=== PATIENT | female | born 1950 | race Caucasian/White ===

== ENCOUNTER → 2016-07-30 | Outpatient (CLI) | payer OTHER ==
--- NOTE | 2016-07-30 17:29 | REPMRS ---
Patient History The patient states she has not had a clinical breast exam in over a year. Patient is postmenopausal. No known family history of cancer. Digital Woman Screen Mammo: July 30, 2016 - Exam #: [id number] Bilateral CC and MLO view(s) were taken. Technologist: Dee Dee Tao, Technologist No prior studies available for comparison. FINDINGS: There are scattered fibroglandular densities. There is no evidence of dominant mass, architectural distortion, or clustered microcalcification typical of malignancy. ASSESSMENT: BI-RADS/ACR category 1 mammogram. Negative. Recommendation Routine screening mammogram of both breasts in 1 year (for women over age 40). This mammogram was interpreted with the aid of an FDA-approved computer-aided dectection system. Electronically Signed By: Arsh Murphy MD 07/30/16 [id number]
== END ==
LOC: M WHC 11:23
PROVIDERS: ATTEND Physician Assistant
DX: Z12.31 Encounter for screening mammogram for malignant neoplasm of breast (principal)

== ENCOUNTER → 2016-08-27 | Outpatient (CLI) | payer OTHER ==
[~2016-08-27] VITALS: Ht 167.6 cm; Wt 68.0 kg
[~2016-08-27] MED LIST: LIDOCAINE 2% INJ 100 MG/5 ML SDV (FOR ANES.) As Ordered ONE; NS 1,000 ML IV SCH; OCUVTAB4 PO; PROPOFOL 200 MG/20 ML VIAL As Ordered ONE; SYST1SOL OU; XANA2TAB2 PO
--- NOTE | 2016-08-27 11:24 | ROOR ---
Patient Name: Torri Awan Procedure Date: 08/27/2016 11:02 AM Date of : 1950 Age: 65 Room: [facility] Gender: Female Note Status: Finalized Procedure: Upper GI endoscopy Indications: Heartburn Providers: Kunal DOUGLASS MD Referring MD: ZAY Marc Requesting Provider: Medicines: Monitored Anesthesia Care Complications: No immediate complications. Procedure: Pre-Anesthesia Assessment: - The heart rate, respiratory rate, oxygen saturations, blood pressure, adequacy of pulmonary ventilation, and response to care were monitored throughout the procedure. The Endoscope was introduced through the mouth, and advanced to the second part of duodenum. The upper GI endoscopy was accomplished without difficulty. The patient tolerated the procedure well. Findings: There were esophageal mucosal changes consistent with short-segment Lees's esophagus present in the lower third of the esophagus. The maximum longitudinal extent of these mucosal changes was 2 cm in length. Mucosa was biopsied with a cold forceps for histology randomly from 34 to 36 cm from the incisors. A total of 2 specimen bottles were sent to pathology. Small Hiatal Hernia. The exam was otherwise without abnormality. Impression: - Esophageal mucosal changes consistent with short-segment Lees's esophagus. Biopsied. - Small Hiatal Hernia. - The examination was otherwise normal. Recommendation: - Use Prilosec (omeprazole) 40 mg PO BID indefinitely. (for Barretts esophagus) - Script was sent to your pharmacy - Telephone endoscopist for pathology results in 2 weeks. - Repeat upper endoscopy in 3 years for surveillance. Kunal Douglass MD Kunal DOUGLASS MD 08/27/2016 11:23:39 AM This report has been signed electronically. Number of Addenda: 0 Note Initiated On: 08/27/2016 11:02 AM Estimated Blood Loss: Estimated blood loss: none.
--- NOTE | 2016-08-27 11:49 | ROOR ---
Patient Name: Torri Awan Procedure Date: 08/27/2016 11:03 AM Date of : 1950 Age: 65 Room: [facility] Gender: Female Note Status: Finalized Procedure: Colonoscopy Indications: Screening for colorectal malignant neoplasm Providers: Kunal DOUGLASS MD Referring MD: ZAY Marc Requesting Provider: Medicines: Monitored Anesthesia Care Complications: No immediate complications. Procedure: Pre-Anesthesia Assessment: - The heart rate, respiratory rate, oxygen saturations, blood pressure, adequacy of pulmonary ventilation, and response to care were monitored throughout the procedure. The Colonoscope was introduced through the anus and advanced to the cecum, identified by appendiceal orifice and ileocecal valve. The colonoscopy was performed without difficulty. The patient tolerated the procedure well. The quality of the bowel preparation was good. Findings: The perianal and digital rectal examinations were normal. (Exam: Complete, Prep: Good or Excellent.) Five sessile polyps were found in the sigmoid colon, splenic flexure and ascending colon. The polyps were diminutive in size. These polyps were removed with a cold snare. Resection and retrieval were complete. Multiple small-mouthed diverticula were found in the sigmoid colon and descending colon. There was evidence of diverticular spasm. Small Internal Hemorrhoids. The exam was otherwise without abnormality. Impression: - Five diminutive polyps in the sigmoid, at the splenic flexure and ascending colon, removed with a cold snare. Resected and retrieved. - Moderate diverticulosis in the sigmoid colon and in the descending colon. There was evidence of diverticular spasm. - Small Internal Hemorrhoids. - The examination was otherwise normal. Recommendation: - Telephone endoscopist for pathology results in 2 weeks. - If the pathology report reveals adenomatous tissue, then repeat the colonoscopy for surveillance in 3 years. - If the pathology report indicates hyperplastic polyp, then repeat colonoscopy for screening purposes in 10 years. Kunal Douglass MD Kunal DOUGLASS MD 08/27/2016 11:49:04 AM This report has been signed electronically. Number of Addenda: 0 Note Initiated On: 08/27/2016 11:03 AM Estimated Blood Loss: Estimated blood loss: none.
[2016-08-27 12:15] VITALS: BP 141/65
== END | disposition home or self-care (01) ==
LOC: M OPP 09:14
PROVIDERS: ATTEND Internal Medicine Gastroenterology
DX: Z12.11 Encounter for screening for malignant neoplasm of colon (principal); D12.5 Benign neoplasm of sigmoid colon; D12.3 Benign neoplasm of transverse colon; D12.2 Benign neoplasm of ascending colon; K57.30 Diverticulosis of large intestine without perforation or abscess without bleeding; K64.8 Other hemorrhoids; R13.10 Dysphagia, unspecified; R12 Heartburn; K44.9 Diaphragmatic hernia without obstruction or gangrene; K31.89 Other diseases of stomach and duodenum; M54.9 Dorsalgia, unspecified; F41.9 Anxiety disorder, unspecified; J44.9 Chronic obstructive pulmonary disease, unspecified; R06.02 Shortness of breath; H35.30 Unspecified macular degeneration; Z87.891 Personal history of nicotine dependence; Z88.5 Allergy status to narcotic agent; Z88.8 Allergy status to other drugs, medicaments and biological substances; Z88.1 Allergy status to other antibiotic agents; Z79.899 Other long term (current) drug therapy; Z80.7 Family history of other malignant neoplasms of lymphoid, hematopoietic and related tissues; Z80.1 Family history of malignant neoplasm of trachea, bronchus and lung; Z80.8 Family history of malignant neoplasm of other organs or systems

== ENCOUNTER → 2016-10-07 | Outpatient (REF) | payer OTHER ==
[~2016-10-07] MED LIST changes: -LIDOCAINE 2% INJ 100 MG/5 ML SDV (FOR ANES.) As Ordered ONE; -NS 1,000 ML IV SCH; -PROPOFOL 200 MG/20 ML VIAL As Ordered ONE
[2016-10-07 13:41] LABS: ALBUMIN 3.8 GM/DL (3.2-5.2); ALBUMIN/GLOBULIN RATIO 1.27 (1.00-1.93); ALKALINE PHOSPHATASE 87 U/L (45-117); ALT/SGPT 23 U/L (12-78); ANION GAP 5 MEQ/L (8-16); AST/SGOT 16 U/L (15-37); BILIRUBIN,TOTAL 0.6 MG/DL (0.2-1.0); BLOOD UREA NITROGEN 9 MG/DL (7-18); CALCIUM LEVEL 8.4 MG/DL (8.8-10.2); CARBON DIOXIDE LEVEL 29 MEQ/L (21-32); CHLORIDE LEVEL 99 MEQ/L (98-107); CHOLESTEROL LEVEL 195 MG/DL (<200); CREATININE FOR GFR 0.63 MG/DL (0.55-1.02); GLOMERULAR FILTRATION RATE > 60.0 (>45); GLUCOSE, FASTING 87 MG/DL (80-110); POTASSIUM SERUM 4.8 MEQ/L (3.5-5.1); SODIUM LEVEL 133 MEQ/L (136-145); TOTAL PROTEIN 6.8 GM/DL (6.4-8.2); TRIGLYCERIDES LEVEL 58 MG/DL (<150)
== END ==
LOC: M SFHCPLAZ 09:00
PROVIDERS: ATTEND Physician Assistant
DX: I10 Essential (primary) hypertension (principal); E78.4 Other hyperlipidemia; R53.83 Other fatigue; E55.9 Vitamin D deficiency, unspecified

== ENCOUNTER → 2016-10-11 | Outpatient (CLI) | payer OTHER ==
--- NOTE | 2016-10-12 04:56 | REP ---
Clinical: Lung screening. Follow-up. Comparison: 10/13/2015, 09/13/2014 Technique: Axial low-dose noncontrast images from the thoracic inlet to the upper abdomen using lung screening technique. Findings: The lung reyes are well-aerated. Subtle diffuse chronic interstitial changes and suspected mild early subpleural fibrosis remain relatively stable 07/12/2014. No pulmonary nodule or mass lesion is appreciated. No pleural effusion/reaction or pneumothorax. Tracheobronchial tree is patent. Impression: Lung-RADS category II-S. Chronic interstitial changes and suspected minimal early subpleural fibrosis with very subtle nodularity essentially unchanged from prior examination. Signed by Leif Garrido MD 10/12/2016 04:48 A
== END ==
LOC: M RAD 15:13
PROVIDERS: ATTEND Internal Medicine Pulmonary Disease
DX: R91.8 Other nonspecific abnormal finding of lung field (principal); J84.10 Pulmonary fibrosis, unspecified

== ENCOUNTER → 2017-01-12 | Outpatient (REF) | payer OTHER ==
[2017-01-12 18:20] LABS: ALBUMIN 3.7 GM/DL (3.2-5.2); ALBUMIN/GLOBULIN RATIO 1.09 (1.00-1.93); ALKALINE PHOSPHATASE 83 U/L (45-117); ALT/SGPT 29 U/L (12-78); ANION GAP 8 MEQ/L (8-16); AST/SGOT 14 U/L (15-37); BILIRUBIN,TOTAL 0.5 MG/DL (0.2-1.0); BLOOD UREA NITROGEN 14 MG/DL (7-18); CARBON DIOXIDE LEVEL 28 MEQ/L (21-32); CHLORIDE LEVEL 102 MEQ/L (98-107); CREATININE FOR GFR 0.74 MG/DL (0.55-1.02); GLOMERULAR FILTRATION RATE > 60.0 (>45); GLUCOSE, FASTING 113 MG/DL (80-110); SODIUM LEVEL 138 MEQ/L (136-145); TOTAL PROTEIN 7.1 GM/DL (6.4-8.2)
== END ==
LOC: M LABNEURO 15:22
PROVIDERS: ATTEND Physician Assistant
DX: E55.9 Vitamin D deficiency, unspecified (principal)

== ENCOUNTER → 2017-05-17 | Outpatient (REF) | payer OTHER ==
[2017-05-17 13:51] LABS: ALBUMIN/GLOBULIN RATIO 1.18 (1.00-1.93); ALKALINE PHOSPHATASE 71 U/L (45-117); ALT/SGPT 26 U/L (12-78); ANION GAP 6 MEQ/L (8-16); AST/SGOT 17 U/L (7-37); BILIRUBIN,TOTAL 0.7 MG/DL (0.2-1.0); BLOOD UREA NITROGEN 13 MG/DL (7-18); CALCIUM LEVEL 8.7 MG/DL (8.8-10.2); CARBON DIOXIDE LEVEL 29 MEQ/L (21-32); CHLORIDE LEVEL 100 MEQ/L (98-107); CHOLESTEROL LEVEL 225 MG/DL (<200); CHOLESTEROL RISK RATIO 2.227 (<5); CREATININE FOR GFR 0.72 MG/DL (0.55-1.02); GLOMERULAR FILTRATION RATE > 60.0 (>45); GLUCOSE, FASTING 108 MG/DL (70-100); HDL CHOLESTEROL 101 MG/DL (>40); LDL CHOLESTEROL 112.8 MG/DL (<100); NON-HDL-C 124 MG/DL; POTASSIUM SERUM 4.4 MEQ/L (3.5-5.1); SODIUM LEVEL 135 MEQ/L (136-145); TOTAL PROTEIN 7.4 GM/DL (6.4-8.2); TRIGLYCERIDES LEVEL 56 MG/DL (<150)
[2017-05-17 13:54] LABS: TOTAL 25(OH) VITAMIN D 76.4 NG/ML (30.0-100.0)
== END ==
LOC: M LABNEURO 08:32
DX: I10 Essential (primary) hypertension (principal); E78.4 Other hyperlipidemia; E55.9 Vitamin D deficiency, unspecified
CPT/HCPCS: 84443

== ENCOUNTER → 2017-08-05 | Outpatient (CLI) | payer OTHER | LOC: M WHC 14:33 | DX: Z12.31 Encounter for screening mammogram for malignant neoplasm of breast (principal); Z78.0 Asymptomatic menopausal state | CPT/HCPCS: 77067 ==

== ENCOUNTER → 2017-08-09 | Outpatient (REF) | payer OTHER ==
[2017-08-09 19:07] LABS: ANION GAP 7 MEQ/L (8-16); BLOOD UREA NITROGEN 10 MG/DL (7-18); CARBON DIOXIDE LEVEL 27 MEQ/L (21-32); CHLORIDE LEVEL 94 MEQ/L (98-107); CREATININE FOR GFR 0.72 MG/DL (0.55-1.30); GLOMERULAR FILTRATION RATE > 60.0 (>45); GLUCOSE, FASTING 88 MG/DL (70-100); POTASSIUM SERUM 4.5 MEQ/L (3.5-5.1); SODIUM LEVEL 128 MEQ/L (136-145)
== END ==
LOC: M LABNEURO 13:14
DX: I10 Essential (primary) hypertension (principal)
CPT/HCPCS: 80048

== ENCOUNTER → 2017-08-10 | Outpatient (REF) | payer OTHER ==
[2017-08-10 13:51] LABS: ANION GAP 6 MEQ/L (8-16); BLOOD UREA NITROGEN 12 MG/DL (7-18); CALCIUM LEVEL 9.1 MG/DL (8.8-10.2); CARBON DIOXIDE LEVEL 28 MEQ/L (21-32); CHLORIDE LEVEL 95 MEQ/L (98-107); CREATININE FOR GFR 0.68 MG/DL (0.55-1.30); GLOMERULAR FILTRATION RATE > 60.0 (>45); GLUCOSE, FASTING 91 MG/DL (70-100); SODIUM LEVEL 129 MEQ/L (136-145)
[2017-08-10 13:52] LABS: POTASSIUM SERUM 5.2 MEQ/L (3.5-5.1)
== END ==
LOC: M LABNEURO 10:29
DX: I10 Essential (primary) hypertension (principal)
CPT/HCPCS: 80048

== ENCOUNTER → 2017-08-17 | Outpatient (REF) | payer OTHER ==
[2017-08-17 17:12] LABS: OSMOLALITY URINE 379 MOSM/KG (500-800)
[2017-08-17 17:37] LABS: SODIUM,RANDOM URINE < 10 MEQ/L
[2017-08-17 18:42] LABS: ANION GAP 5 MEQ/L (8-16); BLOOD UREA NITROGEN 10 MG/DL (7-18); CALCIUM LEVEL 8.6 MG/DL (8.8-10.2); CARBON DIOXIDE LEVEL 29 MEQ/L (21-32); CHLORIDE LEVEL 95 MEQ/L (98-107); CREATININE FOR GFR 0.76 MG/DL (0.55-1.30); GLOMERULAR FILTRATION RATE > 60.0 (>45); GLUCOSE, FASTING 89 MG/DL (70-100); POTASSIUM SERUM 4.4 MEQ/L (3.5-5.1); SODIUM LEVEL 129 MEQ/L (136-145)
== END ==
LOC: M LABNEURO 15:11
DX: E87.1 Hypo-osmolality and hyponatremia (principal)
CPT/HCPCS: 83935

== ENCOUNTER → 2017-09-08 | Outpatient (REF) | payer OTHER ==
[2017-09-08 18:21] LABS: ANION GAP 6 MEQ/L (8-16); BLOOD UREA NITROGEN 13 MG/DL (7-18); CARBON DIOXIDE LEVEL 27 MEQ/L (21-32); CHLORIDE LEVEL 99 MEQ/L (98-107); CREATININE FOR GFR 0.81 MG/DL (0.55-1.30); GLOMERULAR FILTRATION RATE > 60.0 (>45); GLUCOSE, FASTING 100 MG/DL (70-100); SODIUM LEVEL 132 MEQ/L (136-145)
== END ==
LOC: M LABNEURO 14:13
DX: E87.1 Hypo-osmolality and hyponatremia (principal)
CPT/HCPCS: 80048

== ENCOUNTER → 2017-09-23 | Outpatient (CLI) | payer OTHER ==
[2017-09-23 17:56] LABS: ALBUMIN 3.8 GM/DL (3.2-5.2); ALBUMIN/GLOBULIN RATIO 1.23 (1.00-1.93); ALKALINE PHOSPHATASE 83 U/L (45-117); ALT/SGPT 22 U/L (12-78); ANION GAP 8 MEQ/L (8-16); AST/SGOT 12 U/L (7-37); BILIRUBIN,TOTAL 0.9 MG/DL (0.2-1.0); BLOOD UREA NITROGEN 11 MG/DL (7-18); CALCIUM LEVEL 8.8 MG/DL (8.8-10.2); CARBON DIOXIDE LEVEL 26 MEQ/L (21-32); CHLORIDE LEVEL 99 MEQ/L (98-107); CREATININE FOR GFR 0.81 MG/DL (0.55-1.30); GLOMERULAR FILTRATION RATE > 60.0 (>45); GLUCOSE, FASTING 102 MG/DL (70-100); POTASSIUM SERUM 4.8 MEQ/L (3.5-5.1); SODIUM LEVEL 133 MEQ/L (136-145); TOTAL PROTEIN 6.9 GM/DL (6.4-8.2)
[2017-09-23 18:22] LABS: APPEARANCE, URINE CLEAR (CLEAR); BACTERIA, URINE AUTO NEGATIVE (NEGATIVE); BILIRUBIN, URINE AUTO NEGATIVE (NEGATIVE); BLOOD, URINE BLOOD 1+ (NEGATIVE); COLOR, URINE YELLOW (YELLOW); GLUCOSE, URINE (UA) AUTO NEGATIVE (NEGATIVE); KETONE, URINE AUTO NEGATIVE (NEGATIVE); LEUKOCYTE ESTERASE, URINE AUTO NEGATIVE (NEGATIVE); MUCUS, URINE SMALL (NEGATIVE); NITRITE, URINE AUTO NEGATIVE (NEGATIVE); PROTEIN, URINE AUTO NEGATIVE (NEGATIVE); RBC, URINE AUTO 1 /HPF (0-3); SQUAMOUS EPITHELIAL CELL UR AU 1 /HPF (0-6); UROBILINOGEN, URINE AUTO 0.2 mg/dL (0.0-2.0); WBC, URINE AUTO 1 /HPF (0-3)
[2017-09-23 18:24] LABS: BASO % 0.3 % (0.0-1.0); EOS # 0.2 10^3/uL (0.0-0.50); EOS % 2.7 % (0.0-3.0); HEMATOCRIT 36.6 % (36.0-47.0); HEMOGLOBIN 12.6 g/dl (12.0-15.5); IMMATURE GRANULOCYTE % 0.5 % (0-3.0); LYMPH % 15.4 % (24.0-44.0); MEAN CORPUSCULAR HEMOGLOBIN 32.3 pg (27.0-33.0); MEAN CORPUSCULAR HGB CONC 34.4 g/dl (32.0-36.5); MEAN CORPUSCULAR VOLUME 93.8 fl (80.0-96.0); MONO # 0.8 10^3/uL (0.0-0.8); MONO % 11.9 % (0.0-5.0); NEUTROPHILS # 4.4 10^3/uL (1.8-7.7); NEUTROPHILS % 69.2 % (36.0-66.0); PLATELET COUNT, AUTOMATED 268 10^3/uL (150-450); RED CELL DISTRIBUTION WIDTH 12.6 % (11.5-14.5); WHITE BLOOD COUNT 6.4 10^3/uL (4.0-10.0)
[2017-09-23 20:07] LABS: ERYTHROCYTE SEDIMENTATION RATE 28 mm/hr (0-30)
== END ==
LOC: M WUC 10:43
DX: K21.9 Gastro-esophageal reflux disease without esophagitis (principal); Z13.220 Encounter for screening for lipoid disorders; I10 Essential (primary) hypertension
CPT/HCPCS: 80053

== ENCOUNTER → 2017-09-29 | Outpatient (REF) | payer OTHER | LOC: M SFHCLERA 11:32 | DX: D23.39 Other benign neoplasm of skin of other parts of face (principal); D22.5 Melanocytic nevi of trunk | CPT/HCPCS: 88305 ==

== ENCOUNTER → 2017-11-14 | Outpatient (CLI) | payer OTHER | LOC: M RAD 15:52 | DX: R91.8 Other nonspecific abnormal finding of lung field (principal); Z87.891 Personal history of nicotine dependence; Z12.2 Encounter for screening for malignant neoplasm of respiratory organs | CPT/HCPCS: G0297 ==

== ENCOUNTER → 2018-01-17 | Outpatient (CLI) | payer OTHER ==
[2018-01-17 09:21] LABS: ANION GAP 7 MEQ/L (8-16); BLOOD UREA NITROGEN 12 MG/DL (7-18); CARBON DIOXIDE LEVEL 27 MEQ/L (21-32); CHLORIDE LEVEL 96 MEQ/L (98-107); CHOLESTEROL LEVEL 225 MG/DL (<200); CHOLESTEROL RISK RATIO 2.647 (<5); CREATININE FOR GFR 0.79 MG/DL (0.55-1.30); GLOMERULAR FILTRATION RATE > 60.0 (>45); GLUCOSE, FASTING 98 MG/DL (70-100); HDL CHOLESTEROL 85 MG/DL (>40); LDL CHOLESTEROL 126 MG/DL (<100); NON-HDL-C 140 MG/DL; POTASSIUM SERUM 5.3 MEQ/L (3.5-5.1); SODIUM LEVEL 130 MEQ/L (136-145); TRIGLYCERIDES LEVEL 68 MG/DL (<150)
== END ==
LOC: M WUC 08:11
DX: Z01.812 Encounter for preprocedural laboratory examination (principal); R91.8 Other nonspecific abnormal finding of lung field; E78.2 Mixed hyperlipidemia; E87.1 Hypo-osmolality and hyponatremia; E55.9 Vitamin D deficiency, unspecified
CPT/HCPCS: 82306; 82565

== ENCOUNTER → 2018-01-17 | Outpatient (CLI) | payer OTHER ==
[2018-01-17 09:18] LABS: CREATININE FOR GFR 0.77 MG/DL (0.55-1.30); GLOMERULAR FILTRATION RATE > 60.0 (>45)
[2018-01-17 09:18] LABS: BLOOD UREA NITROGEN 12 MG/DL (7-18)
== END ==
LOC: M WUC 08:09
DX: Z01.812 Encounter for preprocedural laboratory examination (principal); R91.8 Other nonspecific abnormal finding of lung field

== ENCOUNTER → 2018-01-20 | Outpatient (CLI) | payer OTHER ==
[~2018-01-20] MED LIST changes: +ISOVUE-370 76% 100ML VIAL (Q9967) As Ordered; -OCUVTAB4 PO; -SYST1SOL OU; -XANA2TAB2 PO
== END ==
LOC: M RAD 11:03
DX: R91.8 Other nonspecific abnormal finding of lung field (principal)
CPT/HCPCS: Q9967

== ENCOUNTER → 2018-01-27 | Outpatient (CLI) | payer OTHER ==
[2018-01-27 09:40] LABS: ANION GAP 7 MEQ/L (8-16); BLOOD UREA NITROGEN 13 MG/DL (7-18); CALCIUM LEVEL 8.7 MG/DL (8.8-10.2); CARBON DIOXIDE LEVEL 28 MEQ/L (21-32); CHLORIDE LEVEL 98 MEQ/L (98-107); CREATININE FOR GFR 0.88 MG/DL (0.55-1.30); GLOMERULAR FILTRATION RATE > 60.0 (>45); GLUCOSE, FASTING 104 MG/DL (70-100); POTASSIUM SERUM 5.2 MEQ/L (3.5-5.1); SODIUM LEVEL 133 MEQ/L (136-145)
== END ==
LOC: M WUC 08:04
DX: E87.5 Hyperkalemia (principal)
CPT/HCPCS: 80048

== ENCOUNTER → 2018-01-31 | Outpatient (CLI) | payer OTHER | LOC: M PLARAD 07:38 | DX: R91.8 Other nonspecific abnormal finding of lung field (principal) | CPT/HCPCS: 78815 ==

== ENCOUNTER → 2018-02-07 | Outpatient (REF) | payer OTHER ==
[2018-02-07 17:11] LABS: PLATELET COUNT, AUTOMATED 306 10^3/uL (150-450)
[2018-02-07 17:22] LABS: INR 1.05; PARTIAL THROMBOPLASTIN TIME 31.2 SECONDS (25.4-37.6); PROTHROMBIN TIME 13.8 SECONDS (12.1-14.4)
== END ==
LOC: M LAB REF 16:52
DX: R91.8 Other nonspecific abnormal finding of lung field (principal)
CPT/HCPCS: 85049

== ENCOUNTER → 2018-02-20 | Outpatient (CLI) | payer OTHER ==
[~2018-02-20] MED LIST changes: +ACETAMINOPHEN 325 MG TAB As Ordered; -ISOVUE-370 76% 100ML VIAL (Q9967) As Ordered; +LIDOCAINE 1% MDV 20ML VIAL As Ordered; +LIDOCAINE 2% MDV 20 ML VIAL As Ordered; +MIDAZOLAM INJ 2 MG/2 ML VIAL (J2250) As Ordered; +fentaNYL 100 MCG/2 ML INJECTION (J3010) As Ordered
== END ==
LOC: M RADPRO 08:00
DX: C34.12 Malignant neoplasm of upper lobe, left bronchus or lung (principal); J95.811 Postprocedural pneumothorax
CPT/HCPCS: 32405

== ENCOUNTER → 2018-02-21 | Outpatient (CLI) | payer OTHER | LOC: M RAD 08:30 | DX: J93.83 Other pneumothorax (principal); Z98.890 Other specified postprocedural states | CPT/HCPCS: 71045 ==

== ENCOUNTER → 2018-03-02 | Outpatient (CLI) | payer OTHER | LOC: M SMT 11:11 | DX: C34.12 Malignant neoplasm of upper lobe, left bronchus or lung (principal) | CPT/HCPCS: 71046 ==

== ENCOUNTER → 2018-03-27 | Outpatient (CLI) | payer OTHER ==
[2018-03-27 10:46] LABS: ABG BASE EXCESS 0.6 (-2.0-2.0); ABG DEVICE ROOM AIR; ABG HCO3 23.9 MEQ/L (22.0-26.0); ABG O2 SATURATION 97.4 % (95.0-99.0); ABG PARTIAL PRESSURE CO2 34.1 mmHg (35.0-45.0); ABG PARTIAL PRESSURE O2 95.9 mmHg (75.0-100.0); ABG pH (ARTERIAL) 7.464 UNITS (7.350-7.450)
[2018-03-27 11:00] LABS: HEMATOCRIT 34.9 % (36.0-47.0); HEMOGLOBIN 12.1 g/dl (12.0-15.5); MEAN CORPUSCULAR HEMOGLOBIN 31.7 pg (27.0-33.0); MEAN CORPUSCULAR HGB CONC 34.7 g/dl (32.0-36.5); MEAN CORPUSCULAR VOLUME 91.4 fl (80.0-96.0); PLATELET COUNT, AUTOMATED 275 10^3/uL (150-450); RED BLOOD COUNT 3.82 10^6/uL (4.00-5.40); RED CELL DISTRIBUTION WIDTH 11.7 % (11.5-14.5); WHITE BLOOD COUNT 10.6 10^3/uL (4.0-10.0)
[2018-03-27 11:03] LABS: APPEARANCE, URINE CLEAR (CLEAR); BACTERIA, URINE AUTO NEGATIVE (NEGATIVE); BILIRUBIN, URINE AUTO NEGATIVE (NEGATIVE); BLOOD, URINE BLOOD 1+ (NEGATIVE); COLOR, URINE STRAW (YELLOW); GLUCOSE, URINE (UA) AUTO NEGATIVE (NEGATIVE); KETONE, URINE AUTO NEGATIVE (NEGATIVE); LEUKOCYTE ESTERASE, URINE AUTO NEGATIVE (NEGATIVE); NITRITE, URINE AUTO NEGATIVE (NEGATIVE); PROTEIN, URINE AUTO NEGATIVE (NEGATIVE); RBC, URINE AUTO 2 /HPF (0-3); SPECIFIC GRAVITY URINE AUTO 1.005 (1.002-1.035); SQUAMOUS EPITHELIAL CELL UR AU 0 /HPF (0-6); UROBILINOGEN, URINE AUTO 0.2 mg/dL (0.0-2.0); WBC, URINE AUTO 0 /HPF (0-3)
[2018-03-27 11:31] LABS: ANION GAP 6 MEQ/L (8-16); BLOOD UREA NITROGEN 15 MG/DL (7-18); CALCIUM LEVEL 8.6 MG/DL (8.8-10.2); CARBON DIOXIDE LEVEL 29 MEQ/L (21-32); CHLORIDE LEVEL 97 MEQ/L (98-107); CREATININE FOR GFR 0.75 MG/DL (0.55-1.30); GLOMERULAR FILTRATION RATE > 60.0 (>45); GLUCOSE, FASTING 94 MG/DL (70-100); POTASSIUM SERUM 4.9 MEQ/L (3.5-5.1); SODIUM LEVEL 132 MEQ/L (136-145)
[2018-03-27 11:39] LABS: INR 0.91; PROTHROMBIN TIME 12.3 SECONDS (12.1-14.4)
[2018-03-27 11:40] LABS: PARTIAL THROMBOPLASTIN TIME 28.5 SECONDS (25.4-37.6)
== END ==
LOC: M ADMPAT 09:37
DX: Z01.818 Encounter for other preprocedural examination (principal); C34.90 Malignant neoplasm of unspecified part of unspecified bronchus or lung

== ENCOUNTER 2018-03-29 05:46 | Inpatient (IN) | payer OTHER ==
[2018-03-29] MEDS: LR 1,000 ML IV ×3 (06:30→12:00)
[2018-03-29] MEDS: VANCOMYCIN HCL 1,000 MG, VIAL MATE ADAPTER 1 EACH in D5W 250 ML IV ×2 (06:45→18:00)
[2018-03-29] MEDS ORDERED: fentaNYL 100 MCG/2 ML INJECTION (J3010) As Ordered (06:53)
[2018-03-29] MEDS ORDERED: MIDAZOLAM INJ 2 MG/2 ML VIAL (J2250) As Ordered ×2 (06:53→08:17)
[2018-03-29] MEDS: fentaNYL 100 MCG/2 ML INJECTION (J3010) IV ×6 (07:10→12:54)
[2018-03-29] MEDS: MIDAZOLAM INJ 2 MG/2 ML VIAL (J2250) IV ×2 (07:10→07:12)
[2018-03-29] MEDS ORDERED: BUPIVACAINE HCL 0.25% 30 ML VIAL As Ordered (07:17)
[2018-03-29] MEDS ORDERED: LIDOCAINE 5% OINT 30 GM As Ordered (07:22)
[2018-03-29 07:40] LABS: IMMEDIATE SPIN CROSSMATCH 1 2
[2018-03-29] MEDS ORDERED: NALOXONE INJ 0.4 MG/1 ML VIAL (J2310) IV (07:45)
[2018-03-29] MEDS ORDERED: ONDANSETRON 4MG/2ML VIAL (J2405) IV ×2 (07:45→12:00)
[2018-03-29] MEDS ORDERED: WALLBOXKEY XX (07:45)
[2018-03-29] MEDS ORDERED: EPIDURAL/PCA KEYS XX (07:45)
[2018-03-29] MEDS ORDERED: METOCLOPRAMIDE INJ 10MG/2ML VIAL (J2765) IV ×2 (07:45→12:00)
[2018-03-29] MEDS ORDERED: diphenhydrAMINE INJ 50MG/ML VIAL (J1200) IV (07:45)
[2018-03-29] MEDS ORDERED: CETACAINE SPRAY 5GM As Ordered (07:48)
[2018-03-29] MEDS: CETACAINE SPRAY 5GM As Ordered (07:49)
[2018-03-29] MEDS: MUPIROCIN 2% OINT 22 GM TUBE TOP (07:55)
[2018-03-29] MEDS ORDERED: dexameTHASONE 4 MG/ML 1ML VIAL (J1100) As Ordered (08:17)
[2018-03-29] MEDS ORDERED: METOCLOPRAMIDE INJ 10MG/2ML VIAL (J2765) As Ordered (08:17)
[2018-03-29] MEDS ORDERED: fentaNYL 250 MCG/5 ML INJECTION (J3010) As Ordered (08:17)
[2018-03-29] MEDS ORDERED: VASOPRESSIN INJ 20 UNITS/ML VIAL As Ordered (08:17)
[2018-03-29] MEDS ORDERED: LIDOCAINE 2% JELLY 30 ML As Ordered (08:17)
[2018-03-29] MEDS ORDERED: ROCURONIUM BROMIDE 50 MG/5 ML VIAL As Ordered ×2 (08:17→08:44)
[2018-03-29] MEDS ORDERED: LIDOCAINE 2% INJ 100 MG/5 ML SDV (FOR ANES.) As Ordered (08:17)
[2018-03-29] MEDS ORDERED: PROPOFOL 200 MG/20 ML VIAL As Ordered (08:17)
[2018-03-29] MEDS ORDERED: SEVOFLURANE INHAL SOLN 250 ML BTL As Ordered (08:38)
[2018-03-29] MEDS ORDERED: SUGAMMADEX SODIUM 500 MG/5 ML VIAL (BRIDION) As Ordered (08:40)
[2018-03-29] MEDS ORDERED: ONDANSETRON 4MG/2ML VIAL (J2405) As Ordered (08:40)
[2018-03-29] MEDS: ATORVASTATIN 20 MG TAB PO (09:00)
[2018-03-29] MEDS: BUPIVACAINE LIPOSOME/PF 1.3% 20ML VIAL (13.3MG/ML)(EXPAREL)(C9290 PER1MG) As Ordered (11:06)
[2018-03-29] MEDS: BUPIVACAINE HCL 0.5% 10 ML VIAL As Ordered (11:06)
[2018-03-29] MEDS ORDERED: POLYVINYL ALCOHOL OPHTH SOLN 15 ML(LIQUITEARS) OU (11:45)
[2018-03-29] MEDS ORDERED: BISACODYL 10 MG SUPP PR (11:45)
[2018-03-29] MEDS ORDERED: PERCOCET 5MG/325MG TAB PO ×2 (11:45→12:00)
[2018-03-29] MEDS: FENTANYL/BUPIVACAINE/NACL BAG 250 ML EPIDURAL (11:48)
[2018-03-29 11:57] LABS: ABG BASE EXCESS -2.7 (-2.0-2.0); ABG HCO3 22.9 MEQ/L (22.0-26.0); ABG O2 SATURATION 99.2 % (95.0-99.0); ABG PARTIAL PRESSURE CO2 42.8 mmHg (35.0-45.0); ABG PARTIAL PRESSURE O2 150.8 mmHg (75.0-100.0); ABG STANDARD HCO3 22.2 MEQ/L (22.0-26.0); ABG TOTAL CO2 24.2 MEQ/L (23.0-31.0); ABG pH (ARTERIAL) 7.346 UNITS (7.350-7.450)
[2018-03-29] MEDS ORDERED: KETOROLAC 30 MG/ML VIAL (J1885) IV (12:00)
[2018-03-29] MEDS ORDERED: MEPERIDINE INJ 25 MG/ML VIAL (J2175) IV (12:00)
[2018-03-29] MEDS: KETOROLAC 30 MG/ML VIAL (J1885) IV ×2 (12:04→18:00)
[2018-03-29 12:13] LABS: BASO % 0.2 % (0.0-1.0); EOS % 0.1 % (0.0-3.0); HEMOGLOBIN 11.6 g/dl (12.0-15.5); IMMATURE GRANULOCYTE % 0.7 % (0-3.0); LYMPH # 0.4 10^3/uL (1.5-4.5); LYMPH % 2.3 % (24.0-44.0); MEAN CORPUSCULAR HEMOGLOBIN 31.1 pg (27.0-33.0); MEAN CORPUSCULAR HGB CONC 34.1 g/dl (32.0-36.5); MEAN CORPUSCULAR VOLUME 91.2 fl (80.0-96.0); MONO # 0.4 10^3/uL (0.0-0.8); NEUTROPHILS # 17.8 10^3/uL (1.8-7.7); NEUTROPHILS % 94.7 % (36.0-66.0); PLATELET COUNT, AUTOMATED 218 10^3/uL (150-450); RED BLOOD COUNT 3.73 10^6/uL (4.00-5.40); WHITE BLOOD COUNT 18.8 10^3/uL (4.0-10.0)
[2018-03-29 12:30] LABS: ANION GAP 10 MEQ/L (8-16); BLOOD UREA NITROGEN 17 MG/DL (7-18); CALCIUM LEVEL 7.6 MG/DL (8.8-10.2); CARBON DIOXIDE LEVEL 22 MEQ/L (21-32); CHLORIDE LEVEL 103 MEQ/L (98-107); CREATININE FOR GFR 0.83 MG/DL (0.55-1.30); GLOMERULAR FILTRATION RATE > 60.0 (>45); GLUCOSE, FASTING 196 MG/DL (70-100); POTASSIUM SERUM 4.3 MEQ/L (3.5-5.1); SODIUM LEVEL 135 MEQ/L (136-145)
[2018-03-29] MEDS: KCL 20MEQ IN D5/NS 1000ML 1,000 ML IV (12:45)
[2018-03-29] MEDS: LEVALBUTEROL 1.25 MG/0.5 ML CONCENTRATE NEB NEB ×2 (15:12→19:57)
[2018-03-29] MEDS: HEPARIN SOD (PORCINE) 5000 UNITS/ML VIAL SC (20:37)
[2018-03-29] MEDS: DOCUSATE SODIUM 100 MG CAP PO (20:37)
[2018-03-29] MEDS: guaiFENesin ER 600 MG TAB PO (21:52)
[2018-03-30] MEDS: KETOROLAC 30 MG/ML VIAL (J1885) IV ×5 (00:12→23:40)
[2018-03-30] MEDS: LEVALBUTEROL 1.25 MG/0.5 ML CONCENTRATE NEB NEB ×4 (01:06→19:48)
[2018-03-30] MEDS: KCL 20MEQ IN D5/NS 1000ML 1,000 ML IV (03:16)
[2018-03-30 05:06] LABS: BASO % 0.1 % (0.0-1.0); HEMATOCRIT 29.1 % (36.0-47.0); HEMOGLOBIN 9.8 g/dl (12.0-15.5); IMMATURE GRANULOCYTE % 0.4 % (0-3.0); LYMPH # 1.2 10^3/uL (1.5-4.5); MEAN CORPUSCULAR HEMOGLOBIN 30.6 pg (27.0-33.0); MEAN CORPUSCULAR HGB CONC 33.7 g/dl (32.0-36.5); MEAN CORPUSCULAR VOLUME 90.9 fl (80.0-96.0); MONO # 1.2 10^3/uL (0.0-0.8); MONO % 8.9 % (0.0-5.0); NEUTROPHILS # 10.9 10^3/uL (1.8-7.7); NEUTROPHILS % 81.6 % (36.0-66.0); PLATELET COUNT, AUTOMATED 188 10^3/uL (150-450); RED CELL DISTRIBUTION WIDTH 13.3 % (11.5-14.5); WHITE BLOOD COUNT 13.4 10^3/uL (4.0-10.0)
[2018-03-30 05:27] LABS: ANION GAP 7 MEQ/L (8-16); BLOOD UREA NITROGEN 16 MG/DL (7-18); CALCIUM LEVEL 7.5 MG/DL (8.8-10.2); CARBON DIOXIDE LEVEL 23 MEQ/L (21-32); CHLORIDE LEVEL 100 MEQ/L (98-107); CREATININE FOR GFR 0.73 MG/DL (0.55-1.30); GLOMERULAR FILTRATION RATE > 60.0 (>45); GLUCOSE, FASTING 121 MG/DL (70-100); POTASSIUM SERUM 4.3 MEQ/L (3.5-5.1); SODIUM LEVEL 130 MEQ/L (136-145)
[2018-03-30 06:06] LABS: ABG BASE EXCESS -2.3 (-2.0-2.0); ABG HCO3 19.9 MEQ/L (22.0-26.0); ABG O2 SATURATION 97.9 % (95.0-99.0); ABG PARTIAL PRESSURE CO2 26.5 mmHg (35.0-45.0); ABG PARTIAL PRESSURE O2 105.5 mmHg (75.0-100.0); ABG STANDARD HCO3 22.6 MEQ/L (22.0-26.0); ABG TOTAL CO2 20.7 MEQ/L (23.0-31.0); ABG pH (ARTERIAL) 7.494 UNITS (7.350-7.450)
[2018-03-30] MEDS: VANCOMYCIN HCL 1,000 MG, VIAL MATE ADAPTER 1 EACH in D5W 250 ML IV ×2 (06:31→20:03)
[2018-03-30] MEDS: ATORVASTATIN 20 MG TAB PO (08:46)
[2018-03-30] MEDS: MOM 30ML SUSPENSION UDC PO (08:46)
[2018-03-30] MEDS: DOCUSATE SODIUM 100 MG CAP PO ×2 (08:46→20:04)
[2018-03-30] MEDS: HEPARIN SOD (PORCINE) 5000 UNITS/ML VIAL SC ×2 (08:47→20:04)
[2018-03-30] MEDS: PANTOPRAZOLE 40MG TAB (PROTONIX) PO (08:47)
[2018-03-30] MEDS: LOSARTAN 50 MG TAB PO (08:47)
[2018-03-30] MEDS: guaiFENesin ER 600 MG TAB PO ×2 (08:47→20:04)
[2018-03-30] MEDS: FENTANYL/BUPIVACAINE/NACL BAG 250 ML EPIDURAL (12:52)
[2018-03-30] MEDS: SODIUM CHLORIDE HYPERTONIC 3% 15ML NEB SOL INH ×2 (15:54→19:48)
[2018-03-30 18:28] LABS: VANCOMYCIN LEVEL TROUGH 11.2 UG/ML (10.0-20.0)
[2018-03-31] MEDS: LEVALBUTEROL 1.25 MG/0.5 ML CONCENTRATE NEB NEB ×7 (00:05→23:58)
[2018-03-31 05:12] LABS: BASO % 0.2 % (0.0-1.0); EOS # 0.1 10^3/uL (0.0-0.50); EOS % 0.6 % (0.0-3.0); HEMATOCRIT 29.8 % (36.0-47.0); IMMATURE GRANULOCYTE % 0.5 % (0-3.0); LYMPH # 1.2 10^3/uL (1.5-4.5); LYMPH % 11.5 % (24.0-44.0); MEAN CORPUSCULAR HEMOGLOBIN 30.6 pg (27.0-33.0); MEAN CORPUSCULAR HGB CONC 33.6 g/dl (32.0-36.5); MEAN CORPUSCULAR VOLUME 91.1 fl (80.0-96.0); MONO # 1.1 10^3/uL (0.0-0.8); MONO % 10.2 % (0.0-5.0); NEUTROPHILS # 8.3 10^3/uL (1.8-7.7); PLATELET COUNT, AUTOMATED 191 10^3/uL (150-450); RED BLOOD COUNT 3.27 10^6/uL (4.00-5.40); RED CELL DISTRIBUTION WIDTH 13.4 % (11.5-14.5); WHITE BLOOD COUNT 10.8 10^3/uL (4.0-10.0)
[2018-03-31 05:16] LABS: ANION GAP 6 MEQ/L (8-16); BLOOD UREA NITROGEN 15 MG/DL (7-18); CALCIUM LEVEL 7.7 MG/DL (8.8-10.2); CARBON DIOXIDE LEVEL 25 MEQ/L (21-32); CHLORIDE LEVEL 101 MEQ/L (98-107); GLOMERULAR FILTRATION RATE > 60.0 (>45); GLUCOSE, FASTING 97 MG/DL (70-100); POTASSIUM SERUM 4.4 MEQ/L (3.5-5.1); SODIUM LEVEL 132 MEQ/L (136-145)
[2018-03-31] MEDS: VANCOMYCIN HCL 1,000 MG, VIAL MATE ADAPTER 1 EACH in D5W 250 ML IV ×2 (06:33→18:17)
[2018-03-31] MEDS: KETOROLAC 30 MG/ML VIAL (J1885) IV ×4 (06:34→23:46)
[2018-03-31] MEDS: SODIUM CHLORIDE HYPERTONIC 3% 15ML NEB SOL INH ×3 (08:00→23:58)
[2018-03-31] MEDS: MOM 30ML SUSPENSION UDC PO (08:35)
[2018-03-31] MEDS: LOSARTAN 50 MG TAB PO (08:35)
[2018-03-31] MEDS: PANTOPRAZOLE 40MG TAB (PROTONIX) PO (08:35)
[2018-03-31] MEDS: HEPARIN SOD (PORCINE) 5000 UNITS/ML VIAL SC ×2 (08:35→20:17)
[2018-03-31] MEDS: DOCUSATE SODIUM 100 MG CAP PO ×2 (08:35→20:08)
[2018-03-31] MEDS: guaiFENesin ER 600 MG TAB PO ×2 (08:35→20:17)
[2018-03-31] MEDS: ATORVASTATIN 20 MG TAB PO (08:35)
[2018-03-31] MEDS: FENTANYL/BUPIVACAINE/NACL BAG 250 ML EPIDURAL (11:26)
[2018-03-31] MEDS: OMEPRAZOLE 20 MG CAP PO (17:29)
[2018-04-01] MEDS: LEVALBUTEROL 1.25 MG/0.5 ML CONCENTRATE NEB NEB ×5 (02:00→23:16)
[2018-04-01 05:05] LABS: BASO % 0.3 % (0.0-1.0); EOS # 0.1 10^3/uL (0.0-0.50); EOS % 1.6 % (0.0-3.0); HEMATOCRIT 27.7 % (36.0-47.0); HEMOGLOBIN 9.4 g/dl (12.0-15.5); IMMATURE GRANULOCYTE % 0.2 % (0-3.0); LYMPH # 1.1 10^3/uL (1.5-4.5); LYMPH % 12.2 % (24.0-44.0); MEAN CORPUSCULAR HEMOGLOBIN 30.8 pg (27.0-33.0); MEAN CORPUSCULAR HGB CONC 33.9 g/dl (32.0-36.5); MEAN CORPUSCULAR VOLUME 90.8 fl (80.0-96.0); MONO # 0.9 10^3/uL (0.0-0.8); NEUTROPHILS # 6.7 10^3/uL (1.8-7.7); NEUTROPHILS % 75.7 % (36.0-66.0); PLATELET COUNT, AUTOMATED 213 10^3/uL (150-450); RED BLOOD COUNT 3.05 10^6/uL (4.00-5.40); RED CELL DISTRIBUTION WIDTH 13.3 % (11.5-14.5); WHITE BLOOD COUNT 8.8 10^3/uL (4.0-10.0)
[2018-04-01 05:09] LABS: ANION GAP 6 MEQ/L (8-16); BLOOD UREA NITROGEN 13 MG/DL (7-18); CALCIUM LEVEL 8.3 MG/DL (8.8-10.2); CARBON DIOXIDE LEVEL 26 MEQ/L (21-32); CHLORIDE LEVEL 101 MEQ/L (98-107); CREATININE FOR GFR 0.62 MG/DL (0.55-1.30); GLOMERULAR FILTRATION RATE > 60.0 (>45); GLUCOSE, FASTING 110 MG/DL (70-100); POTASSIUM SERUM 4.6 MEQ/L (3.5-5.1); SODIUM LEVEL 133 MEQ/L (136-145)
[2018-04-01] MEDS: KETOROLAC 30 MG/ML VIAL (J1885) IV ×4 (06:10→23:28)
[2018-04-01] MEDS: VANCOMYCIN HCL 1,000 MG, VIAL MATE ADAPTER 1 EACH in D5W 250 ML IV ×2 (06:10→18:50)
[2018-04-01] MEDS: SODIUM CHLORIDE HYPERTONIC 3% 15ML NEB SOL INH ×3 (07:18→23:15)
[2018-04-01] MEDS: ATORVASTATIN 20 MG TAB PO (07:36)
[2018-04-01] MEDS: HEPARIN SOD (PORCINE) 5000 UNITS/ML VIAL SC ×2 (07:36→21:02)
[2018-04-01] MEDS: OMEPRAZOLE 20 MG CAP PO ×2 (07:36→18:50)
[2018-04-01] MEDS: DOCUSATE SODIUM 100 MG CAP PO ×2 (07:36→21:01)
[2018-04-01] MEDS: MOM 30ML SUSPENSION UDC PO (07:37)
[2018-04-01] MEDS: guaiFENesin ER 600 MG TAB PO ×2 (07:37→21:01)
[2018-04-01] MEDS: LOSARTAN 50 MG TAB PO (07:37)
[2018-04-01] MEDS: FUROSEMIDE 40 MG/4 ML VIAL (J1940) IV (12:42)
[2018-04-01] MEDS: ACETAMINOPHEN TAB 650MG DOSE (2X325MG) PO (14:17)
[2018-04-01] MEDS: FENTANYL/BUPIVACAINE/NACL BAG 250 ML EPIDURAL (19:10)
[2018-04-02] MEDS: LEVALBUTEROL 1.25 MG/0.5 ML CONCENTRATE NEB NEB ×6 (02:00→20:20)
[2018-04-02] MEDS: ACETAMINOPHEN TAB 650MG DOSE (2X325MG) PO ×2 (04:30→20:27)
[2018-04-02] MEDS: KETOROLAC 30 MG/ML VIAL (J1885) IV ×4 (05:49→23:54)
[2018-04-02 06:07] LABS: BASO % 0.2 % (0.0-1.0); EOS # 0.2 10^3/uL (0.0-0.50); EOS % 2.8 % (0.0-3.0); HEMATOCRIT 27.7 % (36.0-47.0); HEMOGLOBIN 9.6 g/dl (12.0-15.5); IMMATURE GRANULOCYTE % 0.5 % (0-3.0); LYMPH # 0.8 10^3/uL (1.5-4.5); LYMPH % 9.7 % (24.0-44.0); MEAN CORPUSCULAR HEMOGLOBIN 31.1 pg (27.0-33.0); MEAN CORPUSCULAR HGB CONC 34.7 g/dl (32.0-36.5); MEAN CORPUSCULAR VOLUME 89.6 fl (80.0-96.0); MONO % 11.6 % (0.0-5.0); NEUTROPHILS # 6.4 10^3/uL (1.8-7.7); NEUTROPHILS % 75.2 % (36.0-66.0); PLATELET COUNT, AUTOMATED 245 10^3/uL (150-450); RED BLOOD COUNT 3.09 10^6/uL (4.00-5.40); RED CELL DISTRIBUTION WIDTH 13.2 % (11.5-14.5); WHITE BLOOD COUNT 8.5 10^3/uL (4.0-10.0)
[2018-04-02 06:24] LABS: ANION GAP 7 MEQ/L (8-16); BLOOD UREA NITROGEN 9 MG/DL (7-18); CALCIUM LEVEL 8.1 MG/DL (8.8-10.2); CARBON DIOXIDE LEVEL 27 MEQ/L (21-32); CHLORIDE LEVEL 97 MEQ/L (98-107); CREATININE FOR GFR 0.66 MG/DL (0.55-1.30); GLOMERULAR FILTRATION RATE > 60.0 (>45); GLUCOSE, FASTING 111 MG/DL (70-100); SODIUM LEVEL 131 MEQ/L (136-145); VANCOMYCIN LEVEL TROUGH 14.8 UG/ML (10.0-20.0)
[2018-04-02] MEDS: VANCOMYCIN HCL 1,000 MG, VIAL MATE ADAPTER 1 EACH in D5W 250 ML IV ×2 (06:49→18:08)
[2018-04-02] MEDS: OMEPRAZOLE 20 MG CAP PO ×2 (06:50→18:08)
[2018-04-02] MEDS: SODIUM CHLORIDE HYPERTONIC 3% 15ML NEB SOL INH ×2 (07:13→17:55)
[2018-04-02] MEDS: ATORVASTATIN 20 MG TAB PO (08:06)
[2018-04-02] MEDS: MOM 30ML SUSPENSION UDC PO (08:06)
[2018-04-02] MEDS: guaiFENesin ER 600 MG TAB PO ×2 (08:06→20:27)
[2018-04-02] MEDS: DOCUSATE SODIUM 100 MG CAP PO ×2 (08:06→20:27)
[2018-04-02] MEDS: LOSARTAN 50 MG TAB PO (08:06)
[2018-04-02] MEDS: HEPARIN SOD (PORCINE) 5000 UNITS/ML VIAL SC ×2 (08:07→20:27)
[2018-04-02] MEDS ORDERED: WALLBOXKEY XX (11:45)
[2018-04-02] MEDS ORDERED: NALOXONE INJ 0.4 MG/1 ML VIAL (J2310) IV ×2 (11:45→15:30)
[2018-04-02] MEDS ORDERED: ONDANSETRON 4MG/2ML VIAL (J2405) IV ×2 (11:45→15:30)
[2018-04-02] MEDS ORDERED: diphenhydrAMINE INJ 50MG/ML VIAL (J1200) IV ×2 (11:45→15:30)
[2018-04-02] MEDS ORDERED: EPIDURAL/PCA KEYS XX ×2 (11:45→15:30)
[2018-04-02] MEDS: PERCOCET 5MG/325MG TAB PO (14:41)
[2018-04-02] MEDS: BUPIVACAINE/NACL BAG 250 ML EPIDURAL (15:00)
[2018-04-02] MEDS ORDERED: NALBUPHINE HCL 10 MG/ML AMP (J2300) IV (15:30)
[2018-04-02] MEDS: MORPHINE 1MG/ML IN 0.9% NACL 100ML IV BAG IV (15:59)
[2018-04-02] MEDS: NS 1,000 ML IV (16:00)
[2018-04-02] MEDS: ONDANSETRON 4MG/2ML VIAL (J2405) IV (21:32)
[2018-04-03] MEDS: LEVALBUTEROL 1.25 MG/0.5 ML CONCENTRATE NEB NEB ×6 (00:01→23:45)
[2018-04-03] MEDS: SODIUM CHLORIDE HYPERTONIC 3% 15ML NEB SOL INH ×4 (00:01→19:38)
[2018-04-03 04:33] LABS: BASO % 0.1 % (0.0-1.0); EOS # 0.2 10^3/uL (0.0-0.50); EOS % 2.4 % (0.0-3.0); HEMATOCRIT 30.1 % (36.0-47.0); HEMOGLOBIN 10.1 g/dl (12.0-15.5); IMMATURE GRANULOCYTE % 0.6 % (0-3.0); LYMPH # 0.6 10^3/uL (1.5-4.5); LYMPH % 7.7 % (24.0-44.0); MEAN CORPUSCULAR HGB CONC 33.6 g/dl (32.0-36.5); MEAN CORPUSCULAR VOLUME 92.3 fl (80.0-96.0); MONO # 0.7 10^3/uL (0.0-0.8); MONO % 9.2 % (0.0-5.0); NEUTROPHILS # 6.4 10^3/uL (1.8-7.7); PLATELET COUNT, AUTOMATED 296 10^3/uL (150-450); RED BLOOD COUNT 3.26 10^6/uL (4.00-5.40); RED CELL DISTRIBUTION WIDTH 13.1 % (11.5-14.5)
[2018-04-03 04:51] LABS: ANION GAP 6 MEQ/L (8-16); BLOOD UREA NITROGEN 11 MG/DL (7-18); CALCIUM LEVEL 8.1 MG/DL (8.8-10.2); CARBON DIOXIDE LEVEL 27 MEQ/L (21-32); CHLORIDE LEVEL 98 MEQ/L (98-107); CREATININE FOR GFR 0.66 MG/DL (0.55-1.30); GLOMERULAR FILTRATION RATE > 60.0 (>45); GLUCOSE, FASTING 113 MG/DL (70-100); POTASSIUM SERUM 4.6 MEQ/L (3.5-5.1); SODIUM LEVEL 131 MEQ/L (136-145)
[2018-04-03] MEDS: ONDANSETRON 4MG/2ML VIAL (J2405) IV (05:09)
[2018-04-03] MEDS: KETOROLAC 30 MG/ML VIAL (J1885) IV ×2 (05:09→12:19)
[2018-04-03] MEDS: VANCOMYCIN HCL 1,000 MG, VIAL MATE ADAPTER 1 EACH in D5W 250 ML IV ×2 (06:28→18:13)
[2018-04-03] MEDS: METOCLOPRAMIDE INJ 10MG/2ML VIAL (J2765) IV (06:49)
[2018-04-03] MEDS ORDERED: METOCLOPRAMIDE INJ 10MG/2ML VIAL (J2765) IV (08:45)
[2018-04-03] MEDS: DOCUSATE SODIUM 100 MG CAP PO ×2 (09:39→20:16)
[2018-04-03] MEDS: ATORVASTATIN 20 MG TAB PO (09:39)
[2018-04-03] MEDS: HEPARIN SOD (PORCINE) 5000 UNITS/ML VIAL SC ×2 (09:39→20:06)
[2018-04-03] MEDS: MOM 30ML SUSPENSION UDC PO (09:39)
[2018-04-03] MEDS: PERCOCET 5MG/325MG TAB PO ×3 (09:40→19:29)
[2018-04-03] MEDS: OMEPRAZOLE 20 MG CAP PO ×2 (09:40→17:34)
[2018-04-03] MEDS: guaiFENesin ER 600 MG TAB PO ×2 (09:41→20:06)
[2018-04-03] MEDS: LOSARTAN 50 MG TAB PO (09:41)
[2018-04-03] MEDS: NORCO, ANEXSIA 5/325MG TABLET (HYDROcodone/ACETAMINOPHEN) PO ×3 (12:19→23:34)
[2018-04-04] MEDS: NORCO, ANEXSIA 5/325MG TABLET (HYDROcodone/ACETAMINOPHEN) PO ×2 (00:04→06:39)
[2018-04-04] MEDS: LEVALBUTEROL 1.25 MG/0.5 ML CONCENTRATE NEB NEB ×2 (02:00→07:24)
[2018-04-04] MEDS: PERCOCET 5MG/325MG TAB PO ×2 (03:10→07:56)
[2018-04-04 05:09] LABS: BASO % 0.2 % (0.0-1.0); EOS # 0.2 10^3/uL (0.0-0.50); EOS % 2.5 % (0.0-3.0); HEMOGLOBIN 9.6 g/dl (12.0-15.5); IMMATURE GRANULOCYTE % 0.4 % (0-3.0); LYMPH # 0.6 10^3/uL (1.5-4.5); LYMPH % 6.8 % (24.0-44.0); MEAN CORPUSCULAR HGB CONC 34.3 g/dl (32.0-36.5); MEAN CORPUSCULAR VOLUME 90.3 fl (80.0-96.0); MONO # 0.9 10^3/uL (0.0-0.8); NEUTROPHILS # 7.4 10^3/uL (1.8-7.7); NEUTROPHILS % 80.1 % (36.0-66.0); PLATELET COUNT, AUTOMATED 290 10^3/uL (150-450); RED CELL DISTRIBUTION WIDTH 13.1 % (11.5-14.5); WHITE BLOOD COUNT 9.2 10^3/uL (4.0-10.0)
[2018-04-04 05:29] LABS: ANION GAP 5 MEQ/L (8-16); BLOOD UREA NITROGEN 9 MG/DL (7-18); CARBON DIOXIDE LEVEL 27 MEQ/L (21-32); CHLORIDE LEVEL 99 MEQ/L (98-107); CREATININE FOR GFR 0.64 MG/DL (0.55-1.30); GLOMERULAR FILTRATION RATE > 60.0 (>45); GLUCOSE, FASTING 102 MG/DL (70-100); POTASSIUM SERUM 4.3 MEQ/L (3.5-5.1); SODIUM LEVEL 131 MEQ/L (136-145)
[2018-04-04] MEDS: VANCOMYCIN HCL 1,000 MG, VIAL MATE ADAPTER 1 EACH in D5W 250 ML IV (06:39)
[2018-04-04] MEDS: SODIUM CHLORIDE HYPERTONIC 3% 15ML NEB SOL INH (07:24)
[2018-04-04] MEDS: OMEPRAZOLE 20 MG CAP PO (07:55)
[2018-04-04] MEDS: DOCUSATE SODIUM 100 MG CAP PO (07:59)
[2018-04-04] MEDS: MOM 30ML SUSPENSION UDC PO (07:59)
[2018-04-04] MEDS: guaiFENesin ER 600 MG TAB PO (08:00)
[2018-04-04] MEDS: HEPARIN SOD (PORCINE) 5000 UNITS/ML VIAL SC (08:00)
[2018-04-04] MEDS: ATORVASTATIN 20 MG TAB PO (08:01)
[2018-04-04] MEDS: LOSARTAN 50 MG TAB PO (08:01)
== END 2018-04-04 10:28 | disposition home or self-care (01) | DRG 164 ==
LOC: M OR 05:46 → M ICU 14:20
PROC: 0BTG0ZZ Resection of Left Upper Lung Lobe, Open Approach (ICD-10-PCS; principal; 2018-03-29 07:30)
PROC: 07B70ZX Excision of Thorax Lymphatic, Open Approach, Diagnostic (ICD-10-PCS; 2018-03-29 07:30)
PROC: 03Q Upper Arteries, Repair (ICD-10-PCS; 2018-03-29 07:30)
DX: C34.90 Malignant neoplasm of unspecified part of unspecified bronchus or lung (principal); J93.82 Other air leak; I97.88 Other intraoperative complications of the circulatory system, not elsewhere classified; K21.9 Gastro-esophageal reflux disease without esophagitis; I10 Essential (primary) hypertension; F41.9 Anxiety disorder, unspecified; E78.5 Hyperlipidemia, unspecified; Z79.899 Other long term (current) drug therapy; I25.10 Atherosclerotic heart disease of native coronary artery without angina pectoris

== ENCOUNTER → 2018-04-13 | Outpatient (CLI) | payer OTHER ==
[~2018-04-13] MED LIST changes: -ACETAMINOPHEN 325 MG TAB As Ordered; +ATOR40TA75 PO; +DRIS50003 PO; -LIDOCAINE 1% MDV 20ML VIAL As Ordered; -LIDOCAINE 2% MDV 20 ML VIAL As Ordered; +LOSA25TA33 PO; +LOSA50TA73 PO; -MIDAZOLAM INJ 2 MG/2 ML VIAL (J2250) As Ordered; +OCUVTAB4 PO; +OMEP-221 PO; +PERCOCET PO; +PRESCAP6 PO; +SYST1SOL OU; +XANA2TAB2 PO; -fentaNYL 100 MCG/2 ML INJECTION (J3010) As Ordered
--- NOTE | 2018-04-14 02:08 | REP ---
Clinical: History of left upper lobe malignancy. Technique: PA and lateral. Comparison: 04/04/2018, Findings: Postsurgical changes involving left hemithorax with surgical clips at the left hilum, scattered linear scarring extending from the hilum and tenting to the left hemidiaphragm appears relatively stable. No focal consolidation, obvious significant effusion, or pneumothorax. Mediastinum and cardiac silhouette normal/stable. Skeletal structures are intact. Impression: Pleuroparenchymal and postsurgical changes involving left hemithorax similar to prior examination. Electronically Signed by Leif Garrido MD 04/14/2018 01:59 A
== END ==
LOC: M SMT 08:39
PROVIDERS: ATTEND Thoracic Surgery (Cardiothoracic Vascular Surgery)
DX: C34.12 Malignant neoplasm of upper lobe, left bronchus or lung (principal); Z01.818 Encounter for other preprocedural examination

== ENCOUNTER → 2018-05-08 | Outpatient (CLI) | payer MEDICARE ==
[~2018-05-08] MED LIST changes: +LOSA25TA14 PO; -LOSA25TA33 PO; -LOSA50TA73 PO; +LOSA50TA88 PO
[2018-05-08 13:46] LABS: HEMATOCRIT 34.3 % (36.0-47.0); HEMOGLOBIN 11.4 g/dl (12.0-15.5); MEAN CORPUSCULAR HEMOGLOBIN 29.9 pg (27.0-33.0); MEAN CORPUSCULAR HGB CONC 33.2 g/dl (32.0-36.5); PLATELET COUNT, AUTOMATED 332 10^3/uL (150-450); RED BLOOD COUNT 3.81 10^6/uL (4.00-5.40); WHITE BLOOD COUNT 8.3 10^3/uL (4.0-10.0)
--- NOTE | 2018-05-09 02:55 | REP ---
Clinical: Malignant neoplasm . Comparison: 04/13/2018 . Technique: PA and lateral. Findings: Evidence of prior partial left lobectomy along with chronic interstitial changes similar to prior examination. No obvious acute consolidation, effusion, or pneumothorax. Cardiac silhouette is normal. Skeletal structures are intact. Impression: 1. Postsurgical changes involving the left hemithorax. 2. Chronic stable interstitial changes. Electronically Signed by Leif Garrido MD 05/09/2018 02:47 A
== END ==
LOC: M SMT 09:25
PROVIDERS: ATTEND Thoracic Surgery (Cardiothoracic Vascular Surgery)
DX: C34.12 Malignant neoplasm of upper lobe, left bronchus or lung (principal)

== ENCOUNTER → 2018-06-08 | Outpatient (CLI) | payer MEDICARE ==
--- NOTE | 2018-06-08 09:23 | REP ---
PA and lateral chest: Comparison is 05/08/2018. The patient reportedly has a left upper lobectomy. There are faintly visible surgical clips in the left hilus. There are no infiltrates or effusions. No lung masses or nodules are identified on plain films. The mirza, mediastinum, skeletal structures are otherwise unremarkable. There is no change from the comparison study. Impression: Postsurgical changes in the left hilus. Otherwise, negative PA and lateral chest. No interval change. Electronically Signed by Sonido Remy MD 06/08/2018 09:14 A
== END ==
LOC: M SMT 08:43
PROVIDERS: ATTEND Thoracic Surgery (Cardiothoracic Vascular Surgery)
DX: C34.12 Malignant neoplasm of upper lobe, left bronchus or lung (principal)

== ENCOUNTER 2018-06-26 10:25 | Observation (INO) | payer MEDICARE ==
[~2018-06-26] VITALS: Ht 167.6 cm; Wt 68.3 kg
[2018-06-26] MEDS ORDERED: GABA-843 PO (10:50)
[2018-06-26 11:23] LABS: BASO % 0.3 % (0.0-1.0); EOS # 0.1 10^3/uL (0.0-0.50); EOS % 1.3 % (0.0-3.0); HEMATOCRIT 33.3 % (36.0-47.0); HEMOGLOBIN 11.3 g/dl (12.0-15.5); LYMPH # 1.4 10^3/uL (1.5-4.5); LYMPH % 21.5 % (24.0-44.0); MEAN CORPUSCULAR HEMOGLOBIN 30.1 pg (27.0-33.0); MEAN CORPUSCULAR HGB CONC 33.9 g/dl (32.0-36.5); MEAN CORPUSCULAR VOLUME 88.8 fl (80.0-96.0); MONO # 0.8 10^3/uL (0.0-0.8); MONO % 12.6 % (0.0-5.0); NEUTROPHILS # 4.1 10^3/uL (1.8-7.7); NEUTROPHILS % 63.5 % (36.0-66.0); PLATELET COUNT, AUTOMATED 245 10^3/uL (150-450); RED BLOOD COUNT 3.75 10^6/uL (4.00-5.40); WHITE BLOOD COUNT 6.4 10^3/uL (4.0-10.0)
--- NOTE | 2018-06-26 11:44 | REP ---
PORTABLE CHEST: AP portable view of the chest is performed and compared with prior study of 06/08/2018. Scattered increased interstitial markings bilaterally are stable with no new infiltrate. Heart is not enlarged. There is calcification of the thoracic aorta. The mediastinal silhouette is unchanged. IMPRESSION: Stable chronic findings without acute infiltrate. Electronically Signed by Sonido Guevara MD 06/26/2018 05:40 P
[2018-06-26] MEDS ORDERED: MUCI600T31 PO (11:56)
[2018-06-26] MEDS ORDERED: FLON1SPR NARES (11:56)
[2018-06-26] MEDS ORDERED: TRAZ-160 PO (11:56)
[2018-06-26 12:16] LABS: ALBUMIN 3.8 GM/DL (3.2-5.2); ALT/SGPT 33 U/L (12-78); BILIRUBIN,DIRECT 0.3 MG/DL (0.0-0.2); BILIRUBIN,TOTAL 0.9 MG/DL (0.2-1.0); BLOOD UREA NITROGEN 20 MG/DL (7-18); CALCIUM LEVEL 9.1 MG/DL (8.8-10.2); CARBON DIOXIDE LEVEL 28 MEQ/L (21-32); CHLORIDE LEVEL 100 MEQ/L (98-107); CPK CREATINE PHOSPHOKINASE 133 U/L (26-192); CREATININE FOR GFR 0.87 MG/DL (0.55-1.30); GLOMERULAR FILTRATION RATE > 60.0 (>45); GLUCOSE, FASTING 112 MG/DL (70-100); LIPASE 144 U/L (73-393); MAGNESIUM LEVEL 2.2 MG/DL (1.8-2.4); MB/CK RELATIVE INDEX 1.65 (< OR =4); POTASSIUM SERUM 4.9 MEQ/L (3.5-5.1); SODIUM LEVEL 134 MEQ/L (136-145); TOTAL PROTEIN 7.8 GM/DL (6.4-8.2); TROPONIN I < 0.02 NG/ML (< 0.10)
[2018-06-26 12:25] LABS: INR 0.94; PROTHROMBIN TIME 12.7 SECONDS (12.1-14.4)
[2018-06-26 12:26] LABS: PARTIAL THROMBOPLASTIN TIME 31.1 SECONDS (25.4-37.6)
[2018-06-26] MEDS ORDERED: ISOVUE-370 76% 100ML VIAL (Q9967) As Ordered ONE (12:27)
[2018-06-26] MEDS ORDERED: NS 1,000 ML IV ONE (12:45)
--- NOTE | 2018-06-26 13:52 | REP ---
CT ANGIO CHEST: TECHNIQUE: Axial contrast enhanced images from the thoracic inlet to the upper abdomen using 100 mL Isovue 370 intravenous contrast material with multiplanar reformations. There is no CT evidence of pulmonary embolism. There is no thoracic aortic aneurysm or dissection with scattered atherosclerotic calcifications. The heart is upper limits of normal in size. No significant mediastinal, hilar or chest wall lymphadenopathy is seen. Small amount of left pericardial fluid is seen compared to the prior CT of 01/20/2018. There is no pleural effusion. There is a 6 mm nodular density in the right upper lobe, which is stable. However, there are new areas of ground-glass opacities scattered throughout the right upper lobe with smaller subcentimeter ill-defined nodules also seen, several in number. This could represent an inflammatory process but followup is recommended. Otherwise, there is scattered interstitial fibrotic change bilaterally in the lungs. There are scattered tiny calcified granulomas in the right lung. Calcified precarinal lymph node is again seen. Visualized upper abdominal structures are grossly unremarkable. IMPRESSION: No CT evidence of pulmonary embolism or aortic dissection. A small amount of left pericardial fluid. The patient has had interval left upper lobectomy for a pleural-based mass. A 6 mm nodular density in the right upper lobe is stable. However, there are new scattered ground-glass opacities in the right upper lobe as well as several smaller subcentimeter ill-defined nodular opacities. This could represent inflammatory infiltrate involving the right upper lobe. Followup is suggested. Electronically Signed by Sonido Guevara MD 06/27/2018 10:09 A
[2018-06-26] MEDS ORDERED: MOXIFLOXACIN HCL 400 MG in APPROPRIATE DILUENT 1 EA IV ONE (14:00)
[2018-06-26] MEDS ORDERED: guaiFENesin ER 600 MG TAB PO PRN (14:30)
[2018-06-26] MEDS ORDERED: FLUTICASONE PROP 0.05% NASAL SPRAY 16 GM (FLONASE) NARES PRN (14:30)
--- NOTE | 2018-06-26 15:12 | HPE ---
DATE OF ADMISSION: 06/26/2018 67-year-old female with a past medical history of hypertension, hyperlipidemia, Raynaud's disease, history of lung cancer, status post resection, presents to the emergency room from Dr. Perez's office whom she went to see for a followup visit. Apparently she mentioned that she had two syncopal episodes in the last few days so he referred her to the emergency room for evaluation. In the emergency room, the patient had a 12-lead EKG, which showed normal sinus rhythm, no acute ST abnormalities and the first troponin was negative. She denies any chest pain at this time, shortness of breath, or palpitations, abdominal pain, nausea, vomiting, vertigo, or headache. In her history she mentioned that on she was at [facility] when she did have a syncopal episode, timing is unknown, but she refused to go to the hospital and she went about her business. The second event was that next day, Tuesday, where she was just sitting in her chair watching television where she suddenly had a near syncopal event. She ignored these two events until she mentioned them to Dr. Perez today in the clinic and he referred her to the emergency room. The patient will be admitted for further management. PAST MEDICAL HISTORY: Again, past medical history of: 1. Hypertension. 2. Hyperlipidemia. 3. Raynaud's disease. 4. History of left upper lobe adenocarcinoma, status post resection. 5. History of Lees's esophagus. 6. Anxiety disorder. ALLERGIES: She has drug allergies to CODEINE, DARVON, KEFLEX. She has an adverse drug reaction to MORPHINE, which caused her nausea and vomiting. PAST SURGICAL HISTORY: 1. Tonsillectomy. 2. Hysterectomy. 3. Upper left lung lobectomy by Dr. Perez on 03/29/2008. FAMILY HISTORY: Noncontributory. SOCIAL HISTORY: The patient denies tobacco, alcohol or illicit drugs. MEDICATIONS: She takes at home: - atorvastatin 40 mg by mouth at bedtime - fluticasone two sprays in each nostril as needed - gabapentin 600 mg by mouth three times a day - guaifenesin as needed - losartan 50 mg by mouth daily - omeprazole 40 mg by mouth twice a day - polyethylene glycol one drop in both eyes daily - PreserVision one cap by mouth daily - trazodone 50 mg by mouth at bedtime - vitamin D 50,000 units by mouth weekly REVIEW OF SYSTEMS: Negative for all ten major systems except what is mentioned in the history of present illness. PHYSICAL EXAMINATION: VITAL SIGNS: Blood pressure 113/55, heart rate is 70 and regular, respiratory rate is 18, temperature 97.8, oxygen saturation is 97% on room air. Head is atraumatic, normocephalic. Neck is supple with no jugular venous distention (JVD). Lungs clear to auscultation. S1, S2 audible. No murmurs appreciated. Abdomen is soft. Positive bowel sounds. No pedal edema. Skin is intact. Neurologic examination, the patient is awake, alert and oriented times three. LABORATORIES: WBC 6.4, hemoglobin 11.3, hematocrit 33.3, platelets 245,000. Sodium 134, potassium 4.9, chloride 100, CO2 of 28, BUN 20, creatinine 0.87, glucose is 112, troponin first set is less than 0.02. TSH is 2.87. IMPRESSION: Syncope. PLAN: The patient will be admitted to the progressive care unit (PCU). We will get a second troponin to rule out acute coronary syndrome. I doubt this a coronary event since she had a negative stress test by Dr. Brown in February 2018; however, we will keep her on tele monitor and see if there are any arrhythmias that may occur overnight. I will continue her preadmission medications. We will continue her care in the progressive care unit (PCU). ADDENDUM: Since my last history and physical, CT angiogram came back and the patient does have a right upper lobe consolidation. The emergency room (ER) attending started IV Avelox, which I will continue with and will continue following her care in the progressive care unit (PCU). Addendum dictated: Radha Prince, 06/26/18 1548 Addendum transcribed: kb 06/26/18 1542 BELEN
[2018-06-26 15:37] VITALS: BP 125/65
[2018-06-26] MEDS: GABAPENTIN 300 MG CAP PO SCH ×2 (18:48→22:00)
--- NOTE | 2018-06-26 19:50 | ECGEPIP ---
Stationary ECG Study [facility] ED Test Date: 2018-06-26 Pat Name: WILNER OROURKE Department: Room: - Gender: F [employer] Contact Lens: : 1950 Requested By: Shae Felix Order Number: [id number] Reading MD: Shae Felix Measurements Intervals [place] Rate: 85 P: -22 SD: 152 QRS: 14 QRSD: 97 T: 20 QT: 358 QTc: 426 Interpretive Statements SINUS RHYTHM NONSPECIFIC ST T WAVE CHANGES NO OLD ECG FOR COMPARISON Electronically Signed On 06-26-2018 19:50:29 EST by Shae Felix
[2018-06-26 20:00] VITALS: BP 136/71
[2018-06-26] MEDS: OMEPRAZOLE 20 MG CAP PO SCH (20:26)
[2018-06-26] MEDS: traZODone 50 MG TAB PO SCH (20:27)
[2018-06-26] MEDS: ATORVASTATIN 20 MG TAB PO SCH (20:27)
[2018-06-26] MEDS ORDERED: GABAPENTIN 300 MG CAP PO SCH (21:00)
[2018-06-26 23:59] VITALS: BP 116/59
[2018-06-27] VITALS (7 sets, daily range): BP systolic 112–142; BP diastolic 59–71
[2018-06-27 05:19] LABS: BLOOD UREA NITROGEN 16 MG/DL (7-18); CALCIUM LEVEL 8.2 MG/DL (8.8-10.2); CARBON DIOXIDE LEVEL 27 MEQ/L (21-32); CHLORIDE LEVEL 103 MEQ/L (98-107); CREATININE FOR GFR 0.93 MG/DL (0.55-1.30); GLOMERULAR FILTRATION RATE > 60.0 (>45); GLUCOSE, FASTING 99 MG/DL (70-100); POTASSIUM SERUM 3.9 MEQ/L (3.5-5.1); SODIUM LEVEL 138 MEQ/L (136-145)
[2018-06-27] MEDS ORDERED: VITAMIN D 50,000 UNITS CAPSULE (ERGOCALCIFEROL 1.25MG) PO SCH (09:00)
[2018-06-27] MEDS: OMEPRAZOLE 20 MG CAP PO SCH ×2 (09:58→20:44)
[2018-06-27] MEDS: GABAPENTIN 300 MG CAP PO SCH ×3 (09:58→20:46)
[2018-06-27] MEDS: LOSARTAN 50 MG TAB PO SCH (10:01)
[2018-06-27] MEDS ORDERED: IPRATROPIUM 0.5MG/ALBUTEROL 2.5MG INH SOL UD 3ML (DUONEB)(J7620) NEB PRN (12:30)
[2018-06-27] MEDS: MOXIFLOXACIN HCL 400 MG in APPROPRIATE DILUENT 1 EA IV SCH (12:42)
[2018-06-27] MEDS: IPRATROPIUM 0.5MG/ALBUTEROL 2.5MG INH SOL UD 3ML (DUONEB)(J7620) NEB SCH ×2 (13:19→20:02)
--- NOTE | 2018-06-27 14:49 | IPNPDOC ---
Subjective Date Seen The patient was seen on 06/27/18. Subjective Chief Complaint/HPI Patient seen and examined at the bedside. States that she has not had any episodes of lightheadedness/dizziness while hospitalized here. Notes that she is still having some shortness of breath and wheezing due to pneumonia. Otherwise denies any acute overnight events. Objective Physical Examination General Exam: Positive: Alert, Cooperative, No Acute Distress ENT Exam: Positive: Atraumatic, Mucous membr. moist/pink Neck Exam: Negative: JVD Chest Exam: Positive: Wheezing (upper airway bilaterally), Diminished (specifically diminished on the left side); Negative: Rales Heart Exam: Positive: Rate Normal, Normal S1, Normal S2 Abdomen Exam: Positive: Soft; Negative: Tenderness Extremity Exam: Negative: Tenderness, Swelling Psych Exam: Positive: Oriented x 3 Assessment /Plan Plan/VTE VTE Prophylaxis Ordered?: Yes Plan Cough, SOB 2/2 Community Acquired PNA CTA Chest notable for RUL infiltrate Cont Moxifloxacin, Nebs prn Lightheadedness/Dizziness likely 2/2 Polypharmacy Patient reports that her lightheadedness, dizziness has increased since her Gabapentin dose was increased from 300mg TID to 600mg TID. Dizziness/Drowsiness is a known side effect of Gabapentin--thus we will decrease the patient's dosing back to 300mg TID, which the patient states that she was tolerating well before We will check orthostatic B/P's Patient has not had any events on Telemetry Hx of Stage 1A2 Adenocarcinoma s/p Left Upper Lobectomy 03/2018 Follow up as outpatient Peripheral Neuropathy Cont Gabapentin Hypertension, stable Cont Losartan Dyslipidemia Cont Statin GERD Cont PPI Insomnia Cont Trazodone DVT Prophylaxis Lovenox SC VS, I&O, 24H, Fishbone Vital Signs/I&O Vital Signs Date Time Temp Pulse Resp B/P (MAP) Pulse Ox O2 Delivery O2 Flow Rate FiO2 06/27/18 12:00 98.3 70 18 132/62 (85) 98 06/26/18 15:27 Room Air I&O- Last 24 Hours up to 6 AM 06/27/18 06:00 Intake Total 680 ml Output Total 900 ml Balance -220 ml Laboratory Data 24H LABS Laboratory Tests 2 06/26/18 19:09: Troponin I < 0.02 06/27/18 04:32: Anion Gap 8, Glomerular Filtration Rate > 60.0, Blood Urea Nitrogen 16, C reatinine 0.93, Sodium Level 138, Potassium Level 3.9#, Chloride Level 103, Carbon Dioxide Level 27, Calcium Level 8.2L CBC/BMP Laboratory Tests 06/27/18 04:32 Calcium Level 8.2 L JOSÉ MIGUEL KONG MD Jun 27, 2018 14:49
[2018-06-27] MEDS: POLYVINYL ALCOHOL OPHTH SOLN 15 ML(LIQUITEARS) OU SCH (17:20)
[2018-06-27] MEDS: ENOXAPARIN 40 MG/0.4 ML SYRINGE (J1650) SC SCH (17:20)
[2018-06-27] MEDS: traZODone 50 MG TAB PO SCH (20:43)
[2018-06-27] MEDS: ATORVASTATIN 20 MG TAB PO SCH (20:45)
[2018-06-28] MEDS: IPRATROPIUM 0.5MG/ALBUTEROL 2.5MG INH SOL UD 3ML (DUONEB)(J7620) NEB SCH ×4 (02:00→20:25)
[2018-06-28 04:00] VITALS: BP 140/70
[2018-06-28 08:00] VITALS: BP 124/60
--- NOTE | 2018-06-28 08:12 | ECHO ---
DATE OF STUDY: 06/27/2018 REFERRING PHYSICIAN: Dr. Stiven Murphy INDICATION: Syncope. HEIGHT: 168 cm. WEIGHT: 66 kg. DIMENSIONS: IVS: 09 LV: 4.2 LVPW: 1.0 LA: 4.5 Aorta: 3.1 IVC: 1.0 Mitral E wave velocity: 92 A wave: 106 Left atrial volume index: 28 FINDINGS: The study is of good technical quality. The left ventricle is normal size and systolic function with estimated left ventricular ejection fraction (LVEF) 60-65%. No segmental wall motion abnormalities are seen. The right ventricle is also normal size and systolic function. Both atria appear normal. The aortic, tricuspid and pulmonic valves appear normal. There are mild degenerative abnormalities of the mitral valve, but mobility of leaflets is preserved. No pericardial effusion is noted. The inferior vena cava is normal size. The aortic root and aortic arch appear normal. Limited views of abdominal aorta also appear normal. Doppler interrogation reveals no aortic stenosis and mild insufficiency. There is trace mitral and tricuspid insufficiency. Calculated pulmonary artery pressure is within normal limits. Mitral inflow pattern and tissue and tissue Doppler images of the mitral annulus reveal grade 1 diastolic dysfunction. CONCLUSIONS: 1. Study is of good technical quality. 2. Normal LV size with preserved left ventricular systolic function and grade 1 diastolic dysfunction. 3. No significant valvular disease. 4. Normal central venous pressure and likely normal pulmonary artery pressure. COMMENTS: Subacute bacterial endocarditis (SBE) prophylaxis is not recommended. Essentially normal echocardiogram for patient's age. No obvious findings to explain syncope.
[2018-06-28 08:33] VITALS: BP_SYST 113; BP_SYST 116; BP_SYST 124; BP_DIAS 56; BP_DIAS 57; BP_DIAS 60
[2018-06-28] MEDS: GABAPENTIN 300 MG CAP PO SCH ×3 (09:13→19:52)
[2018-06-28] MEDS: ENOXAPARIN 40 MG/0.4 ML SYRINGE (J1650) SC SCH (09:13)
[2018-06-28] MEDS: OMEPRAZOLE 20 MG CAP PO SCH ×2 (09:13→19:51)
[2018-06-28] MEDS: LOSARTAN 50 MG TAB PO SCH (09:13)
[2018-06-28] MEDS: POLYVINYL ALCOHOL OPHTH SOLN 15 ML(LIQUITEARS) OU SCH (09:14)
[2018-06-28] MEDS ORDERED: MOXI1TAB PO (11:22)
[2018-06-28] MEDS ORDERED: GABA-843 PO (11:22)
[2018-06-28] MEDS ORDERED: IPRA0.00 NEB (11:22)
[2018-06-28] MEDS ORDERED: NEBUMIS2 XX (11:22)
[2018-06-28 12:00] VITALS: BP 130/66
[2018-06-28] MEDS: MOXIFLOXACIN HCL 400 MG in APPROPRIATE DILUENT 1 EA IV SCH (12:26)
--- NOTE | 2018-06-28 14:43 | IPNPDOC ---
Subjective Date Seen The patient was seen on 06/28/18. Subjective Chief Complaint/HPI Patient seen and examined at bedside. Reports that her respiratory status is improving. However, she does become tachycardic on ambulation due to cough, congestion. Denies any further complaints of near syncopal/syncopal episodes. Objective Physical Examination General Exam: Positive: Alert, Cooperative, No Acute Distress ENT Exam: Positive: Atraumatic, Mucous membr. moist/pink Neck Exam: Negative: JVD Chest Exam: Positive: Diminished (specifically diminished on the left side); Negative: Rales Heart Exam: Positive: Rate Normal, Normal S1, Normal S2 Abdomen Exam: Positive: Soft; Negative: Tenderness Extremity Exam: Negative: Tenderness, Swelling Psych Exam: Positive: Oriented x 3 Assessment /Plan Plan/VTE VTE Prophylaxis Ordered?: Yes Plan Cough, SOB 2/2 Community Acquired PNA CTA Chest notable for RUL infiltrate Cont Moxifloxacin, Nebs prn Respiratory status improving Lightheadedness/Dizziness likely 2/2 Polypharmacy Patient reports that her lightheadedness, dizziness has increased since her Gabapentin dose was increased from 300mg TID to 600mg TID. Dizziness/Drowsiness is a known side effect of Gabapentin--thus we will decrease the patient's dosing back to 300mg TID, which the patient states that she was tolerating well before Orthostatic B/P's negative 2D ECHO notable for preserved EF, Grade 1 DD Patient has not had any events on Telemetry Hx of Stage 1A2 Adenocarcinoma s/p Left Upper Lobectomy 03/2018 Follow up as outpatient Peripheral Neuropathy Cont Gabapentin Hypertension, stable Cont Losartan Dyslipidemia Cont Statin GERD Cont PPI Insomnia Cont Trazodone DVT Prophylaxis Lovenox SC Disposition--Anticipate D/C in 24-48hrs pending clinical improvement. VS, I&O, 24H, Fishbone Vital Signs/I&O Vital Signs Date Time Temp Pulse Resp B/P (MAP) Pulse Ox O2 Delivery O2 Flow Rate FiO2 06/28/18 12:00 98.9 77 18 130/66 (87) 97 06/26/18 15:27 Room Air I&O- Last 24 Hours up to 6 AM 06/28/18 05:59 Intake Total 1140 ml Output Total 2200 ml Balance -1060 ml JOSÉ MIGUEL KONG MD Jun 28, 2018 14:43
[2018-06-28 16:29] VITALS: BP_SYST 108; BP_SYST 114; BP_SYST 116; BP_DIAS 60
[2018-06-28] MEDS: ATORVASTATIN 20 MG TAB PO SCH (19:51)
[2018-06-28 20:00] VITALS: BP 137/68
[2018-06-28] MEDS: traZODone 50 MG TAB PO SCH (20:06)
[2018-06-29] VITALS: BP 145/73
[2018-06-29] MEDS: IPRATROPIUM 0.5MG/ALBUTEROL 2.5MG INH SOL UD 3ML (DUONEB)(J7620) NEB SCH ×2 (01:11→08:00)
[2018-06-29 04:00] VITALS: BP 143/62
[2018-06-29 04:05] VITALS: BP_SYST 121; BP_SYST 137; BP_SYST 145; BP_DIAS 61; BP_DIAS 77; BP_DIAS 84
[2018-06-29 08:00] VITALS: BP 136/70
[2018-06-29 08:55] VITALS: BP 136/70
[2018-06-29] MEDS: ENOXAPARIN 40 MG/0.4 ML SYRINGE (J1650) SC SCH (08:55)
[2018-06-29] MEDS: GABAPENTIN 300 MG CAP PO SCH (08:55)
[2018-06-29] MEDS: LOSARTAN 50 MG TAB PO SCH (08:55)
[2018-06-29] MEDS: OMEPRAZOLE 20 MG CAP PO SCH (08:55)
[2018-06-29] MEDS: POLYVINYL ALCOHOL OPHTH SOLN 15 ML(LIQUITEARS) OU SCH (08:56)
[2018-06-29] MEDS: MOXIFLOXACIN HCL 400 MG in APPROPRIATE DILUENT 1 EA IV SCH (12:47)
--- NOTE | 2018-07-03 18:41 | DS.PDOC ---
Discharge Summary General Date of Admission Jun 26, 2018 at 14:10 Date of Discharge 06/29/18 Discharge Summary PROCEDURES PERFORMED DURING STAY: None. 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 HISTORY OF PRESENT ILLNESS: . 67-year-old female with past medical hypertension, dyslipidemia, Raynaud's disease, history of left upper lobe adenocarcinoma stage IA2 status post left upper lobectomy on 03/2018, and peripheral neuropathy presented to the ER with a chief complaint of lightheadedness, dizziness. The patient states that she has been feeling increasingly lethargic and has had episodes of lightheadedness and dizziness. She reported that she was at a retail store when she began to feel increasingly lightheaded/dizzy and had a near syncopal episode. She was admitted to the hospital service for further evaluation and management. During hospitalization, the patient revealed that her symptoms coincided when her gabapentin dose was doubled for her underlying peripheral neuropathy. Prior to this, the patient states that she did not have any similar symptoms. After reducing the patient's dose of gabapentin she stated that she started to feel better. She had no events on telemetry and no acute findings on 2-D echocardiogram or CT scan of the head which would explain her symptoms. Of note, the patient was noted to have right upper lobe infiltrates suggestive of pneumonia on CTA Chest. She was started on antibiotic therapy and her respiratory symptoms of cough/congestion significantly improved. At this time, the patient states that she is feeling much better and is eager to return home. She has been noted to be ambulating in the hallways without any acute complaints. I've advised the patient follow-up with her primary care physician within 7 days. She has also been advised to have a follow-up CT scan of her chest for surveillance purposes given her history of lung cancer and several small subcentimeter ill-defined nodular opacities noted. Lastly, the patient has been advised to return to the ER for any acute emergencies. DISCHARGE MEDICATIONS: Please see below. ALLERGIES: Please see below. PHYSICAL EXAMINATION ON DISCHARGE: VITAL SIGNS: Please see below. General Exam: Positive: Alert, Cooperative, No Acute Distress ENT Exam: Positive: Atraumatic, Mucous membr. moist/pink Neck Exam: Negative: JVD Chest Exam: Positive: Diminished (specifically diminished on the left side); Negative: Rales Heart Exam: Positive: Rate Normal, Normal S1, Normal S2 Abdomen Exam: Positive: Soft; Negative: Tenderness Extremity Exam: Negative: Tenderness, Swelling Psych Exam: Positive: Oriented x 3 LABORATORY DATA: Please see below. IMAGING: CT ANGIO CHEST: TECHNIQUE: Axial contrast enhanced images from the thoracic inlet to the upper abdomen using 100 mL Isovue 370 intravenous contrast material with multiplanar reformations. There is no CT evidence of pulmonary embolism. There is no thoracic aortic aneurysm or dissection with scattered atherosclerotic calcifications. The heart is upper limits of normal in size. No significant mediastinal, hilar or chest wall lymphadenopathy is seen. Small amount of left pericardial fluid is seen compared to the prior CT of 01/20/2018. There is no pleural effusion. There is a 6 mm nodular density in the right upper lobe, which is stable. However, there are new areas of ground-glass opacities scattered throughout the right upper lobe with smaller subcentimeter ill-defined nodules also seen, several in number. This could represent an inflammatory process but followup is recommended. Otherwise, there is scattered interstitial fibrotic change bilaterally in the lungs. There are scattered tiny calcified granulomas in the right lung. Calcified precarinal lymph node is again seen. Visualized upper abdominal structures are grossly unremarkable. IMPRESSION: No CT evidence of pulmonary embolism or aortic dissection. A small amount of left pericardial fluid. The patient has had interval left upper lobectomy for a pleural-based mass. A 6 mm nodular density in the right upper lobe is stable. However, there are new scattered ground-glass opacities in the right upper lobe as well as several smaller subcentimeter ill-defined nodular opacities. This could represent inflammatory infiltrate involving the right upper lobe. Followup is suggested. DATE OF STUDY: 06/27/2018 REFERRING PHYSICIAN: Dr. Stiven Murphy INDICATION: Syncope. HEIGHT: 168 cm. WEIGHT: 66 kg. DIMENSIONS: IVS: 09 LV: 4.2 LVPW: 1.0 LA: 4.5 Aorta: 3.1 IVC: 1.0 Mitral E wave velocity: 92 A wave: 106 Left atrial volume index: 28 FINDINGS: The study is of good technical quality. The left ventricle is normal size and systolic function with estimated left ventricular ejection fraction (LVEF) 60-65%. No segmental wall motion abnormalities are seen. The right ventricle is also normal size and systolic function. Both atria appear normal. The aortic, tricuspid and pulmonic valves appear normal. There are mild degenerative abnormalities of the mitral valve, but mobility of leaflets is preserved. No pericardial effusion is noted. The inferior vena cava is normal size. The aortic root and aortic arch appear normal. Limited views of abdominal aorta also appear normal. Doppler interrogation reveals no aortic stenosis and mild insufficiency. There is trace mitral and tricuspid insufficiency. Calculated pulmonary artery pressure is within normal limits. Mitral inflow pattern and tissue and tissue Doppler images of the mitral annulus reveal grade 1 diastolic dysfunction. CONCLUSIONS: 1. Study is of good technical quality. 2. Normal LV size with preserved left ventricular systolic function and grade 1 diastolic dysfunction. 3. No significant valvular disease. 4. Normal central venous pressure and likely normal pulmonary artery pressure. PORTABLE CHEST: AP portable view of the chest is performed and compared with prior study of 06/08/2018. Scattered increased interstitial markings bilaterally are stable with no new infiltrate. Heart is not enlarged. There is calcification of the thoracic aorta. The mediastinal silhouette is unchanged. IMPRESSION: Stable chronic findings without acute infiltrate. PROGNOSIS: Fair ACTIVITY: As tolerated. DIET: 2 g low sodium diet DISCHARGE PLAN: DISPOSITION: 01 Home, Self-Care. DISCHARGE INSTRUCTIONS: I've advised the patient follow-up with her primary care physician within 7 days. She has also been advised to have a follow-up CT scan of her chest for surveillance purposes given her history of lung cancer and several small subcentimeter ill-defined nodular opacities noted on imaging. Lastly, the patient has been advised to return to the ER for any acute emergencies. DISCHARGE CONDITION: Stable. TIME SPENT ON DISCHARGE: Greater than 30 minutes. Vital Signs/I&Os Vital Signs Date Time Temp Pulse Resp B/P (MAP) Pulse Ox O2 Delivery O2 Flow Rate FiO2 06/29/18 08:55 136/70 06/29/18 08:00 98.5 75 18 98 Discharge Medications Scheduled (Preservision Areds 2) 1 Cap Cap, 1 CAP PO DAILY, (Reported) Albuterol/Ipratropium (Ipratropium [place]/Albut 0.5-2.5 (3) mg/3Ml) 1 Ana [place], 1 VIAL NEB BID Atorvastatin Calcium (Atorvastatin Calcium) 40 Mg Tab, 40 MG PO QHS, (Reported) Gabapentin (Gabapentin) 300 Mg Cap, 300 MG PO TID Losartan Potassium (Losartan Potassium) 50 Mg Tab, 50 MG PO DAILY, (Reported) Moxifloxacin Hydrochloride (Moxifloxacin HCl) 400 Mg Tab, 1 TAB PO DAILY Omeprazole (Omeprazole Dr) 40 Mg Cap, 40 MG PO BID, (Reported) Polyethylene Glycol (Systane 0.4-0.3 %) 15 Ml Ana, 1 DROP OU DAILY, (Reported) Trazodone HCl (Trazodone HCl) 50 Mg Tab, 50 MG PO QHS, (Reported) Vitamin D (Drisdol) 50,000 Unit Cap, 50,000 UNIT PO QWEEK, (Reported) TUESDAYS Scheduled PRN Fluticasone Propionate (Flonase Allergy Relief) 50 Mcg/Act Spr, 2 SPRAY NARES DAILY PRN for CONGESTION, (Reported) Guaifenesin (Mucinex) 600 Mg Tab, 1,200 MG PO DAILY PRN for CONGESTION, (Reported) Allergies Coded Allergies: Cephalexin (Verified Allergy, Unknown, HIVES, 08/20/16) Codeine (Verified Adverse Reaction, Unknown, MIGRAINE, 08/20/16) Morphine (Unverified Adverse Reaction, Unknown, NAUSEA, 06/26/18) Propoxyphene (Verified Adverse Reaction, Unknown, MIGRAINE, 08/20/16) JOSÉ MIGUEL KONG MD Jul 03, 2018 18:41
== END 2018-06-29 14:23 | disposition home or self-care (01) ==
LOC: M ED 10:25 → M ED INP 14:10 → M PCU 15:34
PROVIDERS: ADMIT Internal Medicine; ATTEND Internal Medicine
DX: J18.9 Pneumonia, unspecified organism (principal); I10 Essential (primary) hypertension; E78.5 Hyperlipidemia, unspecified; I73.00 Raynaud's syndrome without gangrene; Z85.118 Personal history of other malignant neoplasm of bronchus and lung; G62.9 Polyneuropathy, unspecified; Z79.51 Long term (current) use of inhaled steroids; Z79.899 Other long term (current) drug therapy; Z88.1 Allergy status to other antibiotic agents; Z88.8 Allergy status to other drugs, medicaments and biological substances
CPT/HCPCS: 36415; 71045; 71275; 80048; 80076; 82550; 82553; 83605; 83690; 83735; 84439; 84443; 84484; 85025; 85610; 85730; 93005; 93041; 93306; 94640; 94760; 96365; 96375; 96376; 99285; G0378; J1650; J2280; Q9967

== ENCOUNTER → 2018-09-22 | Outpatient (CLI) | payer MEDICARE ==
[~2018-09-22] MED LIST changes: +FLON1SPR NARES; +GABA-843 PO; +IPRA0.00 NEB; +MOXI1TAB PO; +MUCI600T31 PO; +NEBUMIS2 XX; +TRAZ-252 PO
[2018-09-22 09:53] LABS: HEMATOCRIT 34.6 % (36.0-47.0); HEMOGLOBIN 11.9 g/dl (12.0-15.5); MEAN CORPUSCULAR HEMOGLOBIN 31.4 pg (27.0-33.0); MEAN CORPUSCULAR HGB CONC 34.4 g/dl (32.0-36.5); MEAN CORPUSCULAR VOLUME 91.3 fl (80.0-96.0); PLATELET COUNT, AUTOMATED 314 10^3/uL (150-450); RED BLOOD COUNT 3.79 10^6/uL (4.00-5.40); WHITE BLOOD COUNT 4.7 10^3/uL (4.0-10.0)
[2018-09-22 10:17] LABS: BLOOD UREA NITROGEN 20 MG/DL (7-18); CALCIUM LEVEL 8.7 MG/DL (8.8-10.2); CARBON DIOXIDE LEVEL 29 MEQ/L (21-32); CHLORIDE LEVEL 100 MEQ/L (98-107); CHOLESTEROL LEVEL 135 MG/DL (<200); CHOLESTEROL RISK RATIO 2.109 (<5); CREATININE FOR GFR 0.89 MG/DL (0.55-1.30); GLOMERULAR FILTRATION RATE > 60.0 (>45); GLUCOSE, FASTING 93 MG/DL (70-100); HDL CHOLESTEROL 64 MG/DL (>40); LDL CHOLESTEROL 59 MG/DL (<100); NON-HDL-C 71 MG/DL; POTASSIUM SERUM 5.2 MEQ/L (3.5-5.1); SODIUM LEVEL 136 MEQ/L (136-145); TRIGLYCERIDES LEVEL 58 MG/DL (<150)
== END ==
LOC: M WUC 08:03
PROVIDERS: ATTEND Family Medicine
DX: E78.2 Mixed hyperlipidemia (principal); D64.9 Anemia, unspecified; I10 Essential (primary) hypertension

== ENCOUNTER → 2018-09-28 | Outpatient (CLI) | payer MEDICARE ==
[2018-09-28 19:37] LABS: BLOOD UREA NITROGEN 20 MG/DL (7-18); CARBON DIOXIDE LEVEL 25 MEQ/L (21-32); CHLORIDE LEVEL 95 MEQ/L (98-107); CREATININE FOR GFR 0.86 MG/DL (0.55-1.30); GLOMERULAR FILTRATION RATE > 60.0 (>45); GLUCOSE, FASTING 111 MG/DL (70-100); POTASSIUM SERUM 4.7 MEQ/L (3.5-5.1); SODIUM LEVEL 129 MEQ/L (136-145)
== END ==
LOC: M WUC 14:12
PROVIDERS: ATTEND Family Medicine
DX: E87.5 Hyperkalemia (principal)

== ENCOUNTER → 2018-10-09 | Outpatient (CLI) | payer MEDICARE ==
[~2018-10-09] MED LIST changes: +ISOVUE-370 76% 100ML VIAL (Q9967) As Ordered ONE
--- NOTE | 2018-10-09 18:23 | REP ---
CT CHEST WITH IV CONTRAST: TECHNIQUE: Axial contrast enhanced images from the thoracic inlet to the upper abdomen using 100 mL Isovue 370 intravenous contrast material with multiplanar reformations. Comparison made with prior studies 06/26/2018, 01/20/2018 and 10/11/2016. On the most recent prior study of 06/26/2018 the scattered ground glass opacities in the right upper lobe with underlying reticulonodular densities have improved compatible with an inflammatory process. However, the focal nodular density in the right upper lobe has mildly increased in size and has a somewhat spiculated appearance. It measures 8 mm in diameter. Otherwise there are scattered interstitial fibrotic changes diffusely bilaterally. Calcified granulomas are seen posteriorly in the right upper lobe. No significantly enlarged lymph nodes are seen in the axillary, mediastinal or hilar regions. There are calcified pretracheal lymph nodes present. There is a small amount of left pericardial fluid which is unchanged. Heart is not enlarged. No pleural effusion is seen. There is no aneurysm or dissection of the thoracic aorta. There are degenerative changes of the spine. In the visualized upper abdomen incidental note is made of diverticula of the splenic flexure of the colon. IMPRESSION: Ground glass and reticulonodular opacities in the right upper lobe have significantly improved with minimal residual consistent with an inflammatory process, however, the previously noted focal nodule in the right upper lobe has mildly increased in size and has spiculated margins measuring 8 mm. This is suspicious. Recommend CT guided biopsy. Electronically Signed by Sonido Guevara MD 10/10/2018 04:25 P
== END ==
LOC: M RAD 14:50
PROVIDERS: ATTEND Internal Medicine Pulmonary Disease
DX: C34.12 Malignant neoplasm of upper lobe, left bronchus or lung (principal)
CPT/HCPCS: 71260; Q9967

== ENCOUNTER → 2018-11-10 | Outpatient (CLI) | payer MEDICARE ==
[~2018-11-10] MED LIST changes: -ISOVUE-370 76% 100ML VIAL (Q9967) As Ordered ONE
[2018-11-10 18:27] LABS: BLOOD UREA NITROGEN 17 MG/DL (7-18); CALCIUM LEVEL 9.4 MG/DL (8.8-10.2); CARBON DIOXIDE LEVEL 26 MEQ/L (21-32); CHLORIDE LEVEL 97 MEQ/L (98-107); CREATININE FOR GFR 0.98 MG/DL (0.55-1.30); GLOMERULAR FILTRATION RATE > 60.0 (>45); GLUCOSE, FASTING 163 MG/DL (70-100); POTASSIUM SERUM 4.6 MEQ/L (3.5-5.1); SODIUM LEVEL 134 MEQ/L (136-145)
== END ==
LOC: M WUC 10:57
PROVIDERS: ATTEND Family Medicine
DX: E87.1 Hypo-osmolality and hyponatremia (principal)
CPT/HCPCS: 36415; 80048; G0463

== ENCOUNTER → 2019-02-21 | Outpatient (REF) | payer MEDICARE | LOC: M SFHCPLAZ 11:53 | PROVIDERS: ATTEND Dermatology | DX: L57.0 Actinic keratosis (principal); L82.1 Other seborrheic keratosis ==

== ENCOUNTER → 2019-03-29 | Outpatient (CLI) | payer MEDICARE ==
[2019-03-29 16:17] LABS: BLOOD UREA NITROGEN 20 MG/DL (7-18); CREATININE FOR GFR 0.87 MG/DL (0.55-1.30); GLOMERULAR FILTRATION RATE > 60.0 (>45)
== END ==
LOC: M WUC 11:18
PROVIDERS: ATTEND Internal Medicine Pulmonary Disease
DX: Z01.818 Encounter for other preprocedural examination (principal); R91.8 Other nonspecific abnormal finding of lung field

== ENCOUNTER → 2019-04-03 | Outpatient (CLI) | payer MEDICARE ==
[~2019-04-03] MED LIST changes: +ISOVUE-370 76% 100ML VIAL (Q9967) As Ordered ONE
--- NOTE | 2019-04-03 12:04 | REP ---
CT CHEST WITH IV CONTRAST: HISTORY: Malignant neoplasm left lung. Comparison chest CT October 09, 2018. Comparison PET/CT November 14, 2018. CT CONTRAST DOSE: 75 mL of intravenous Isovue 370. CT FINDINGS: The patient is status post prior left upper lobectomy. There are pleuroparenchymal fibrotic changes all on the left chest wall and in the left base unchanged. No pulmonary nodule or mass lesion is seen on the left. No pleural effusion is noted on the left. There is a calcified granulomatous lymph node in the precarinal region unchanged. There are two or three small superior mediastinal pretracheal lymph nodes. The largest of these measures 8 mm in short axis dimension unchanged from the October 09, 2018 study. No hilar lymphadenopathy is seen on either side. The previously noted spiculated nodule in the right upper lobe is again seen. On today's CT images this measures 14 mm in greatest oblique dimension on sagittal multiplanar re-formation images, previously 11 mm by my measurement in this plane. It measures 9 mm in greatest dimension on axial images today, previously 8 mm. It appears a little larger. There is a 4 mm nodule posterior and inferior to this in the right upper lobe, which is unchanged. Subpleural fibrotic changes are again noted in the upper mid and lower lobe on the right unchanged. No new pulmonary nodule is appreciated. No bony destructive lesion is seen. Some vascular calcification noted including coronary artery. There are two small accessory splenules. There is left colonic diverticulosis at the splenic flexure. No adrenal lesion is observed. IMPRESSION: Irregularly shaped somewhat spiculated right upper lobe nodule appears a little larger today compared to the October 09, 2018 prior study. Electronically Signed by Shlomo Murphy MD 04/03/2019 05:16 P
== END ==
LOC: M RAD 08:20
PROVIDERS: ATTEND Internal Medicine Pulmonary Disease
DX: C34.12 Malignant neoplasm of upper lobe, left bronchus or lung (principal)
CPT/HCPCS: 71260; Q9967

== ENCOUNTER → 2019-09-20 | Outpatient (CLI) | payer MEDICARE ==
[~2019-09-20] MED LIST changes: -ISOVUE-370 76% 100ML VIAL (Q9967) As Ordered ONE; +ISOVUE-370 76% 100ML VIAL As Ordered ONE
--- NOTE | 2019-09-20 10:35 | REP ---
CT CHEST WITH IV CONTRAST: TECHNIQUE: Axial contrast-enhanced images from the thoracic inlet to the upper abdomen using 100 mL Isovue-370 intravenous contrast material with multiplanar reformations. COMPARISON: 04/03/2019 as well as other prior exams. The spiculated nodule in the right upper lobe is again mildly increased in size. It measures 1.2 cm in maximum diameter. A new ill-defined spiculated density is seen in a subpleural location in the right lower lobe on image 38. There are approximately give subtle subcentimeter nodular densities scattered throughout the right lung measuring 3-4 mm in diameter. All of these are identified on prior studies. Once appears slightly larger than the prior study on image 22. Two similar appearing subcentimeter nodular densities are seen in the left upper lobe, one is slightly larger than prior study on image 38. Irregular band of density in the left lower lobe posterolaterally appears decreased compared to prior study. There is some mild hazy infiltrate or atelectasis in the lingula. Otherwise, there is moderate diffuse interstitial fibrotic change bilaterally. No significantly enlarged lymph nodes are seen in the mediastinal, hilar, or axillary regions. There are calcified precarinal lymph nodes. A few calcified granulomas are seen in the lungs. The heart is not enlarged. There is mild stable left pericardial fluid or thickening. There is no pleural effusion. There is no aneurysm or dissection of the thoracic aorta. There is fatty infiltration of the liver. There are degenerative changes of the spine. IMPRESSION: Mild increase in size of spiculated nodule in the right upper lobe. New ill-defined subpleural spiculated density in the right lower lobe on image 38. There are approximately five tiny nodular densities scattered throughout the right lung measuring 3-4 mm in diameter, which for the most part, appear stable although one appears slightly larger than prior study on image 22. Two similar appearing tiny nodular densities are seen in the left upper lobe, one is slightly larger than the prior study on image 38. There is mild hazy infiltrate or atelectasis in the lingula. No new adenopathy. Electronically Signed by Sonido Guevara MD 09/20/2019 12:41 P
== END ==
LOC: M RAD 08:49
PROVIDERS: ATTEND Internal Medicine Pulmonary Disease
DX: C34.12 Malignant neoplasm of upper lobe, left bronchus or lung (principal)
CPT/HCPCS: 71260; Q9967

== ENCOUNTER 2019-10-10 09:10 | Inpatient (IN) | payer MEDICARE ==
[~2019-10-10] VITALS: Ht 167.6 cm; Wt 72.7 kg
[~2019-10-10 09:10] MED LIST changes: -ISOVUE-370 76% 100ML VIAL As Ordered ONE
[2019-10-10 10:01] LABS: BASO % 0.3 % (0.0-1.0); EOS # 0.1 10^3/uL (0.0-0.5); EOS % 1.1 % (0.0-3.0); HEMATOCRIT 30.9 % (36.0-47.0); HEMOGLOBIN 10.7 g/dl (12.0-15.5); LYMPH # 1.1 10^3/uL (1.5-5.0); LYMPH % 14.4 % (24.0-44.0); MEAN CORPUSCULAR HEMOGLOBIN 31.2 pg (27.0-33.0); MEAN CORPUSCULAR HGB CONC 34.6 g/dl (32.0-36.5); MEAN CORPUSCULAR VOLUME 90.1 fl (80.0-96.0); MONO # 0.8 10^3/uL (0.0-0.8); MONO % 10.6 % (0.0-5.0); NEUTROPHILS # 5.4 10^3/uL (1.5-8.5); NEUTROPHILS % 72.9 % (36.0-66.0); PLATELET COUNT, AUTOMATED 316 10^3/uL (150-450); RED BLOOD COUNT 3.43 10^6/uL (4.00-5.40); WHITE BLOOD COUNT 7.3 10^3/uL (4.0-10.0)
[2019-10-10 10:12] LABS: INR 0.95; PROTHROMBIN TIME 12.4 SECONDS (11.8-14.0)
[2019-10-10 10:13] LABS: PARTIAL THROMBOPLASTIN TIME 27.6 SECONDS (25.0-38.4)
[2019-10-10 10:40] LABS: ALBUMIN 3.5 GM/DL (3.2-5.2); ALT/SGPT 27 U/L (12-78); BILIRUBIN,DIRECT 0.2 MG/DL (0.0-0.2); BILIRUBIN,TOTAL 0.6 MG/DL (0.2-1.0); BLOOD UREA NITROGEN 12 MG/DL (7-18); CALCIUM LEVEL 8.7 MG/DL (8.8-10.2); CARBON DIOXIDE LEVEL 23 MEQ/L (21-32); CHLORIDE LEVEL 103 MEQ/L (98-107); CK-MB VALUE MASS 1.3 NG/ML (<3.6); CPK CREATINE PHOSPHOKINASE 122 U/L (26-192); CREATININE FOR GFR 0.69 MG/DL (0.55-1.30); FREE T4 0.99 NG/DL (0.76-1.46); GLOMERULAR FILTRATION RATE > 60.0 (>45); GLUCOSE, FASTING 89 MG/DL (70-100); MB/CK RELATIVE INDEX 1.07 (< OR =4); POTASSIUM SERUM 4.7 MEQ/L (3.5-5.1); SODIUM LEVEL 135 MEQ/L (136-145); TOTAL PROTEIN 7.3 GM/DL (6.4-8.2); TROPONIN I < 0.02 NG/ML (< 0.10)
[2019-10-10] MEDS ORDERED: ISOVUE-370 76% 100ML VIAL As Ordered ONE (11:26)
--- NOTE | 2019-10-10 12:37 | REP ---
CT PULMONARY ANGIOGRAM: With IV contrast. HISTORY: Chest pain and hemoptysis. COMPARISON STUDIES: Comparison study September 20, 2019. CONTRAST DOSE: 75 mL of Isovue [address] TECHNIQUE: Helical scanning is acquired and overlapping 1.5 mm and contiguous 3 mm axial images are reformatted. In addition, maximum intensity projection and multiplanar re-formation images are generated in sagittal and coronal imaging projections. CT PULMONARY ANGIOGRAPHIC FINDINGS: There is good opacification in the pulmonary arterial tree. No filling defect or vessel cutoff is seen in the pulmonary arterial tree to suggest pulmonary embolus. There is no evidence of thoracic aortic aneurysm or dissection. There are two small accessory splenules in the left upper quadrant. No adrenal lesion is seen. The visualized upper abdominal structures are otherwise unremarkable. No pleural or pericardial effusion is seen. There are calcific granulomatous lymph node residuals in the pretracheal region unchanged. No new adenopathy. There is a new alveolar infiltrate in the left lung anteriorly consistent with pneumonia. Post thoracotomy changes are noted on the left. The patient appears to be status post left upper lobectomy. The right upper lobe nodule is unchanged. There is a nodular opacity pleural-based in the right lower lobe on today's CT study which appears more opaque and perhaps a little larger. This measures 14 mm in greatest diameter. No other new infiltrate. No bony destructive lesion. IMPRESSION: No CT evidence of pulmonary embolus. New infiltrate left lung consistent with pneumonia. Right upper lobe nodule and tiny pulmonary nodules unchanged. Right lower lobe pleural-based nodular opacity appears larger than on September 20, 2019 14 mm. Electronically Signed by Shlomo Murphy MD 10/10/2019 05:13 P
[2019-10-10] MEDS ORDERED: LevoFLOXacin IV 750 MG in IV 1 EA IV ONE (14:30)
[2019-10-10] MEDS ORDERED: ALBU8.5H INH (14:43)
[2019-10-10] MEDS ORDERED: ALPR0.25 PO (14:43)
[2019-10-10] MEDS ORDERED: VITA50005 PO (14:43)
[2019-10-10] MEDS ORDERED: NITR0.4S14 SL (14:43)
[2019-10-10] MEDS ORDERED: PRES10CA2 PO (14:43)
[2019-10-10] MEDS ORDERED: IPRA0.00 INH (14:43)
[2019-10-10] MEDS ORDERED: ACETAMINOPHEN TAB 650MG DOSE (2X325MG) PO PRN (15:00)
[2019-10-10] MEDS ORDERED: ALPRAZolam 0.25 MG TAB PO PRN (15:00)
[2019-10-10] MEDS ORDERED: NITROGLYCERIN 0.4 MG SUBL TABLET SL PRN (15:00)
[2019-10-10] MEDS ORDERED: guaiFENesin ER 600 MG TAB PO PRN (15:00)
[2019-10-10] MEDS ORDERED: FLUTICASONE PROP 0.05% NASAL SPRAY 16 GM (FLONASE) NARES PRN (15:00)
--- NOTE | 2019-10-10 16:17 | HPEPDOC ---
General Date of Admission Oct 10, 2019 at 14:57 Date of Service: Oct 10, 2019 Chief Complaint The patient is a 68-year-old female Who presented to the hospital after experiencing significant blood pooling on her pillow History of Present Illness Patient is a 68-year-old female with a PMHx of SYED adenocarcinoma (s/p resection 03/2018), HTN, DLP, Raynauds disease, Anxiety , who presented to the ER after she experience significant blood pooling in her pillow. Patient reported that yesterday 10/08 a.m. she woke up to her pillow being covered with blood with clots noted throughout the afternoon. She noted that her mouth pool with blood followed by coughing. Patient had called her senior benefits analyst, who advised her to call her entry level installation technician, who advised her to go to the emergency room. Patient reported that she had the bleeding under control. However, this morning when she awoke she noted significantly more blood on her pillow with persistent cough with blood and clots. Patient reports that she is prone to nosebleeds and of note has had COVID testing completed last Tuesday (10/01). Patient then had a cardiac catheterization completed on Tuesday that was scheduled and was reported to be negative. Patient reports that over the last couple of days, she has been noticing some blood on her tissue when she blows her nose. Patient follows with Dr. Solomon for her persistent nasal bleeds, last seen several years prior. Patient does not report any changes in for shortness of breath. She reports her coughing is new. Denies any nausea, vomiting, abdominal pain, constipation, diarrhea, urinary discomfort or fevers or chills. Home Medications Scheduled Atorvastatin Calcium (Atorvastatin Calcium) 40 Mg Tab, 40 MG PO QHS, (Reported) Ergocalciferol (Vitamin D2) (Vitamin D2) 50,000 Units Cap, 50,000 UNIT PO QWEEK, (Reported) SUNDAYS Losartan Potassium (Losartan Potassium) 50 Mg Tab, 50 MG PO DAILY, (Reported) Omeprazole (Omeprazole) 40 Mg Cap, 40 MG PO BID, (Reported) Propylene Glycol/Peg 400 (Systane 0.3-0.4% Eye Drops) 15 Ml Vanessa, 1 DROP OU DAILY, (Reported) Trazodone HCl (Trazodone HCl) 50 Mg Tab, 100 MG PO QHS, (Reported) Vit C/E/Zn/Coppr/Lutein/Zeaxan (Preservision Areds 2 Softgel) 1 Each Capsule, 1 CAP PO BID, (Reported) Scheduled PRN Albuterol Sulfate (Albuterol Sulfate Hfa) 8.5 Gm Hfa.aer.ad, 2 PUFFS INH QID PRN for SHORTNESS OF BREATH, (Reported) Alprazolam (Alprazolam) 0.25 Mg Tablet, 0.25 MG PO DAILY PRN for ANXIETY, (Reported) Fluticasone Propionate (Flonase Allergy Relief) 50 Mcg/Act Spr, 2 SPRAY NARES DAILY PRN for CONGESTION, (Reported) Guaifenesin (Mucinex) 600 Mg Tab, 1,200 MG PO DAILY PRN for CONGESTION, (Reported) Ipratropium/Albuterol Sulfate (Iprat-Albut 0.5-3(2.5) mg/3 ml) 3 Ml Ampul.neb, 1 VANESSA INH QID PRN for SHORTNESS OF BREATH, (Reported) Nitroglycerin (Nitroglycerin) 0.4 Mg Tab.subl, 0.4 MG SL NITRO PRN for CHEST PAIN, (Reported) Allergies Coded Allergies: cephalexin (Verified Allergy, Intermediate, hives, 10/10/19) codeine (Verified Allergy, Intermediate, migraines, 10/10/19) gabapentin (Verified Allergy, Intermediate, syncope, 10/10/19) morphine (Verified Allergy, Intermediate, nausea, 10/10/19) propoxyphene (Verified Allergy, Intermediate, migraines, 10/10/19) Past Medical History Medical History SYED adenocarcinoma (s/p resection 03/2018), HTN, DLP, Raynauds disease, Anxiety Surgical History Tonsillectomy Hysterectomy Left lung lobectomy by Dr. Perez 03/2018 Family History - Mother with a history of melanoma - Father with a history of lung cancer Social History - Denies the use of alcohol or illicit drugs; patient was that she quit the use of tobacco several years ago - Denies recent travel or sick contacts - Lives with alone Review of Systems Other systems 10 point review of systems complete, all negative otherwise stated in HPI Vital Signs - Vitals: BP 157/67, HR 80, RR 19, Sat 96, Temp 98.8F - General: Lying in bed, No acute distress, Speaking in full sentences, AAOx3 - HEENT: NC, AT, PERRLA, EOMI - CVS: RRR, +S1S2, - Murmurs / rubs / gallops - Lungs: Fair air entry bilaterally, No appreciable wheezing / rales / rhonchi - Abdomen: Soft, Non-distended, Non-tender - Extremities: No lower extremity edema, No calf tenderness - Neuro: No focal motor or sensory deficit - Skin: No visible rashes Laboratory Data Labs 24H Laboratory Tests 2 10/10/19 09:46: Immature Granulocyte % (Auto) 0.7, Neutrophils (%) (Auto) 72.9H, Lymphocytes (%) (Auto) 14.4L, Monocytes (%) (Auto) 10.6H, Eosinophils (%) (Auto) 1.1, Basophils (%) (Auto) 0.3, Neutrophils # (Auto) 5.4, Lymphocytes # (Auto) 1.1L, Monocytes # (Auto) 0.8, Eosinophils # (Auto) 0.1, Basophils # (Auto) 0.0, Nucleated Red Blood Cells % (auto) 0.0, Prothrombin Time 12.4, Prothromb Time International Ratio 0.95, Activated Partial Thromboplast Time 27.6, Anion Gap 9, Glomerular Filtration Rate > 60.0, Calcium Level 8.7L, Total Bilirubin 0.6, Direct Bilirubin 0.2, Aspartate Amino Transf (AST/SGOT) 22, Alanine Aminotransferase (ALT/SGPT) 27, Alkaline Phosphatase 85, Total Creatine Kinase 122, Creatine Kinase MB 1.3, Creatine Kinase MB Relative Index 1.07, Troponin I < 0.02, Total Protein 7.3, Albumin 3.5, Albumin/Globulin Ratio 0.9L, Thyroid Stimulating Hormone (TSH) 2.540, Free Thyroxine 0.99 CBC/BMP Laboratory Tests 10/10/19 09:46 Microbiology Microbiology 10/10/19 Respiratory Virus Panel (PCR) (LUCIO), Received Pending 10/10/19 Blood Culture, Received Pending 10/10/19 Blood Culture, Received Pending Plan / VTE VTE Prophylaxis Ordered?: Yes Plan Plan Hemoptysis - possibly 2/2 upper oropharyngeal bleed, possibly 2/2 CAP - Patient presented to the emergency room after experiencing 2 days of blood pooling on her pillow - Of note, patient does have a history of epistaxis and recently had COVID testing on 10/01 - Patient is hemodynamically stable and afebrile - Hg of 10.7; similar to baseline - CTA chest 10/09: No CT evidence of pulmonary embolus. New infiltrate left lung consistent with pneumonia. Right upper lobe nodule and tiny pulmonary nodules unchanged. Right lower lobe pleural-based nodular opacity appears larger than on September 20, 2019 14 mm. - Patient was given a dose of Levaquin in the emergency room - Will check H&H [id number] / Procalcitonin / Trend troponins - Will continue with Levaquin - Consult ENT, Dr. Ojeda; patient will likely need visualization of the oropharynx SYED adenocarcinoma - s/p resection 03/[address] Perez - She was advised of new findings on her right lung and has been in the process of getting a PET scan scheduled as an outpatient - Patient follows with Dr. Varner as an outpatient HTN - Blood pressures currently moderately elevated; possible secondary anxiety - Well resume losartan withholding parameters DLP - c/w Atorvastatin Raynauds disease - Currently not on any medications Anxiety / Insomnia - c/w Alprazolam and Trazadone GERD - c/w Omeprazole DVT prophylaxis - Will start TEDs / Seqeuntials (re: Hemoptysis) CARROLL KAMARA MD Oct 10, 2019 16:17
[2019-10-10 16:57] VITALS: BP 156/78
[2019-10-10 17:04] LABS: HEMATOCRIT 29.5 % (36.0-47.0); HEMOGLOBIN 10.3 g/dl (12.0-15.5)
[2019-10-10] MEDS ORDERED: SLF 3 ML SYR IV PRN (17:45)
[2019-10-10 20:00] VITALS: BP 163/76
[2019-10-10] MEDS: OMEPRAZOLE 20 MG CAP PO SCH (20:46)
[2019-10-10] MEDS: SLF 3 ML SYR IV SCH (20:47)
[2019-10-10] MEDS ORDERED: ATORVASTATIN 20 MG TAB PO SCH (21:00)
[2019-10-10] MEDS ORDERED: traZODone 50 MG TAB PO SCH (21:00)
[2019-10-11] VITALS: BP 133/72
--- NOTE | 2019-10-11 01:11 | ECGEPIP ---
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
[2019-10-11 04:00] VITALS: BP 170/80
[2019-10-11] MEDS: SLF 3 ML SYR IV SCH ×2 (04:12→14:55)
[2019-10-11 04:25] LABS: BASO % 0.5 % (0.0-1.0); EOS # 0.1 10^3/uL (0.0-0.5); EOS % 1.3 % (0.0-3.0); HEMATOCRIT 29.5 % (36.0-47.0); LYMPH # 1.2 10^3/uL (1.5-5.0); MEAN CORPUSCULAR HEMOGLOBIN 31.1 pg (27.0-33.0); MEAN CORPUSCULAR HGB CONC 33.9 g/dl (32.0-36.5); MEAN CORPUSCULAR VOLUME 91.6 fl (80.0-96.0); MONO # 0.8 10^3/uL (0.0-0.8); MONO % 12.9 % (0.0-5.0); NEUTROPHILS # 4.2 10^3/uL (1.5-8.5); NEUTROPHILS % 65.5 % (36.0-66.0); PLATELET COUNT, AUTOMATED 305 10^3/uL (150-450); RED BLOOD COUNT 3.22 10^6/uL (4.00-5.40); WHITE BLOOD COUNT 6.4 10^3/uL (4.0-10.0)
[2019-10-11 04:56] LABS: BLOOD UREA NITROGEN 13 MG/DL (7-18); CALCIUM LEVEL 8.7 MG/DL (8.8-10.2); CARBON DIOXIDE LEVEL 29 MEQ/L (21-32); CHLORIDE LEVEL 103 MEQ/L (98-107); CREATININE FOR GFR 0.83 MG/DL (0.55-1.30); GLOMERULAR FILTRATION RATE > 60.0 (>45); GLUCOSE, FASTING 98 MG/DL (70-100); MAGNESIUM LEVEL 2.1 MG/DL (1.8-2.4); SODIUM LEVEL 135 MEQ/L (136-145)
[2019-10-11 08:00] VITALS: BP 132/60
[2019-10-11 08:37] VITALS: BP 132/60
[2019-10-11] MEDS: OMEPRAZOLE 20 MG CAP PO SCH (08:37)
[2019-10-11] MEDS ORDERED: LOSARTAN 50MG TABLET PO SCH (09:00)
[2019-10-11] MEDS ORDERED: POLYVINYL ALCOHOL OPHTH SOLN 15 ML(LIQUITEARS) OU SCH (09:00)
--- NOTE | 2019-10-11 10:36 | IPNPDOC ---
Text Note Date of Service The patient was seen on 10/11/19. NOTE ENT 68 y.o. with a very recent history of producing BRB by mouth either through spitting or coughing it out Has had no throat pain, odynophagia, dysphagia or hoarseness No dental or mouth pain Hx of smoking in past PRIOR to dx of Lung CA Was given blood thinner prior to cardiac procedure and had swab for COVID Also uses Flonase regularly and has history of "polyps" in nose per Dr. Aranda EXAM NARES dilated blood vessels bilaterally in Kesselbachs plexus on septum Mucosa is dry There is no blood old or fresh NASOPHARYNX is clear OC/OP no lesions noted. Tongue mobile and soft Base of Tongue clear Hypopharynx NO lesions or blood Larynx nl TVCs and no lesions of evidence of subglottic blood IMP No obvious bleeding site is note in upper airway Certainly history is consistent with traumatic swab on blood thinner with noted vessels on Septum REC Can be discharged from ENT standpoint. Hold Flonase Use Saline nasal spray in hospital and after D/C VS,Fishbone, I+O VS, Fishbone, I+O Laboratory Tests 10/10/19 16:41 10/11/19 04:16 Vital Signs Date Time Temp Pulse Resp B/P (MAP) Pulse Ox O2 Delivery O2 Flow Rate FiO2 10/11/19 08:37 132/60 10/11/19 08:00 97.8 92 16 95 Room Air l I&O- Last 24 Hours up to 6 AM 10/11/19 06:00 Intake Total 510 ml Output Total 0 ml Balance 510 ml JENA GEORGE MD Oct 11, 2019 10:36
[2019-10-11 12:00] VITALS: BP 166/98
[2019-10-11] MEDS ORDERED: LEVO750T13 PO (14:32)
[2019-10-11] MEDS ORDERED: LevoFLOXacin IV 750 MG in IV 1 EA IV SCH (15:00)
--- NOTE | 2019-10-13 13:23 | DS.PDOC ---
Discharge Summary General Date of Admission Oct 10, 2019 at 14:57 Date of Discharge 10/11/19 Discharge Summary PROCEDURES PERFORMED DURING STAY: [None]. DISCHARGE DIAGNOSES: Hemoptysis from swallowed blood from nasopharyngeal bleed Pneumonia possible aspiration of blood. Pulmonary nodules. 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 She woke up to her pillow being covered with blood with clots noted throughout the afternoon. She noted that her mouth pooled with blood followed by coughing with blood clots. Patient had called her police chief, who advised her to call her speck dyer, who advised her to go to the emergency room. Patient reports that she is prone to nosebleeds and of note has had COVID testing completed (10/01). Patient then had a cardiac catheterization completed on 10/04 that was scheduled and was reported to be negative. Patient reports that since her procedure she has been noticing some blood on her tissue when she blows her nose and then woke up on the day of admission with large amounts of blood on the pillow. CTA chest 10/09: No CT evidence of pulmonary embolus. New infiltrate left lung consistent with pneumonia. Right upper lobe nodule and tiny pulmonary nodules unchanged. Right lower lobe pleural-based nodular opacity appears larger than on September 20, 2019 14 mm. She was admitted for pneumonia and hemoptysis due to possible nasopharyng eal bleed. Patient was evaluated by Dr Ojeda. No bleeding vessels were found. Hemoptysis - possibly 2/2 nasopharyngeal bleed evaluated by ENT: NARES dilated blood vessels bilaterally in Kesselbachs plexus on septum, Mucosa is dry.There is no blood old or fresh NASOPHARYNX is clear OC/OP no lesions noted. No obvious bleeding site is note in upper airway Certainly history is consistent with traumatic swab on blood thinner with noted vessels on Septum Hold Flonase . Use Saline nasal spray in hospital and after D/C Pneumonia Possibly from aspiration of blood continue levaquin. SYED adenocarcinoma s/p resection 03/[address] Perez She was advised of new findings on her right lung and has been in the process of getting a PET scan scheduled as an outpatient Patient follows with Dr. Rehman as an outpatient HTN Losartan DLP Atorvastatin Raynauds disease Currently not on any medications Anxiety / Insomnia Alprazolam and Trazadone GERD Omeprazole DISCHARGE MEDICATIONS: Please see below. ALLERGIES: Please see below. PHYSICAL EXAMINATION ON DISCHARGE: VITAL SIGNS: Please see below. General: Lying in bed, No acute distress, Speaking in full sentences, AAOx3 HEENT: NC, AT, PERRLA, EOMI CVS: RRR, +S1S2, - Murmurs / rubs / gallops Lungs: Fair air entry bilaterally, No appreciable wheezing / rales / rhonchi Abdomen: Soft, Non-distended, Non-tender Extremities: No lower extremity edema, No calf tenderness Neuro: No focal motor or sensory deficit Skin: No visible rashes LABORATORY DATA: Please see below. ACTIVITY: [As tolerated]. DIET: Regular DISPOSITION: 01 Home, Self-Care. DISCHARGE INSTRUCTIONS: Follow up PMD in 1 week Follow up with Pulmonary in 2 to 3 weeks. DISCHARGE CONDITION: [Stable]. TIME SPENT ON DISCHARGE: 35 minutes. Vital Signs/I&Os Vital Signs Date Time Temp Pulse Resp B/P (MAP) Pulse Ox O2 Delivery O2 Flow Rate FiO2 10/11/19 12:00 97.8 84 16 166/98 (120) 96 Room Air Microbiology Microbiology 10/10/19 Respiratory Virus Panel (PCR) (LUCIO) - Final, Complete 10/10/19 Blood Culture - Preliminary, Resulted No Growth after 48 hours. All Specime... 10/10/19 Blood Culture - Preliminary, Resulted No Growth after 48 hours. All Specime... Discharge Medications Scheduled Atorvastatin Calcium (Atorvastatin Calcium) 40 Mg Tab, 40 MG PO QHS, (Reported) Ergocalciferol (Vitamin D2) (Vitamin D2) 50,000 Units Cap, 50,000 UNIT PO QWEEK, (Reported) SUNDAYS Levofloxacin (Levofloxacin) 750 Mg Tablet, 1 TAB PO DAILY start on 10/12/19 Losartan Potassium (Losartan Potassium) 50 Mg Tab, 50 MG PO DAILY, (Reported) Omeprazole (Omeprazole) 40 Mg Cap, 40 MG PO BID, (Reported) Propylene Glycol/Peg 400 (Systane 0.3-0.4% Eye Drops) 15 Ml Vanessa, 1 DROP OU DAILY, (Reported) Trazodone HCl (Trazodone HCl) 50 Mg Tab, 100 MG PO QHS, (Reported) Vit C/E/Zn/Coppr/Lutein/Zeaxan (Preservision Areds 2 Softgel) 1 Each Capsule, 1 CAP PO BID, (Reported) Scheduled PRN Albuterol Sulfate (Albuterol Sulfate Hfa) 8.5 Gm Hfa.aer.ad, 2 PUFFS INH QID PRN for SHORTNESS OF BREATH, (Reported) Alprazolam (Alprazolam) 0.25 Mg Tablet, 0.25 MG PO DAILY PRN for ANXIETY, (Reported) Fluticasone Propionate (Flonase Allergy Relief) 50 Mcg/Act Spr, 2 SPRAY NARES DAILY PRN for CONGESTION, (Reported) Guaifenesin (Mucinex) 600 Mg Tab, 1,200 MG PO DAILY PRN for CONGESTION, ( Reported) Ipratropium/Albuterol Sulfate (Iprat-Albut 0.5-3(2.5) mg/3 ml) 3 Ml Ampul.neb, 1 VANESSA INH QID PRN for SHORTNESS OF BREATH, (Reported) Nitroglycerin (Nitroglycerin) 0.4 Mg Tab.subl, 0.4 MG SL NITRO PRN for CHEST PAIN, (Reported) Allergies Coded Allergies: cephalexin (Verified Allergy, Intermediate, hives, 10/10/19) codeine (Verified Allergy, Intermediate, migraines, 10/10/19) gabapentin (Verified Allergy, Intermediate, syncope, 10/10/19) morphine (Verified Allergy, Intermediate, nausea, 10/10/19) propoxyphene (Verified Allergy, Intermediate, migraines, 10/10/19) JAYCOB SURESH MD Oct 13, 2019 13:23
== END 2019-10-11 17:23 | disposition home or self-care (01) | DRG 178 ==
LOC: M ED 09:10 → M ED INP 14:57 → ENRESERV 15:07 → M PCU 16:57
PROVIDERS: ADMIT Internal Medicine; ATTEND Internal Medicine
DX: J69.0 Pneumonitis due to inhalation of food and vomit (principal); R04.2 Hemoptysis; R91.8 Other nonspecific abnormal finding of lung field; K21.9 Gastro-esophageal reflux disease without esophagitis; F41.9 Anxiety disorder, unspecified; I10 Essential (primary) hypertension; I73.00 Raynaud's syndrome without gangrene; R04.0 Epistaxis; Z85.118 Personal history of other malignant neoplasm of bronchus and lung; Z79.899 Other long term (current) drug therapy; Z88.5 Allergy status to narcotic agent; Z88.8 Allergy status to other drugs, medicaments and biological substances; G47.00 Insomnia, unspecified

== ENCOUNTER → 2019-11-07 | Outpatient (CLI) | payer MEDICARE ==
[~2019-11-07] MED LIST changes: +ALBU8.5H INH; +ALPR0.25 PO; +IPRA0.00 INH; +LEVO750T13 PO; +LIDO1.1P TOP; +NITR0.4S14 SL; +PRES10CA2 PO; +PRIL20TA2 PO; +SERT-141 PO; +SYST1SOL4 OP; +VENTAER INH; +VITA50005 PO; +[UNRECOGNIZED DRUG - OTHER] PO; +vit d 3 PO
--- NOTE | 2019-11-07 14:06 | REPPI ---
REASON: Followup. The latest prior for comparison is 07/14/2018. The patient has a recent diagnosis of new pneumonia in the left lung 10/10/2019. FINDINGS: The superior mediastinal structures are midline. The cardiac silhouette is unremarkable in size, shape, and position. The diaphragmatic surfaces of the lungs are regular, and the costophrenic angles are clear. The pulmonary reyes are clear. The imaged osseous structures are intact. IMPRESSION: There is no acute cardiopulmonary disease. No change from the prior plain film, however, CT is recommended if precise followup is of clinical interest. Electronically Signed by Jose Antonio Navarro DO 11/07/2019 04:09 P
== END ==
LOC: M PLAIMG 10:36
PROVIDERS: ATTEND Family Medicine
DX: J18.9 Pneumonia, unspecified organism (principal)

== ENCOUNTER → 2019-11-20 | Outpatient (CLI) | payer MEDICARE ==
--- NOTE | 2020-01-14 09:33 | REP ---
WHOLE BODY PET CT SCAN Study Date: 11/20/2019 COMPARISON: Whole body PET CT scan dated 11/14/2018, as well as chest CT scans dated 09/20/2019 and 10/10/2019. TECHNIQUE: Whole body PET scanning is performed from the skull base to the upper thighs. The study is performed with 7.79 mCi of F18 FDG. NECK AND SUPRACLAVICULAR AREAS: There are no hypermetabolic foci. This is unchanged. CHEST: The patient had a new pleural-based lung nodule posterolaterally in the right lower lobe identified on 09/20/2019. Slightly larger in size on 10/10/2019. Additionally, there was a stable right upper lobe lung nodule. In addition, there was an infiltrate in the lingula of the left upper lobe on 09/20/2019 and 10/10/2019. On the CT accompanying the PET scan today, the pleural-based nodular density posterolaterally in the right lower lobe is again identified and appears slightly larger in size measuring 17 mm greatest diameter today. There is borderline hypermetabolic uptake in this nodule with a maximal standard uptake value measuring 3.27. The known right upper lobe lung nodule is again identified and unchanged in size. There is no hypermetabolic uptake within this nodule, as previously, the maximal standard uptake value measures 1.98. The patient has other known tiny 2-mm lung nodules bilaterally. These appear stable from prior studies and demonstrate no hypermetabolic activity. There are no other hypermetabolic foci in the chest. On the CT study accompanying the examination, there are calcified hilar and mediastinal nodes, unchanged from prior studies. The infiltrate identified in the lingular segment on the left upper lobe on recent CT scans has resolved. There is no hypermetabolic uptake in this area on the scan today. ABDOMEN, PELVIS, AND UPPER THIGHS: There are no hypermetabolic foci as previously. There is no adrenal mass on the CT accompanying the PET scan today. There is no hypermetabolic focus in either the right or left adrenal. There is no hypermetabolic activity in the lingular segment of the lung left upper lobe. IMPRESSION: The patients known new lung nodule posterolaterally in the right lower lobe demonstrates borderline hypermetabolic activity. The known right upper lobe lung nodule again demonstrates no hypermetabolic activity. This is unchanged. The infiltrate identified in the lingular segment on the left upper lobe on recent CT scans has resolved. There is no hypermetabolic uptake in this area on the scan today. There are no other hypermetabolic foci. There are calcified mediastinal and hilar nodes, unchanged. MTDD
== END ==
LOC: M PLARAD 08:00
PROVIDERS: ATTEND Internal Medicine Pulmonary Disease
DX: R91.1 Solitary pulmonary nodule (principal)
CPT/HCPCS: 78815; A9552

== ENCOUNTER → 2019-12-19 | Outpatient (CLI) | payer MEDICARE | LOC: M LABSMTC 13:12 | PROVIDERS: ATTEND Anesthesiology | DX: Z01.812 Encounter for preprocedural laboratory examination (principal); Z20.828 Contact with and (suspected) exposure to other viral communicable diseases | CPT/HCPCS: C9803; U0003 ==

== ENCOUNTER 2019-12-24 06:36 | Day surgery (SDC) | payer MEDICARE ==
[~2019-12-24] VITALS: Ht 167.6 cm; Wt 72.1 kg
[~2019-12-24 06:36] MED LIST changes: -LIDO1.1P TOP; +LIDOCAINE 1% MDV 20ML VIAL SQ PRN; -PRIL20TA2 PO; -SERT-141 PO; -SYST1SOL4 OP; -VENTAER INH; -[UNRECOGNIZED DRUG - OTHER] PO; -vit d 3 PO
[2019-12-24] MEDS ORDERED: ROCURONIUM BROMIDE 50 MG/5 ML VIAL As Ordered ONE ×2 (07:13→09:16)
[2019-12-24] MEDS ORDERED: propofoL 200 MG/20 ML VIAL As Ordered ONE (07:13)
[2019-12-24] MEDS ORDERED: LIDOCAINE 2% 100MG/5ML SDV (FOR ANES.) As Ordered ONE (07:13)
[2019-12-24] MEDS ORDERED: dexameTHASONE 4 MG/ML 1ML VIAL (J1100 PER 1MG) As Ordered ONE (07:14)
[2019-12-24] MEDS ORDERED: MIDAZOLAM INJ 2MG/2ML VIAL (J2250 PER 1MG) As Ordered ONE (07:15)
[2019-12-24] MEDS ORDERED: THROMBIN SOLN 20,000 UNITS KIT As Ordered ONE (07:15)
[2019-12-24] MEDS ORDERED: EPINEPHrine 1MG/10ML SYRINGE 1.5IN As Ordered ONE (07:15)
[2019-12-24] MEDS ORDERED: LIDOCAINE 1% SDV 30ML VIAL As Ordered ONE (07:15)
[2019-12-24] MEDS ORDERED: CETACAINE SPRAY 5GM As Ordered ONE (07:15)
[2019-12-24] MEDS ORDERED: fentaNYL 100 MCG/2 ML INJECTION (J3010) As Ordered ONE ×2 (07:16→09:17)
[2019-12-24] MEDS ORDERED: LIDOCAINE 2% MDV 20ML VIAL As Ordered ONE (07:16)
[2019-12-24] MEDS ORDERED: THROMBIN SOLN 5,000 UNITS VIAL As Ordered ONE (07:19)
[2019-12-24] MEDS ORDERED: LR 1,000 ML IV ONE (07:45)
[2019-12-24] MEDS ORDERED: ePHEDrine SULFATE 25 MG/5 ML(5MG/ML) SYRINGE As Ordered ONE (08:08)
[2019-12-24] MEDS ORDERED: METOCLOPRAMIDE INJ 10MG/2ML VIAL (J2765 PER 1) As Ordered ONE (08:24)
[2019-12-24] MEDS ORDERED: SUGAMMADEX SODIUM 500 MG/5 ML VIAL (BRIDION) As Ordered ONE (08:24)
[2019-12-24] MEDS ORDERED: ONDANSETRON 4MG/2ML VIAL As Ordered ONE (08:24)
[2019-12-24] MEDS ORDERED: LACRILUBE (AKWA TEARS) OPHTH OINT 3.5 GM As Ordered ONE (09:29)
[2019-12-24] MEDS ORDERED: MEPERIDINE INJ 25 MG/ML VIAL (J2175) IV PRN (10:15)
[2019-12-24] MEDS ORDERED: fentaNYL 100 MCG/2 ML INJECTION (J3010) IV PRN (10:15)
[2019-12-24] MEDS ORDERED: METOCLOPRAMIDE INJ 10MG/2ML VIAL (J2765 PER 1) IV PRN (10:15)
[2019-12-24] MEDS ORDERED: oxyCODONE 5MG TAB PO PRN (10:15)
[2019-12-24] MEDS ORDERED: LR 1,000 ML IV SCH (10:15)
[2019-12-24] MEDS ORDERED: ONDANSETRON 4MG/2ML VIAL IV PRN (10:15)
[2019-12-24 11:00] VITALS: BP 127/60
--- NOTE | 2020-01-10 07:36 | RO ---
DATE OF OPERATION: December 24, 2019 PREOPERATIVE DIAGNOSIS: Right upper lobe and right lower lobe pulmonary nodules with PET avidity. POSTOPERATIVE DIAGNOSIS: PROCEDURE PERFORMED: Fiberoptic bronchoscopy using robotic technology with electromagnetic navigation and transbronchial radial ultrasound. SURGEON: Kunal Rehman DO ACCOUNT CONTACT ASSOCIATE: ANESTHESIA: PROCEDURE NOTE: The patient was seen and the procedure explained to the patient, as were all of the possible complications pertaining there to, including, but not limited to bleeding, infection, medication reaction, and lung collapse. A written and informed consent were obtained and placed on the chart. The patient was placed under general anesthetic. When the anesthetic had sufficient time to take affect, a video bronchoscope was placed in through the endotracheal tube and into the trachea. The iram was sharp. The airways of the left and right lung were examined in a subsegmental fashion for any evidence of tumor, ulcerative necrosis, vessel engorgement, or mucosal irregularity. The area of previous resection in the left upper lobe was photographed. There was no endobronchial disease appreciated on the right. When secretions had been sufficiently suctioned free, the video bronchoscope was removed and a robotic bronchoscope placed into the endotracheal tube. Registration was performed and navigation then performed to the identified lesion in the right upper lobe. The scope was able to be passed through several generations of bronchi with no obvious endobronchial disease being identified. When the lesion was within 30 cm of the tip of the scope, a radial ultrasound probe was placed through the scope, and using fluoroscopic guidance, advanced to identify a soft tissue density adjacent to the airway. The radial probe was removed and trans-bronchoscopic cytologic brushes were performed. Thereafter, trans-bronchoscopic biopsies were performed, as was the fine needle aspiration. Additional brushes were performed and the area was lavaged free of any remaining secretions. The robotic bronchoscope was then retracted and a second pathway was followed to the right lower lobe lesion. Several generations of bronchi were able to be cannulated with no evidence of endobronchial obstruction. When the lesion was approached again, transbronchial ultrasound was performed. There was no clear evidence of soft tissue density appreciated in the right lower lobe lesion. Nevertheless, as the scope was at that point wedged, bronchoalveolar lavage was performed with reasonable recovery of specimen from the right lower lobe. Having accomplished this, the bronchoscope was then removed and video bronchoscope once again introduced. The area of previous resection was evaluated and cytology brushes were obtained of the site of previous resection. The airways were then lavaged free of any remaining blood or secretions. The bronchoscope was removed out through the patient's endotracheal tube. The anesthetic was reversed. She is currently on route to the recovery room. There were no apparent complications. BELEN
--- NOTE | 2020-01-21 08:33 | REP ---
C-ARM VIEWS CHEST HISTORY: Bronchoscopy. FINDINGS: Multiple C-arm views of the right upper lobe are performed during right upper lobe bronchoscopy. Bronchoscope was visualized over the right upper lobe region. Fluoroscopy time 8 minutes 29 seconds. MTDD
--- NOTE | 2020-01-21 08:34 | REP ---
PORTABLE CHEST X-RAY CLINICAL: Postoperative assessment. COMPARISON: 11/07/2019. FINDINGS: Mediastinum and cardiac silhouette are normal. Lung reyes demonstrate stable chronic changes. No effusion. No new opacity. No pneumothorax. Skeletal structures are intact. IMPRESSION: No acute process. No effusion or pneumothorax. MTDD
[2020-01-22] MEDS ORDERED: LIDO1.1P TOP (11:05)
[2020-01-22] MEDS ORDERED: SERT-141 PO (11:05)
[2020-01-22] MEDS ORDERED: VENTAER INH (11:05)
[2020-01-22] MEDS ORDERED: SYST1SOL4 OP (11:05)
[2020-01-22] MEDS ORDERED: PRIL20TA2 PO (11:05)
[2020-01-22] MEDS ORDERED: [UNRECOGNIZED DRUG - OTHER] PO (11:05)
[2020-01-22] MEDS ORDERED: vit d 3 PO (11:05)
== END 2019-12-24 11:18 | disposition home or self-care (01) ==
LOC: M SDC 06:36
PROVIDERS: ATTEND Internal Medicine Pulmonary Disease
DX: C34.11 Malignant neoplasm of upper lobe, right bronchus or lung (principal); J44.9 Chronic obstructive pulmonary disease, unspecified; I10 Essential (primary) hypertension; E78.5 Hyperlipidemia, unspecified; K21.9 Gastro-esophageal reflux disease without esophagitis; K22.70 Barrett's esophagus without dysplasia; Z87.891 Personal history of nicotine dependence; Z79.899 Other long term (current) drug therapy; Z88.5 Allergy status to narcotic agent; Z88.1 Allergy status to other antibiotic agents; Z88.8 Allergy status to other drugs, medicaments and biological substances
CPT/HCPCS: 31623; 31624; 31627; 31628; 31629; 71045; 76000; 87070; 87071; 87077; 87102; 87116; 87184; 87205; 87206; 88104; 88173; 88305; J1100; J2250; J2405; J2765; J3010; S2900

== ENCOUNTER → 2020-01-08 | Outpatient (CLI) | payer MEDICARE ==
[~2020-01-08] MED LIST changes: +LIDO1.1P TOP; -LIDOCAINE 1% MDV 20ML VIAL SQ PRN; +PRIL20TA2 PO; +SERT-141 PO; +SYST1SOL4 OP; +VENTAER INH; +[UNRECOGNIZED DRUG - OTHER] PO; +vit d 3 PO
--- NOTE | 2020-01-08 15:07 | PFTRPT ---
Visit Date: 01/08/2020 Second ID: [id number] Referring Doctor: Kunal Rehman DO Height: 66.00 Inches Weight: 160.00 Lbs BSA: 1.82 Diagnosis: C34.11 TECHNIQUE: Pre- and post-bronchodilator study of excellent technical quality. FINDINGS: Forced vital capacity is normal. FEV1 is in proportion of obstructive index; therefore, normal. Expiratory limit within the flow-volume loop is normal. No significant bronchodilator response identified. Total lung capacity normal. Residual volume is in proportion. Diffusing capacity, although significantly reduced, is appropriate for alveolar volume. Hemoglobin is acceptable at 10.4, likely the cause of the above decline. Airway resistance and conductance are normal. IMPRESSION: Significant diffusing capacity impairment, probably on the basis of anemia. Please correlate clinically. MTDD
== END ==
LOC: M CARPUL 14:25
PROVIDERS: ATTEND Internal Medicine Pulmonary Disease
DX: C34.11 Malignant neoplasm of upper lobe, right bronchus or lung (principal)

== ENCOUNTER → 2020-01-22 | Outpatient (CLI) | payer MEDICARE ==
--- NOTE | 2020-01-22 15:17 | RADONC.CN ---
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 She has been deemed inoperable and is seen for consideration of SBRT to address these lesions. Diagnosis/Treatment History Oncologic History Former smoker quit 2016. Underwent SYED lobectomy for NSCLC on 03/29/[address] Perez [id number]. Received no adjuvant treatment. Followed for a RUL present since before the SYED surgery was noted to be growing on CT from early 2018 but was not PET avid 11/14/18 study. Continued to grow and was PET avid on study from 11/20/19. Also noted on the most recent PET-CT was a growing pleural based avid RLL lesion. Biopsy of the RUL lesion on 12/24/19 revealed adenocarcinoma. RLL lesion was not able to be sampled bronchoscopically. She has multiple subcentimeter nodules in other locations in the lung which are neither PET avid or growing. PFTs 01/08/20 SPIROMETRY FVC (L) 3.27 2.83 86 FEV1 (L) 2.49 2.23 89 FEV1/FVC (%) 76 79 103 Interval History Feels well but anxious. Has PIKE and an occasional cough. Has had bleeding issues in the past is on a blood thinner and had epistaxis. Also has had CAP and HCAP multiple bouts over years. Past Medical History: Sinusitis COPD GERD HTN Barretts Esophagus Past Surgical History: As above Family History: Father , NSCLC Mother , melanoma Social History: 80 pk year former smoker quit 2018 3 drinks per month Allergies / Meds Allergies: Coded Allergies: cephalexin (Verified Allergy, Intermediate, hives, 12/21/19) codeine (Verified Allergy, Intermediate, migraines, 12/21/19) gabapentin (Verified Allergy, Intermediate, syncope-in system historically, 12/21/19) morphine (Verified Allergy, Intermediate, nausea, 12/21/19) propoxyphene (Verified Allergy, Intermediate, migraines, 12/21/19) Home Meds Reported Medications Sertraline Hcl (Sertraline HCl) 50 Mg Tablet, 50 MG PO DAILY for 30 Days, #30 TAB 01/22/20 [vit d 3] No Conflict Check, 47284 MG PO 1XWK 01/22/20 Albuterol Sulfate (Ventolin Hfa) 18 Gm Hfa.aer.ad, 2 PUFF INH QID PRN for wheezing for 30 Days, #1 INHALER 01/22/20 Propylene Glycol/Peg 400/Pf (Systane 0.3-0.4% Eye Drop) 1 Each Droperette, 1 VANESSA OP BID 01/22/20 Omeprazole Magnesium (Prilosec Otc) 20 Mg Tablet.dr, 40 MG PO DAILY for 30 Days, #30 TAB 01/22/20 [presarvision] No Conflict Check, 1 TAB PO BID 01/22/20 Lidocaine/Menthol (Lidopatch) 1 Each Adh..patch, 1 APLCT TOP BID for Diabetes for 30 Days, #60 EA 01/22/20 Albuterol Sulfate (Albuterol Sulfate Hfa) 8.5 Gm Hfa.aer.ad, 2 PUFFS INH QID PRN for SHORTNESS OF BREATH 10/10/19 Alprazolam (Alprazolam) 0.25 Mg Tablet, 0.25 MG PO DAILY PRN for ANXIETY 10/10/19 Vit C/E/Zn/Coppr/Lutein/Zeaxan (Preservision Areds 2 Softgel) 1 Each Capsule, 1 CAP PO BID, CAP 10/10/19 Ergocalciferol (Vitamin D2) (Vitamin D2) 50,000 Units Cap, 89011 UNIT PO QWEEK Sundays10/10/19 Trazodone HCl (Trazodone HCl) 50 Mg Tab, 100 MG PO QHS, TAB 06/26/18 Atorvastatin Calcium (Atorvastatin Calcium) 40 Mg Tab, 40 MG PO QHS, TAB 03/27/18 Losartan Potassium (Losartan Potassium) 50 Mg Tab, 50 MG PO QID, TAB 02/20/18 Propylene Glycol/Peg 400 (Systane 0.3-0.4% Eye Drops) 15 Ml Vanessa, 1 DROP OU DAILY 02/20/18 Omeprazole (Omeprazole) 40 Mg Cap, 40 MG PO BID, CAP 02/20/18 Review of Systems General: Reports: Fatigue, Malaise Eyes: Denies: Pain, Vision change HEENT: Denies: Head Aches, Sinus Congestion, Epistaxis Skin: Denies: Rash, Lesions Pulmonary: Reports: Dyspnea, Cough; Denies: Pleuritic Chest Pain Cardiovascular: Denies: Chest Pain, Palpitations Gastrointestinal: Denies: Nausea, Vomiting, Abdominal Pain, Diarrhea Genitourinary: Denies: Dysuria, Frequency, Incontinence Hematologic: Denies: Bruising, Petecchia, Enlarged Lymph Nodes Musculoskeletal: Denies: Neck pain, Back pain Neurological: Denies: Weakness, Numbness, Incoordination Psych: Reports: Mood Normal; Denies: Memory Issues, Thoughts of Self Harm Vital Signs Ht 66" Wt 161 lb BMI 26 P 120 RR 20 BP 128/74 O2 98% General Exam: Positive: Alert, Cooperative, No Acute Distress Eye Exam: Positive: PERRLA, EOMI ENT EXAM: Positive: Mucous membr. moist/pink, Pharynx Normal Neck Exam: Negative: Thyromegaly, Lymphadenopathy Chest Exam: Positive: Normal air movement; Negative: Rales, Rhonchi, Wheezing Heart Exam: Positive: Rate Normal, Regular Rhythm Abdomen Exam: Positive: Soft; Negative: Tenderness, Mass Extremity Exam: Negative: Edema, Tenderness Skin Exam: Positive: Nl turgor and temperature; Negative: Rash Neuro Exam: Positive: Normal Gait, Normal Speech, Cranial Nerves 3-12 NL Psych Exam: Positive: Mental status NL, Mood NL, Memory Intact Diagnostic and Laboratory Diagnostic Review Radiologic images, relevant labs and pathology reports were personally reviewed and discussed with Ms. Awan. Assessment and Plan Impression Ms. Awan is a 69 year old female former smoker with a history of NSCLC of the SYED treated with lobectomy in 2018 who now has synchronous [id number] NSCLC of the RUL and RLL. She has been deemed inoperable and is seen for consideration of SBRT to address these lesions. Stage [id number] stage IA2 NSCLC of the RUL and RLL Performance Status ECOG 0 Plan We had an extensive discussion with Ms. Awan regarding the diagnosis at hand and available therapeutic options. She has a T1b biopsy proven adenocarcinoma of the RUL. The RLL lesion has been growing steadily and is plural based and PET avid. Although biopsy was unable to be accomplished bronchoscopically I am comfortable calling this a synchronous primary NSCLC. Her PFTs are acceptable for SBRT and she has decided against non- anatomic resection of these lesions, which I do not think would offer her an improved outcome versus SBRT. I would treat both lesions concurrently to 60 Gy in 5 fractions using a DCA planning approach and di-isocentric setup. I will use a 4DCT/ITV to account for tumor motion in the respiratory cycle for planning and we will use an amplitude gated delivery of the treatment. I do not think she would be a good candidate for breath hold given there are 2 lesions which would add to time on the treatment table per day and would be less reproducible given she has existing dyspnea. She mentioned pursuing a second opinion at [facility] [place] [place] which I fully support. She has seen Dr. Cee in medical oncology here. I explained to the patient that she could be observed after SBRT, or pursue adjuvant systemic therapy if indicated, but that decisions for or against systemic therapy in the adjuvant setting would not affect my recommendation. I do not consider her stage III based on available data and she does not meet the usual high-risk early-stage criteria for consideration of adjuvant chemo (>4cm primary etc.). She is amenable to pursuing SBRT here pending second opinion. We discussed the logistics of receiving radiation therapy in detail including the need for a 1-time planning session. We reviewed the side effects of treatment including fatigue, CW toxicity and 5- 8% risk of symptomatic pneumonitis per lesion treated. After discussing the risks, benefits and alternatives to radiation therapy, Ms. Awan was amenable to pursuing radiotherapy. All questions were answered to the patient's satisfaction. We instructed the patient that if there were any questions,concerns or changes in clinical status in the interim to contact us. We will [place] [facility] [place] and await the results of that discussion before proceeding with treatment here. Recommendations SBRT to both RUL and RLL lesions 60 Gy in 5 fractions Simulation in the coming weeks [facility] second opinion, will send records TJ NG MD Jan 22, 2020 15:17
== END ==
LOC: M ONCR 12:36
PROVIDERS: ATTEND General Practice
DX: C34.11 Malignant neoplasm of upper lobe, right bronchus or lung (principal); C34.31 Malignant neoplasm of lower lobe, right bronchus or lung; Z87.891 Personal history of nicotine dependence

== ENCOUNTER 2020-02-06 13:47 | Outpatient (RCR) | payer MEDICARE ==
[2020-02-06 15:27] LABS: ALBUMIN 3.9 GM/DL (3.2-5.2); BILIRUBIN,TOTAL 0.6 MG/DL (0.2-1.0); CREATININE FOR GFR 1.54 MG/DL (0.55-1.30); GLOMERULAR FILTRATION RATE 35.6 (>45); POTASSIUM SERUM 4.6 MEQ/L (3.5-5.1); TOTAL PROTEIN 7.7 GM/DL (6.4-8.2)
--- NOTE | 2020-02-07 09:32 | MEDONCTEEN ---
Date/Time of Encounter Date of Encounter: Feb 07, 2020 Time of Encounter: 09:00 Telephone Encounter Briefly, Mrs. 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 She had a second opinion consultation with [facility] and they recommended MRI head for staging which I ordered. As part of that process she had her CMP drawn yesterday. I received a call from the lab this morning stating that she had acute kidney injury, Cr was 1.54 (previously 0.86 in September 2019), BUN 20. I spoke to her about this and she notes decreased urinary volume in recent weeks and admitted she has no been drinking enough water. She denies flank pain, dysuria, fevers, chills, blood in urine. States she feels well. I have asked her to hold losartan for the next few days, this is her only renal medication. She has no new medications. I have ordered a UA today and urine Cr and Na to calculate a FENa. I have also ordered a renal US. I have encouraged her to drink minimum 2 qts H20 daily. I believe this is most likely dehydration. I will repeat a CMP on 02/11/20 to assess for renal recovery and in the meantime follow up these urine studies. TJ NG MD Feb 07, 2020 09:32
--- NOTE | 2020-02-12 12:10 | MEDONCPDOC ---
Med Onc Office Note.txt Date of Visit Feb 12, 2020 Office Note Note renal US is normal with no signs of obstruction. Reviewed UA from 02/06/20. Her FENa is 0.1% which suggest pre-renal acute kidney injury. This fits with the clinical picture of excess alcohol consumption as previously documented in call with daughter. Will call her with results and ask her to hydrate PO. Can recheck CMP later this week. CC TO: Primary Care Provider: Wilda Anna MD Referring Provider: TJ NG MD Feb 12, 2020 12:10
== END 2020-02-23 ==
LOC: M ONCR 13:47
PROVIDERS: ATTEND General Practice
DX: C34.31 Malignant neoplasm of lower lobe, right bronchus or lung (principal); S37.009A Unspecified injury of unspecified kidney, initial encounter; X58.XXXA Exposure to other specified factors, initial encounter; Y92.89 Other specified places as the place of occurrence of the external cause; Y93.89 Activity, other specified; Y99.8 Other external cause status; F10.99 Alcohol use, unspecified with unspecified alcohol-induced disorder

== ENCOUNTER → 2020-02-11 | Outpatient (CLI) | payer MEDICARE ==
--- NOTE | 2020-02-11 07:54 | REP ---
INDICATION: ACUTE KIDNEY INJURY COMPARISON: None TECHNIQUE: Real time molina scale ultrasound examination using curved array transducer. FINDINGS: The bilateral kidneys are normal in reniform shape without perinephric fluid, hydronephrosis, nephrolithiasis, or mass lesion. Right kidney measures 11.3 x 5.4 x 4.8 cm and includes 10 mm mid/upper pole cyst. Left kidney measures 11.5 x 5.2 x 5.6 cm and appears normal. Bladder is under distended. IMPRESSION: Essentially normal examination. Incidental 1 cm right renal cyst noted. <Electronically signed by Leif Garrido > 02/11/20 [id number]
[2020-02-11 12:18] LABS: SODIUM,RANDOM URINE 16 MEQ/L
[2020-02-11 12:51] LABS: APPEARANCE, URINE CLEAR (CLEAR); BACTERIA, URINE AUTO NEGATIVE (NEGATIVE); BILIRUBIN, URINE AUTO NEGATIVE (NEGATIVE); BLOOD, URINE BLOOD 1+ (NEGATIVE); COLOR, URINE YELLOW (YELLOW); GLUCOSE, URINE (UA) AUTO NEGATIVE (NEGATIVE); KETONE, URINE AUTO NEGATIVE (NEGATIVE); LEUKOCYTE ESTERASE, URINE AUTO NEGATIVE (NEGATIVE); MUCUS, URINE SMALL (NEGATIVE); NITRITE, URINE AUTO NEGATIVE (NEGATIVE); PROTEIN, URINE AUTO NEGATIVE (NEGATIVE); RBC, URINE AUTO 4 /HPF (0-3); SPECIFIC GRAVITY URINE AUTO 1.011 (1.002-1.035); SQUAMOUS EPITHELIAL CELL UR AU 0 /HPF (0-6); UROBILINOGEN, URINE AUTO 0.2 mg/dL (0.0-2.0); WBC, URINE AUTO 1 /HPF (0-3)
== END ==
LOC: M RAD 06:01
PROVIDERS: ATTEND General Practice
DX: N17.9 Acute kidney failure, unspecified (principal)

== ENCOUNTER → 2020-02-13 | Outpatient (CLI) | payer MEDICARE ==
[~2020-02-13] MED LIST changes: +PROHANCE 279.3MG/ML 15ML VIAL As Ordered ONE
--- NOTE | 2020-02-13 19:50 | REPVR ---
PROCEDURE INFORMATION: Exam: MR Head Without and With Contrast Exam date and time: 02/13/2020 6:40 PM Age: 69 years old Clinical indication: Condition or disease; Cancer; Metastatic or secondary malignancy of brain; Patient HX: H/x lung CA screening for staging; Additional info: Lung CA , to complete staging TECHNIQUE: Imaging protocol: MR of the head without and with intravenous contrast. Contrast material: PROHANCE; Contrast volume: 5 ml; Contrast route: INTRAVENOUS (IV); COMPARISON: MRI-Brain without Contrast 08/02/2014 1:22 PM FINDINGS: Brain: Mild nonspecific T2/FLAIR hyperintensities of the periventricular and deep subcortical white matter, most likely secondary to chronic small vessel ischemic change. No intracranial hemorrhage or extra-axial fluid collection. No evidence of mass effect or midline shift. No restricted diffusion to suggest acute infarct. No abnormal intracranial enhancement. Cerebral ventricles: Mild prominence of the ventricles and sulci, likely attributed to parenchymal volume loss. Bones/joints: Unremarkable. Paranasal sinuses: Normal as visualized. No acute sinusitis. Mastoid air cells: No mastoid effusion. Orbits: Unremarkable. Soft tissues: Unremarkable. IMPRESSION: 1. No acute intracranial pathology. No evidence of metastatic disease to the brain. 2. Chronic findings, as above. Electronically signed by: Eric Araya On 02/13/2020 19:49:59 PM
== END ==
LOC: M RAD 17:24
PROVIDERS: ATTEND General Practice
DX: C34.31 Malignant neoplasm of lower lobe, right bronchus or lung (principal); C34.11 Malignant neoplasm of upper lobe, right bronchus or lung
CPT/HCPCS: 70553; A9576

== ENCOUNTER 2020-02-29 12:42 | Outpatient (RCR) | payer MEDICARE ==
[~2020-02-29 12:42] MED LIST changes: -PROHANCE 279.3MG/ML 15ML VIAL As Ordered ONE
== END 2020-03-24 ==
LOC: M ONCR 12:42
PROVIDERS: ATTEND General Practice
DX: C34.31 Malignant neoplasm of lower lobe, right bronchus or lung (principal)

== ENCOUNTER → 2020-04-02 | Outpatient (CLI) | payer MEDICARE ==
--- NOTE | 2020-04-02 12:09 | RADONC ---
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 Diagnosis/Treatment History Oncologic History Former smoker quit 2016. Underwent SYED lobectomy for NSCLC on 03/29/[address] Perez [id number]. Received no adjuvant treatment. Followed for a RUL present since before the SYED surgery was noted to be growing on CT from early 2018 but was not PET avid 11/14/18 study. Continued to grow and was PET avid on study from 11/20/19. Also noted on the most recent PET-CT was a growing pleural based avid RLL lesion. Biopsy of the RUL lesion on 12/24/19 revealed adenocarcinoma. RLL lesion was not able to be sampled bronchosc opically. She has multiple subcentimeter nodules in other locations in the lung which are neither PET avid or growing. MRI head completed on 02/13/20 was negative for intracranial metastases. She underwent SBRT to the RUL and RLL lesions 60 Gy in 5 fractions completed on 02/29/20. She follows with Dr. Beltrán at [facility] as well. Interval History Torri is here today, feeling generally well. She has noted increased left chest wall pain, which has been present to some degree since the time of her lobectomy but has been worse lately. She has previously tried gabapentin for this but was not able to tolerate it. She does use a lidocaine patch on her back from time to time with positive effect. She did note 3 days of fatigue, headache, and GI sym ptoms upon completing of SBRT, these resolved spontaneously. She has EGD/colonoscopy upcoming, she has not been able to get in for her annual mammogram due to concern about the chest wall pain on the left. She denies worsening dyspnea, SOB, or right-sided chest pain. Current Therapy Surveillance Stage [id number] NSCLC stage IA2 RUL, RLL Social History: 80 pack year former smoker Drinks alcohol on occasion Allergies / Meds Allergies: Coded Allergies: cephalexin (Verified Allergy, Intermediate, hives, 8/28/20) codeine (Verified Allergy, Intermediate, migraines, 12/21/19) gabapentin (Verified Allergy, Intermediate, syncope-in system histori sobia, 12/21/19) morphine (Verified Allergy, Intermediate, nausea, 12/21/19) propoxyphene (Verified Allergy, Intermediate, migraines, 12/21/19) Home Meds Reported Medications Sertraline Hcl (Sertraline HCl) 50 Mg Tablet, 50 MG PO DAILY for 30 Days, #30 TAB 01/22/20 [vit d 3] No Conflict Check, 06816 MG PO 1XWK 01/22/20 Albuterol Sulfate (Ventolin Hfa) 18 Gm Hfa.aer.ad, 2 PUFF INH QID PRN for wheezing for 30 Days, #1 INHALER 01/22/20 Propylene Glycol/Peg 400/Pf (Systane 0.3-0.4% Eye Drop) 1 Each Droperette, 1 VANESSA OP BID 01/22/20 Omeprazole Magnesium (Prilosec Otc) 20 Mg Tablet.dr, 40 MG PO DAILY for 30 Days, #30 TAB 01/22/20 [presarvision] No Conflict Check, 1 TAB PO BID 01/22/20 Lidocaine/Menthol (Lidopatch) 1 Each Adh..patch, 1 APLCT TOP BID for Diabetes for 30 Days, #60 EA 01/22/20 Albuterol Sulfate (Albuterol Sulfate Hfa) 8.5 Gm Hfa.aer.ad, 2 PUFFS INH QID PRN for SHORTNESS OF BREATH 10/10/19 Alprazolam (Alprazolam) 0.25 Mg Tablet, 0.25 MG PO DAILY PRN for ANXIETY 10/10/19 Vit C/E/Zn/Coppr/Lutein/Zeaxan (Preservision Areds 2 Softgel) 1 Each Capsule, 1 CAP PO BID, CAP 10/10/19 Ergocalciferol (Vitamin D2) (Vitamin D2) 50,000 Units Cap, 47470 UNIT PO QWEEK Sundays10/10/19 Trazodone HCl (Trazodone HCl) 50 Mg Tab, 100 MG PO QHS, TAB 06/26/18 Atorvastatin Calcium (Atorvastatin Calcium) 40 Mg Tab, 40 MG PO QHS, TAB 03/27/18 Losartan Potassium (Losartan Potassium) 50 Mg Tab, 50 MG PO QID, TAB 02/20/18 Propylene Glycol/Peg 400 (Systane 0.3-0.4% Eye Drops) 15 Ml Vanessa, 1 DROP OU DAILY 02/20/18 Omeprazole (Omeprazole) 40 Mg Cap, 40 MG PO BID, CAP 02/20/18 Review of Systems Review of Systems Constitutional: Denies: Chills, Fever, Fatigue, Weight Loss Pulmonary: Reports: Dyspnea, Pleuritic Chest Pain; Denies: Cough Cardiovascular: Denies: Chest Pain, Palpitations, Orthopnea Gastrointestinal: Denies: Nausea, Vomiting Musculoskeletal: Reports: Back pain; Denies: Neck pain Neurological: Denies: Weakness, Numbness, Change in Speech Psych: Reports: Mood Normal Physical Examination Vital Signs Ht 66" Wt 166 lb T 97.9 P 93 RR 18 BP 125/71 O2 98% Pain 0 Fatigue 1 General Exam: Positive: Alert, Cooperative; Negative: No Acute Distress Eye Exam: Positive: PERRLA, EOMI ENT EXAM: Positive: Atraumatic Neck Exam: Positive: Supple Chest Exam: Positive: Clear to auscultation, Normal air movement; Negative: Rales, Rhonchi, Wheezing Heart Exam: Positive: Rate Normal, Regular Rhythm Abdomen Exam: Positive: Normal bowel sounds, Soft; Negative: Tenderness Extremity Exam: Negative: Edema Skin Exam: Positive: Nl turgor and temperature Neuro Exam: Positive: Normal Gait, Normal Speech, Cranial Nerves 3-12 NL Psych Exam: Positive: Mental status NL Diagnostic and Laboratory Diagnostic Review Radiologic images, relevant labs and pathology reports were personally reviewed and discussed with Ms. Awan. Assessment and Plan Impression Assessment Ms. 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 She is doing well overall, she has chronic left sided chest wall pain from her lobectomy, this has been worse. She does not tolerate NSAIDS or other pain medication well, she does use topical lidocaine with some positive effect. I suggested that she try this in on the tender area. She has no pulmonary symptoms attributable to RT. She has upcoming screening EGD/colonosopy. I encouraged her to get her mammogram done when her chest pain subsides. She will follow up with me in early June [address] chest. Performance Status ECOG [address] chest and follow up as previously scheduled Lidocaine PRN to the left chest wall Ms. Awan was encouraged to call with questions or concerns in the interim period. TJ NG MD Apr 02, 2020 12:08
== END ==
LOC: M ONCR 10:16
PROVIDERS: ATTEND General Practice
DX: C34.31 Malignant neoplasm of lower lobe, right bronchus or lung (principal); Z87.891 Personal history of nicotine dependence; Z90.2 Acquired absence of lung [part of]

== ENCOUNTER → 2020-04-11 | Outpatient (CLI) | payer MEDICARE ==
--- NOTE | 2020-04-11 14:48 | REPMRS ---
Patient History The patient states she has not had a clinical breast exam in over a year. Patient is postmenopausal, had previous chest radiation therapy at age 69, and has history of other cancer at age 66. Patient was diagnosed with lung cancer on left side, summer and had a left upper lobectomy 03/29/2018. Diagnosed with right lung cancer and just finished radiation, upper and lower, 02/29/2020. No known family history of cancer. Digital Woman Screen Mammo: April 11, 2020 - Exam #: [id number] Bilateral CC and MLO view(s) were taken. Technologist: Aster Stoddard, Technologist Prior study comparison: August 05, 2017, digital woman screen mammo performed at [facility]. July 30, 2016, digital woman screen mammo performed at [facility]. FINDINGS: There are scattered fibroglandular densities. The Volpara volumetric breast density category is:B. There has been no change in the appearance of the mammogram from the prior studies. There is a mild amount of scattered fibroglandular density which is fairly symmetric. There is no interval development of dominant mass, architectural distortion, or grouped microcalcification suggestive of malignancy. 3-D tomosynthesis shows no additional findings. Assessment: BI-RADS/ACR category 1 mammogram. Negative Mammogram. Recommendation Routine screening mammogram of both breasts in 1 year (for women over age 40). This patient's [facility] Lifetime Breast Cancer Risk is estimated at 2.0 %. This mammogram was interpreted with the aid of an FDA-approved computer-aided dectection system. Electronically Signed By: Arsh Murphy MD 04/11/20 [id number]
== END ==
LOC: M WHC 13:25
PROVIDERS: ATTEND Family Medicine
DX: Z12.31 Encounter for screening mammogram for malignant neoplasm of breast (principal)

== ENCOUNTER → 2020-05-01 | Outpatient (CLI) | payer MEDICARE | LOC: M LABSMTC 11:16 | PROVIDERS: ATTEND Anesthesiology | DX: Z01.812 Encounter for preprocedural laboratory examination (principal); Z20.822 Contact with and (suspected) exposure to COVID-19 ==

== ENCOUNTER 2020-05-06 09:31 | Day surgery (SDC) | payer MEDICARE ==
[~2020-05-06] VITALS: Ht 167.6 cm; Wt 73.0 kg
[~2020-05-06 09:31] MED LIST changes: +GABA-282 PO; -GABA-843 PO; +NS 1,000 ML IV ONE
--- OUTSIDE RECORDS SUMMARY | 2020-05-06 09:37 | CCD ---
Author Author [facility] Organization [facility] Address Unknown Phone Unavailable Care Team Providers Care Application Performance Engineer Name Role Phone Wilda Anna Unavailable PROBLEMS Type Condition ICD9-CM Code UNA81-VU Code Onset Dates Condition S tatus SNOMED Code Notes Problem Essential (primary) hypertension I10 Active 97379895 Problem Allergic rhinitis, unspecified J30.9 Active 6 1908753 Problem Vitamin D deficiency E55.9 Active 28224597 Problem Lees's esophagus determined by endoscopy K22.70 Active 660669330 Problem Adenocarcinoma of left lung C34.92 Active 1595 4871330077715 Problem Psychophysiological insomnia F51.04 Active 425 042619 Problem Restless leg syndrome G25.81 Active 35510789 Problem 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 L90.8 Active 677217801 Problem Cigarette nicotine dependence in remission F17.211 Active 348809063 Problem History of adenomatous polyp of colon Z86.010 Ac tive 877881180 Problem Mixed hyperlipidemia E78.2 Active 171968573 Problem Lentigines L81.4 Active 149141152 Problem Xerosis cutis L85.3 Active 26959369 Problem Actinic keratosis L57.0 Active 329614651 Problem Generalized anxiety disorder F41.1 Active 218 91322 ALLERGIES Allergen (clinical drug ingredient) Drug/Non Drug Allergy do cumented on EMR Reaction Allergy Type Onset Date Status cephalexin Keflex(NDC Code:[address]-97) Hives Drug Allergy Active escitalopram Escitalopram Oxalate(NDC Code:[address]-69) monie rrhea, vomiting Drug Allergy Active Darvon hives, ANDRADE Drug Allergy Active morphine Morphine Sulfate(NDC Code:[address]-49) Nausea/Vomiti ng Drug Allergy Active Codeine Phosphate([facility] Code:[address]-11) hives,ANDRADE Drug Allergy Active gabapentin Gabapentin([facility] Code:[address]-98) passi ng out and hospitalized from it Drug Allergy Active ENCOUNTERS from 1950 to 2020-04-09 Encounter Location Date Provider Diagnosis [address] [address] Mar, Wilda Anna Essential (primary) hypertension I10 ; G eneralized anxiety disorder F41.1 ; History of adenomatous polyp of colon Z86.010 ; Rib pain on left side R07.81 and Encounter for screening mammogram for malignant neoplasm of breast Z12.31 IMMUNIZATIONS Vaccine Route Administration Date Status Influenza (18 yrs & older) Flublok IM Intramuscular Mar 17, 2020 Administered Influenza (18 yrs & older) Flublok IM Intramuscular Jan 29, 2019 Administered Influenza (18 yrs & older) Flublok IM Intramuscular Feb 23, 2018 Administered Influenza (High Dose 65 & up) Unknown May 18, 2017 Ot hers Influenza (High Dose 65 & up) Unknown July 21, 2016 Ot hers Pneumococcal Adult 0.5mL (Pneumovax 23) IM Intramuscular Apr 01, 2015 Administered Pneumococcal 0.5mL (Prevnar 13) IM Intramuscular May 24, 2019 Administered Influenza (6mo & up) Fluzone IM Intramuscular Apr 01, 2015 Ad ministered Influenza (6mo & up) Fluzone Unknown Apr 12, 2014 Ref used SOCIAL HISTORY Tobacco Use: Social History Observation Description Date Details (start date - stop date) Former Smoker Sex Assigned At : Social History Observation Description Sex Assigned At Unknown Education: Question Answer Notes Level of Education: Finished High School Audit Question Answer Notes Total Score: 0 Interpretation: Alcohol Education Language: Question Answer Notes Languages spoken: Kyrgyz Faith: Question Answer Notes Faith 21 Orthodox Sexual Hx: Question Answer Notes Had sex in the last 12 months (vaginal, oral, or anal)? No Have you ever had an STD? No Drug and Alcohol Question Answer Notes Total Score: 0 Interpretation: No problems reported Alcohol Screening: Question Answer Notes Did you have a drink containing alcohol in the past year? Ye s Points 2 Interpretation Negative How often did you have six or more drinks on one occas ion in the past year? Never (0 points) How many drinks did you have on a typica l day when you were drinking in the past year? 1 or 2 (0 points) How often did you have a drink containing alcohol in t he past year? Two to four times a month (2 points) Tobacco Use: Question Answer Notes Are you a: former smoker former smoker Smoking Cessation Information Given 09/13/2017 REASON FOR REFERRAL No Information VITAL SIGNS Weight 164 lbs Mar, Height 66 in Mar, BMI 26.47 kg/m2 Mar, Heart Rate 98 /min Mar, Respiratory Rate 20 /min Mar, Temperature 96 degrees Fahrenheit Mar, Oximetry 100 Mar, Blood pressure systolic 120 mm Hg Mar, Blood pressure diastolic 70 mm Hg Mar, MEDICATIONS Medication SIG (Take, Route, Frequency, Duration) Notes Start Da te End Date Status Losartan Potassium 50 MG 1 tablet Orally Once a day Active Ventolin HFA 90 MCG/ACT 2 puff Inhalation four times daily Active Albuterol-Ipratropium 2.5-0.5 MG/3ML 3 ml Inhalation 4 times a day Active Atorvastatin Calcium 40 MG 1 tablet Orally Once a day for 90 Active Xanax 0.25 MG 1 tablet Orally Twice a day Active TraZODone HCl 50 MG -1.5 2 tablet at bedtime as needed Orally Once a day for 30 days Active Drisdol 28999 UNIT TAKE 1 CAPSULE BY MOUTH ONCE A WEEK for 28 Active Systane 0.4-0.3 % 1 drop into both eyes Ophthalmic 4 times a day Active PreserVision AREDS 2 20 fr 1 cap Orally twice daily Sep Active Omeprazole 40 MG 1 capsule Orally Twice a day Active PROCEDURES No Information RESULTS No Results REASON FOR VISIT F/u anxiety, Reference #: [id number] last fill 03/19/2020 MEDICAL (GENERAL) HISTORY Type Description Date Medical History Hypertension Medical History Left upper lobe lung adenoca rcinoma s/p resection - Dr. Perez, Dr. Rehman Medical History Allergic rhinitis Medical History Tobacco use Medical History Vitamin D deficiency Medical History Anxiety Medical History Lees esophagus; EGD 08/27/16 Medical History Colonoscopy 08/27/16DrFlorin Douglass . Polyps including tubular adenoma and hyperplastic. 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 Risa donovan Medical History Aorta calcification - Dr. Brown Surgical History Tonsillectomy child Surgical History Hysterectomy for fibroids and menorrhagi a 1977 Surgical History bx of lung on the left - Dr. Perez 201 8 Surgical History Upper left lung lobectomy - Dr. Perez 03/29/2018 Surgical History EGD - Lees's esophagus 08/2016 Surgical History Colonoscopy - [facility], hyperplast ic polyps; diverticulosis; [facility]; Dr Douglass; repeat in 3 years 08/2016 Hospitalization History surgery related Hospitalization History syncope 06/26/2018 Goals Section No Information Health Concerns No Information MEDICAL EQUIPMENT No Information MENTAL STATUS No Information FUNCTIONAL STATUS No Information ASSESSMENTS Encounter Date Diagnosis Assessment Notes Treatment Notes Treatm ent Clinical Notes Mar, Essential (primary) hypertension (ICD-10 - I10) Per JNC 8 guidelines, goal BP 150/90 if age >60; is meeting goal on current regimen. Advised heart-healthy diet, sodium restriction. Mar, Generalized anxiety disorder (ICD-10 - F41.1) States she could not tolerate SSRI. Continue with Xanax for now for anxiety. Mar, History of adenomatous polyp of colon (ICD-10 - Z86.010) Scheduled for a colonoscopy. Mar, Rib pain on left side (ICD-10 - R07.81) I recommended referral to Palliative care for pain management; she declines today but will call if she changes her mind. Mar, Encounter for screening mamm ogram for malignant neoplasm of breast (ICD-10 - Z12.31) I encouraged her schedule her mammogram [facility] - she states she will schedule this soon. PLAN OF TREATMENT Medication Medication Name Sig Start Date Stop Date Xanax 0.25 MG 1 tablet Orally Twice a day Losartan Potassium 50 MG 1 tablet Orally Once a day Treatment Notes Assessment Notes Clinical Notes Essential (primary) hypertension Per JNC 8 guidelines, goal BP 150/90 if age >60; is meeting goal on current regimen. Advised heart-healthy diet, sodium restriction. Generalized anxiety disorder States she could not tolerate SSRI. Continue with Xanax for now for anxiety. History of adenomatous polyp of colon Sc heduled for a colonoscopy. Rib pain on left side I recommended refe rral to Palliative care for pain management; she declines today but will call if she changes her mind. Encounter for screening mammogram for malignant neoplasm of breast I encouraged her schedule her mammogram [facility] - she states she will schedule this soon. Future Test Test Name Order Date Basic Metabolic Profile (BMP) [id number] Next Appt Details 3 months Reason:F/u anxiety Provider Name:Wilda Anna, 2020-07-07 02:15:00 PM, [address] [place], [address], Follow Up:3 monthsF/u anxiety Insurance Providers Payer Name Payer Address Payer Phone Insured Name Patient Relati onship to Insured Coverage Start Date Coverage End Date [employer] [facility] CLAIM DIV [address] [facility] [address] [place] MED[place] Part A and B [address] [facility] [id number] [phone] [place]
--- OUTSIDE RECORDS SUMMARY | 2020-05-06 09:37 | CCD ---
Author Author [facility] Organization [facility] Address Unknown Phone Unavailable Care Team Providers Care Electronic Calibration Technician Name Role Phone Wilda Anna Unavailable PROBLEMS Type Condition ICD9-CM Code [id number] Code Onset Dates Condition S tatus SNOMED Code Notes Problem Essential (primary) hypertension I10 Active 76591784 Problem Allergic rhinitis, unspecified J30.9 Active 6 7398401 Problem Vitamin D deficiency E55.9 Active 40317430 Problem Lees's esophagus determined by endoscopy K22.70 Active 298780457 Problem Adenocarcinoma of left lung C34.92 Active 1595 3871862250906 Problem Psychophysiological insomnia F51.04 Active 425 152926 Problem Restless leg syndrome G25.81 Active 11437934 Problem 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 L90.8 Active 319027414 Problem Cigarette nicotine dependence in remission F17.211 Active 406048241 Problem History of adenomatous polyp of colon Z86.010 Ac tive 636750962 Problem Mixed hyperlipidemia E78.2 Active 308443177 Problem Lentigines L81.4 Active 421670068 Problem Xerosis cutis L85.3 Active 73772251 Problem Actinic keratosis L57.0 Active 648482391 Problem Generalized anxiety disorder F41.1 Active 218 19704 ALLERGIES Allergen (clinical drug ingredient) Drug/Non Drug Allergy do cumented on EMR Reaction Allergy Type Onset Date Status cephalexin Keflex(NDC Code:[address]-19) Hives Drug Allergy Active escitalopram Escitalopram Oxalate(NDC Code:[address]-74) monie rrhea, vomiting Drug Allergy Active Darvon hives, ANDRADE Drug Allergy Active morphine Morphine Sulfate(NDC Code:[address]-17) Nausea/Vomiti ng Drug Allergy Active Codeine Phosphate([facility] Code:[address]-92) hives,ANDRADE Drug Allergy Active gabapentin Gabapentin([facility] Code:[address]-65) passi ng out and hospitalized from it Drug Allergy Active ENCOUNTERS from 1950 to 2020-04-26 Encounter Location Date Provider Diagnosis [address] [address] Apr, Wilda Anna Generalized anxiety disorder F41.1 IMMUNIZATIONS Vaccine Route Administration Date Status Influenza [...] Finished High School Audit Question Answer Notes Interpretation: Alcohol Education Total Score: 0 Language: Question Answer Notes Languages spoken: Kenyan Jehovah'S Witness: Question Answer Notes Jehov[employer] Witness [employer] Sexual Hx: Question Answer Notes Had sex in the last 12 months (vaginal, oral, or anal)? No Have you ever had an STD? No Drug and Alcohol Question Answer Notes Interpretation: No problems reported Total Score: 0 Alcohol Screening: Question Answer Notes Did you [...] REASON FOR REFERRAL No Information VITAL SIGNS No information MEDICATIONS Medication SIG (Take, Route, Frequency, Duration) Notes Start Da te End Date Status Losartan Potassium 50 MG 1 tablet Orally Once a day Active Ventolin HFA 90 MCG/ACT 2 puff Inhalation four times daily Active Albuterol-Ipratropium 2.5-0.5 MG/3ML 3 ml Inhalation 4 times a day Active Omeprazole 40 MG 1 capsule Orally Twice a day Active Atorvastatin Calcium 40 MG 1 tablet Orally Once a day for 90 Active TraZODone HCl 50 MG -1.5 2 tablet at bedtime as needed Orally Once a day for 30 days Active Drisdol 68404 UNIT TAKE 1 CAPSULE BY MOUTH ONCE A WEEK for 28 Active Systane 0.4-0.3 % 1 drop into both eyes Ophthalmic 4 times a day Active PreserVision AREDS 2 20 fr 1 cap Orally twice daily Sep Active Xanax 0.25 MG 1 tablet Orally Twice a day for 30 Days Active PROCEDURES No Information RESULTS No Results REASON FOR VISIT Xanax MEDICAL (GENERAL) HISTORY Type Description Date Medical History Hypertension Medical History Left upper lobe lung adenoca rcinoma s/p resection - Dr. Perez, Dr. Rehman Medical History Allergic rhinitis Medical History Tobacco use Medical History Vitamin D deficiency Medical History Anxiety Medical History Lees esophagus; EGD 08/27/16 Medical History Colonoscopy 08/27/16Dr. Douglass . Polyps including tubular adenoma and [...] Notes Treatment Notes Treatm ent Clinical Notes Apr, Generalized anxiety disorder (ICD-10 - F41.1) PLAN OF TREATMENT Medication Medication Name Sig Start Date Stop Date Xanax 0.25 MG 1 tablet Orally Twice a day for 30 Days Losartan Potassium 50 MG 1 tablet Orally Once a day Next Appt Details Provider Name:Wilda Anna, 2020-07-07 02:15:00 PM, [address] [place], [address], Insurance Providers Payer Name Payer Address Payer Phone Insured Name Patient Relati onship to Insured Coverage Start Date Coverage End Date MEDICARE Part A and B [address] [facility] [phone] [facility] [place] [facility] HE[facility] CARE OPTIONS [facility] [address] [facility] [address] [place]
--- OUTSIDE RECORDS SUMMARY | 2020-05-06 09:37 | CCD | Continuity of Care Document ---
Author Author Torri REHMAN DO Organization Unknown Address [address] [place] [address] Phone [phone] Care Team Providers Care Learning Center Coordinator Name Role Phone Wilda Anna M.D. AUTM [phone] AUTM Unavailable Sonido Mckinney M.D. AUTM [phone] Carolyn Farias M.D. AUTM [phone] Problems Active Problems Provider Date Chronic rhinitis Adelso Aranda MD Onset: 08/13/2014 Epistaxis Adelso Aranda MD Onset: 08/13/2014 Chronic maxillary sinusitis Adelso Aranda MD Onset: 08/13 Headache Adelso Aranda MD Onset: 08/13/2014 Sensory function status: taste and smell Adelso Aranda MD Onset: 08/13/2014 Chronic obstructive lung disease Kunal Rehman DO Onset: 10/08/2019 History of malignant neoplasm of bronchus Kunal Rehman DO Onset: 10/08/2019 Abnormal findings on diagnostic imaging of lung Kunal alvarez DO Onset: 10/08/2019 Malignant neoplasm of upper lobe, bronchus or lung Kunal Rehman DO Onset: 01/01/2020 Social History Type Date Description Comments Sex Unknown ETOH Use 1 A Day Tobacco Use Start: 04/25/65 End: 04/25/16 Quit 2016 Smoking Status Reviewed: 01/10/20 Quit May 2016 Allergies, Adverse Reactions, Alerts Active Allergies Reaction Severity Comments Date Codeine 07/02/2014 Gabapentin 09/20/2019 Keflex 07/02/2014 Morphine 09/20/2019 Propoxyphene 02/24/2018 Medications Active Medications SIG Qnty Indications Ordering Provide r Date Suprep Bowel Prep Kit 17.5-3.13-1.6GM/177ML Solution take per doctor's bowel prep instructions. 354ml Z12.1 1 Kunal Douglass MD 01/30/[address] take 4 tabs by mouth prior to procedure per instructions. 4tabs Z12.11 Kunal Douglass MD 01/30/2020 Albuterol Sulfate (2 .5mg/3ML) 0.083% Nebulizer 1 vial four times a day as needed 360ml J44.9 Kunal Rehman, DO 10/15/2019 Ventolin HFA 108(90Base) mcg/Act A erosol 2 puffs qid/prn 54units Kunal Rehman, DO 05/24/2019 Alprazolam 0.25mg Tablets 1 by mouth at night for anxiety Reference #: [id number] 25tabs Shant Perez M.D. 05/10/2018 Systane 0.4-0.3% Solution 1 drop both eyes twice a day Unknown Preservision Areds Tablets 2 tab by mouth daily Unknown Losartan Potassium 25mg Tablets 1 tab by mouth every day Unknown Trazodone HCL 25mg Tablets 1-2 every night at bedtime Unknown Atorvastatin Calcium 40mg Tablets 1 by mouth every night at bedtime Unknown Prilosec 40mg Capsules DR 1 by mouth twice a day Unknown Lidocaine 5% Patches apply 1 patch to back daily on for 12 hours then remove for 12 hours U nknown Vitamin D 2000Unit Tablets 1 tab by mouth every week Unknown Immunizations CPT Code Status Date Vaccine Lot # [id number] Given 02/28/2019 Afluria, Quadrivalent, 0.5ml , [facility] [id number] Vital Signs Date Vital Result Comment 01/30/2020 8:20am BP Systolic 134 mmHg BP Diastolic 86 mmHg Height 66 inches 5'6" Weight 163.00 lb BMI (Body Mass Index) 26.3 kg/m2 Jal Body Weight 130 lb Weight 73.937 kg 01/10/2020 9:21am BP Systolic 134 mmHg BP Diastolic 72 mmHg Heart Rate 80 /min O2 % BldC Oximetry 99 % Room Air Height 66 inches 5'6" Weight 163.00 lb BMI (Body Mass Index) 26.3 kg/m2 Jal Body Weight 130 lb Weight 73.937 kg Results Test Acquired Date Facility Test Result H/L Range Note Laboratory test finding 12/24/2019 [facility] [address] [place] [address]8855 [phone] Non Belt Repairer/Cytology Req For Servi (SEE NOTE) 1 Laboratory test finding 12/24/2019 [facility] [address] [place] [address] [phone] Non Belt Repairer/Cytology Req For Servi (SEE NOTE) 2 Laboratory test finding 12/24/2019 [facility] [address] [place] [address] [phone] Non Belt Repairer/Cytology Req For Servi (SEE NOTE) 3 Laboratory test finding 12/24/2019 [facility] [address] [place] [address] [phone] Pathology Request For Service (SEE NOTE) 4 Laboratory test finding 12/24/2019 [facility] [address] [place] [address] 80921 [phone] Pathology Request For Service (SEE NOTE) 5 Bal Culture And Gram Stain 12/24/2019 [facility] [address] [place] [address] 81856 [phone] Gram Stain (SEE NOTE) Normal 6 Bal Culture FULL REPORT IN L <SEE NOTE> Normal 7 Laboratory test finding 12/24/2019 [facility] [address] [place] [address] 72854 [phone] Afb Smear & Culture Due to limited s <SEE NOTE> 8 Laboratory test finding 12/24/2019 [facility] [address] [place] [address] 59314 [phone] Bronchial [place] Culture FULL REPORT IN L <SEE NOTE> N ormal 9 Xray 11/21/2019 [facility] nter Radiology Dept [address] [place] [address] 86108 [phone] Skull base to mid thigh <pending> 1 SPECIMEN: Bronchi al brushing ( left upper lobe lung) Crush in vial received SPECIMEN ADEQUACY: Satisfactory for evaluation CATEGORIZATION: Negative for Malignancy DESCRIPTIONS: Bronchial cells and blood elements noted. COMMENTS: 12/26/2019 - [address](ASCP) 12/25/2019 0946 (Prelim) Signed MARIOLA KING MD 12/26/2019 1310 2 SPECIMEN: Bronchi al brushing (right upper lobe) [place] in vial and prepared slides SPECIMEN ADEQUACY: Satisfactory for evaluation CATEGORIZATION: Negative for Malignancy DESCRIPTIONS: Bronchial cells and blood elements noted. COMMENTS: 12/25/2019 - 1021 Signed MAGNO JOEL(ASCP) 12/25/2019 1022 (Prelim) Signed MARIOLA KING MD 12/26/2019 1259 3 SPECIMEN: FNA Rig ht upper lobe lung SPECIMEN ADEQUACY: Satisfactory for evaluation CATEGORIZATION: Atypical cytology DESCRIPTIONS: Rare atypical cells present. Please see corresponding biopsy [id number] COMMENTS: 12/26/2019 - 130 Signed MAGNO JOEL(ASCP) 12/25/2019 0930 (Prelim) Signed MARIOLA KING MD 12/26/2019 1305 4 FINAL DIAGNOSIS Lung, right upper lobe, biopsy: Adenocarcinoma, well to moderately differentiated. -4/TR Comment: If molecular testing is needed, please inform the lab to send the sample out for further analysis. 12/25/2019 - 1313 CLINICAL DIAGNOSIS Right upper lobe abnormality 12/24/20191401 GROSS DIAGNOSIS Received in formalin labeled "RUL biopsy" and contains five fragments of kennedy and red tissue measuring 0.4 x 0.4 x 0.2 cm. in aggregate. The specimen is entirely submitted all in one. -SV 12/24/2019 - 1401 Signed MARIOLA KING MD 12/25/2019 1314 5 Addendum 1 Entered: [phone] The addendum is being issued to report additional results: PD-L1 (22C3) Immunohistochemistry: Expressed (1%) ALK gene rearrangement (FISH): Negative ROS1 gene rearrangement (FISH): Negative EGFR gene mutation (PCR): Negative BRAF V600E gene mutation (PCR): Negative Please see the scanned documentation for the full Molecular Diagnostics report ([id number], [id number], [id number], [id number], [id number]). 02/06/20201129 Addendum Signed____ MARIOLA KING MD 02/06/2020 1130 FINAL DIAGNOSIS Lung, right upper lobe, biopsy: Adenocarcinoma, well to moderately differentiated. -4/TR Comment: If molecular testing is needed, please inform the lab to send the sample out for further analysis. 12/25/2019 - 131 CLINICAL DIAGNOSIS Right upper lobe abnormality 12/24/2019 - 1401 GROSS DIAGNOSIS Received in formalin labeled "RUL biopsy" and contains five fragments of kennedy and red tissue measuring 0.4 x 0.4 x 0.2 cm. in aggregate. The specimen is entirely submitted all in one. -SV 12/24/20191401 Signed MARIOLA KING MD 12/25/20191313 6 MODERATE WBCS NO ORGANISMS SEEN 7 FULL REPORT IN LAB NOTES (eC W and Medent). NORMAL VISH PRESENT ORGANISM 1: HAEMOPHILUS INFLUENZAE QUANTITY OF GROWTH FEW Beta-lactamase Negative isolates are generally susceptible to ampicillin. Beta-lactamase Positive isolates are resistant to ampicillin but generally susceptible to amoxicillin- clavulanic acid and cephalosporins. ORGANISM 1: HAEMOPHILUS INFLUENZAE HAEMOPHILUS INFLUENZAE: REACTION BETA LACTAMASE NEG BETA LACTAMASE POS AMOXICILLIN/CA PO 250 mg q8h 20 S AMOXICILLIN/CA PO 500 mg q8h 20 S TRIMETHOPRIM/SULFAMETHOXAZOLE IV 160mg TMP & 800mg SMXq6h 21 S TRIMETHOPRIM/SULFAMETHOXAZOLE PO Bactrim DS Bid 21 S AMPICILLIN IV 500mg q6h 22 S AMPICILLIN PO 500mg q6h fasting 22 S CEFUROXIME SODIUM IV 750mg q8h 25 S CEFTRIAXONE IV 1gm q24h 31 S 8 Due to limited sensitivity, smear results should be used as an adjunct in evaluating patient tuberculosis status. Cultural examination is highly recommended for clinical diagnosis. AFB smear [place] NEGATIVE (NO AFB Seen ) 9 FULL REPORT IN LAB NOTES (eC W and [facility]). NORMAL VISH PRESENT Procedures Date Code Description Status 12/24/2019 39408 Bronchoscopy W/Transbronchial Ne edle Aspiration Biopsy Completed 12/24/2019 93710 Bronchoscopy Rigid/F lexible Fluoroscopic Guide Computer-Assisted Completed 12/24/2019 47859 Bronchoscopy W/Bronchial Alveola r Lavage Completed 12/24/2019 17652 Bronchoscopy W/Brushing Or Prote cted Brushings Completed Medical Devices Description No Information Available Encounters Type Date Location Provider Dx Diagnosis Office Visit 01/10/2020 9:15a [facility] roldan Perez M.D. C34.11 Malignant neoplasm of upper lobe, right bronchus or lung J44.9 Chronic obstructive pulmonar y disease, unspecified Z85.118 Personal history of malignan t neoplasm of bronchus and lung R91.8 Other nonspecific abnormal f inding of lung field Office Visit 01/01/2020 2:30p [facility] D avid P. Rechlin, DO C34.11 Malignant neoplasm of upper lobe, right bronchus or lung Office Visit 12/13/2019 9:30a [facility] avid P. Rechlin, DO J44.9 Chronic obstructive pulmonar y disease, unspecified Z85.118 Personal history of malignan t neoplasm of bronchus and lung R91.8 Other nonspecific abnormal f inding of lung field Office Visit 11/26/2019 10:30a [facility] avid P. Rechlin, DO R91.8 Other nonspecific abnormal f inding of lung field J44.9 Chronic obstructive pulmonar y disease, unspecified Z85.118 Personal history of malignan t neoplasm of bronchus and lung Office Visit 10/08/2019 9:00a [facility] avid P. Rechlin, DO R91.8 Other nonspecific abnormal f inding of lung field J44.9 Chronic obstructive pulmonar y disease, unspecified Z85.118 Personal history of malignan t neoplasm of bronchus and lung Assessments Date Code Description Provider 01/30/2020 Z12.11 Encounter for screening for lydia gnant neoplasm of colon Patty Bruno, RPA-C 01/30/2020 Z86.010 Personal history of colonic poly ps Patty Bruno, RPA-C 01/30/2020 K22.70 Lees's esophagus without dysp lasia Patty Bruno, RPA-C 01/30/2020 R12 Heartburn Patty vines, RPA-C 01/10/2020 C34.11 Malignant neoplasm of upper lobe , right bronchus or lung Shant Perez M.D. 01/10/2020 J44.9 Chronic obstructive pulmonary di sease, unspecified Shant Perez M.D. 01/10/2020 Z85.118 Personal history of other malignant neoplasm of bronchus and lung Shant Perez M.D. 01/10/2020 R91.8 Other nonspecific abnormal findi ng of lung field Shant Perez M.D. 01/01/2020 C34.11 Malignant neoplasm of upper lobe , right bronchus or lung Kunal Rheman, DO 12/24/2019 R91.8 Other nonspecific abnormal findi ng of lung field Kunal Rehman, DO 12/13/2019 J44.9 Chronic obstructive pulmonary di sease, unspecified Kunal Rehman, DO 12/13/2019 Z85.118 Personal history of other malignant neoplasm of bronchus and lung Kunal Rehman, DO 12/13/2019 R91.8 Other nonspecific abnormal findi ng of lung field Kunal Rehman, DO 11/26/2019 R91.8 Other nonspecific abnormal findi ng of lung field Kunal Rehman, DO 11/26/2019 J44.9 Chronic obstructive pulmonary di sease, unspecified Kunal Rehman, DO 11/26/2019 Z85.118 Personal history of other malignant neoplasm of bronchus and lung Kunal Rehman, DO 10/08/2019 R91.8 Other nonspecific abnormal findi ng of lung field Kunal Rehman, DO 10/08/2019 J44.9 Chronic obstructive pulmonary di sease, unspecified Kunal Rehman, DO 10/08/2019 Z85.118 Personal history of other malignant neoplasm of bronchus and lung Kunal Rehman, DO Plan of Treatment 01/30/2020 - Patty Bruno, HILLARY-C* Z12.11 Encounter for screening for malignant neoplasm of colon * Z86.010 Personal history of colonic polyps * K22.70 Lees's esophagus without dysplasia * R12 Heartburn * * New Medication:* Suprep Bowel Prep Kit 17.5-3.13-1.6 GM/177ML * Dulcolax 5 mg * New Orders:* Colonoscopy, Ordered: 01/30/20 * Comments:* Per patient request, she will have her care transferred to Dr. Holden. She was recently diagnosed with adenocarcinoma of the right lung. She will be finalizing treatment plans this week with her Oncology team. Will arrange for upper endoscopy and colonoscopy. Reviewed risks and benefits of the procedures, as well as other options, with the patient. Prep for this procedure was discussed with patient, including risks and side effects associated with the prep. Patient verbalized understanding of all of the above and is in agreement to proceed. She will contact us next week to let us know when her treatment for lung cancer will be starting. Patient will seek medical attention for any acute changes. Will monitor. * Follow up:* As scheduled, sooner if needed. Functional Status Description No Information Available Mental Status Description No Information Available Referrals Refer to Reason for Referral Status Appt Date Champ Cee M.D. Adenocarcinoma RUL (1a) s/p SYED resection 2018. (also seeing T. surgery, and rad onc) Closed 01/22/2020 [facility] [address] [place] [address] [phone] Saroj Lynn M.D. Adenocarcinoma RUL lung (1a), s/p SYED r esection 2018 Scheduled 01/22/2020 [facility] On[facility] [address] [place], [place] [address] [phone] Carolyn Farias M.D. Adenocarcinoma RUL (1a) s/p SYED resection 2018. (also seeing T. surgery, and rad onc) Closed 01/22/2020 [facility] Medical Oncology & Hematology [address] [place] [address] [phone] Shant Perez M.D. Adenocarcinoma RUL (1a), s/p SYED resection 2018 for same. full PFT in process. referrals also made to med & rad onc. Closed 01/10/2020 [facility] Thoracic Surg [address] [place] [address] [phone] Radiology/Procedure no auth req bronch Closed Radiology/Procedure no auth req bronch Closed Radiology/[place] [id number] Closed 0 Radiology/[place] [id number] Closed 0 Radiology/Procedure NO AUTH REQ [id number] Closed 0
--- OUTSIDE RECORDS SUMMARY | 2020-05-06 09:37 | CCD ---
Author Author [facility] Organization [facility] Address Unknown Phone Unavailable Care Team Providers Care Wheelchair Van Driver Name Role Phone Wilda Anna Unavailable PROBLEMS Type Condition ICD9-CM Code [id number] Code Onset Dates Condition S tatus SNOMED Code Notes Problem Essential (primary) hypertension I10 Active 94391050 Problem Allergic rhinitis, unspecified J30.9 Active 6 6208433 Problem Vitamin D deficiency E55.9 Active 77132807 Problem Lees's esophagus determined by endoscopy K22.70 Active 749861013 Problem Adenocarcinoma of left lung C34.92 Active 1595 4253536652445 Problem Psychophysiological insomnia F51.04 Active 425 003742 Problem Restless leg syndrome G25.81 Active 90610194 Problem 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 L90.8 Active 436304568 Problem Cigarette nicotine dependence in remission F17.211 Active 354697671 Problem History of adenomatous polyp of colon Z86.010 Ac tive 949124244 Problem Mixed hyperlipidemia E78.2 Active 511053083 Problem Lentigines L81.4 Active 339752298 Problem Xerosis cutis L85.3 Active 69966750 Problem Actinic keratosis L57.0 Active 976047087 Problem Generalized anxiety disorder F41.1 Active 218 72400 ALLERGIES Allergen (clinical drug ingredient) Drug/Non Drug Allergy do cumented on EMR Reaction Allergy Type Onset Date Status cephalexin Keflex(NDC Code:[address]-67) Hives Drug Allergy Active escitalopram Escitalopram Oxalate(NDC Code:[address]-13) monie rrhea, vomiting Drug Allergy Active Darvon hives, ANDRADE Drug Allergy Active morphine Morphine Sulfate(NDC Code:[address]-30) Nausea/Vomiti ng Drug Allergy Active Codeine Phosphate([facility] Code:[address]-66) hives,ANDRADE Drug Allergy Active gabapentin Gabapentin([facility] Code:[address]-43) passi ng out and hospitalized from it Drug Allergy Active ENCOUNTERS from 1950 to 2020-02-07 Encounter Location Date Provider Diagnosis [address] [address] 15 Jan, 2020 Wilda Anna IMMUNIZATIONS Vaccine Route Administration Date Status Influenza [...] Education Language: Question Answer Notes Languages spoken: Ethiopian Judaism: Question Answer Notes Judaism 21 Latter-Day Sexual Hx: Question Answer Notes Had sex [...] MEDICATIONS Medication SIG (Take, Route, Frequency, Duration) Start Date En d Date Status Systane 0.4-0.3 % 1 drop into both eyes Ophthalmic 4 times a day Active Losartan Potassium 50 MG 1 tablet Orally Once a day for 90 Active TraZODone HCl 50 MG -1.5 2 tablet at bedtime as needed Orally Once a day Active Ventolin HFA 90 MCG/ACT 2 puff Inhalation four times daily Active Drisdol 36027 UNIT TAKE 1 CAPSULE BY MOUTH ONCE A WEEK for 28 Active Atorvastatin Calcium 40 MG 1 tablet Orally Once a day for 90 Active Xanax 0.25 MG 1 tablet Orally once daily prn anxiety Active PreserVision AREDS 2 20 fr 1 cap Orally twice daily Sep, Active Omeprazole 40 MG 1 capsule Orally Twice a day Active Albuterol-Ipratropium 2.5-0.5 MG/3ML 3 ml Inhalation 4 times a day Active PROCEDURES No Information RESULTS No Results REASON FOR VISIT JONNATHAN MEDICAL (GENERAL) HISTORY Type Description Date Medical [...] History surgery related Hospitalization History syncope 06/26/2018 Hospitalization History pneumonia,bleeding 09/2019 Goals Section No Information Health Concerns No Information MEDICAL EQUIPMENT No Information MENTAL STATUS No Information FUNCTIONAL STATUS No Information ASSESSMENTS No Information PLAN OF TREATMENT Medication Medication Name Sig Start Date Stop Date Omeprazole 40 MG 1 capsule Orally Twice a day Xanax 0.25 MG 1 tablet Orally once daily prn anxiety Albuterol-Ipratropium 2.5-0.5 MG/3ML 3 ml Inhalation 4 times a d ay Ventolin HFA 90 MCG/ACT 2 puff Inhalation four times daily TraZODone HCl 50 MG -1.5 2 tablet at bedtime as needed Orally On a day Insurance Providers Payer Name Payer Address Payer Phone Insured Name Patient Relati onship to Insured Coverage Start Date Coverage End Date [facility] HEALTH CARE OPTIONS [facility] CLAIM DIV [address] [facility] [id number] [place] MEDICARE Part A and B [address] [facility] [address] [phone] [place]
--- OUTSIDE RECORDS SUMMARY | 2020-05-06 09:37 | CCD | Continuity of Care Document ---
Author Author Torri REHMAN DO Organization Unknown Address [address] [place] [address] Phone [phone] Care Team Providers Care Glove Tagger Name Role Phone Wilda Anna M.D. AUTM [phone] AUTM Unavailable Sonido Mckinney M.D. AUTM [phone] Carolyn Farias M.D. AUTM [phone] Problems Active Problems Provider Date Chronic rhinitis [...] mouth at night for anxiety Reference #: [id number] 25tabs Shant Perez M.D. 05/10/2018 Systane 0.4-0.3% [...] CPT Code Status Date Vaccine Lot # [id number] Given 02/28/2019 Afluria, Quadrivalent, 0.5ml , [facility]# [id number] Vital Signs Date Vital Result Comment 01/30/2020 8:20am BP Systolic 134 mmHg BP Diastolic 86 mmHg Height 66 inches 5'6" Weight 163.00 lb BMI (Body Mass Index) 26.3 kg/m2 [place]ones Body Weight 130 lb Weight 73.937 kg BSA (Body Surface Area) 1.83 m2 01/10/2020 9:21am BP Systolic 134 mmHg BP Diastolic 72 mmHg Heart Rate 80 /min O2 % BldC Oximetry 99 % Room Air Height 66 inches 5'6" Weight 163.00 lb BMI (Body Mass Index) 26.3 kg/m2 Canones Body Weight 130 lb Weight 73.937 kg BSA (Body Surface Area) 1.83 m2 Results Test Acquired Date Facility Test Result H/L Range Note Laboratory test finding 12/24/2019 [facility] Main Lab [address] [place] [address] 24899 [phone] Non Insurance Sales Manager/Cytology Req For Servi (SEE NOTE) 1 Laboratory test finding 12/24/2019 [facility] Main Lab [address] [place] [address] 96979 [phone] Non Insurance Sales Manager/Cytology Req For Servi (SEE NOTE) 2 Laboratory test finding 12/24/2019 [facility] [address] [place] [address] 99890 [phone] Non Insurance Sales Manager/Cytology Req For Servi (SEE NOTE) 3 Laboratory test finding 12/24/2019 [facility] Main Lab [address] [place] [address] [phone] Pathology Request For Service (SEE NOTE) 4 Laboratory test finding 12/24/2019 [facility] [address] [place] [address] 20408 [phone] Pathology Request For Service (SEE NOTE) 5 Bal Culture And Gram Stain 12/24/2019 [facility] Main Lab [address] [place] [address] 35913 [phone] Gram Stain (SEE NOTE) Normal 6 Bal Culture FULL REPORT IN L <SEE NOTE> Normal 7 Laboratory test finding 12/24/2019 [facility] Main Lab [address] [place] [address] [phone] Afb Smear & Culture Due to limited s <SEE NOTE> 8 Laboratory test finding 12/24/2019 [facility] Main Lab [address] [place] [address] [phone] Bronchial Cascade Culture FULL REPORT IN L <SEE NOTE> N ormal 9 Acid Fast Smear & Culture(Afb) Sendout 12/24/2019 [facility] Main Lab [address] [place] [address] [phone] Afb Smear Due to limited s <SEE NOTE> 10 Afb Culture Testing performe <SEE NOTE> 11 Culture Fungus Misc 12/24/2019 [facility] Main Lab [address] [place] [address] [phone] Fungal Smear Testing performe <SEE NOTE> 12 Fungal Culture Other Source Testing performe <SEE NOTE> 13 1 SPECIMEN: Bronchi al brushing ( left upper lobe lung) Crush in vial received SPECIMEN ADEQUACY: Satisfactory for evaluation CATEGORIZATION: Negative for Malignancy DESCRIPTIONS: Bronchial cells and blood elements noted. COMMENTS: 12/26/2019 - 1310 Signed MAGNO JOEL(ASCP) 12/25/2019 0946 (Prelim) Signed MARIOLA KING MD 12/26/2019 1310 2 SPECIMEN: Bronchi al brushing (right upper lobe) Cascade in vial and prepared slides SPECIMEN ADEQUACY: Satisfactory for evaluation CATEGORIZATION: Negative for Malignancy DESCRIPTIONS: Bronchial cells and blood elements noted. COMMENTS: 12/25/2019 - 1022 Signed MAGNO JOEL(ASCP) 12/25/2019 1022 (Prelim) Signed MARIOLA KING MD 12/26/2019 1259 3 SPECIMEN: FNA Rig ht upper lobe lung SPECIMEN ADEQUACY: Satisfactory for evaluation CATEGORIZATION: Atypical cytology DESCRIPTIONS: Rare atypical cells present. Please see corresponding biopsy [id number] COMMENTS: 12/26/2019 - 1305 Signed MAGNO JOEL(ASCP) 12/25/2019 0930 (Prelim) Signed MARIOLA KING MD 12/26/2019 1305 4 FINAL DIAGNOSIS Lung, right upper lobe, biopsy: Adenocarcinoma, well to moderately differentiated. -4/TR Comment: If molecular testing is needed, please inform the lab to send the sample out for further analysis. 12/25/2019 - 1314 CLINICAL DIAGNOSIS Right upper lobe abnormality 12/24/2019 - 1402 GROSS DIAGNOSIS Received in formalin labeled "RUL biopsy" and contains five fragments of kennedy and red tissue measuring 0.4 x 0.4 x 0.2 cm. in aggregate. The specimen is entirely submitted all in one. -SV 12/24/2019 - 1401 Signed MARIOLA KING MD 12/25/2019 1314 5 Addendum 1 Entered: 0 The addendum is being issued to report additional results: PD-L1 (22C3) Immunohistochemistry: Expressed (1%) ALK gene rearrangement (FISH): Negative ROS1 gene rearrangement (FISH): Negative EGFR gene mutation (PCR): Negative BRAF V600E gene mutation (PCR): Negative Please see the scanned documentation for the full Molecular Diagnostics report ([id number], [id number], [id number], [id number], [id number]). 02/06/20201129 Addendum Signed____ MARIOLA KING MD 02/06/2020 [...] 1401 Signed MARIOLA KING MD 12/25/2019 1314 6 MODERATE WBCS NO ORGANISMS SEEN 7 [...] (eC W and Medent). NORMAL VISH PRESENT 10 Due to limited sensitivity, smear results should be used as an adjunct in evaluating patient tuberculosis status. Cultural examination is highly recommended for clinical diagnosis. AFB smear Kinyoun NEGATIVE (NO AFB Seen ) 11 Testing performed at [facility] . Report copy to follow on a separate form. 02/22/20 REF LAB#:[id number] FULL REPORT IN LAB NOTES (eCW and Med[facility]). No Acid-Fast Bacilli Isolated after 6 Weeks. 12 Testing performed at [facility] . Report copy to follow on a separate form. 02/22/20 REF LAB#:[id number] ERASMO/Calcofluor preparatio No fungus observed. 13 Testing performed at [facility] . Report copy to follow on a separate form. 02/22/20 REF LAB#:[id number] FUNGUS CULTURE [facility] No Yeast or Mold Isolated after 4 weeks. Procedures Date Code Description Status 12/24/2019 13186 Bronchoscopy W/Transbronchial Ne edle Aspiration Biopsy Completed 12/24/2019 57689 Bronchoscopy Rigid/F lexible Fluoroscopic Guide Computer-Assisted Completed 12/24/2019 51823 Bronchoscopy W/Bronchial Alveola r Lavage Completed 12/24/2019 93740 Bronchoscopy W/Brushing Or Prote cted Brushings Completed Medical Devices Description No Information Available Encounters Type Date Location Provider Dx Diagnosis Office Visit 01/30/2020 8:15a [facility] WILVER Owens Z12.11 Encounter for screening for malignant neoplasm of colon Z86.010 Personal history of colonic polyps K22.70 Lees's esophagus without dysplasia R12 Heartburn Office Visit 01/10/2020 9:15a [facility] R roldan Perez M.D. C34.11 Malignant neoplasm of upper lobe, right bronchus or lung J44.9 Chronic obstructive pulmonar y disease, unspecified Z85.118 Personal history of malignan t neoplasm of bronchus and lung R91.8 Other nonspecific abnormal f inding of lung field Office Visit 01/01/2020 2:30p [facility] D avid P. Rechlaurence, DO C34.11 Malignant neoplasm of upper lobe, right bronchus or lung Office Visit 12/13/2019 9:30a [facility] D avid P. Oir, DO J44.9 Chronic obstructive pulmonar y disease, unspecified Z85.118 Personal history of malignan t neoplasm of bronchus and lung R91.8 Other nonspecific abnormal f inding of lung field Office Visit 11/26/2019 10:30a [facility] D avid P. Rechlaurence, DO R91.8 Other nonspecific abnormal f inding of lung field J44.9 Chronic obstructive pulmonar y disease, unspecified Z85.118 Personal history of malignan t neoplasm of bronchus and lung Assessments Date Code Description Provider 01/30/2020 Z12.11 Encounter for screening for lydia gnant neoplasm of colon Patty Bruno, RPA-C 01/30/2020 Z86.010 Personal history of colonic poly ps Patty Miguelbois, RPA-C 01/30/2020 K22.70 Lees's esophagus without dysp lasia Patty Alanis, RPA-C 01/30/2020 R12 Heartburn Patty vines, RPA-C [...] lobe , right bronchus or lung Kunal Rehman, DO 12/24/2019 R91.8 Other nonspecific abnormal findi [...] malignant neoplasm of bronchus and lung Kunal Rehman DO Plan of Treatment Future Appointment(s):* 07/08/2020 9:00 am - Kunal Rehman DO at [facility] * 05/14/2020 1:05 pm - Kyrie Holden M.D. at [facility] * 05/06/2020 8:04 am - Kyrie Holden M.D. at [facility] 01/30/2020 - Patty Bruno RPA-Rocío* Z12.11 Encounter for screening for malignant neoplasm [...] Description No Information Available Referrals Refer to Dr Reason for Referral Status Appt Date Champ Cee M.D. Adenocarcinoma RUL (1a) s/p SYED resection 2018. (also seeing T. surgery, and rad onc) Closed 01/22/2020 [facility] [address] [place] [address] [phone] Saroj Lynn M.D. Adenocarcinoma RUL lung (1a), s/p SYED r esection 2018 Closed 01/22/2020 [facility] [address] [place] [address] [phone] Carolyn Farias M.D. Adenocarcinoma RUL (1a) s/p SYED resection 2018. (also seeing T. surgery, and rad onc) Closed 01/22/2020 [facility] Medical Oncology & Hematology [address] [place] [address] [phone] Shant Perez M.D. Adenocarcinoma RUL (1a), s/p SYED resection 2018 for same. full PFT in process. referrals also made to med & rad onc. Closed 01/10/2020 [facility] [address] [place] [address] [phone] Radiology/Procedure no auth req bronch Closed 00 Radiology/Procedure no auth req bronch Closed 00 Radiology/[place] [id number] Closed 0 Radiology/[place] [id number] Closed 0
--- OUTSIDE RECORDS SUMMARY | 2020-05-06 09:37 | CCD ---
Author Author [facility] Organization [facility] Address Unknown Phone Unavailable Care Team Providers Care Rack Carrier Name Role Phone Wilda Anna Unavailable PROBLEMS Type Condition ICD9-CM Code ISX28-QP Code Onset Dates Condition S tatus SNOMED Code Notes Problem Essential (primary) hypertension I10 Active 08180035 Problem Allergic rhinitis, unspecified J30.9 Active 6 9969261 Problem Vitamin D deficiency E55.9 Active 88636955 Problem Lees's esophagus determined by endoscopy K22.70 Active 502878031 Problem Adenocarcinoma of left lung C34.92 Active 1595 9901632252407 Problem Psychophysiological insomnia F51.04 Active 425 037525 Problem Restless leg syndrome G25.81 Active 47396144 Problem 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 L90.8 Active 463946672 Problem Cigarette nicotine dependence in remission F17.211 Active 648805200 Problem History of adenomatous polyp of colon Z86.010 Ac tive 564258007 Problem Mixed hyperlipidemia E78.2 Active 870707321 Problem Lentigines L81.4 Active 077616026 Problem Xerosis cutis L85.3 Active 78897683 Problem Actinic keratosis L57.0 Active 841364593 Problem Generalized anxiety disorder F41.1 Active 218 11828 ALLERGIES Allergen (clinical drug ingredient) Drug/Non Drug Allergy do cumented on EMR Reaction Allergy Type Onset Date Status cephalexin Keflex(NDC Code:[address]-96) Hives Drug Allergy Active escitalopram Escitalopram Oxalate(NDC Code:[address]-93) monie rrhea, vomiting Drug Allergy Active Darvon hives, ANDRADE Drug Allergy Active morphine Morphine Sulfate(NDC Code:[address]-32) Nausea/Vomiti ng Drug Allergy Active Codeine Phosphate([facility] Code:[address]-97) hives,ANDRADE Drug Allergy Active gabapentin Gabapentin([facility] Code:[address]-81) passi ng out and hospitalized from it Drug Allergy Active ENCOUNTERS from 1950 to 2020-02-08 Encounter Location Date Provider Diagnosis [facility] [address] [address] Jan, Wilda Anna Generalized anxiety disorder F41.1 IMMUNIZATIONS [...] Education Language: Question Answer Notes Languages spoken: French Yarsanism: Question Answer Notes Yarsanism 21 Bahai Sexual Hx: Question Answer Notes Had sex [...] as needed Orally Once a day Active Xanax 0.25 MG 1 tablet Orally Twice a day for 30 days Active Ventolin HFA 90 MCG/ACT 2 puff Inhalation four times daily Active Atorvastatin Calcium 40 MG 1 tablet Orally Once a day for 90 Active Omeprazole 40 MG 1 capsule Orally Twice a day Active PreserVision AREDS 2 20 fr 1 cap Orally twice daily Sep, Active Drisdol 93461 UNIT TAKE 1 CAPSULE BY MOUTH ONCE A WEEK for 28 Active Albuterol-Ipratropium 2.5-0.5 MG/3ML 3 ml Inhalation 4 times a day Active PROCEDURES No Information RESULTS No Results REASON FOR VISIT xanax MEDICAL (GENERAL) HISTORY Type Description Date Medical [...] TA, hyperplast ic polyps; diverticulosis; IH; Dr Dougalss; repeat in 3 years 08/2016 Hospitalization History surgery related Hospitalization History syncope 06/26/2018 Hospitalization History pneumonia,bleeding 09/2019 Goals Section No Information Health Concerns No Information MEDICAL EQUIPMENT No Information MENTAL STATUS No Information FUNCTIONAL STATUS No Information ASSESSMENTS Encounter Date Diagnosis Notes Jan, Generalized anxiety disorder (ICD-10 - F 41.1) PLAN OF TREATMENT Medication Medication Name Sig Start Date Stop Date Ventolin HFA 90 MCG/ACT 2 puff Inhalation four times daily Omeprazole 40 MG 1 capsule Orally Twice a day Albuterol-Ipratropium 2.5-0.5 MG/3ML 3 ml Inhalation 4 times a d ay Xanax 0.25 MG 1 tablet Orally Twice a day for 30 days TraZODone HCl 50 MG -1.5 2 tablet at bedtime as needed Orally On a day Insurance Providers Payer Name Payer Address Payer Phone Insured Name Patient Relati onship to Insured Coverage Start Date Coverage End Date MEDICARE Part A and B [address] [facility] [id number] [place] [facility] HE[facility] CARE OPTIONS [facility] CLAIM [facility] [address] [facility] [id number] [place]
--- OUTSIDE RECORDS SUMMARY | 2020-05-06 09:37 | CCD ---
Author Author [facility] Organization [facility] Address Unknown Phone Unavailable Care Team Providers Care Sunday School Missionary Name Role Phone Wilda Anna Unavailable PROBLEMS Type Condition ICD9-CM Code [id number] Code Onset Dates Condition S tatus SNOMED Code Notes Problem Essential (primary) hypertension I10 Active 01373828 Problem Allergic rhinitis, unspecified J30.9 Active 6 1997619 Problem Vitamin D deficiency E55.9 Active 59022744 Problem Lees's esophagus determined by endoscopy K22.70 Active 042258203 Problem Adenocarcinoma of left lung C34.92 Active 1595 5004022863017 Problem Psychophysiological insomnia F51.04 Active 425 886769 Problem Restless leg syndrome G25.81 Active 66686020 Problem 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 L90.8 Active 577740991 Problem Cigarette nicotine dependence in remission F17.211 Active 412157368 Problem History of adenomatous polyp of colon Z86.010 Ac tive 735055122 Problem Mixed hyperlipidemia E78.2 Active 773952002 Problem Lentigines L81.4 Active 341793415 Problem Xerosis cutis L85.3 Active 24474383 Problem Actinic keratosis L57.0 Active 554103564 Problem Generalized anxiety disorder F41.1 Active 218 72302 ALLERGIES Allergen (clinical drug ingredient) Drug/Non Drug Allergy do cumented on EMR Reaction Allergy Type Onset Date Status cephalexin Keflex(NDC Code:[address]-04) Hives Drug Allergy Active escitalopram Escitalopram Oxalate(NDC Code:[address]-92) monie rrhea, vomiting Drug Allergy Active Darvon hives, ANDRADE Drug Allergy Active morphine Morphine Sulfate(NDC Code:[address]-07) Nausea/Vomiti ng Drug Allergy Active Codeine Phosphate([facility][NOTE 3] Code:[address]-99) hives,ANDRADE Drug Allergy Active gabapentin Gabapentin([facility][NOTE 3] Code:[address]-32) passi ng out and hospitalized from it Drug Allergy Active ENCOUNTERS from 1950 to 2020-03-17 Encounter Location Date Provider Diagnosis [facility] [address] [place] [address] Feb, Wilda Anna Encounter for immunization Z23 IMMUNIZATIONS Vaccine Route Administration Date Status Influenza [...] Education Language: Question Answer Notes Languages spoken: Bengali Jainism: Question Answer Notes Jainism 21 Latter Day Sexual Hx: Question Answer Notes Had sex [...] Notes Start Da te End Date Status Systane 0.4-0.3 % 1 drop into both eyes Ophthalmic 4 times a day Active Atorvastatin Calcium 40 MG 1 tablet Orally Once a day for 90 Active Losartan Potassium 50 MG 1 tablet Orally Once a day for 90 Active Drisdol 65975 UNIT TAKE 1 CAPSULE BY MOUTH ONCE A WEEK for 28 Active Xanax 0.25 MG 1 tablet Orally Twice a day for 30 days Active Albuterol-Ipratropium 2.5-0.5 MG/3ML 3 ml Inhalation 4 times a day Active TraZODone HCl 50 MG -1.5 2 tablet at bedtime as needed Orally Once a day for 30 days Active PreserVision AREDS 2 20 fr 1 cap Orally twice daily Sep Active Omeprazole 40 MG 1 capsule Orally Twice a day Active Ventolin HFA 90 MCG/ACT 2 puff Inhalation four times daily Active PROCEDURES Procedure Date Ordered Result Body Site Immunization: Flublok Quadrivalent (18 years & older) 0.5mL IM (Influenza) 2020-03-17 N/A RESULTS No Results REASON FOR VISIT flu shot MEDICAL (GENERAL) HISTORY Type Description Date Medical History Hypertension Medical History Left upper lobe lung adenoca rcinoma s/p resection - Dr. Perez, Dr. Rehman Medical History Allergic rhinitis Medical History Tobacco use Medical History Vitamin D deficiency Medical History Anxiety Medical History Lees esophagus; EGD 08/27/16 Medical History Colonoscopy 08/27/16Dr. Evonne Catherine Polyps including tubular adenoma and hyperplastic. GI [...] Notes Treatment Notes Treatm ent Clinical Notes Feb, Encounter for immunization (ICD-10 - Z23) PLAN OF TREATMENT Medication Medication Name Sig Start Date Stop Date Omeprazole 40 MG 1 capsule Orally Twice a day TraZODone HCl 50 MG -1.5 2 tablet at bedtime as needed Orally Once a day for 30 days Ventolin HFA 90 MCG/ACT 2 puff Inhalation four times daily Xanax 0.25 MG 1 tablet Orally Twice a day for 30 days Albuterol-Ipratropium 2.5-0.5 MG/3ML 3 ml Inhalation 4 times a d ay Next Appt Details Provider Name:Wilda Colunga Wilfrido, 2020-04-08 08:00:00 AM, [address] [place], [address], Insurance Providers Payer Name Payer Address Payer Phone Insured Name Patient Relati onship to Insured Coverage Start Date Coverage End Date [employer] OPTIONS [facility] CLAIM DIV [address] [facility] [phone] [place] MEDICARE Part A and B [address] [facility] [phone] [place]
--- OUTSIDE RECORDS SUMMARY | 2020-05-06 09:37 | CCD ---
Author Author [facility] Organization [facility] Address Unknown Phone Unavailable Care Team Providers Care Ceramics Technician Name Role Phone Wilda Anna Unavailable PROBLEMS Type Condition ICD9-CM Code AIZ61-CO Code Onset Dates Condition S tatus SNOMED Code Notes Problem Essential (primary) hypertension I10 Active 43772755 Problem Allergic rhinitis, unspecified J30.9 Active 6 6257538 Problem Vitamin D deficiency E55.9 Active 49573794 Problem Lees's esophagus determined by endoscopy K22.70 Active 693670993 Problem Adenocarcinoma of left lung C34.92 Active 1595 2581877021464 Problem Psychophysiological insomnia F51.04 Active 425 487541 Problem Restless leg syndrome G25.81 Active 08431072 Problem 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 L90.8 Active 440304059 Problem Cigarette nicotine dependence in remission F17.211 Active 016771449 Problem History of adenomatous polyp of colon Z86.010 Ac tive 904927693 Problem Mixed hyperlipidemia E78.2 Active 186528255 Problem Lentigines L81.4 Active 458765937 Problem Xerosis cutis L85.3 Active 23869250 Problem Actinic keratosis L57.0 Active 652579132 Problem Generalized anxiety disorder F41.1 Active 218 39289 ALLERGIES Allergen (clinical drug ingredient) Drug/Non Drug Allergy do cumented on EMR Reaction Allergy Type Onset Date Status cephalexin Keflex(NDC Code:[address]-86) Hives Drug Allergy Active escitalopram Escitalopram Oxalate(NDC Code:[address]-72) monie rrhea, vomiting Drug Allergy Active Darvon hives, ANDRADE Drug Allergy Active morphine Morphine Sulfate(NDC Code:[address]-50) Nausea/Vomiti ng Drug Allergy Active Codeine Phosphate([facility] Code:[address]-44) hives,ANDRADE Drug Allergy Active gabapentin Gabapentin([facility] Code:[address]-88) passi ng out and hospitalized from it Drug Allergy Active ENCOUNTERS from 1950 to 2020-03-13 Encounter Location Date Provider Diagnosis [facility] [address] [place] [phone] Feb, Wilda Anna IMMUNIZATIONS Vaccine Route Administration Date [...] Education Language: Question Answer Notes Languages spoken: Kosovan Advent: Question Answer Notes Advent 21 Sabianism Sexual Hx: Question Answer Notes Had sex [...] 1 cap Orally twice daily Sep Active Drisdol 65782 UNIT TAKE 1 CAPSULE BY MOUTH ONCE A WEEK for 28 Active Albuterol-Ipratropium 2.5-0.5 MG/3ML 3 ml Inhalation 4 times a day Active PROCEDURES No Information RESULTS No Results REASON FOR VISIT flu [...] tablet at bedtime as needed Orally On ce a day Next Appt Details Provider Name:Wilda Anna, 2020-03-17 09:30:00 AM, [address] [place], [address], Insurance Providers Payer Name Payer Address Payer Phone Insured Name Patient Relati onship to Insured Coverage Start Date Coverage End Date [employer] HEALTH CARE OPTIONS [facility] CLAIM DIV [address] [facility] [phone] [place] MEDICARE Part A and B [address] [facility] [phone] [place]
--- OUTSIDE RECORDS SUMMARY | 2020-05-06 09:37 | CCD | Continuity of Care Document ---
Author Author Torri REHMAN DO Organization Unknown Address [address] [place] [address] Phone [phone] Care Team Providers Care Hydraulic Technician Name Role Phone Wilda Anna M.D. AUTM [phone] AUTM Unavailable Sonido Mckinney M.D. AUTM [phone] Carolyn Farias M.D. AUTM [phone] Problems Active Problems Provider Date Chronic rhinitis [...] mouth at night for anxiety Reference #: [id number] 25tabs Shant Perez M.D. 05/10/2018 Systane 0.4-0.3% [...] CPT Code Status Date Vaccine Lot # [id number] Given 02/28/2019 Afluria, Quadrivalent, 0.5ml , [facility] [place] [id number] Vital Signs Date Vital Result Comment 01/30/2020 8:20am BP Systolic 134 mmHg BP Diastolic 86 mmHg Height 66 inches 5'6" Weight 163.00 lb BMI (Body Mass Index) 26.3 kg/m2 [place] Body Weight 130 lb Weight 73.937 kg 01/10/2020 9:21am BP Systolic 134 mmHg BP Diastolic 72 mmHg Heart Rate 80 /min O2 % BldC Oximetry 99 % Room Air Height 66 inches 5'6" Weight 163.00 lb BMI (Body Mass Index) 26.3 kg/m2 [place] Body Weight 130 lb Weight 73.937 kg Results Test Acquired Date Facility Test Result H/L Range Note Laboratory test finding 12/24/2019 [facility] [address] [place] [address] 25566 [phone] Non Keg Inspector/Cytology Req For Servi (SEE NOTE) 1 Laboratory test finding 12/24/2019 [facility] [address] [place] [address] [phone] Non Keg Inspector/Cytology Req For Servi (SEE NOTE) 2 Laboratory test finding 12/24/2019 [facility] [address] [place] [address] [phone] Non Keg Inspector/Cytology Req For Servi (SEE NOTE) 3 Laboratory test finding 12/24/2019 [facility] [address] [place] [address] 40268 [phone] Pathology Request For Service (SEE NOTE) 4 Laboratory test finding 12/24/2019 [facility] [address] [place] [address] 78642 [phone] Pathology Request For Service (SEE NOTE) 5 Bal Culture And Gram Stain 12/24/2019 [facility] Lab [address] [place] [address] 05036 [phone] Gram Stain (SEE NOTE) Normal 6 Bal Culture FULL REPORT IN L <SEE NOTE> Normal 7 Laboratory test finding 12/24/2019 [facility] [address] [place] [address] 96980 [phone] Afb Smear & Culture Due to limited s <SEE NOTE> 8 Laboratory test finding 12/24/2019 [facility] [address] [place] [address] 11319 [phone] Bronchial Mineral Culture FULL REPORT IN L <SEE NOTE> N ormal 9 Xray 11/21/2019 [facility] nter Radiology Dept [address] [place] [address] 58679 [phone] Skull base to mid thigh <pending> 1 SPECIMEN: Bronchi al brushing ( left upper lobe lung) Crush in vial received SPECIMEN ADEQUACY: Satisfactory for evaluation CATEGORIZATION: Negative for Malignancy DESCRIPTIONS: Bronchial cells and blood elements noted. COMMENTS: 12/26/2019 - [address](ASCP) 12/25/2019 0946 (Prelim) Signed MARIOLA KING MD 12/26/2019 1310 2 SPECIMEN: Bronchi al brushing (right upper lobe) Mineral in vial and prepared slides SPECIMEN ADEQUACY: Satisfactory for evaluation CATEGORIZATION: Negative for Malignancy DESCRIPTIONS: Bronchial cells and blood elements noted. COMMENTS: 12/25/2019 - 1021 Signed MAGNO JOEL(ASCP) 12/25/2019 1022 (Prelim) Signed MARIOLA KING MD 12/26/2019 1259 3 SPECIMEN: FNA Rig ht upper lobe lung SPECIMEN ADEQUACY: Satisfactory for evaluation CATEGORIZATION: Atypical cytology DESCRIPTIONS: Rare atypical cells present. Please see corresponding biopsy [id number] COMMENTS: 12/26/2019 - 130 Signed MAGNO JOEL(ASCP) [...] MD 12/25/2019 1314 5 Addendum 1 Entered: [phone] The addendum is being issued to report additional results: PD-L1 (22C3) Immunohistochemistry: Expressed (1%) ALK gene rearrangement (FISH): Negative ROS1 gene rearrangement (FISH): Negative EGFR gene mutation (PCR): Negative BRAF V600E gene mutation (PCR): Negative Please see the scanned documentation for the full [facility] report ([id number], [id number], [id number], [id number], [id number]). 02/06/20201129 Addendum Signed____ MARIOLA KING MD 02/06/2020 [...] PRESENT Procedures Date Code Description Status 12/24/2019 96845 Bronchoscopy W/Transbronchial Ne edle Aspiration Biopsy Completed 12/24/2019 48329 Bronchoscopy Rigid/F lexible Fluoroscopic Guide Computer-Assisted Completed 12/24/2019 15077 Bronchoscopy W/Bronchial Alveola r Lavage Completed 12/24/2019 96699 Bronchoscopy W/Brushing Or Prote cted Brushings Completed Medical Devices Description No Information Available Encounters Type Date Location Provider Dx Diagnosis Office Visit 01/10/2020 9:15a [facility] rold[facility] Perez M.D. C34.11 Malignant neoplasm of upper lobe, right bronchus or lung J44.9 Chronic obstructive pulmonar y disease, unspecified Z85.118 Personal history of malignan t neoplasm of bronchus and lung R91.8 Other nonspecific abnormal f inding of lung field Office Visit 01/01/2020 2:30p [facility] D avid P. Rechlin, DO C34.11 Malignant neoplasm of upper lobe, right bronchus or lung Office Visit 12/13/2019 9:30a [facility] P. Rechlin, DO J44.9 Chronic obstructive pulmonar y disease, unspecified Z85.118 Personal history of malignan t neoplasm of bronchus and lung R91.8 Other nonspecific abnormal f inding of lung field Office Visit 11/26/2019 10:30a [facility] avid P. Rechlin, DO R91.8 Other nonspecific abnormal f inding of lung field J44.9 Chronic obstructive pulmonar y disease, unspecified Z85.118 Personal history of malignan t neoplasm of bronchus and lung Office Visit 10/08/2019 9:00a [facility] avid P. Rechlin, DO R91.8 [...] lung Kunal Rehman, DO Plan of Treatment Future Appointment(s):* 05/14/2020 3:00 pm - [facility] Self at [facility] 01/30/2020 - WIL[facility] Self* Z12.11 Encounter for screening for malignant neoplasm [...] T. surgery, and rad onc) Closed 01/22/2020 [facility] [address] [place] [address] 66384 [phone] Saroj Lynn M.D. Adenocarcinoma RUL lung (1a), s/p SYED r esection 2018 Scheduled 01/22/2020 [facility] Radiation Oncol [address] [place] [address] [phone] Carolyn Farias M.D. Adenocarcinoma RUL (1a) s/p SYED resection 2018. (also seeing T. surgery, and rad onc) Closed 01/22/2020 [facility] Medical Oncology & Hematology [address] [place] [address] 38377 [phone] Shant Perez M.D. Adenocarcinoma RUL (1a), s/p SYED resection 2018 for same. full PFT in process. referrals also made to med & rad onc. Closed 01/10/2020 [facility] Thoracic Surg [address] [place] [phone] Radiology/Procedure no auth req bronch Closed Radiology/Procedure no auth req bronch Closed Radiology/[place] [id number] Closed 0 Radiology/[place] [id number] Closed 0 Radiology/Procedure NO AUTH REQ [id number] Closed 0
--- OUTSIDE RECORDS SUMMARY | 2020-05-06 09:37 | CCD ---
Author Author [facility] Organization [facility] Address Unknown Phone Unavailable Care Team Providers Care Search Manager Name Role Phone Wilda Anna Unavailable PROBLEMS Type Condition ICD9-CM Code HOD73-RG Code Onset Dates Condition S tatus SNOMED Code Notes Problem Essential (primary) hypertension I10 Active 95499906 Problem Allergic rhinitis, unspecified J30.9 Active 6 8060570 Problem Vitamin D deficiency E55.9 Active 21092519 Problem Lees's esophagus determined by endoscopy K22.70 Active 936226032 Problem Adenocarcinoma of left lung C34.92 Active 1595 0176029322439 Problem Psychophysiological insomnia F51.04 Active 425 796567 Problem Restless leg syndrome G25.81 Active 55409830 Problem 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 L90.8 Active 562065288 Problem Cigarette nicotine dependence in remission F17.211 Active 513809170 Problem History of adenomatous polyp of colon Z86.010 Ac tive 889657379 Problem Mixed hyperlipidemia E78.2 Active 303603208 Problem Lentigines L81.4 Active 301545739 Problem Xerosis cutis L85.3 Active 02274504 Problem Actinic keratosis L57.0 Active 211679204 Problem Generalized anxiety disorder F41.1 Active 218 78649 ALLERGIES Allergen (clinical drug ingredient) Drug/Non Drug Allergy do cumented on EMR Reaction Allergy Type Onset Date Status cephalexin Keflex(NDC Code:[address]-52) Hives Drug Allergy Active escitalopram Escitalopram Oxalate(NDC Code:[address]-28) monie rrhea, vomiting Drug Allergy Active Darvon hives, ANDRADE Drug Allergy Active morphine Morphine Sulfate(NDC Code:[address]-12) Nausea/Vomiti ng Drug Allergy Active Codeine Phosphate([facility] Code:[address]-66) hives,ANDRADE Drug Allergy Active gabapentin Gabapentin([facility] Code:[address]-11) passi ng out and hospitalized from it Drug Allergy Active ENCOUNTERS from 1950 to 2020-03-17 Encounter Location Date Provider Diagnosis [facility] [address] [place] [phone] Feb, Wilda Anna Generalized anxiety disorder F41.1 IMMUNIZATIONS [...] Education Language: Question Answer Notes Languages spoken: Cameroonian Baptist: Question Answer Notes Baptist 21 Zoroastrian Sexual Hx: Question Answer Notes Had sex [...] Once a day for 90 Active Drisdol 74608 UNIT TAKE 1 CAPSULE BY MOUTH ONCE [...] puff Inhalation four times daily Active PROCEDURES No Information RESULTS No Results REASON FOR VISIT xanax,trazodone MEDICAL (GENERAL) HISTORY Type Description Date Medical [...] Treatment Notes Treatm ent Clinical Notes Feb, Generalized anxiety disorder (ICD-10 - F41.1) PLAN [...] d ay Next Appt Details Provider Name:Wilda Anna, 2020-04-08 08:00:00 AM, [address] [place], [address], Insurance Providers Payer Name Payer Address Payer Phone Insured Name Patient Relati onship to Insured Coverage Start Date Coverage End Date [employer] [facility] CLAIM DIV [address] [facility] [phone] [employer] MEDICARE Part A and B [address] [facility] [address] [employer]
--- OUTSIDE RECORDS SUMMARY | 2020-05-06 09:37 | CCD | Continuity of Care Document ---
Author Author Torri REHMAN DO Organization Unknown Address [address] [place] [address] Phone [phone] Care Team Providers Care Cathodic Protection Technician Name Role Phone Wilda Anna M.D. AUTM [phone] AUTM Unavailable Sonido Mckinney M.D. AUTM [phone] Carolyn Farias M.D. AUTM [phone] Problems Active Problems Provider Date Chronic rhinitis [...] mouth at night for anxiety Reference #: [id number] 25tabs Shant Perez M.D. 05/10/2018 Systane 0.4-0.3% [...] CPT Code Status Date Vaccine Lot # 05296 Given 02/28/2019 Afluria, Quadrivalent, 0.5ml , [facility]# [id number] Vital Signs Date Vital Result Comment 01/30/2020 8:20am BP Systolic 134 mmHg BP Diastolic 86 mmHg Height 66 inches 5'6" Weight 163.00 lb BMI (Body Mass Index) 26.3 kg/m2 [place] Body Weight 130 lb Weight 73.937 kg 01/10/2020 9:21am BP Systolic 134 mmHg BP Diastolic 72 mmHg Heart Rate 80 /min O2 % BldC Oximetry 99 % Room Air Height 66 inches 5'6" Weight 163.00 lb BMI (Body Mass Index) 26.3 kg/m2 [place] Body Weight 130 lb Weight 73.937 kg Results Test Acquired Date Facility Test Result H/L Range Note Laboratory test finding 12/24/2019 [facility] Lab [address] [place] [address] [phone] Non Lithographic Printing Machinist/Cytology Req For Servi (SEE NOTE) 1 Laboratory test finding 12/24/2019 [facility] Lab [address] [place] [address] 14933 [phone] Non Lithographic Printing Machinist/Cytology Req For Servi (SEE NOTE) 2 Laboratory test finding 12/24/2019 [facility] [address] [place] [address] 94146 [phone] Non Lithographic Printing Machinist/Cytology Req For Servi (SEE NOTE) 3 Laboratory test finding 12/24/2019 [facility] [address] [place] [address] 38825 [phone] Pathology Request For Service (SEE NOTE) 4 Laboratory test finding 12/24/2019 [facility] [address] [place] [address] [phone] Pathology Request For Service (SEE NOTE) 5 Bal Culture And Gram Stain 12/24/2019 [facility] Main Lab [address] [place] [address] [phone] Gram Stain (SEE NOTE) Normal 6 Bal Culture FULL REPORT IN L <SEE NOTE> Normal 7 Laboratory test finding 12/24/2019 [facility] Lab [address] [place] [address] 15530 [phone] Afb Smear & Culture Due to limited s <SEE NOTE> 8 Laboratory test finding 12/24/2019 [facility] [address] [place] [address] [phone] Bronchial Byron Culture FULL REPORT IN L <SEE NOTE> N ormal 9 Acid Fast Smear & Culture(Afb) Sendout 12/24/2019 [facility] Lab [address] [place] [address] 49113 [phone] Afb Smear Due to limited s <SEE NOTE> 10 Afb Culture Testing performe <SEE NOTE> 11 Culture Fungus Misc 12/24/2019 [facility] nt Main Lab [address] [place] [address] [phone] Fungal Smear Testing performe <SEE NOTE> 12 Fungal Culture Other Source Testing performe <SEE NOTE> 13 Xray 11/21/2019 [facility] Radiology Dept [address] [place] [address] [phone] Skull base to mid thigh <pending> 1 SPECIMEN: Bronchi al brushing ( left upper lobe lung) Crush in vial received SPECIMEN ADEQUACY: Satisfactory for evaluation CATEGORIZATION: Negative for Malignancy DESCRIPTIONS: Bronchial cells and blood elements noted. COMMENTS: 12/26/2019 - 131 Signed MAGNO JOEL(ASCP) 12/25/2019 0946 (Prelim) Signed MARIOLA KING MD 12/26/2019 1310 2 SPECIMEN: Bronchi al brushing (right upper lobe) Byron in vial and prepared slides SPECIMEN ADEQUACY: Satisfactory for evaluation CATEGORIZATION: Negative for Malignancy DESCRIPTIONS: Bronchial cells and blood elements noted. COMMENTS: 12/25/2019 - 102 Signed MAGNO JOEL(ASCP) 12/25/2019 1022 (Prelim) Signed MARIOLA KING MD 12/26/2019 1259 3 SPECIMEN: FNA Rig ht upper lobe lung SPECIMEN ADEQUACY: Satisfactory for evaluation CATEGORIZATION: Atypical cytology DESCRIPTIONS: Rare atypical cells present. Please see corresponding biopsy [id number] COMMENTS: 12/26/2019 - 1305 Signed MAGNO JOEL(ASCP) [...] one. -SV 12/24/20191401 Signed MARIOLA KING MD 12/25/20194 5 Addendum 1 Entered: 0 The addendum is being issued to report additional results: PD-L1 (22C3) Immunohistochemistry: Expressed (1%) ALK gene rearrangement (FISH): Negative ROS1 gene rearrangement (FISH): Negative EGFR gene mutation (PCR): Negative BRAF V600E gene mutation (PCR): Negative Please see the scanned documentation for the full Molecular Diagnostics report ([id number], [id number], [id number], [id number], [id number]). 02/06/20201129 Addendum Signed____ MARIOLA KING MD 02/06/20201129 FINAL DIAGNOSIS Lung, right upper lobe, biopsy: Adenocarcinoma, well to moderately differentiated. -4/TR Comment: If molecular testing is needed, please inform the lab to send the sample out for further analysis. 12/25/20191313 CLINICAL DIAGNOSIS Right upper lobe abnormality 12/24/20191401 GROSS DIAGNOSIS Received in formalin labeled "RUL biopsy" and contains five fragments of kennedy and red tissue measuring 0.4 x 0.4 x 0.2 cm. in aggregate. The specimen is entirely submitted all in one. -PRIYA 12/24/20191401 Signed MARIOLA KING MD 12/25/20191313 6 [...] AFB Seen ) 11 Testing performed at [facility] . Report copy to follow on a separate form. 02/22/20 REF LAB#:[id number] FULL REPORT IN LAB NOTES (eCW and Medent). No Acid-Fast Bacilli Isolated after 6 Weeks. 12 Testing performed at [facility] . Report copy to follow on a separate form. 02/22/20 REF LAB#:[id number] ERASMO/Calcofluor preparatio No fungus observed. 13 Testing performed at [facility] . Report copy to follow on a separate form. 02/22/20 REF LAB#:[id number] FUNGUS CULTURE [facility] No Yeast or Mold Isolated after 4 weeks. Procedures Date Code Description Status 12/24/2019 17442 Bronchoscopy W/Transbronchial Ne edle Aspiration Biopsy Completed 12/24/2019 65731 Bronchoscopy Rigid/F lexible Fluoroscopic Guide Computer-Assisted Completed 12/24/2019 74035 Bronchoscopy W/Bronchial Alveola r Lavage Completed 12/24/2019 73670 Bronchoscopy W/Brushing Or Prote cted Brushings Completed Medical Devices Description No Information Available Encounters Type Date Location Provider Dx Diagnosis Office Visit 01/30/2020 8:15a [facility] Lizy Bruno, RPA-C Z12.11 Encounter for screening for malignant neoplasm of colon Z86.010 Personal history of colonic polyps K22.70 Lees's esophagus without dysplasia R12 Heartburn Office Visit 01/10/2020 9:15a [facility] rold[facility] Perez M.D. C34.11 Malignant neoplasm of upper lobe, right bronchus or lung J44.9 Chronic obstructive pulmonar y disease, unspecified Z85.118 Personal history of malignan t neoplasm of bronchus and lung R91.8 Other nonspecific abnormal f inding of lung field Office Visit 01/01/2020 2:30p [facility] D avid P. Rechlin, DO C34.11 Malignant neoplasm of upper lobe, right bronchus or lung Office Visit 12/13/2019 9:30a [facility] avid P. Rechlin, DO J44.9 Chronic obstructive pulmonar y disease, unspecified Z85.118 Personal history of malignan t neoplasm of bronchus and lung R91.8 Other nonspecific abnormal f inding of lung field Office Visit 11/26/2019 10:30a [facility] avid P. Rechlin, DO R91.8 Other nonspecific abnormal f inding of lung field J44.9 Chronic obstructive pulmonar y disease, unspecified Z85.118 Personal history of malignan t neoplasm of bronchus and lung Office Visit 10/08/2019 9:00a [facility] avid P. Rechlin, DO R91.8 Other nonspecific abnormal f inding of lung field J44.9 Chronic obstructive pulmonar y disease, unspecified Z85.118 Personal history of malignan t neoplasm of bronchus and lung Assessments Date Code Description Provider 01/30/2020 Z12.11 Encounter for screening for lydia gnant neoplasm of colon Patty Migueljasmny, RPA-C 01/30/2020 Z86.010 Personal history of colonic poly ps Patty Rhodes Kiana, RPA-C 01/30/2020 K22.70 Lees's esophagus without dysp lasia Patty Rhodes Odalysyudelkajasmyn, RPA-C 01/30/2020 R12 Heartburn Patty Miguel jasmyn, RPA-C 01/10/2020 C34.11 Malignant neoplasm of upper [...] 05/14/2020 3:00 pm - [facility] Self at [facility] 01/30/2020 - WILVER Self* Z12.11 [...] T. surgery, and rad onc) Closed 01/22/2020 [facility] [address] [place] [address] [phone] Saroj Lynn M.D. Adenocarcinoma RUL lung (1a), s/p SYED r esection 2018 Scheduled 01/22/2020 [facility] Radiation Oncol [address] [place] [address] 69933 [phone] Carolyn Farias M.D. Adenocarcinoma RUL (1a) s/p SYED resection 2018. (also seeing T. surgery, and rad onc) Closed 01/22/2020 [facility] Medical Oncology & Hematology [address] [place] [address] 90810 [phone] Shant Perez M.D. Adenocarcinoma RUL (1a), s/p SYED resection 2018 for same. full PFT in process. referrals also made to med & rad onc. Closed 01/10/2020 [facility] Thoracic Surg [address] [place] [phone] Radiology/Procedure no auth req bronch Closed Radiology/Procedure no auth req bronch Closed Radiology/[place] [id number] Closed 0 Radiology/[place] [id number] Closed 0 Radiology/Procedure NO AUTH REQ [id number] Closed 0
--- OUTSIDE RECORDS SUMMARY | 2020-05-06 09:38 | CCD ---
Author Author [facility] Organization [facility] Address Unknown Phone Unavailable Care Team Providers Care Addictions Counselor Assistant Name Role Phone Priscilla Todd, Carmelo Syed MD, FACS Unavailable Unavailable Priscilla Todd, Carmelo Syed MD, FACS Unavailable Unavailable Wells Perez, Carmelo Syed MD, FACS Unavailable Unavailable Wells Perez, Carmelo Syed MD, FACS Unavailable Unavailable Wells Perez, Carmelo Syed MD, FACS Unavailable Unavailable Wells Perez, Carmelo Syed MD, FACS Unavailable Unavailable Wells Perez, Carmelo Syed MD, FACS Unavailable Unavailable Priscilla Todd, Carmelo Syed MD, FACS Unavailable Unavailable Priscilla Todd, Carmelo Syed MD, FACS Unavailable Unavailable Priscilla Todd, Carmelo Syed MD, FACS Unavailable Unavailable Wells Perez, Carmelo Syed MD, FACS Unavailable Unavailable Wells Perez, Carmelo Syed MD, FACS Unavailable Unavailable Wells Perez, Carmelo Syed MD, FACS Unavailable Unavailable Priscilla Todd, Carmelo Syed MD, FACS Unavailable Unavailable Priscilla Todd, Carmelo Syed MD, FACS Unavailable Unavailable Priscilla Todd, Carmelo Syed MD, FACS Unavailable Unavailable Priscilla Todd, Carmelo Syed MD, FACS Unavailable Unavailable Wells Todd, Carmelo Syed MD, FACS Unavailable Unavailable Wells Todd, Carmelo Syed MD, FACS Unavailable Unavailable Wells Todd, Carmelo Syed MD, FACS Unavailable Unavailable Wells Todd, Carmelo Syed MD, FACS Unavailable Unavailable Wells Todd, Carmelo Syed MD, FACS Unavailable Unavailable Wells Todd, Carmelo Syed MD, FACS Unavailable Unavailable Wells Todd, Carmelo Syed MD, FACS Unavailable Unavailable Wells Todd, Carmelo Syed MD, FACS Unavailable Unavailable Wells Todd, Carmelo Syed MD, FACS Unavailable Unavailable Wells Todd, Carmelo Syed MD, FACS Unavailable Unavailable Wells Todd, Carmelo Syed MD, FACS Unavailable Unavailable Wells Todd, Carmelo Syed MD, FACS Unavailable Unavailable Wells Todd, Carmelo Syed MD, FACS Unavailable Unavailable Wells Todd, Carmelo Syed MD, FACS Unavailable Unavailable Wells Todd, Carmelo Syed MD, FACS Unavailable Unavailable Wells Todd, Carmelo Syed MD, FACS Unavailable Unavailable Wells Todd, Carmelo Syed MD, FACS Unavailable Unavailable Wells Todd, Carmelo Syed MD, FACS Unavailable Unavailable Wells Todd, Carmelo Syed MD, FACS Unavailable Unavailable Chris, Eric Bran MD Unavailable Unavailable Chris, Eric Bran MD Unavailable Unavailable Chris, Eric Bran MD Unavailable Unavailable Chris, Eric Bran MD Unavailable Unavailable Chris, Eric Bran MD Unavailable Unavailable Chris, Eric Bran MD Unavailable Unavailable Chris, Eric Bran MD Unavailable Unavailable Chris, Eric Bran MD Unavailable Unavailable Chris, Eric Bran MD Unavailable Unavailable Chris, Eric Bran MD Unavailable Unavailable Chris, Eric Bran MD Unavailable Unavailable Chris, Eric Bran MD Unavailable Unavailable Chris, Eric Bran MD Unavailable Unavailable Chris, Eric Bran MD Unavailable Unavailable Chris, Eric Bran MD Unavailable Unavailable Chris, Eric Bran MD Unavailable Unavailable Chris, Eric Bran MD Unavailable Unavailable Chris, Eric Bran MD Unavailable Unavailable Chris, Eric Bran MD Unavailable Unavailable Chris, Eric Bran MD Unavailable Unavailable Chris, Eric Bran MD Unavailable Unavailable Chris, Eric Bran MD Unavailable Unavailable Chris, Eric Bran MD Unavailable Unavailable Chris, Eric Bran MD Unavailable Unavailable Chris, Eric Bran MD Unavailable Unavailable Chris, Eric Bran MD Unavailable Unavailable Chris, Eric Bran MD Unavailable Unavailable Chris, Eric Bran MD Unavailable Unavailable Chris, Eric Bran MD Unavailable Unavailable Chris, Eric Bran MD Unavailable Unavailable Chris, Eric Bran MD Unavailable Unavailable Chris, Eric Bran MD Unavailable Unavailable Chris, Eric Bran MD Unavailable Unavailable Chris, Eric Bran MD Unavailable Unavailable Chris, Eric Bran MD Unavailable Unavailable Chris, Eric Bran MD Unavailable Unavailable Chris, Eric Bran MD Unavailable Unavailable Chris, Eric Bran MD Unavailable Unavailable Slezka, Vojtech MD Unavailable Unavailable Slezka, Vojtech MD Unavailable Unavailable Slezka, Vojtech MD Unavailable Unavailable Slezka, Vojtech MD Unavailable Unavailable Slezka, Vojtech MD Unavailable Unavailable Slezka, Vojtech MD Unavailable Unavailable Lupe Brown MD Unavailable Unavailable Lupe Brown MD Unavailable Unavailable Lupe Brown MD Unavailable Unavailable Lupe Brown MD Unavailable Unavailable Lupe Brown MD Unavailable Unavailable Lupe Brown MD Unavailable Unavailable Lupe Brown MD Unavailable Unavailable Lupe Brown MD Unavailable Unavailable Lupe Brown MD Unavailable Unavailable Lupe Brown MD Unavailable Unavailable Lupe Brown MD Unavailable Unavailable Lupe Brown MD Unavailable Unavailable Lupe Brown MD Unavailable Unavailable Lupe Brown MD Unavailable Unavailable Lupe Brown MD Unavailable Unavailable Lupe Brown MD Unavailable Unavailable Lupe Brown MD Unavailable Unavailable Lupe Brown MD Unavailable Unavailable Lupe Brown MD Unavailable Unavailable Lupe Brown MD Unavailable Unavailable Lupe Brown MD Unavailable Unavailable Lupe Brown MD Unavailable Unavailable Lupe Brown MD Unavailable Unavailable Lupe Brown MD Unavailable Unavailable Lupe Brown MD Unavailable Unavailable Lupe Brown MD Unavailable Unavailable Lupe Brown MD Unavailable Unavailable Lupe Brown MD Unavailable Unavailable Lupe Brown MD Unavailable Unavailable Lupe Brown MD Unavailable Unavailable Lupe Brown MD Unavailable Unavailable Lupe Brown MD Unavailable Unavailable Lupe Brown MD Unavailable Unavailable Lupe Brown MD Unavailable Unavailable Lupe Brown MD Unavailable Unavailable Lupe Brown MD Unavailable Unavailable Lupe Brown MD Unavailable Unavailable Lupe Brown MD Unavailable Unavailable Lupe Brown MD Unavailable Unavailable Lupe Brown MD Unavailable Unavailable Lupe Brown MD Unavailable Unavailable Lupe Brown MD Unavailable Unavailable Lupe Brown MD Unavailable Unavailable Lupe Brown MD Unavailable Unavailable Lupe Brown MD Unavailable Unavailable Lupe Brown MD Unavailable Unavailable Lupe Brown MD Unavailable Unavailable Lupe Brown MD Unavailable Unavailable Lupe Brown MD Unavailable Unavailable Slezka, Lupe FLORES Unavailable Unavailable Rechlin, P Kunal DO Unavailable Unavailable Rechlin, P Kunal DO Unavailable Unavailable Rechlin, P Kunal DO Unavailable Unavailable Rechlin, P Kunal DO Unavailable Unavailable Rechlin, P Kunal DO Unavailable Unavailable Rechlin, P Kunal DO Unavailable Unavailable Rechlin, P Kunal DO Unavailable Unavailable Rechlin, P Kunal DO Unavailable Unavailable Rechlin, P Kunal DO Unavailable Unavailable Rechlin, P Kunal DO Unavailable Unavailable Rechlin, P Kunal DO Unavailable Unavailable Rechlin, P Kunal DO Unavailable Unavailable Rechlin, P Kunal DO Unavailable Unavailable Rechlin, P Kunal DO Unavailable Unavailable Rechlin, P Kunal DO Unavailable Unavailable Rechlin, P Kunal DO Unavailable Unavailable Rechlin, P Kunal DO Unavailable Unavailable Rechlin, P Kunal DO Unavailable Unavailable Rechlin, P Kunal DO Unavailable Unavailable Rechlin, P Kunal DO Unavailable Unavailable Rechlin, P Kunal DO Unavailable Unavailable Rechlin, P Kunal DO Unavailable Unavailable Rechlin, P Kunal DO Unavailable Unavailable Rechlin, P Kunal DO Unavailable Unavailable Rechlin, P Kunal DO Unavailable Unavailable Rechlin, P Kunal DO Unavailable Unavailable Rechlin, P Kunal DO Unavailable Unavailable Rechlin, P Kunal DO Unavailable Unavailable Rechlin, P Kunal DO Unavailable Unavailable Rechlin, P Kunal DO Unavailable Unavailable Rechlin, P Kunal DO Unavailable Unavailable Rechlin, P Kunal DO Unavailable Unavailable Rechlin, P Kunal DO Unavailable Unavailable Rechlin, P Kunal DO Unavailable Unavailable Rechlin, P Kunal DO Unavailable Unavailable Rechlin, P Kunal DO Unavailable Unavailable Rechlin, P Kunal DO Unavailable Unavailable Rechlin, P Kunal DO Unavailable Unavailable Rechlin, P Kunal DO Unavailable Unavailable Rechlin, P Kunal DO Unavailable Unavailable Rechlin, P Kunal DO Unavailable Unavailable Rechlin, P Kunal DO Unavailable Unavailable Rechlin, P Kunal DO Unavailable Unavailable Rechlin, P Kunal DO Unavailable Unavailable Rechlin, P Kunal DO Unavailable Unavailable Rechlin, P Kunal DO Unavailable Unavailable Rechlin, P Kunal DO Unavailable Unavailable Charlebois, A Patty RPA C Unavailable Unavailable Charlebois, A Patty RPA C Unavailable Unavailable Charlebois, A Patty RPA C Unavailable Unavailable Charlebois, A Patty RPA C Unavailable Unavailable Charlebois, A Patty RPA C Unavailable Unavailable Charlebois, A Patty RPA C Unavailable Unavailable Charlebois, A Patty RPA C Unavailable Unavailable Charlebois, A Patty RPA C Unavailable Unavailable Charlebois, A Patty RPA C Unavailable Unavailable Charlebois, A Patty RPA C Unavailable Unavailable Charlebois, A Patty RPA C Unavailable Unavailable Charlebois, A Patty RPA C Unavailable Unavailable Charlebois, A Patty RPA C Unavailable Unavailable Charlebois, A Patty RPA C Unavailable Unavailable Charlebois, A Patty RPA C Unavailable Unavailable Charlebois, A Patty RPA C Unavailable Unavailable Charlebois, A Patty RPA C Unavailable Unavailable Charlebois, A Patty RPA C Unavailable Unavailable Charlebois, A Patty RPA C Unavailable Unavailable Charlebois, A Patty RPA C Unavailable Unavailable Charlebois, A Patty RPA C Unavailable Unavailable Charlebois, A Patty RPA C Unavailable Unavailable Charlebois, A Patty RPA C Unavailable Unavailable Charlebois, A Patty RPA C Unavailable Unavailable Charlebois, A Patty RPA C Unavailable Unavailable Charlebois, A Patty RPA C Unavailable Unavailable Charlebois, A Patty RPA C Unavailable Unavailable Charlebois, A Patty RPA C Unavailable Unavailable Charlebois, A Patty RPA C Unavailable Unavailable Charlebois, A Patty RPA C Unavailable Unavailable Charlebois, A Patty RPA C Unavailable Unavailable El-Khally, A Ziad MD Unavailable Unavailable El-Khally, A Ziad MD Unavailable Unavailable El-Khally, A Ziad MD Unavailable Unavailable El-Khally, A Ziad MD Unavailable Unavailable El-Khally, A Ziad MD Unavailable Unavailable El-Khally, A Ziad MD Unavailable Unavailable El-Khally, A Ziad MD Unavailable Unavailable El-Khally, A Ziad MD Unavailable Unavailable El-Khally, A Ziad MD Unavailable Unavailable El-Khally, A Ziad MD Unavailable Unavailable El-Khally, A Ziad MD Unavailable Unavailable El-Khally, A Ziad MD Unavailable Unavailable El-Khally, A Ziad MD Unavailable Unavailable El-Khally, A Ziad MD Unavailable Unavailable El-Khally, A Ziad MD Unavailable Unavailable El-Khally, A Ziad MD Unavailable Unavailable El-Khally, A Ziad MD Unavailable Unavailable El-Khally, A Ziad MD Unavailable Unavailable El-Khally, A Ziad MD Unavailable Unavailable El-Khally, A Ziad MD Unavailable Unavailable El-Khally, A Ziad MD Unavailable Unavailable El-Khally, A Ziad MD Unavailable Unavailable El-Khally, A Ziad MD Unavailable Unavailable El-Khally, A Ziad MD Unavailable Unavailable El-Khally, A Ziad MD Unavailable Unavailable El-Khally, A Ziad MD Unavailable Unavailable El-Khally, A Ziad MD Unavailable Unavailable El-Khally, A Ziad MD Unavailable Unavailable El-Khally, A Ziad MD Unavailable Unavailable El-Khally, A Ziad MD Unavailable Unavailable El-Khally, A Ziad MD Unavailable Unavailable El-Khally, A Ziad MD Unavailable Unavailable El-Khally, A Ziad MD Unavailable Unavailable El-Khally, A Ziad MD Unavailable Unavailable El-Khally, A Ziad MD Unavailable Unavailable El-Khally, A Ziad MD Unavailable Unavailable El-Khally, A Ziad MD Unavailable Unavailable El-Khally, A Ziad MD Unavailable Unavailable El-Khally, A Ziad MD Unavailable Unavailable El-Khally, A Ziad MD Unavailable Unavailable El-Khally, A Ziad MD Unavailable Unavailable John Mackay Unavailable Unavailable Re-disclosure Warning The records that you are about to access may contain information from federally-assisted alcohol or drug abuse programs. If such information is present, then the following federally mandated warning applies: This information has been disclosed to you from records protected by federal confidentiality rules (42 CFR part 2). The federal rules prohibit you from making any further disclosure of this information unless further disclosure is expressly permitted by the written consent of the person to whom it pertains or as otherwise permitted by 42 CFR part 2. A general authorization for the release of medical or other information is NOT sufficient for this purpose. The Federal rules restrict any use of the information to criminally investigate or prosecute any alcohol or drug abuse patient.The records that you are about to access may contain highly sensitive health information, the redisclosure of which is protected by Article 27-F of the [facility] Public Health law. If you continue you may have access to information: Regarding HIV / AIDS; Provided by facilities licensed or operated by the [facility] Office of Mental Health; or Provided by the [facility] Office for People With Developmental Disabilities. If such information is present, then the following [facility] mandated warning applies: This information has been disclosed to you from confidential records which are protected by state law. State law prohibits you from making any further disclosure of this information without the specific written consent of the person to whom it pertains, or as otherwise permitted by law. Any unauthorized further disclosure in violation of state law may result in a fine or long term sentence or both. A general authorization for the release of medical or other information is NOT sufficient authorization for further disc losure. Allergies and Adverse Reactions Type Description Substance Reaction Status Data Source(s ) Propensity to adverse reactions ESCITALOPRAM OXALATE Escitalopram O xalate Active [facility] Propensity to adverse reactions MORPHINE AND RELATED Morphine And R elated Active [facility] Propensity to adverse reactions GABAPENTIN gabapentin Acti ve [facility] Drug allergy Morphine Sulfate 1 MG/ML Intravenous Vanessa ution Morphine Sulfate 1 MG/ML Intravenous Solution Active [facility] (Bob Todd MD [facility]) Drug allergy Morphine Sulfate 1 MG/ML Intravenous Vanessa ution Morphine Sulfate 1 MG/ML Intravenous Solution Active [facility] ([facility]) Drug allergy Morphine Sulfate 1 MG/ML Intravenous Vanessa ution Morphine Sulfate 1 MG/ML Intravenous Solution Active [facility] ([facility]) Drug allergy Morphine Sulfate 1 MG/ML Intravenous Vanessa ution Morphine Sulfate 1 MG/ML Intravenous Solution Active [facility] ([facility]) Drug allergy Morphine Sulfate 1 MG/ML Intravenous Vanessa ution Morphine Sulfate 1 MG/ML Intravenous Solution Active [facility] ([facility]) Drug allergy Morphine Sulfate 1 MG/ML Intravenous Vanessa ution Morphine Sulfate 1 MG/ML Intravenous Solution Active [facility] ([facility]) Drug allergy Morphine Sulfate 1 MG/ML Intravenous Vanessa ution Morphine Sulfate 1 MG/ML Intravenous Solution Active [facility] ([facility]) Drug allergy Morphine Sulfate 1 MG/ML Intravenous Vanessa ution Morphine Sulfate 1 MG/ML Intravenous Solution Active [facility] ([facility]) Drug allergy Morphine Sulfate 1 MG/ML Intravenous Vanessa ution Morphine Sulfate 1 MG/ML Intravenous Solution Active [facility] ([facility]) Drug allergy Escitalopram Oxalate Escitalopram diarrhea, vomiting Ac tive eCW1 ([facility]) Darvon Darvon Darvon hives, ANDRADE Active eCW1 ([facility]) Drug allergy Gabapentin gabapentin passing out and hospitalized from it Active eCW1 ([facility]) Drug allergy Codeine Phosphate Drug allergy hives,ANDRADE Active eCW 1 ([facility]) Drug allergy Morphine Sulfate Morphine Nausea/Vomiting Active eCW1 ([facility]) Drug allergy Keflex Cephalexin Hives Active eCW1 ([facility]) Yudy Jimenes hives, ANDRADE Active eCW1 ([facility]) Family History Family Member Name Family Member Gender Family Member Status Date o f Status Description Data Source(s) Unknown Unknown Problem MEDENT ([facility]) Unknown Male Problem MEDENT ([facility] () Unknown Unknown Problem [facility] ([facility]) Unknown Male Problem MEDENT ([facility]) Unknown Male Problem MEDENT ([facility]) Encounters Encounter Providers Location Date Indications Data Source(s ) Unknown [address] [facility] [place] [address] 04/26/2020 12:00:00 AM EST eCW1 ([facility]) Office Visit, Est Pt., Level 4 PC [address] [place] [address] 04/08/2020 12:00:00 AM EST [facility] [place] [address] [facility] [place] [address] 03/17/2020 12:00:00 AM EST eCW1 ([facility]) Outpatient [address] [facility] [place] [address] 03/17/2020 12:00:00 AM EST eCW1 ([facility]) Unknown [address] [facility] [place] [address] 03/12/2020 12:00:00 AM EST eCW1 ([facility]) Unknown [address] [facility] [place] [address] 02/08/2020 12:00:00 AM EDT eCW1 ([facility]) Unknown [address] [facility] [place] [address] 02/07/2020 12:00:00 AM EDT eCW1 ([facility]) Outpatient Attender: Patty Aranda/[place]/A ngpreethi/Reindl 01/30/2020 08:15:00 AM EDT MEDENT ([facility], ) Outpatient Attender: Shant Aranda/[place]/Re indl 01/10/2020 09:15:00 AM EDT [facility] ([facility], ) Outpatient Attender: Kunal Correaang/[place]/Jefry ndl 01/01/2020 02:30:00 PM EDT [facility] ([facility], ) Outpatient Admitter: Mariola Hollidayer: Mariola Mackay 12/24/2019 12:00:00 AM EDT Malignant (primary) neoplasm, unspecified [facility] Malignant (primary) neoplasm, unspecifie d Outpatient Attender: Kunal Matos/[place]/Jefry ndl 12/13/2019 09:30:00 AM EDT [facility] ([facility], ) Outpatient Attender: Kunal Matos/[place]/Jefry ndl 11/26/2019 10:30:00 AM EDT [facility] ([facility] [place] [address] [facility] [place] [address] 11/08/2019 12:00:00 AM EDT eCW1 ([facility]) Outpatient Attender: Lupe Brown MD SJZeke.JERMAINE-SJP.JERMAINE 09/24 12:00:00 AM EDT - 10/15/2019 12:15:23 PM EDT [facility] Unknown [address] [facility] [place] [address] 10/12/2019 12:00:00 AM EDT eCW1 ([facility]) Outpatient Attender: Kunal Matos/[place]/Jefry ndl 10/08/2019 09:00:00 AM EDT [facility] ([facility] ) [place] [address] [facility] [place] [address] 10/08/2019 12:00:00 AM EDT eCW1 ([facility]) Outpatient Attender: Miladys Fitzpatrick MDA dmitter: Miladys Fitzpatrick MDReferrer: Miladys Fitzpatrick MD [email or web address] 10/05/2019 08:09:00 AM EDT - 10/05/2019 03:10:00 PM EDT [facility] Patient discharged. Outpatient Referrer: Miladys Fitzpatrick MD MOB-MOB.PAT 12/2019 11:34:19 AM EDT - 10/02/2019 11:34:24 AM EDT [facility] Outpatient Attender: Lupe DEYJERMAINERadhaSJP.JERMAINE 06/2019 12:00:00 AM EDT - 09/26/2019 11:36:23 AM EDT [facility] Outpatient Attender: Lupe DEYJERMAINERadhaSJBennyJERMAINE 09/2019 12:00:00 AM EDT - 08/29/2019 11:24:30 AM EDT [facility] Outpatient Referrer: Lupe DEYJERMAINERadhaSJP.JERMAINE 07/24 12:00:00 AM EDT - 08/08/2019 09:48:11 AM EDT [facility] Outpatient Attender: Lupe DEYJERMAINE-SJPFlorinJERMAINE 09/2019 12:00:00 AM EDT [facility] TeleMedicine Phone E/M by Phys 21-30 Min [address] [place] [address] 07/27/2019 12:00:00 AM EDT [facility] Outpatient<td ID="encounterTypeDescripti onID0">9 Month Follow-Up with Testing</td><td>Kunal Silva MD, FACS</td><td>Kunal Silva MD [facility]</td><td>06/29/2019</td><td><content ID="encounterDiagnosisID0-0">Macular Degeneration Nonexudative Bilateral Early Dry Stage</content>, <content ID="encounterDiagnosisID0-1">Macular Puckering Left Eye</content>, <content ID="encounterDiagnosisID0-2">Cataract Senile Cortical</content>, <content ID="encounterDiagnosisID0-3">Cataract Senile Nuclear</content>, <content ID="encounterDiagnosisID0-4">Essential Hypertension</content>, <content ID="encounterDiagnosisID0-5">Tobacco Use</content></td> Attender: Kunal Todd MD, FACS Kunal Silva MD [facility] 06/29/2019 02:06:00 PM EST - 06/29/2019 03:40:00 PM EST Essential HypertensionTobacco UseCatarac t Senile NuclearCataract Senile CorticalMacular Puckering Left EyeMacular Degeneration Nonexudative Bilateral Early Dry StageCataract Senile NuclearCataract Senile CorticalMacular Puckering Left EyeMacular Degeneration Nonexudative Bilateral Early Dry StageCataract Senile NuclearCataract Senile CorticalMacular Puckering Left EyeMacular Degeneration Nonexudative Bilateral Early Dry StageCataract Senile NuclearCataract Senile CorticalMacular Puckering Left EyeMacular Degeneration Nonexudative Bilateral Early Dry StageCataract Senile NuclearCataract Senile CorticalMacular Puckering Left EyeMacular Degeneration Nonexudative Bilateral Early Dry StageCataract Senile NuclearCataract Senile CorticalMacular Puckering Left EyeMacular Degeneration Nonexudative Bilateral Early Dry StageCataract Senile NuclearCataract Senile CorticalMacular Puckering Left EyeMacular Degeneration Nonexudative Bilateral Early Dry StageCataract Senile NuclearCataract Senile CorticalMacular Puckering Left EyeMacular Degeneration Nonexudative Bilateral Early Dry StageCataract Senile NuclearCataract Senile CorticalMacular Puckering Left EyeMacular Degeneration Nonexudative Bilateral Early Dry Stage [facility] (Kunal Todd MD [facility]) Essential Hypertension Tobacco Use Cataract 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 Macular Degeneration Nonexudative Bilate ral Early Dry Stage Cataract 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 Macular Degeneration Nonexudative Bilate ral Early Dry Stage Cataract 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 Macular Degeneration Nonexudative Bilate ral Early Dry Stage Cataract 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 Macular Degeneration Nonexudative Bilate ral Early Dry Stage Cataract 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 Macular Degeneration Nonexudative Bilate ral Early Dry Stage Cataract 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 Macular Degeneration Nonexudative Bilate ral Early Dry Stage Cataract 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 Macular Degeneration Nonexudative Bilate ral Early Dry Stage Cataract 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 Macular Degeneration Nonexudative Bilate ral Early Dry Stage Cataract 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 Macular Degeneration Nonexudative Bilate ral Early Dry Stage [address] [address] 05/24/2019 12:00:00 AM EST eCW1 ([facility]) Outpatient Attender: Kunal Rehman DO Main Office 05/16/2019 07:30:00 AM EST MED[facility] ([facility] [address] [address] 05/15/2019 12:00:00 AM EST eCW1 ([facility]) [facility] [address] [place] [phone] 05/01/2019 12:00:00 AM EST eCW1 ([facility]) [address] [address] 04/13/2019 12:00:00 AM EST eCW1 ([facility]) Outpatient Attender: Kunal Rehman DO Main Office 04/05/2019 10:00:00 AM EST MEDENT ([facility] [address] [address] 03/13/2019 12:00:00 AM EST eCW1 ([facility]) Immunizations Vaccine Date Status Description Data Source(s) influenza, recombinant, quadrIvalent,injectable, prese rvative free 03/17/2020 09:35:00 AM EST completed eCW1 ([facility]) influenza, recombinant, quadrIvalent,injectable, prese rvative free 03/17/2020 09:35:00 AM EST completed eCW1 ([facility]) influenza, recombinant, quadrIvalent,injectable, prese rvative free 03/17/2020 09:35:00 AM EST completed eCW1 ([facility]) influenza, recombinant, quadrIvalent,injectable, prese rvative free 03/17/2020 09:35:00 AM EST completed eCW1 ([facility]) Pneumococcal conjugate PCV 13 05/24/2019 11:48:00 AM EST completed eCW1 ([facility]) Pneumococcal conjugate PCV 13 05/24/2019 11:48:00 AM EST completed eCW1 ([facility]) Pneumococcal conjugate PCV 13 05/24/2019 11:48:00 AM EST completed eCW1 ([facility]) Pneumococcal conjugate PCV 13 05/24/2019 11:48:00 AM EST completed eCW1 ([facility]) Pneumococcal conjugate PCV 13 05/24/2019 11:48:00 AM EST completed eCW1 ([facility]) Pneumococcal conjugate PCV 13 05/24/2019 11:48:00 AM EST completed eCW1 ([facility]) Pneumococcal conjugate PCV 13 05/24/2019 11:48:00 AM EST completed eCW1 ([facility]) Pneumococcal conjugate PCV 13 05/24/2019 11:48:00 AM EST completed eCW1 ([facility]) Pneumococcal conjugate PCV 13 05/24/2019 11:48:00 AM EST completed eCW1 ([facility]) Pneumococcal conjugate PCV 13 05/24/2019 11:48:00 AM EST completed eCW1 ([facility]) Pneumococcal conjugate PCV 13 05/24/2019 11:48:00 AM EST completed eCW1 ([facility]) Medications Medication Brand Name Start Date Product Form Dose Route Admi nistrative Instructions Pharmacy Instructions Status Indications Reaction Description Data Source(s) 17.5-3.13-1.6 gram 04/26/2020 12:00:00 AM EST recon soln 354 TAKE PER DOCTOR'S BOWEL PREP INSTRUCTIONS TAKE PER DOCTOR'S BOWEL PREP INSTRUCTIONS SOLD: 04/27/2020 [facility] Alprazolam 0.25 MG Oral Tablet ALPRAZOLAM 04/26/2020 12:00:00 AM EST tablet 60 TAKE ONE TABLET BY MOUTH TWICE A DAY MAXIMUM DAILY DOS E = TWO TABLETS TAKE ONE TABLET BY MOUTH TWICE A DAY MAXIMUM DAILY DOSE = TWO TABLETS SOLD: 04/27/2020 [facility] 50 mg 03/17/2020 12:00:00 AM EST tablet 60 TAKE 1+1/2 TABLETS TO 2 TABLETS BY MOUTH AT BEDTIME NEEDED TAKE 1+1/2 TABLETS TO 2 TABLETS BY MOUTH AT BEDTIME NEEDED SOLD: 04/27/2020 [facility] 1,250 mcg (50,000 unit) 03/17/2020 12:00:00 AM EST capsule 4 TAKE 1 CAPSULE BY MOUTH ONCE A WEEK TAKE 1 CAPSULE BY MOUTH ONCE A WEEK SOLD: 04/27/2020 [facility] 1,250 mcg (50,000 unit) 03/17/2020 12:00:00 AM EST capsule 4 TAKE 1 CAPSULE BY MOUTH ONCE A WEEK TAKE 1 CAPSULE BY MOUTH ONCE A WEEK SOLD: 03/19/2020 [facility] Alprazolam 0.25 MG Oral Tablet ALPRAZOLAM 03/17/2020 12:00:00 AM EST tablet 60 TAKE ONE TABLET BY MOUTH TWICE A DAY MAXIMUM DAILY DOS E = 2 TAKE ONE TABLET BY MOUTH TWICE A DAY MAXIMUM DAILY DOSE = 2 SOLD: 03/19/2020 [facility] 50 mg 03/17/2020 12:00:00 AM EST tablet 60 TAKE 1+1/2 TABLETS TO 2 TABLETS BY MOUTH AT BEDTIME NEEDED TAKE 1+1/2 TABLETS TO 2 TABLETS BY MOUTH AT BEDTIME NEEDED SOLD: 03/19/2020 [facility] Alprazolam 0.25 MG Oral Tablet ALPRAZOLAM 02/09/2020 12:00:00 AM EDT tablet 60 TAKE ONE TABLET BY MOUTH TWICE A DAY MAXIMUM DAILY DOS E = 2 TABLETS TAKE ONE TABLET BY MOUTH TWICE A DAY MAXIMUM DAILY DOSE = 2 TABLETS SOLD: 02/10/2020 [facility] Bisacodyl 5 MG Delayed Release Oral Tablet [Dulcolax] Dulcol ax 01/30/2020 12:00:00 AM EDT ORAL active M EDENT ([facility], ) Suprep Bowel Prep Kit Suprep Bowel Prep Kit 01/30/2020 12:00:00 AM EDT active MEDENT ([facility], ) 50 mg 01/18/2020 12:00:00 AM EDT tablet 90 TAKE ONE TABLET BY MOUTH EVERY DAY TAKE ONE TABLET BY MOUTH EVERY DAY SOLD: 01/21/2020 [facility] Alprazolam 0.25 MG Oral Tablet ALPRAZOLAM 01/08/2020 12:00:00 AM EDT tablet 30 TAKE ONE TABLET BY MOUTH EVERY DAY MAXIMUM DAILY DOSE = ONE TABLET TAKE ONE TABLET BY MOUTH EVERY DAY MAXIMUM DAILY DOSE = ONE TABLET SOLD: 01/09/2020 [facility] 500 mg 12/01/2019 12:00:00 AM EDT tablet 10 TAKE ONE TABLET BY MOUTH TWICE A DAY FOR 5 DAYS TAKE ONE TABLET BY MOUTH TWICE A DAY FOR 5 DAYS SOLD: 12/01/2019 [facility] Trazodone Hydrochloride 100 MG Oral Tablet TRAZODONE HCL 11/21/2019 12:00:00 AM EDT tablet 30 TAKE ONE TABLET BY MOUTH AT BEDTIME NEEDED FOR SLEEP TAKE ONE TABLET BY MOUTH AT BEDTIME NEEDED FOR SLEEP SOLD: 03/19/2020 [facility] Trazodone Hydrochloride 100 MG Oral Tablet TRAZODONE HCL 11/21/2019 12:00:00 AM EDT tablet 30 TAKE ONE TABLET BY MOUTH AT BEDTIME NEEDED FOR SLEEP TAKE ONE TABLET BY MOUTH AT BEDTIME NEEDED FOR SLEEP SOLD: 02/25/2020 [facility] Alprazolam 0.25 MG Oral Tablet ALPRAZOLAM 11/21/2019 12:00:00 AM EDT tablet 30 TAKE ONE TABLET BY MOUTH EVERY DAY NE EDED FOR ANXIETY MAXIMUM DAILY DOSE = 1 TAKE ONE TABLET BY MOUTH EVERY DAY NE EDED FOR ANXIETY MAXIMUM DAILY DOSE = 1 SOLD: 11/22/2019 [facility] Trazodone Hydrochloride 100 MG Oral Tablet TRAZODONE HCL 11/21/2019 12:00:00 AM EDT tablet 30 TAKE ONE TABLET BY MOUTH AT BEDTIME NEEDED FOR SLEEP TAKE ONE TABLET BY MOUTH AT BEDTIME NEEDED FOR SLEEP SOLD: 11/22/2019 [facility] Trazodone Hydrochloride 100 MG Oral Tablet TRAZODONE HCL 11/21/2019 12:00:00 AM EDT tablet 30 TAKE ONE TABLET BY MOUTH AT BEDTIME NEEDED FOR SLEEP TAKE ONE TABLET BY MOUTH AT BEDTIME NEEDED FOR SLEEP SOLD: 12/12/2019 [facility] 2.5 mg /3 mL (0.083 %) 10/17/2019 12:00:00 AM EDT solu tion for nebulization 375 1 VIAL VIA NEBULIZER FOUR TIMES A DAY NEEDED 1 VIAL VIA NEBULIZER FOUR TIMES A DAY NEEDED SOLD: 10/17/2019 [facility] Albuterol 0.83 MG/ML Inhalant Solution Albuterol Sulfate 0 10/15/2019 12:00:00 AM EDT active MEDENT ([facility], ) Levofloxacin 750 MG Oral Tablet Levofloxacin 750 MG 10/12/2019 1 2:00:00 AM EDT 1.0 {tablet} active Levofloxaci n 750 MG eCW1 ([facility]) 750 mg 10/11/2019 12:00:00 AM EDT tablet 5 TAKE ONE TABLET BY MOUTH EVERY DAY TAKE ONE TABLET BY MOUTH EVERY DAY SOLD: 10/12/2019 [facility] PreserVision AREDS 2 20 fr UNK 10/11/2019 12:00:00 AM EDT active PreserVision AREDS 2 20 fr eCW1 ([facility]) PreserVision AREDS 2 20 fr UNK 10/11/2019 12:00:00 AM EDT active PreserVision AREDS 2 20 fr eCW1 ([facility]) PreserVision AREDS 2 20 fr UNK 10/11/2019 12:00:00 AM EDT active PreserVision AREDS 2 20 fr eCW1 ([facility]) PreserVision AREDS 2 20 fr UNK 10/11/2019 12:00:00 AM EDT active PreserVision AREDS 2 20 fr eCW1 ([facility]) Nitroglycerin 0.4 MG Sublingual Tablet Nitroglycerin 0.4 MG 10/11/2019 12:00:00 AM EDT active Nitroglycerin 0.4 MG eCW1 ([facility]) PreserVision AREDS 2 20 fr UNK 10/11/2019 12:00:00 AM EDT active PreserVision AREDS 2 20 fr eCW1 ([facility]) PreserVision AREDS 2 20 fr UNK 10/11/2019 12:00:00 AM EDT active PreserVision AREDS 2 20 fr eCW1 ([facility]) PreserVision AREDS 2 20 fr UNK 10/11/2019 12:00:00 AM EDT active PreserVision AREDS 2 20 fr eCW1 ([facility]) PreserVision AREDS 2 20 fr UNK 10/11/2019 12:00:00 AM EDT active PreserVision AREDS 2 20 fr eCW1 ([facility]) Guaifenesin 600 MG UNK 10/11/2019 12:00:00 AM EDT active Guaifenesin 600 MG eCW1 ([facility]) PreserVision AREDS 2 20 fr UNK 10/11/2019 12:00:00 AM EDT active PreserVision AREDS 2 20 fr eCW1 ([facility]) Alprazolam 0.25 MG Oral Tablet ALPRAZOLAM 10/09/2019 12:00:00 AM EDT tablet 30 TAKE ONE TABLET BY MOUTH DAILY NEEDED FOR ANXIETY T MARTHA ONE TABLET BY MOUTH DAILY NEEDED FOR ANXIETY SOLD: 10/12/2019 [facility] 50 mg 10/08/2019 12:00:00 AM EDT tablet 90 TAKE ONE TABLET BY MOUTH EVERY DAY TAKE ONE TABLET BY MOUTH EVERY DAY SOLD: 01/09/2020 [facility] 90 mcg/actuation 10/08/2019 12:00:00 AM EDT HFA aerosol inha ler 18 INHALE TWO PUFFS BY MOUTH FOUR TIMES A DAY NEEDED INHALE TWO PUFFS BY MOUTH FOUR TIMES A DAY NEEDED SOLD: 10/08/2019 [facility] 40 mg 10/08/2019 12:00:00 AM EDT capsule,delayed release (DR/EC) 180 TAKE ONE CAPSULE BY MOUTH TWICE A DAY TAKE ONE CAPSULE BY MOUTH TWICE A DAY SOLD: 01/09/2020 [facility] 40 mg 10/08/2019 12:00:00 AM EDT capsule,delayed release (DR/EC) 180 TAKE ONE CAPSULE BY MOUTH TWICE A DAY TAKE ONE CAPSULE BY MOUTH TWICE A DAY SOLD: 10/12/2019 [facility] 50 mg 10/08/2019 12:00:00 AM EDT tablet 90 TAKE ONE TABLET BY MOUTH EVERY DAY TAKE ONE TABLET BY MOUTH EVERY DAY SOLD: 10/12/2019 [facility] normal saline flush 0.9 % injection 3 mL [id number] 10/05/2019 02:00:00 PM EDT 3 mL Intravenous active 3 mL , Intravenous, PROTOCOL, First dose on Tue10/05/19 at 1400, Pre-op
flush per protocol, D/C Main IV fluid if appropriate
[facility] Medication administered onsite sodium chloride 0.9% (NS) infusion 7845-2225-16 10/05/2019 02:00:00 P M EDT Intravenous completed at 100 mL/hr, Intravenous, Continuous, Starting Tue10/05/19 at 1400, For 2 hours, Post-op [facility] Medication administered onsite Acetaminophen 325 MG Oral Tablet acetaminophen (TYLENO L) 325 MG tablet 650 mg acetaminophen (TYLENOL) 325 MG tablet 650 mg 10/05/2019 12:47:29 PM EDT 650 mg Oral active 650 mg, Or al, Every 4 hours PRN, headaches, and non cardiac pain, Starting Tue10/05/19 at 1247, Post-op
"Maximum dose of acetaminophen is 4,000 mg from all sources in 24 hours."
[facility] Medication administered onsite Nitroglycerin 0.4 MG Sublingual Tablet n itroglycerin (NITROSTAT) SL tablet 0.4 mg nitroglycerin (NITROSTAT) SL tablet 0.4 mg 10/05/2019 12:47:29 P M EDT 0.4 mg Sublingual active 0.4 mg, S ublingual, Every 5 min PRN, chest pain, Starting Tue10/05/19 at 1247, Post-op
May administer every 5 minutes for 3 doses and call cardio lab MD.
[facility] Medication administered onsite iopamidol (ISOVUE-370) 76 % [id number] 10/05/2019 12:25:19 PM EDT active As needed, Starting Tue10/05/19 at 1225, Intra-Procedu re [facility] Medication administered onsite 4 ML Verapamil hydrochloride 2.5 MG/ML Injection verap natividad (ISOPTIN) injection verapamil (ISOPTIN) injection 10/05/2019 12:17:31 PM EDT active As needed, Starting Tue10/05/19 at 1217, Intra-Procedure [facility] Medication administered onsite 1 ML heparin sodium, porcine 1000 UNT/ML Injection hep becka (porcine) injection heparin (porcine) injection 10/05/2019 12:17:23 PM EDT active As needed, Starting Tue10/05/19 at 1217, Intra-Procedure [facility] Medication administered onsite lidocaine 1 % injection [id number] 10/05/2019 12:16:09 PM EDT active As needed, Starting Tue10/05/19 at 1216, Intra-Procedure [facility] Medication administered onsite fentaNYL Citrate (PF) (SUBLIMAZE) injection [id number] 10/05/2019 12:15:23 PM EDT active As neede d, Starting Tue10/05/19 at 1215, Intra-Procedure [facility] Medication administered onsite 2 ML Midazolam 1 MG/ML Injection midazolam (VERSED) in jection midazolam (VERSED) injection 10/05/2019 12:15:13 PM EDT active As needed, Starting Tue10/05/19 at 1215, Intra-Procedure [facility] Medication administered onsite Diphenhydramine Hydrochloride 50 MG Oral Capsule diphenhydrAMINE (BENADRYL) capsule 50 mg diphenhydrAMINE (BENADRYL) capsule 50 mg 10/05/2019 10 :00:00 AM EDT 50 mg Oral completed 50 mg, Oral, weight caller, Tue10/05/19 at 1000, For 1 dose, Pre-op [facility] Medication administered onsite sodium chloride 0.9% (NS) infusion [id number] 10/05/2019 10:00:00 AM EDT 100 mL/h Intravenous active at 100 m L/hr, 100 mL/hr, Intravenous, Continuous, Starting Tue10/05/19 at 1000, Pre-op
Start two hours prior to scheduled start time
[facility] Medication administered onsite Aspirin 325 MG Oral Tablet aspirin tablet 325 mg aspirin tab let 325 mg 10/05/2019 10:00:00 AM EDT 325 mg Oral completed 325 mg, Oral, Once, Tue10/05/19 at 1000, For 1 dose, Pre-op
Give if scheduled for cardiac or peripheral angioplasty/stent or carotid stenting.Administer AM dose prior to procedure if NOT taken at home.Max of 1 dose per day.
[facility] Medication administered onsite normal saline flush 0.9 % injection 3 mL [id number] 10/05/2019 10:00:00 AM EDT 3 mL Intravenous active 3 mL , Intravenous, Every 8 hours (scheduled), First dose on Tue10/05/19 at 1000, Pre-op
Rapid push positive pressure flushing shall be performed with a 10 cc normal saline syringe to check the PATENCY of a PIV site prior to any infusion therapy initiation unless resistance is met.
[facility] Medication administered onsite normal saline flush 0.9 % injection 3 mL [id number] 10/05/2019 10:00:00 AM EDT 3 mL Intravenous active 3 mL , Intravenous, Every 8 hours (scheduled), First dose on Tue10/05/19 at 1000, Pre-op
Rapid push positive pressure flushing shall be performed with a 10 cc normal saline syringe to check the PATENCY of a PIV site prior to any infusion therapy initiation unless resistance is met.
[facility] Medication administered onsite 75 mg 09/26/2019 12:00:00 AM EDT tablet 4 TAKE 4 TABLETS ONCE FOR 1 DOSE TAKE THE NIGHT BEFORE THE PROCEDURE TAKE 4 TABLETS ONCE FOR 1 DOSE TAKE THE NIGHT BEFORE THE PROCEDURE SOLD: 09/27/2019 [facility] Nitroglycerin 0.4 MG Sublingual Tablet n itroglycerin (NITROSTAT) 0.4 MG SL tablet nitroglycerin (NITROSTAT) 0.4 MG SL tablet 08/08/2019 12:00:00 A M EDT 0.[address] 1 t ablet (0.4 mg total) under the tongue every 5 (five) minutes as needed for chest pain [facility] 1,250 mcg (50,000 unit) 08/08/2019 12:00:00 AM EDT capsule 5 TAKE 1 CAPSULE BY MOUTH ONCE A WEEK TAKE 1 CAPSULE BY MOUTH ONCE A WEEK SOLD: 10/12/2019 [facility] 1,250 mcg (50,000 unit) 08/08/2019 12:00:00 AM EDT capsule 4 TAKE 1 CAPSULE BY MOUTH ONCE A WEEK TAKE 1 CAPSULE BY MOUTH ONCE A WEEK SOLD: 08/11/2019 [facility] 0.4 mg 08/08/2019 12:00:00 AM EDT tablet, sublingual 25 PLACE ONE TABLET UNDER THE TONGUE EVERY 5 MINUTES FOR UP TO 3 DOSES NEEDED FOR CHEST PAIN. IF CHEST PAIN STILL PERSISTS CONTACT [address] ONE TABLET UNDER THE TONGUE EVERY 5 MINUTES FOR UP TO 3 DOSES NEEDED FOR CHEST PAIN. IF CHEST PAIN STILL PERSISTS CONTACT 911 SOLD: 08/11/2019 [facility] Aspirin 81 MG Delayed Release Oral Tablet aspirin EC 8 1 MG EC tablet aspirin EC 81 MG EC tablet 07/30/2019 12:00:00 AM EDT 81 mg Oral ac tive Take 1 tablet (81 mg total) by mouth daily [facility] 1,250 mcg (50,000 unit) 07/29/2019 12:00:00 AM EDT capsule 12 TAKE 1 CAPSULE BY MOUTH EVERY WEEK TAKE 1 CAPSULE BY MOUTH EVERY WEEK SOLD: 07/29/2019 [facility] 1,250 mcg (50,000 unit) 07/29/2019 12:00:00 AM EDT capsule 10 TAKE 1 CAPSULE BY MOUTH EVERY WEEK TAKE 1 CAPSULE BY MOUTH EVERY WEEK SOLD: 10/29/2019 [facility] Alprazolam 0.25 MG Oral Tablet ALPRAZOLAM 07/28/2019 12:00:00 AM EDT tablet 30 TAKE ONE TABLET BY MOUTH EVERY DAY NE EDED FOR ANXIETY MAXIMUM DAILY DOSE = 1 TABLET TAKE ONE TABLET BY MOUTH EVERY DAY NE EDED FOR ANXIETY MAXIMUM DAILY DOSE = 1 TABLET SOLD: 07/29/2019 [facility] Alprazolam 0.25 MG Oral Tablet ALPRAZolam (XANAX) 0.25 MG tablet ALPRAZolam (XANAX) 0.25 MG tablet 07/27/2019 12:00:00 AM EDT active as needed [facility] Trazodone Hydrochloride 50 MG Oral Tablet traZODone (D ESYREL) 50 MG tablet traZODone (DESYREL) 50 MG tablet 07/25/2019 12:00:00 AM EDT 50 mg Oral active Take 50 mg by mouth nightly [facility] 40 mg 07/11/2019 12:00:00 AM EDT tablet 90 TAKE ONE TABLET BY MOUTH EVERY DAY TAKE ONE TABLET BY MOUTH EVERY DAY SOLD: 07/14/2019 [facility] 40 mg 07/11/2019 12:00:00 AM EDT tablet 75 TAKE ONE TABLET BY MOUTH EVERY DAY TAKE ONE TABLET BY MOUTH EVERY DAY SOLD: 10/29/2019 [facility] 40 mg 07/11/2019 12:00:00 AM EDT tablet 15 TAKE ONE TABLET BY MOUTH EVERY DAY TAKE ONE TABLET BY MOUTH EVERY DAY SOLD: 10/12/2019 [facility] atorvastatin 40 MG Oral Tablet atorvastatin (LIPITOR) 40 MG tablet atorvastatin (LIPITOR) 40 MG tablet 07/11/2019 12:00:00 AM EDT 1 {tbl} Oral active Take 1 tablet by mouth daily [facility] 50 mg 05/25/2019 12:00:00 AM EST tablet 60 TAKE 1&1/2-2 TABLETS BY MOUTH AT BEDTIME NEEDED TAKE 1&1/2-2 TABLETS BY MOUTH AT BEDTIME NEEDED VANESSA [facility] 50 mg 05/25/2019 12:00:00 AM EST tablet 60 TAKE 1&1/2-2 TABLETS BY MOUTH AT BEDTIME NEEDED TAKE 1&1/2-2 TABLETS BY MOUTH AT BEDTIME NEEDED VANESSA [facility] 50 mg 05/25/2019 12:00:00 AM EST tablet 60 TAKE 1&1/2-2 TABLETS BY MOUTH AT BEDTIME NEEDED TAKE 1&1/2-2 TABLETS BY MOUTH AT BEDTIME NEEDED VANESSA [facility] 50 mg 05/25/2019 12:00:00 AM EST tablet 60 TAKE 1&1/2-2 TABLETS BY MOUTH AT BEDTIME NEEDED TAKE 1&1/2-2 TABLETS BY MOUTH AT BEDTIME NEEDED VANESSA [facility] 50 mg 05/25/2019 12:00:00 AM EST tablet 60 TAKE 1&1/2-2 TABLETS BY MOUTH AT BEDTIME NEEDED TAKE 1&1/2-2 TABLETS BY MOUTH AT BEDTIME NEEDED VANESSA [facility] 50 mg 05/25/2019 12:00:00 AM EST tablet 60 TAKE 1&1/2-2 TABLETS BY MOUTH AT BEDTIME NEEDED TAKE 1&1/2-2 TABLETS BY MOUTH AT BEDTIME NEEDED VANESSA [facility] 200 ACTUAT Albuterol 0.09 MG/ACTUAT Metered Dose Inhal er [Ventolin] Ventolin HFA 05/24/2019 12:00:00 AM EST RESPIRATORY active MEDENT ([facility], ) Alprazolam 0.25 MG Oral Tablet ALPRAZOLAM 05/24/2019 12:00:00 AM EST tablet 30 TAKE ONE TABLET BY MOUTH EVERY DAY NE EDED FOR ANXIETY MAXIMUM DAILY DOSE = 1 TABLET TAKE ONE TABLET BY MOUTH EVERY DAY NE EDED FOR ANXIETY MAXIMUM DAILY DOSE = 1 TABLET SOLD: 05/29/2019 [facility] 90 mcg/actuation 05/24/2019 12:00:00 AM EST HFA aerosol inha ler 18 INHALE TWO PUFFS BY MOUTH FOUR TIMES A DAY NEEDED INHALE TWO PUFFS BY MOUTH FOUR TIMES A DAY NEEDED SOLD: 05/24/2019 [facility] albuterol (PROVENTIL HFA;VENTOLIN HFA) 108 (90 Base) M CG/ACT inhaler [id number] 05/24/2019 12:00:00 AM EST 2 {puff} Inhalation active Inhale 2 puffs 4 (four) times a day [facility] 200 ACTUAT Albuterol 0.09 MG/ACTUAT Metered Dose Inhal er [Ventolin] Ventolin HFA 05/24/2019 12:00:00 AM EST RESPIRATORY active MEDENT ([facility] 120 ACTUAT Albuterol 0.1 MG/ACTUAT / Ipr atropium [place] 0.02 MG/ACTUAT Metered Dose Inhaler [Combivent] Combivent Respimat 05/16/2019 12:00:00 AM EST completed MEDENT ([facility] Ergocalciferol 59823 UNT Oral Capsule vi tamin D, Ergocalciferol, 1.25 MG (86068 UT) CAPS vitamin D, Ergocalciferol, 1.25 MG (12927 UT) CAPS 01/2020 12:00:00 AM EST active TAKE 1 CAPSULE BY MOUTH ONCE A WEEK [facility] 1,250 mcg (50,000 unit) 04/05/2019 12:00:00 AM EST capsule 4 TAKE ONE CAPSULE BY MOUTH EVERY WEEKLY TAKE ONE CAPSULE BY MOUTH EVERY WEEKLY SOLD: 04/07/2019 [facility] 40 mg 03/29/2019 12:00:00 AM EST capsule,delayed release (DR/EC) 26 TAKE ONE CAPSULE BY MOUTH TWICE A DAY TAKE ONE CAPSULE BY MOUTH TWICE A DAY SOLD: 09/07/2019 [facility] 40 mg 03/29/2019 12:00:00 AM EST capsule,delayed release (DR/EC) 180 TAKE ONE CAPSULE BY MOUTH TWICE A DAY TAKE ONE CAPSULE BY MOUTH TWICE A DAY SOLD: 04/01/2019 [facility] 50,000 unit 03/12/2019 12:00:00 AM EST capsule 4 TAKE ONE CAPSULE BY MOUTH WEEKLY TAKE ONE CAPSULE BY MOUTH WEEKLY SOLD: 03/16/2019 [facility] 0.25 mg 03/05/2019 12:00:00 AM EST tablet 30 TAKE ONE TABLET BY MOUTH EVERY DAY NEEDED FOR ANXIETY MAXIMUM DAILY DOSE = 1 TAKE ONE TABLET BY MOUTH EVERY DAY NEEDED FOR ANXIETY MAXIMUM DAILY DOSE = 1 SOLD: 03/08/2019 [facility] Escitalopram 5 MG Oral Tablet ESCITALOPRAM OXALATE 03/05/2019 12 :00:00 AM EST tablet 30 TAKE ONE TABLET BY MOUTH EVERY D AY TAKE ONE TABLET BY MOUTH EVERY DAY SOLD: 03/08/2019 [facility] Escitalopram 5 MG Oral Tablet ESCITALOPRAM OXALATE 03/05/2019 12 :00:00 AM EST tablet 30 TAKE ONE TABLET BY MOUTH EVERY D AY TAKE ONE TABLET BY MOUTH EVERY DAY SOLD: 08/11/2019 [facility] Escitalopram 5 MG Oral Tablet ESCITALOPRAM OXALATE 03/05/2019 12 :00:00 AM EST tablet 30 TAKE ONE TABLET BY MOUTH EVERY D AY TAKE ONE TABLET BY MOUTH EVERY DAY SOLD: 04/17/2019 [facility] 40 mg 01/16/2019 12:00:00 AM EDT tablet 90 TAKE ONE TABLET BY MOUTH EVERY DAY TAKE ONE TABLET BY MOUTH EVERY DAY SOLD: 04/17/2019 [facility] Losartan Potassium 50 MG Oral Tablet LOSARTAN POTASSIUM 10/2018 12:00:00 AM EDT tablet 90 TAKE ONE TABLET BY MOUTH SOCORRO DAY TAKE ONE TABLET BY MOUTH EVERY DAY SOLD: 07/14/2019 [facility] Losartan Potassium 50 MG Oral Tablet LOSARTAN POTASSIUM 10/2018 12:00:00 AM EDT tablet 14 TAKE ONE TABLET BY MOUTH SOOCRRO DAY TAKE ONE TABLET BY MOUTH EVERY DAY SOLD: 04/01/2019 [facility] 50 mg 12/14/2018 12:00:00 AM EDT tablet 45 TAKE 1 & 1/2 TABLET BY MOUTH AT BEDTIME NEEDED TAKE 1 & 1/2 TABLET BY MOUTH AT BEDTIME NEEDED SOLD : 04/10/2019 [facility] 50 mg 12/14/2018 12:00:00 AM EDT tablet 45 TAKE 1 & 1/2 TABLET BY MOUTH AT BEDTIME NEEDED TAKE 1 & 1/2 TABLET BY MOUTH AT BEDTIME NEEDED SOLD : 08/28/2019 [facility] 50 mg 12/14/2018 12:00:00 AM EDT tablet 45 TAKE 1 & 1/2 TABLET BY MOUTH AT BEDTIME NEEDED TAKE 1 & 1/2 TABLET BY MOUTH AT BEDTIME NEEDED SOLD : 09/27/2019 [facility] 50 mg 12/14/2018 12:00:00 AM EDT tablet 45 TAKE 1 & 1/2 TABLET BY MOUTH AT BEDTIME NEEDED TAKE 1 & 1/2 TABLET BY MOUTH AT BEDTIME NEEDED SOLD : 05/04/2019 [facility] 50 mg 12/14/2018 12:00:00 AM EDT tablet 45 TAKE 1 & 1/2 TABLET BY MOUTH AT BEDTIME NEEDED TAKE 1 & 1/2 TABLET BY MOUTH AT BEDTIME NEEDED SOLD : 03/08/2019 [facility] 1,250 mcg (50,000 unit) 08/08/2018 12:00:00 AM EDT capsule 12 TAKE 1 CAPSULE BY MOUTH ONCE A WEEK TAKE 1 CAPSULE BY MOUTH ONCE A WEEK SOLD: 05/04/2019 [facility] clopidogrel 75 MG Oral Tablet clopidogrel (PLAVIX) 75 MG tablet clopidogrel (PLAVIX) 75 MG tablet 300 mg Oral aborted Take 300 mg by mouth once Evening before procedure [facility] Insurance Providers Payer name Policy type / Coverage type Policy ID Covered republican ID Covered republican's relationship to romo Policy Romo Plan Information [employer] OPTIONS [id number] SP [id number] MEDICARE [id number] SP [id number] AARP U [id number] Self [id number] MEDICARE A [id number] Self [id number] AARP U [id number] Self [id number] AARP O [id number] S [id number] MEDICARE C [id number] S [id number] INSURANCE COVID-19 COVID Jacque C OVID [facility] [id number] Jacque [id number] MEDICARE [id number] Jacque [id number] A28 [facility] [id number] MEDICARE [id number] INSURANCE COVID-19 [id number] Medicare Part B of [facility] Other 0 Se lf 0 Medicare Part B of [facility] Other 0 Se lf 0 Medicare Part B of [facility] Other 0 Se lf 0 Medicare Part B of [facility] Other 0 Se lf 0 Medicare Part B of [facility] Other 0 Se lf 0 Medicare Part B of [facility] Other 0 Se lf 0 Medicare Part B of [facility] Other 0 Se lf 0 Medicare Part B of [facility] Other 0 Se lf 0 Medicare Part B of [facility] Other 0 Se lf 0 [employer]LL[employer]ARE [id number] SP [id number] [place] [place] [id number] [id number] [employer] ([employer]) [id number] ANSI-Medicare Part B [id number] ANSI-Medicare Part B [id number] ANSI[facility] ([facility]) [id number] [employer] [facility] ([facility]) [id number] ANSI-Medicare Part B [id number] ANSI-[employer] Maintenance [facility] ( O) [id number] ANSI-Medicare Part B [id number] [employer] [place] Commercial [id number] Self [id number] [employer] Commercial [id number] Self [id number] [facility] Health Maintenance Organization (HMO) [id number] Self [id number] ANSI-Medicare Part B [id number] ANSI-Health Maintenance Organization ( O) [id number] ANSI-Health Maintenance Organization ( O) [id number] ANSI-Medicare Part B [id number] ANSI-Health Maintenance Organization ( O) [id number] ANSI-Medicare Part B [id number] ANSI-Health Maintenance Organization ( O) [id number] ANSI-Medicare Part B [id number] ANSI-Medicare Part B [id number] ANSI-Health Maintenance Organization ( O) [id number] ANSI-Medicare Part B [id number] ANSI-Health Maintenance Organization ( O) [id number] [employer] [place] Commercial [id number] Self [id number] [facility] Health Maintenance Organization (HMO) [id number] Se lf [id number] ANSI-Medicare Part B [id number] ANSI-Health Maintenance Organization ( O) [id number] ANSI-Medicare Part B [id number] ANSI-Health Maintenance Organization ( O) [id number] ANSI-Medicare Part B [id number] ANSI-Health Maintenance Organization ( O) [id number] ANSI-Health Maintenance Organization ( O) [id number] ANSI-Medicare Part B [id number] ANSI-Medicare Part B [id number] ANSI-Health Maintenance Organization ( O) [id number] ANSI-Medicare Part B [id number] ANSI-Health Maintenance Organization ( O) [id number] ANSI-Health Maintenance Organization ( O) [id number] ANSI-Medicare Part B [id number] [employer] [id number] SP [id number] WE[employer]ARE O [id number] S [id number] ANSI-Medicare Part B [id number] ANSI-Health Maintenance Organization (HM O) [id number] [employer] [id number] SP [id number] ANSI-Medicare Part B [id number] ANSI-Medicare Part B [id number] ANSI-Medicare Part B [id number] Today's Option Medicare Commercial [id number] Self [id number] [employer] [id number] Self [id number] ANSI-Medicare Part B [id number] [employer] [id number] SP [id number] [employer] [place] Commercial [id number] Self [id number] ANSI-Medicare Part B [id number] ANSI-Medicare Part B [id number] [employer] [id number] SP [id number] 2018 [employer] [id number] SP [id number] 2018 [employer] [id number] SP [id number] 2018 [employer] Health Maintenance Organization (HMO) [id number] Self [id number] Today's Options Medicare Commercial [id number] Self [id number] [employer] Medicaid Commercial MVPM Self MVPM MVP [facility] [id number] SP [id number] [employer] Commercial Self [facility] O [id number] S [id number] [employer] [facility] O [id number] S [id number] [facility] [id number] SP [id number] MVP Commercial Self [facility] [id number] SP [id number] [facility] [id number] SP [id number] [facility] [id number] SP [id number] Problems, Conditions, and Diagnoses Code Display Name Description Problem Type Effective Dates Data Source(s) 301812016 Malignant neoplasm of upper lobe, bronch us or lung Malignant neoplasm of upper lobe, bronchus or lung Problem 01/01/2020 12:00:00 AM EDT Isis GONZALEZ ([facility], ) Z86.010 [id number] History of adenomatous polyp of colon Pro blem 10/18/2019 12:00:00 AM EDT eCW1 ([facility]) 372261238 Abnormal findings on diagnostic imaging of lung Abnormal findings on diagnostic imaging of lung Problem 10/08/2019 12:00:00 AM TANIA REBOLLEDO ([facility], ) [id number] History of malignant neoplasm of bronchu s History of malignant neoplasm of bronchus Problem 10/08/2019 12:00:00 AM MARVINT KESHA ([facility], ) 03936900 Chronic obstructive lung disease Chronic obstruc tive lung disease Problem 10/08/2019 12:00:00 AM EDT KESHA ([facility] ) C34.92 Malignant neoplasm of left lung Malignant neoplasm of left lung [id number] 09/27/2019 12:00:00 AM EDT [facility] I10 Essential hypertension Essential hypertension 98845662 09/27/2019 12:00:00 AM EDT [facility] R06.09 PIKE (dyspnea on exertion) PIKE (dyspnea on exertion) [id number] 09/27/2019 12:00:00 AM EDT [facility] 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 Atherosclerosis of false pass coronary arter y of false pass heart without angina pectoris 09581343 09/27/2019 12:00:00 AM EDT [facility] 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 Problem 08/07/2019 12:0 0:00 AM EDT J[facility] ([facility]) 401.9 Essential Hypertension Essential Hypertension Problem 08/07/2019 12:00:00 AM EDT [facility] ([facility]) 374.87 Dermatochalasis Left Lower Eyelid Dermatochalasi s Left Lower Eyelid Problem 08/07/2019 12:00:00 AM EDT [facility] (Kunal bermudez [facility]) 374.87 Dermatochalasis Left Upper Eyelid Dermatochalasi s Left Upper Eyelid Problem 08/07/2019 12:00:00 AM EDT [facility] ([facility]) 374.87 Dermatochalasis Right Lower Eyelid Dermatochalas is Right Lower Eyelid Problem 08/07/2019 12:00:00 AM EDT [facility] ([facility]ude[facility]) 374.87 Dermatochalasis Right Upper Eyelid Dermatochalas is Right Upper Eyelid Problem 08/07/2019 12:00:00 AM EDT [facility] ([facility]ude[facility]) 335923131 Ptosis of eyebrow (finding) Eyebrow Ptosis Finding 08/07/2019 12:00:00 AM EDT [facility] ([facility]) 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 Problem 08/07/2019 12:0 0:00 AM EDT [facility] ([facility]) 374.87 Dermatochalasis Right Lower Eyelid Dermatochalas is Right Lower Eyelid Problem 08/07/2019 12:00:00 AM EDT [facility] ([facility]) 374.87 Dermatochalasis Left Upper Eyelid Dermatochalasi s Left Upper Eyelid Problem 08/07/2019 12:00:00 AM EDT [facility] ([facility]) 374.87 Dermatochalasis Left Lower Eyelid Dermatochalasi s Left Lower Eyelid Problem 08/07/2019 12:00:00 AM EDT [facility] ([facility]) 374.87 Dermatochalasis Right Upper Eyelid Dermatochalas is Right Upper Eyelid Problem 08/07/2019 12:00:00 AM EDT [facility] ([facility]) [id number] Ptosis of eyebrow (finding) Eyebrow Ptosis Finding 08/07/2019 12:00:00 AM EDT [facility] ([facility]) 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 Problem 08/07/2019 12:0 0:00 AM EDT [facility] ([facility]) 374.87 Dermatochalasis Right Lower Eyelid Dermatochalas is Right Lower Eyelid Problem 08/07/2019 12:00:00 AM EDT [facility] ([facility]) 374.87 Dermatochalasis Left Upper Eyelid Dermatochalasi s Left Upper Eyelid Problem 08/07/2019 12:00:00 AM EDT [facility] ([facility]) 374.87 Dermatochalasis Left Lower Eyelid Dermatochalasi s Left Lower Eyelid Problem 08/07/2019 12:00:00 AM EDT [facility] ([facility]) 374.87 Dermatochalasis Right Upper Eyelid Dermatochalas is Right Upper Eyelid Problem 08/07/2019 12:00:00 AM EDT [facility] ([facility]) [id number] Ptosis of eyebrow (finding) Eyebrow Ptosis Finding 08/07/2019 12:00:00 AM EDT [facility] ([facility]) 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 Problem 08/07/2019 12:0 0:00 AM EDT [facility] ([facility]) 374.87 Dermatochalasis Right Lower Eyelid Dermatochalas is Right Lower Eyelid Problem 08/07/2019 12:00:00 AM EDT [facility] ([facility]) 374.87 Dermatochalasis Left Upper Eyelid Dermatochalasi s Left Upper Eyelid Problem 08/07/2019 12:00:00 AM EDT [facility] ([facility]) 374.87 Dermatochalasis Left Lower Eyelid Dermatochalasi s Left Lower Eyelid Problem 08/07/2019 12:00:00 AM EDT [facility] ([facility]) 374.87 Dermatochalasis Right Upper Eyelid Dermatochalas is Right Upper Eyelid Problem 08/07/2019 12:00:00 AM EDT [facility] ([facility]) [id number] Ptosis of eyebrow (finding) Eyebrow Ptosis Finding 08/07/2019 12:00:00 AM EDT [facility] ([facility]) 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 Problem 08/07/2019 12:0 0:00 AM EDT [facility] ([facility]) 401.9 Essential Hypertension Essential Hypertension Problem 08/07/2019 12:00:00 AM EDT [facility] ([facility]) 374.87 Dermatochalasis Right Upper Eyelid Dermatochalas is Right Upper Eyelid Problem 08/07/2019 12:00:00 AM EDT [facility] ([facility]) 374.87 Dermatochalasis Left Upper Eyelid Dermatochalasi s Left Upper Eyelid Problem 08/07/2019 12:00:00 AM EDT [facility] ([facility]) 374.87 Dermatochalasis Left Lower Eyelid Dermatochalasi s Left Lower Eyelid Problem 08/07/2019 12:00:00 AM EDT [facility] ([facility]) 374.87 Dermatochalasis Right Lower Eyelid Dermatochalas is Right Lower Eyelid Problem 08/07/2019 12:00:00 AM EDT [facility] ([facility]) 419972589 Ptosis of eyebrow (finding) Eyebrow Ptosis Finding 08/07/2019 12:00:00 AM EDT [facility] ([facility]) 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 Problem 08/07/2019 12:0 0:00 AM EDT [facility] ([facility]) 401.9 Essential Hypertension Essential Hypertension Problem 08/07/2019 12:00:00 AM EDT [facility] ([facility]) 374.87 Dermatochalasis Left Lower Eyelid Dermatochalasi s Left Lower Eyelid Problem 08/07/2019 12:00:00 AM EDT [facility] ([facility]) 374.87 Dermatochalasis Left Upper Eyelid Dermatochalasi s Left Upper Eyelid Problem 08/07/2019 12:00:00 AM EDT [facility] ([facility]) 374.87 Dermatochalasis Right Lower Eyelid Dermatochalas is Right Lower Eyelid Problem 08/07/2019 12:00:00 AM EDT [facility] ([facility]) 374.87 Dermatochalasis Right Upper Eyelid Dermatochalas is Right Upper Eyelid Problem 08/07/2019 12:00:00 AM EDT [facility] ([facility]) [id number] Ptosis of eyebrow (finding) Eyebrow Ptosis Finding 08/07/2019 12:00:00 AM EDT [facility] ([facility]) 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 Problem 08/07/2019 12:0 0:00 AM EDT [facility] ([facility]) 401.9 Essential Hypertension Essential Hypertension Problem 08/07/2019 12:00:00 AM EDT [facility] ([facility]) 374.87 Dermatochalasis Left Lower Eyelid Dermatochalasi s Left Lower Eyelid Problem 08/07/2019 12:00:00 AM EDT [facility] ([facility]ude[facility]) 374.87 Dermatochalasis Left Upper Eyelid Dermatochalasi s Left Upper Eyelid Problem 08/07/2019 12:00:00 AM EDT [facility] ([facility]) 374.87 Dermatochalasis Right Lower Eyelid Dermatochalas is Right Lower Eyelid Problem 08/07/2019 12:00:00 AM EDT [facility] ([facility]) 374.87 Dermatochalasis Right Upper Eyelid Dermatochalas is Right Upper Eyelid Problem 08/07/2019 12:00:00 AM EDT [facility] ([facility]ude[facility]) [id number] Ptosis of eyebrow (finding) Eyebrow Ptosis Finding 08/07/2019 12:00:00 AM EDT [facility] ([facility]) 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 Problem 08/07/2019 12:0 0:00 AM EDT [facility] ([facility]) 401.9 Essential Hypertension Essential Hypertension Problem 08/07/2019 12:00:00 AM EDT [facility] ([facility]) 374.87 Dermatochalasis Left Lower Eyelid Dermatochalasi s Left Lower Eyelid Problem 08/07/2019 12:00:00 AM EDT [facility] ([facility]ude[facility]) 374.87 Dermatochalasis Left Upper Eyelid Dermatochalasi s Left Upper Eyelid Problem 08/07/2019 12:00:00 AM EDT [facility] ([facility]ude[facility]) 374.87 Dermatochalasis Right Lower Eyelid Dermatochalas is Right Lower Eyelid Problem 08/07/2019 12:00:00 AM EDT [facility] (Kunal [facility]ermudez [facility]) 374.87 Dermatochalasis Right Upper Eyelid Dermatochalas is Right Upper Eyelid Problem 08/07/2019 12:00:00 AM EDT [facility] ([facility]ude[facility]) [id number] Ptosis of eyebrow (finding) Eyebrow Ptosis Finding 08/07/2019 12:00:00 AM EDT [facility] ([facility]) 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 Problem 08/07/2019 12:0 0:00 AM EDT [facility] ([facility]) 401.9 Essential Hypertension Essential Hypertension Problem 08/07/2019 12:00:00 AM EDT [facility] ([facility]) 374.87 Dermatochalasis Left Lower Eyelid Dermatochalasi s Left Lower Eyelid Problem 08/07/2019 12:00:00 AM EDT [facility] (Kunal [facility]ermudez [facility]) 374.87 Dermatochalasis Left Upper Eyelid Dermatochalasi s Left Upper Eyelid Problem 08/07/2019 12:00:00 AM EDT [facility] ([facility]ermudez [facility]) 374.87 Dermatochalasis Right Lower Eyelid Dermatochalas is Right Lower Eyelid Problem 08/07/2019 12:00:00 AM EDT [facility] (Kunal [facility]ermudez [facility]) 374.87 Dermatochalasis Right Upper Eyelid Dermatochalas is Right Upper Eyelid Problem 08/07/2019 12:00:00 AM EDT [facility] ([facility]udez [facility]) 133757815 Ptosis of eyebrow (finding) Eyebrow Ptosis Finding 08/07/2019 12:00:00 AM EDT [facility] ([facility]) I20.8 Other forms of angina pectoris Other forms of angina p ectoris 22518709 07/30/2019 12:00:00 AM EDT [facility] L90.8 [id number] 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 Problem 05/28/2019 12:00:00 AM EST eCW1 ([facility]) L90.8 [id number] 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 Problem 05/28/2019 12:00:00 AM EST eCW1 ([facility]) 03574167 Disorder of pleura Disorder of pleura Problem 12:00:00 AM EST MEDENT ([facility] [id number] Dyspnea Dyspnea Problem 05/16/2019 12:00:00 AM ES T [facility] ([facility] C80.1 Malignant (primary) neoplasm, unspecifie d Malignant (primary) neoplasm, unspecified Diagnosis 12/24/2019 02:48:00 PM EDT [facility] I10 Essential (primary) hypertension Essential (primary) h ypertension Diagnosis 10/15/2019 10:28:42 AM EDT [facility] E78.00 Pure hypercholesterolemia, unspecified P ure hypercholesterolemia, unspecified Diagnosis 10/15/2019 10:28:42 AM EDT [facility] 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 Atherosclerotic heart disease of false pass Diagnosis 10/15/2019 10:28:42 AM EDT [facility] C34.92 Malignant neoplasm of unspecified part o f left bronchus or lung Malignant neoplasm of unspecified part o Diagnosis 10/05/2019 08:09:00 AM EDT [facility] R06.09 Other forms of dyspnea Other forms of dyspnea Diagnosi s 10/05/2019 08:09:00 AM EDT [facility] I20.8 Other forms of angina pectoris Other forms of angina p ectoris Diagnosis 09/26/2019 10:45:33 AM EDT [facility] Surgeries/Procedures Procedure Description Date Indications Data Source(s) Immunization: Flublok Quadrivalent (18 years & older) 0.5mL IM (Influenza) 03/17/2020 12:00:00 AM EST eCW1 ([facility]) Bronchoscopy W/Brushing Or Protected Brushings 020 12:00:00 AM EDT [facility] ([facility]) Bronchoscopy W/Bronchial Alveolar Lavage 12/24/2019 12 :00:00 AM EDT [facility] ([facility]) Bronchoscopy Rigid/Flexible Fluoroscopic Guide Computer-Assi sted 12/24/2019 12:00:00 AM EDT [facility] ([facility]) Bronchoscopy W/Transbronchial Needle Aspiration Biopsy 12/24/2019 12:00:00 AM EDT [facility] (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 PIKE (dyspnea on exertion) Hypercholesterolemia Essential hypertension Malignant neoplasm of left lung, unspecified part of lung 10/05/2019 04:26:03 PM EDT Malignant neoplasm of left lung, unspeci fied part of lungEssential hypertensionHypercholesterolemiaDOE (dyspnea on exertion)Atherosclerosis of false pass coronary artery of false pass heart without angina pectorisOther forms of angina pectoris [facility] Malignant neoplasm of left lung, unspeci fied part of lung Essential hypertension Hypercholesterolemia PIEK (dyspnea on exertion) Atherosclerosis of false pass coronary arter y of false pass heart without angina pectoris Other forms of angina pectoris ECG ROUTINE ECG W/LEAST 12 LDS TRCG ONLY W/O I&R ECG 12-LEAD Routine 10/05/2019 8:41 AM EDT 10/05/2019 12:41:29 PM EDT [facility] Reported medical history Back Pain, Anx iety, Lees's Esophagus, Lung Cancer dx: January 2018, Pleurisy Reported medical history Back Pain, Anx iety, Lees's Esophagus, Lung Cancer dx: January 2018, Pleurisy 08/07/2019 12:00:00 AM EDT [facility] ([facility]) History of hypertension History of hypertension 08/07/2019 12:00:00 AM EDT [facility] ([facility]) History of hyperlipidemia History of hyperlipidemia 08/07/2019 1 2:00:00 AM EDT [facility] ([facility]) Surgical / procedural history Left Upper Lobectomy 2017 Surgical / procedural history Left Upper Lobectomy March 2018 08/07/2019 12:00:00 AM EDT [facility] ([facility]) Reported medical history Back Pain, Anx iety, Lees's Esophagus, Lung Cancer dx: January 2018 Reported medical history Back Pain, Anx iety, Lees's Esophagus, Lung Cancer dx: January 2018 08/07/2019 12:00:00 AM EDT [facility] ([facility]) Recent change in medical history Lung C ancer dx: January 2018, Left upper Lobectomy - March 2018, Hospitalized due to reaction from Gabapentin June 2018 Recent change in medical history Lung C ancer dx: January 2018, Left upper Lobectomy - March 2018, Hospitalized due to reaction from Gabapentin June 2018 08/07/2019 12:00:00 AM EDT [facility] (Bob [facility]) History of hypertension History of hypertension 08/07/2019 12:00:00 AM EDT [facility] ([facility]) History of hyperlipidemia History of hyperlipidemia 08/07/2019 1 2:00:00 AM EDT [facility] ([facility]) Surgical / procedural history Left Upper Lobectomy - March 2018 Surgical / procedural history Left Upper Lobectomy - March 2018 08/07/2019 12:00:00 AM EDT [facility] ([facility]) Recent change in medical history Acid Reflux, Lees 's Esophagus Recent change in medical history Acid Reflux, Lees's Esophagus 08/07/2019 12:00:00 AM EDT [facility] ([facility]) History of hypertension History of hypertension 08/07/2019 12:00:00 AM EDT [facility] ([facility]) History of hyperlipidemia History of hyperlipidemia 08/07/2019 1 2:00:00 AM EDT [facility] ([facility]) Surgical / procedural history Surgical / procedural history 08/07/2019 12:00:00 AM EDT [facility] ([facility]) Reported medical history Back Pain, Anx iety, Acid Reflux, Lees's Esophagus, DVT Reported medical history Back Pain, Anx iety, Acid Reflux, Lees's Esophagus, DVT 08/07/2019 12:00:00 AM EDT [facility] ([facility]) History of hypertension History of hypertension 08/07/2019 12:00:00 AM EDT [facility] ([facility]) History of hyperlipidemia History of hyperlipidemia 08/07/2019 1 2:00:00 AM EDT [facility] ([facility]) Surgical / procedural history Surgical / procedural history 08/07/2019 12:00:00 AM EDT [facility] ([facility]) Reported medical history Back Pain, Anx iety, Acid Reflux, Lees's Esophagus, DVT Reported medical history Back Pain, Anx iety, Acid Reflux, Lees's Esophagus, DVT 08/07/2019 12:00:00 AM EDT [facility] ([facility]) No recent change in medical history No recent change in medi xavi history 08/07/2019 12:00:00 AM EDT JESUS (Kunal bermudez MD [facility]) History of hypertension History of hypertension 08/07/2019 12:00:00 AM EDT JESUS (Kunal Todd MD [facility]) History of hyperlipidemia History of hyperlipidemia 08/07/2019 1 2:00:00 AM EDT JESUS (Kunal Todd MD [facility]) Surgical / procedural history Surgical / procedural history 08/07/2019 12:00:00 AM EDT JESUS (Kunal Todd MD [facility]) No recent change in medical history No recent change in medi xavi history 08/07/2019 12:00:00 AM EDT JESUS (Kunal bermudez MD [facility]) Reported medical history Back Pain, Anx iety, Acid Reflux, Lees's Esophagus, DVT Reported medical history Back Pain, Anx iety, Acid Reflux, Lees's Esophagus, DVT 08/07/2019 12:00:00 AM EDT JESUS (Bob Todd MD [facility]) History of hypertension History of hypertension 08/07/2019 12:00:00 AM EDT JESUS (Kunal Todd MD [facility]) History of hyperlipidemia History of hyperlipidemia 08/07/2019 1 2:00:00 AM EDT JESUS (Kunal Todd MD [facility]) Surgical / procedural history Surgical / procedural history 08/07/2019 12:00:00 AM EDT JESUS (Kunal Todd MD [facility]) Currently wearing eyeglasses Currently wearing eyeglasses 12:00:00 AM EST JESUS (Kunal Todd MD [facility]) Recent change in medical history Pleurisy Recent raines ge in medical history Pleurisy 06/29/2019 12:00:00 AM EST JESUS (Bob Todd MD [facility]) Scodi Retina, with interpretation and re port (WAIVER OF LIABILITY ON FILE (ABN)) Scodi Retina, with interpretation and re port (WAIVER OF LIABILITY ON FILE (ABN)) 06/29/2019 12:00:00 AM EST JESUS (Bob Todd MD [facility]) Comprehensive eye exam established patient (Signi/Sep Eval. & Man.) Comprehensive eye exam established patient (Signi/Sep Eval. & Man.) 06/29/2019 12:00:00 AM EST JESUS (Kunal Todd MD [facility]) Office Visit, Est Pt., Level 4 PC 05/24/2019 12:00:00 AM EST eCW1 ([facility]) Office Visit, Est Pt., Level 3 FC 05/24/2019 12:00:00 AM EST eCW1 ([facility]) Pneumococcal 0.5mL (Prevnar 13) 05/24/2019 12:00:00 AM EST eCW1 ([facility]) Administration of pneumococcal vaccine 05/24/2019 12:0 0:00 AM EST eCW1 ([facility]) RESPIRATORY FLOW VOLUME LOOP 05/16/2019 12:00:00 AM FRANCIS REBOLLEDO ([facility] Office Visit, Est Pt., Level 3 PC 05/01/2019 12:00:00 AM EST eCW1 ([facility]) Results ID Date Data Source [id number] 05/01/2020 12:00:00 PM EST [facility] Name Value Range Interpretation Code Description Data Kellie rce(s) Supporting Document(s) SARS coronavirus 2 RNA Not Detected [facility] This lab was ordered by [facility] and reported by [facility]. ID Date Data Source [id number] 12/24/2019 10:09:00 AM EDT [facility] ([facility]) Name Value Range Interpretation Code Description Data Kellie rce(s) Supporting Document(s) Microscopic observation [Identifier] in Unspecified specimen by Non- gynecological cytology method Laboratory test result [facility] ([facility]) SPECIMEN: Bronchial brushing ( left upper lobe lung) Crush in vial received SPECIMEN ADEQUACY: Satisfactory for evaluation CATEGORIZATION: Negative for Malignancy DESCRIPTIONS: Bronchial cells and blood elements noted. COMMENTS: 12/26/2019 - 1310 Signed MAGNO JOEL([facility]) 12/25/2019 0946 (Prelim) Signed MARIOLA MACKAY MD 12/26/2019 1310 ID Date Data Source [id number] [facility] Name Value Range Interpretation Code Description Data Kellie rce(s) Supporting Document(s) Microscopic observation [Identifier] in Unspecified specimen by Non- gynecological cytology method Laboratory test result [facility] ([facility]) SPECIMEN: Bronchial brushing (right upper lobe) [place] in vial and prepared slides SPECIMEN ADEQUACY: Satisfactory for evaluation CATEGORIZATION: Negative for Malignancy DESCRIPTIONS: Bronchial cells and blood elements noted. COMMENTS: 12/25/2019 - 1022 Signed MAGNO JOEL([facility]) 12/25/2019 1022 (Prelim) Signed MARIOLA MACKAY MD 12/26/2019 1259 ID Date Data Source [id number] 12/24/2019 10:02:00 AM EDT [facility] ([facility]) Name Value Range Interpretation Code Description Data Kellie rce(s) Supporting Document(s) Microscopic observation [Identifier] in Unspecified specimen by Non- gynecological cytology method Laboratory test result [facility] ([facility]) SPECIMEN: FNA Right upper lob e lung SPECIMEN ADEQUACY: Satisfactory for evaluation CATEGORIZATION: Atypical cytology DESCRIPTIONS: Rare atypical cells present. Please see corresponding biopsy [id number] COMMENTS: 12/26/2019 - [address](ASCP) 12/25/2019929 (Prelim) Signed MARIOLA MACKAY MD 12/26/2019 1305 ID Date Data Source [id number] 12/24/2019 09:25:00 AM EDT [facility] ([facility]) Name Value Range Interpretation Code Description Data Kellie rce(s) Supporting Document(s) Surgical pathology study Laboratory test result [facility] ([facility]) Addendum 1 Entered: 02/06/2020-1130 The addendum is being issued to report additional results: PD-L1 (22C3) Immunohistochemistry: Expressed (1%) ALK gene rearrangement (FISH): Negative ROS1 gene rearrangement (FISH): Negative EGFR gene mutation (PCR): Negative BRAF V600E gene mutation (PCR): Negative Please see the scanned documentation for the full Molecular Diagnostics report ([id number], [id number], [id number], [id number], [id number]). 02/06/20201129 Addendum Signed____ MARIOLA MACKAY MD 02/06/20201129 FINAL DIAGNOSIS Lung, right upper lobe, biopsy: Adenocarcinoma, well to moderately differentiated. -4/TR Comment: If molecular testing is needed, please inform the lab to send the sample out for further analysis. 12/25/2019 - 1314 CLINICAL DIAGNOSIS Right upper lobe abnormality 12/24/20191401 GROSS DIAGNOSIS Received in formalin labeled "RUL biopsy" and contains five fragments of kennedy and red tissue measuring 0.4 x 0.4 x 0.2 cm. in aggregate. The specimen is entirely submitted all in one. -SV 12/24/2019 - 1401 Signed MARIOLA MACKAY MD 12/25/2019 1314 ID Date Data Source [id number] 12/24/2019 09:25:00 AM EDT [facility] ([facility]) Name Value Range Interpretation Code Description Data Kellie rce(s) Supporting Document(s) Surgical pathology study Laboratory test result [facility] ([facility]) FINAL DIAGNOSIS Lung, right upper lobe, biopsy: [...] all in one. -SV 12/24/20191401 Signed MARIOLA MACKAY MD 12/25/2019 1314 ID Date Data Source [id number] 12/24/2019 08:59:00 AM EDT [facility] ([facility]) Name Value Range Interpretation Code Description Data Kellie rce(s) Supporting Document(s) Fungal Culture Other Source Laboratory test result [facility] ([facility]) Testing performed at reference lab . Rep ort copy to follow on a separate form. 02/22/20 REF LAB#:[id number] FUNGUS CULTURE [facility] No Yeast or Mold Isolated after 4 weeks. Fungal Smear Laboratory test result [facility] ([facility]) Testing performed at reference lab . Rep ort copy to follow on a separate form. 02/22/20 REF LAB#:[id number] ERASMO/Calcofluor preparatio No fungus observed. ID Date Data Source [id number] 12/24/2019 08:59:00 AM EDT [facility] ([facility]) Name Value Range Interpretation Code Description Data Kellie rce(s) Supporting Document(s) Afb Smear Laboratory test result [facility] ([facility]) Due to limited sensitivity, smear result s should be used as an adjunct in evaluating patient tuberculosis status. Cultural examination is highly recommended for clinical diagnosis. AFB smear Kinyoun NEGATIVE (NO AFB Seen ) Afb Culture Laboratory test result [facility] ([facility]) Testing performed at reference lab . Rep ort copy to follow on a separate form. 02/22/20 REF LAB#:[id number] FULL REPORT IN LAB NOTES (eCW and [facility]). No Acid-Fast Bacilli Isolated after 6 Weeks. ID Date Data Source [id number] 12/24/2019 08:59:00 AM EDT [facility] ([facility]) Name Value Range Interpretation Code Description Data Kellie rce(s) Supporting Document(s) Bacteria identified in Bronchial brush by Aerobe culture Lab oratory test result Normal (applies to non-numeric results) [facility] ([facility]) FULL REPORT IN LAB NOTES (eCW and [facility] ). NORMAL VISH PRESENT ID Date Data Source [id number] 12/24/2019 08:59:00 AM EDT [facility] ([facility]) Name Value Range Interpretation Code Description Data Kellie rce(s) Supporting Document(s) Mycobacterium sp identified in Unspecifi ed specimen by Organism specific culture Laboratory test result [facility] ([facility]) Due to limited sensitivity, smear result s should be used as an adjunct in evaluating patient tuberculosis status. Cultural examination is highly recommended for clinical diagnosis. AFB smear Kinyoun NEGATIVE (NO AFB Seen ) ID Date Data Source [id number] 12/24/2019 08:59:00 AM EDT [facility] ([facility]) Name Value Range Interpretation Code Description Data Kellie rce(s) Supporting Document(s) Gram Stain Laboratory test result Normal (applies to non-n umeric results) [facility] ([facility]) MODERATE WBCS NO ORGANISMS SEEN Bal Culture Laboratory test result Normal (applies to non- numeric results) [facility] ([facility]) <content>FULL REPORT IN LAB NOTES (eCW a nd [facility]).</content>
<content>NORMAL VISH PRESENT</content>
<content></content>
<content>ORGANISM 1: HAEMOPHILUS INFLUENZAE</content>
<content></content>
<content>QUANTITY OF GROWTH FEW</content>
<content>Beta-lactamase Negative isolates are generally</content>
<content>susceptible to ampicillin.</content>
<content>Beta-lactamase Positive isolates are resistant to</content>
<content>ampicillin but generally susceptible to amoxicillin-</content>
<content>clavulanic acid and cephalosporins.</content>
<content> </content>
<content></content>
<content></content>
<content>ORGANISM 1: HAEMOPHILUS INFLUENZAE</content>
<content></content>
<content> HAEMOPHILUS INFLUENZAE: REACTION</content>
<content>BETA LACTAMASE NEG</content>
<content>BETA LACTAMASE POS</content>
<content>AMOXICILLIN/CA PO 250 mg q8h 20 S</content>
<content>AMOXICILLIN/CA PO 500 mg q8h 20 S</content>
<content>TRIMETHOPRIM/SULFAMETHOXAZOLE IV 160mg TMP & 800mg SMXq6h 21 S</content>
<content>TRIMETHOPRIM/SULFAMETHOXAZOLE PO Bactrim DS Bid 21 S</content>
<content>AMPICILLIN IV 500mg q6h 22 S</content>
<content>AMPICILLIN PO 500mg q6h fasting 22 S</content>
<content>CEFUROXIME SODIUM IV 750mg q8h 25 S</content>
<content>CEFTRIAXONE IV 1gm q24h 31 S</content>
<content></content> ID Date Data Source [id number] 02/05/2020 04:48:00 PM [facility] Anatomic Molecular Pathology ReportName: WILNER OROURKEMRN: [id number] Number: [id number] Date: 12/24/2019 00:00Received Date: 01/18/2020 14:51Physician(s): MARIOLA MACKAY MD VYAS, SHIKHAR G,MDSpecimen(s) ReceivedA: Lung, right upper lobe, Formalin Block [id number] recevied from [facility] in [place], [place], ALK by FISHDiagnosisTEST:ALK gene rearrangements by FISH (Fluorescence in situ Hybridization).RESULT:Percent tumor cells with ALK gene rearrangement (break-apart and/or 5'deletion) is 2%.ISCN - nuc stefania (5'ALK,3'ALK)x2~4(5'ALK con 3'ALKx2~4)[49/50] INTERPRETATION: NEGATIVE FOR ALK GENE REARRANGEMENT. 15% is used as a cut-off value: d15% is positive for ALK generearrangement while c15% is negative. ALK gene rearrangements, includingbreak apart and/or 5' deletion, can be identified in 3-7% of non- smallcell lung cancer, and are associated with better response to treatmentwith crizotinib. kg/jajElectronically Signed By Ivana Benedict MD, PhD AttendingPathologist 02/05/2020 16:48:13Gross DescriptionMETHODOLOGY:Interphase FISH is performed on paraffin embedded NSCLC utilizing theAdScoot Molecular ALK Break Apart FISH Probe Kit. This is a combination,direct label, dual color detection system utilizing 2 probes: 1) 3'-ALK,300 kb, labeled with SpectrumOrange, and 2) 5'-ALK, 442 kb, labeled withSpectrumGreen. Tumor cells with no ALK rearrangements have 2 yellowsignals (fused orange and green signal). Tumor with ALK rearrangement haveseparated orange and green signal (break apart) and/or deleted greensignal (5' deletion). Hybridization is carried out as per the statedprotocol with no significant background or random probe hybridizationdetected. A total of 50 -100 interphase tumor nuclei are examined manuallyby one or two scorers, depending on initial evaluation. d15% of tumorcells with ALK gene rearrangement is called positive.This FISH Probe Kit was approved by FDA for this application and has beenvalidated in the special procedure laboratory of Department of Pathology,[facility].Processed at [facility], [address] [place] [address] and reported at [facility], [address] [place] [address]. This report may include one or more immunohistochemical stain results thatuse analyte specific reagents. All positive and negative controls havebeen reviewed by the attending pathologist and are satisfactory. The testswere developed and their performance characteristics determined by [facility] Pathology department. They have not been cleared or approved by the USFood and Drug Administration. The FDA has determined that such clearanceor approval is not necessary. Name Value Range Interpretation Code Description Data Kellie rce(s) Supporting Document(s) ID Date Data Source [id number] 01/31/2020 03:57:00 PM EDT [facility] Anatomic Molecular Pathology ReportName: WILNER OROURKEMRN: [id number] Number: [id number] Date: 12/24/2019 00:00Received Date: 01/18/2020 14:56Physician(s): MARIOLA MACKAY MD VYAS, SHIKHAR G,[facility]s) ReceivedA: Lung, right upper lobe, Formalin Block [id number] recevied from [facility] in [place], [place] BRAF Mutation AnalysisDiagnosisTESTS:BRAF V600E mutation (1799 T>A) at exon 15 by real time PCR.RESULTS:Wild type probe (yellow gain): Ct value and end-point fluorescence are32.90 and 0.503 respectively.Mutant probe (green gain): Ct value and end-point fluorescence are 45.00and 0.069 respectively.(Mutant probe EPF cut-off value: 0.159)INTERPRETATION:NEGATIVE FOR BRAF V600E MUTATION.BRAF V600E (1799 T>A) mutation at exon 15 is a genetic alterationidentified in a variety of neoplasm and present in approximately 3% oflung adenocarcinoma. BRAF V600E in lung adenocarcinoma might be associatedwith decreased sensitivity to EGFR inhibitor such as gefitinib, andincreased response to BRAF inhibitor such as vemurafenib. The test resultis considered positive if the Ct value (mutant probe) is less than 45 andthe EPF is higher than cut-off value. If the percentage of mutant DNA isless than 10% in a background of wild-type DNA, the mutation may not bedetected by this assay. This result is an adjunct to other clinical andpathologic information for appropriate patient management.fanny/kgElectronically Signed By Sonido Schwartz M.D. Attending Pathologist 01/31/2020 15:57:08Gross DescriptionMETHODOLOGY:BRAF V600E(1799 T>A) mutation at exon 15 is detected by real time PCRusing allele- specific TaqMan probes and performed on paraffin embeddedtissues. The tumor area is identified by the pathologist and is manuallymicrodissected. The mutant probe was labeled with a FAM-fluorophore whilethe wild-type probe with a MARIELENA-fluorophore. The amount of fluorescentemissions rendered by specific probe hybridization was associated theamounts of PCR products, and analyzed by Sandboxx Q real timeinstrument. The analytical sensitivity (or minimum percentage of mutantDNA needed) is approximately 10% given sufficient DNA input. Test development and its performance characteristics were determined bythe [facility], and has beenauthorized for clinical use by [facility] hospital. Thetest has not been cleared or approved by the U.S. Food and DrugAdministration. The analyte specific reagents used in this assay do notrequire FDA approval. REFERENCES: 1. Cesar S, Humberto San C, et al. Detection of BRAF W037Mezixhpkx in colorectal cancer-comparison of automatic sequencing and realtime chemistry methodology. J Mol Diagn. 2006; 8:681536.2. Ramana L, Aide BUSH, Rene N, et al. BRAF mutation analysis in fineneedle aspiration (FNA) cytology of the thyroid. Diagn Mol Pathol.2006;15:500398.3. Shelby PK, Victor Hugo ME, Jessica M, et al. Clinical characteristics ofpatients with lung adenocarcinomas harboring BRAF mutations. J Clin Oncol.2011;29:0766-8906.This report may include one or more immunohistochemical stain results thatuse analyte specific reagents. All positive and negative controls havebeen reviewed by the attending pathologist and are satisfactory. The testswere developed and their performance characteristics determined by [facility] Pathology department. They have not been cleared or approved by the USFood and Drug Administration. The FDA has determined that such clearanceor approval is not necessary. Name Value Range Interpretation Code Description Data Kellie rce(s) Supporting Document(s) ID Date Data Source [id number] 01/31/2020 06:03:00 AM [facility] Anatomic Molecular Pathology ReportName: WILNER OROURKEMRN: [id number] Number: [id number] Date: 12/24/2019 00:00Received Date: 01/18/2020 14:52Physician(s): MARIOLA MACKAY MD VYAS, SHIKHAR G,PEDROpecimen(s) ReceivedA: Lung, right upper lobe, Formalin Block [id number] recevied from [facility] in [place], [place], ROS1 by FISHDiagnosisTEST:ROS1 gene rearrangements by FISH (Fluorescence in situ Hybridization).RESULT:Percent tumor cells with ROS1 gene rearrangement (break-apart and/or 5'deletion) is 2%.ISCN - nuc stefania (5'ROS1,3'ROS1)x2~4(5'ROS1 con 3'ROS1x2~4)[49/50] INTERPRETATION: NEGATIVE FOR ROS1 GENE REARRANGEMENT.15% is used as a cut-off value: d 15% is positive for ROS1 generearrangements while c 15% is negative. ROS1 gene rearrangements,including break-apart and/or 5' deletion, can be identified in 1- 2% ofnon-small cell lung cancer, and are associated with better response totreatment with crizotinib. fanny/elisaElectronically Signed By Sonido Schwartz M.D. Attending Pathologist 01/31/2020 06:03:28Gross DescriptionMETHODOLOGY: Interphase FISH is performed on paraffin embedded NSCLC utilizing thecombined Storey Molecular LSI ROS1(Babs) and ROS1(Tel) ROS1 Probes: 1)3'-ROS1(Babs), 557 kb, labeled with SpectrumGreen, and 2) 5'-ROS1(Tel),317kb, labeled with SpectrumOrange. Tumor cells with no KYE7isyexphthdzrij have 2 yellow signals (fused orange and green signal).Tumor cells with ROS1 rearrangement have orange and green signal(break apart) and/or deleted orange signal (5' deletion). Hybridization is carried out as per the stated protocol with nosignificant background or random probe hybridization detected. A total of50 - 100 interphase tumor nuclei are examined manually by one or twoscorers, depending on initial evaluation. d15% of tumor cells with ROS1 gene rearrangement is called positive. This test was developed and its performance characteristics weredetermined by the [facility],and it has been authorized for clinical use by [facility]. The test has not been cleared or approved by the U.S. Food andDrug Administration. The analyte specific reagents used in this assay donot require FDA approval. REFERENCES: 1. MATTHIEU Jo, Cherri AT, Luther OLMEDO et al. Identifying and Targeting INR8Ilhr Fusions in NonSmall Cell Lung Cancer. Clin Cancer Res 2012; 18(17);68696780.2. Alcantara, Jose AT. Novel Targets in Non-Small Cell Lung Cancer:ROS-1 and RET fusions. The Oncologist. 2013;18:865-875.This report may include one or more immunohistochemical stain results thatuse analyte specific reagents. All positive and negative controls havebeen reviewed by the attending pathologist and are satisfactory. The testswere developed and their performance characteristics determined by [facility] Pathology department. They have not been cleared or approved by the USFood and Drug Administration. The FDA has determined that such clearanceor approval is not necessary. Name Value Range Interpretation Code Description Data Kellie rce(s) Supporting Document(s) ID Date Data Source [id number] 01/31/2020 05:55:00 AM [facility] Anatomic Molecular Pathology ReportName: WILNER OROURKEMRN: [id number] Number: [id number] Date: 12/24/2019 00:00Received Date: 01/18/2020 14:53Physician(s): MARIOLA MACKAY MD VYAS, SHIKHAR G,MDSpecimen(s) ReceivedA: Lung, right upper lobe, Formalin Block [id number] recevied from [facility] in [place], [place] EGFRDiagnosisTEST: EGFR gene mutations (exon 19 deletions, L858R, G719A, T790M, S768I,exon 20 insertions, L861Q) by therascreene RGQ real-time PCR RESULTS: An EGFR mutation is not detected.INTERPRETATION: NEGATIVE FOR EGFR GENE MUTATION.This test is FDA approved and intended to be used to select patients withnon-small cell lung cancer for whom EGFR tyrosine kinase inhibitor (TKI),such as afatinib, is indicated. Presence of exon 19 deletions, exon 37S631V or L861Q, exon 18 G719A or exon 20 S768I mutation is associated witha better response to TKI therapy. TKI therapeutic resistance of T790M andexon 20 insertions have been reported, and safety and efficacy of TKIth erapy on these mutations have not been established. The results areadjuncts to other clinical and pathologic information available forevaluating the therapeutic response. Tumors that contain less than 20%mutation may not be detected in some mutation types by this assay. kmyra/Mindylectronically Signed By Sonido Schwartz M.D. Attending Pathologist 01/31/2020 05:55:33Gross DescriptionMETHODOLOGY:The therascreen EGFR RGQ PCR Kit ([employer], [place], [place]) is a real-timequalitative PCR assay used on the Teknovus instrument for thedetection of seven types of mutations at EGFR oncogene. The kit requiresDNA extracted from formalin-fixed paraffin-embedded (FFPE) tissue ofnon-small cell lung cancer. The tumor area is identified by the attendingpathologist and manually microdissected. The assay uses Scorpionse andARMSe (Allele Refractory Mutation System) technologies, and [facility] CenterDA-approved for clinical patient care. Allele-specific amplification isachieved by ARMS which exploits the ability of Taq DNA polymerase todistinguish between a matched and a mismatched base at the 3' end of a PCRprimer. Detection of amplification is performed using Scorpions, which arebifunctional molecules containing a PCR primer covalently linked to aprobe.REFERENCES:1. Abby Ford, Dulce SFlorin, Carmelo Caban. et al. EGFR- targeted therapyfor non-small cell lung cancer: focus on EGFR oncogenic mutation. Int. J. Med. Sci. 2013; 10: 320. 2. Catrachito Kemp., et al. First- line gefitinib in patients withadvanced non-small cell lung cancer harboring somatic EGFR mutations. J.Clin.Oncol. 2008;15: 2442.3. Jt POWERS, Ramila DW, Tim J et al. Epidermal growth factor receptormutations in lung cancer. Nature Review/Cancer. 2007;5877-2230.This report may include one or more immunohistochemical stain results thatuse analyte specific reagents. All positive and negative controls havebeen reviewed by the attending pathologist and are satisfactory. The testswere developed and their performance characteristics determined by [facility] Pathology department. They have not been cleared or approved by the USFood and Drug Administration. The FDA has determined that such clearanceor approval is not necessary. Name Value Range Interpretation Code Description Data Kellie rce(s) Supporting Document(s) ID Date Data Source [id number] 12/19/2019 01:20:00 PM EDT [facility] Name Value Range Interpretation Code Description Data Kellie rce(s) Supporting Document(s) SARS coronavirus 2 RNA [facility] This lab was ordered by [facility] and reported by [facility]. ID Date Data Source [id number] 11/29/2019 12:00:00 AM EDT [facility] Kunal Rehman DO Patient Name: WILNER [id number] Date of : [address] [address] Date of Exam: 11/29/2019#: Fax: [phone] EXAM: CT THORAX WITHOUT CONTRASTCLINICAL INFORMATION: Followup nodules.Comparison, multiples, latest 09/13/2014.[address] low dose helical CT scanning was obtained throughout the thoraxwithout intravenous contrast along with sagittal and coronalreconstructions.The mediastinum and pulmonary mirza are unchanged. No definite mass oradenopathy has developed. Calcified lymph nodes are noted, status quo.There are no pleural or pericardial effusions. There is no significantchange in the appearance of the imaged upper abdomen or imaged osseousstructures.Evaluation of the lung reyes shows a spiculated nodule in the right upperlobe which measures 1.5 cm. In the right lower lobe, there is aground-glass nodule which measures 1.7 cm. A solid component to this isseen measuring 1.3 cm. Once again, there are scattered reticulonodulardensities, status quo. There is mild cylindrical bronchiectasis, statusquo.IMPRESSION:Two right lung nodules as described above. These represent a change fromthe latest prior I have for comparison which is 09/13/2014. According tothe revised Fleischner Society criteria, PET CT is recommended at this timewith consideration made for tissue sampling if clinically relevant.Accredited by the [employer] in [place].JERRI Schuler/Rhett you for referring WILNER OROURKE to our office. Electronically Signed - CHANNING DANIELS DO 11/29/19 14:32 Name Value Range Interpretation Code Description Data Kellie rce(s) Supporting Document(s) ID Date Data Source [id number] 11/21/2019 05:20:00 PM EDT [facility] ([facility], ) Name Value Range Interpretation Code Description Data Kellie rce(s) Supporting Document(s) Laboratory test finding (navigational concept) Laboratory test result [facility] ([facility], ) ID Date Data Source [id number] 10/05/2019 12:39:13 PM EDT [facility] Name Value Range Interpretation Code Description Data Kellie rce(s) Supporting Document(s) &PDF [facility] VFCOOx1pPfXMSrKa01/ECHqqBGZve4BiOLbhIAs3FGvuGBPnP9GrhLovAXjLI8XVWkdZGDQQDrIPDZ1z oRX [file] ICAgICAgICAgICAgICAgICAgICAgICAgICAgICAgICAgICAgICAgICAgICAgICAgICAgICAgICAgICAN CiAgICAgICAgICAgICAgICAgICAgICAgICAgICAgIC AgICAgICAgICAgICAgICAgICAgICAgICAgICAgICAgICAgICAgICAgICAgICAgICAgICAgICAgICAgIC AgICAgICAgICANCiAgICAgICAgICAgICAgICAgICAgICAgICAgICAgICAgICAgICAgICAgICAgICAgIC AgICAgICAgICAgICAgICAgICAgICAgICAgICAgICAg ICAgICAgICAgICAgICAgICAgICANCiAgICAgICAgICAgICAgICAgICAgICAgICAgICAgICAgICAgICAg ICAgICAgICAgICAgICAgICAgICAgICAgICAgICAgICAgICAgICAgICAgICAgICAgICAgICAgICAgICAg ICANCiAgICAgICAgICAgICAgICAgICAgICAgICAgIC AgICAgICAgICAgICAgICAgICAgICAgICAgICAgICAgICAgICAgICAgICAgICAgICAgICAgICAgICAgIC AgICAgICAgICAgICANCiAgICAgICAgICAgICAgICAgICAgICAgICAgICAgICAgICAgICAgICAgICAgIC AgICAgICAgICAgICAgICAgICAgICAgICAgICAgICAg ICAgICAgICAgICAgICAgICAgICAgICANCiAgICAgICAgICAgICAgICAgICAgICAgICAgICAgICAgICAg ICAgICAgICAgICAgICAgICAgICAgICAgICAgICAgICAgICAgICAgICAgICAgICAgICAgICAgICAgICAg ICAgICANCiAgICAgICAgICAgICAgICAgICAgICAgIC AgICAgICAgICAgICAgICAgICAgICAgICAgICAgICAgICAgICAgICAgICAgICAgICAgICAgICAgICAgIC AgICAgICAgICAgICAgICANCiAgICAgICAgICAgICAgICAgICAgICAgICAgICAgICAgICAgICAgICAgIC AgICAgICAgICAgICAgICAgICAgICAgICAgICAgICAg ICAgICAgICAgICAgICAgICAgICAgICAgICANCiAgICAgICAgICAgICAgICAgICAgICAgICAgICAgICAg ICAgICAgICAgICAgICAgICAgICAgICAgICAgICAgICAgICAgICAgICAgICAgICAgICAgICAgICAgICAg ICAgICAgICANCjw/lYMoF6nylRSrjqE8K1cyBx1OPp 5XOS0eg7RtSQAbPEcjrgYzTdlKKtEtQKNiPnmZOlk2YUilFS2FfMYtW8FcQ7CyECdxBT3AGJSaPFVbzH PjMREdODBaDeQ9VCXoRVgqQT4FiAFsWOjlBPBePWPcOcVzKHYzPKDtLBAxNW7WDDAjE666hnIhLh0IMr 6HLfTxXD3syl7FNbYuNMThNusNTyb0PXyzSJ6XrDMm qIZmQuEnVLTAKoDzC8pvb6FeZmWxIWDHKCaxCN4Xa5VhcPWkKHu+Dt0HII6mt8DnWKulYaSlRH8yen3X MSfLAtAjT9PbwBdaOBosoCckquNvRI5ZNCRyQSVrlPPcEOwmXXUKTT0EQKpeBXX8KuDdkhFvoVRgBQbh VC4GSKHynyQwUrDsYKVYTNb+Rx0ROJ8er9WmHCdqBL TvNE6nwt3ZFIrMYwXmR4Z1cCGyP0C8UOshDv6QREFqJQUfMvXhVYSVQRlhMY4TJD9xldS6DC8HhKYwBV QbZVUlyDTrRAq3G21rkQTyESemKC9GEIT+Joey+Bl9FSHZtIHKbFTRaAxRbZFBVRiPmL6VnI2VEd5FjL1 KhQW28cXzeanZzZStwJV7JZH8lFJQoQBOHUV8OdPIs wA1lbsRrVaJxPGQXHtWxW70wxSSxDLJaBUOlOPCkEe5KRJNwL2XjefUfrKkirqIpNUEsIQAJYS1NMBym bbUidOFbkVoyCQ28mBjpNG9PWr3NYaLkOU2gjm8OuRBxBu0XOXGdZB2MDVLdEZYwQNWkXNP3KEFaEyDy FPujVGOqHYMuSZV1MBLxWUCvTF8HEeVrINFqIlPzEt BbMJKrBKUoii6GVVSbJKJjTxqoQRJwEMQpBPTmOSzhMGGyHNNhOXwvBTAzNJWvXT9DEdQhXWCnDNZ6RJ TmKNKaZQPtnh3ZTDQsVDOlGtU1UMUoVDWaQXMwQRrhWMPlATV6RpJjKIIiMJOlQA4KMtAbYZIfNZL0Hn fiTFMiGKKwpm2DEHSrXGMrEeVrNRCuUZCdQNIqPOrq RKPeVDZ4WTT7ERMsVCRrIL4DQlQvDJAsQWn1IOcqYIWgKJBxml9CGDMpWHVaMuE1QhSnXMYmBTTtWItf AUNvKRY5TDK7NOBgKGQgDN5KKuXtGRYbTSn9BzinPFIyHQKoxl3EBFLhZRJgKCIaQLWvZONbPFYnWIvy LENoDDZ3CvB0FOOwKIXpRV1MDqTgVAAiUJCqHlCkWA NgMVQwhn4VXOYaHLDjLDnbFUZpFTUjEEOgOYraJUJsYPG4DScoBAHgTFFoTT7YYqJkJDJqCrRbWNJiST RsLEZfva8CGBFiROXuPTE7VRWnPRCzZLKuIVvlVNCbKGL5ZFU8EYTyPTGfGO3JFlCdMBRfYtgrMHCrHI RiPGVgtk9VGEArHUYxDxUvGWBlKJRcLUKvYLu2tqFm fQWoXFt3CS4TY1RhtiOtZlIABy7Bf846JWX4BMIzFl9KU2fsVb9tJCBgDRKFOn0FCZf2VoL3GSz2Anfx TXvlXDf5OWb9OTscHEI3LHOsPUq7NxX+FXifQUk3ODssHPFqDaLiEUo4BcW8PUGtDfa4X4J1ZoRcIw7y XSANCj4+YSwzeYVlqDgeLXXOMpO1IpY1IYxzWBPUUt9K ID Date Data Source [id number] 10/05/2019 09:02:28 AM EDT [facility] Name Value Range Interpretation Code Description Data Kellie rce(s) Supporting Document(s) EKG [facility] ENGYYm0qTrKQEeYuc6EqZlNiVYMlBM8dplh3T5N9hPPwD3JsqOGfl3feQ5BnF4BgKQAuQUSXYS9DcOOh jb2 [file] 27gup5p/ny+wPs94xk+VHyFTz7/Hsw916+Pvw0/dgj7Id7Z6/16X7N59/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/3j/qd/3n+2a9548+EHP/ [file] AwMDQwOSAwMDAwMCBuIAowMDAwMDAwNTIzIDAwMDAw OH1gSoYtDZThJDG2OJWfAMBeNMSlawUCDUJsFHMaZJw2XXEdKFIcMKSdCCpmKJHzMMJoXZT7YZXbYYFd ZY6dCbIfLPMkYFY9SkImAVKnCFMkffVABCFiLUEiNDE0HwCcYIClXLXzCYbhELWzUVXwTCvyHGNdJEHp LR0kRnCxXIQaTRQoEZfxMIVpLUOvwkANIEYgGFLeNB IuPwOeAZOxSQAzHTzgIXKaDIImHsFdMVLkUUHjJC9cSfGjUUVzBRF4RGxmWJJpTQToraSKFLQnPMNjDP egWZRsZZNlLZVtPTbzCRNyNHLlTXU9RGWaUXFiJH2wVmFrMKJlSQTlSCBkXiQ2SxThJaRFpKJtnDzwez o5LWiwV2a5YPIgTLnjKH8yluRgRQSnWamqAu9ugJ Q8TGGdBtmRAz2Ta9BrksQ7mlAyMuEdMAc2CpUhQR0L ID Date Data Source [id number] 10/02/2019 09:20:00 AM EDT [facility] Name Value Range Interpretation Code Description Data Kellie rce(s) Supporting Document(s) SARS CORONAVIRUS 2 RNA [facility] This lab was ordered by [facility] and reported by [facility]. ID Date Data Source [id number] 10/03/2019 08:11:12 AM EDT [facility] Name Value Range Interpretation Code Description Data Kellie rce(s) Supporting Document(s) SARS-COV-2 [facility] Not DetectedReference range: Not Detecte d Testing was performed using the leah(R) SARS-CoV-2 test. This test was developed and its performance characteristics determined by [employer]. This test has not been FDA cleared or approved. This test has been authorized by FDA under an Emergency Use Authorization (EUA). This test is only authorized for the duration of time the declaration that circumstances exist justifying the authorization of the emergency use of in vitro diagnostic tests for detection of SARS-CoV-2 virus and/or diagnosis of COVID-19 infection under section 564(b)(1) of the Act, 21 U.S.C. 360bbb-3(b)(1), unless the authorization is terminated or revoked sooner. When diagnostic testing is negative, the possibility of a false negative result should be considered in the context of a patient's recent exposures and the presence of clinical signs and symptoms consistent with COVID-19. An individual without symptoms of COVID-19 and who is not shedding SARS-CoV-[address] to have a negative (not detected) result in this assay. Performed At: [facility] [address] [id number] Cj Limon MD Ph:[phone] ID Date Data Source [id number] 03/29/2019 11:20:00 AM EST [facility] Name Value Range Interpretation Code Description Data Kellie rce(s) Supporting Document(s) Creatinine For GFR 0.87 mg/dL 0.55-1.30 [facility] ([facility] Glomerular Filtration Rate > 60.0 [facility] ([facility] <content>Units are mL/min/1.73 m2</content>
<content></content>
<content>Chronic Kidney Disease Staging per NKF:</content>
<content></content>
<content>Stage I & II GFR >=60 Normal to Mildly Decreased</content>
<content>Stage III GFR 30- 59 Moderately Decreased</content>
<content>Stage IV GFR 15-29 Severely Decreased</content>
<content>Stage V GFR <15 Very Little GFR Left</content>
<content>ESRD GFR <15 on [employer]</content>
<content></content> ID Date Data Source [id number] 03/29/2019 11:20:00 AM EST [facility] ([facility] Name Value Range Interpretation Code Description Data Kellie rce(s) Supporting Document(s) Urea nitrogen [Mass/volume] in Serum or Plasma 20 mg/dL 7-18 [facility] ([facility] Procedure Social History Code Duration Value Status Description Data Source(s ) Smoking 04/08/2020 12:00:00 AM EST Former Smoker completed Former Smoker eCW1 ([facility]) Smoking 04/08/2020 12:00:00 AM EST Former Smoker completed Former Smoker eCW1 ([facility]) Smoking 10/18/2019 12:00:00 AM EDT Former Smoker completed Former Smoker eCW1 ([facility]) Smoking 10/18/2019 12:00:00 AM EDT Former Smoker completed Former Smoker eCW1 ([facility]) Smoking 10/18/2019 12:00:00 AM EDT Former Smoker completed Former Smoker eCW1 ([facility]) Smoking 10/18/2019 12:00:00 AM EDT Former Smoker completed Former Smoker eCW1 ([facility]) Smoking 10/18/2019 12:00:00 AM EDT Former Smoker completed Former Smoker eCW1 ([facility]) Smoking 10/18/2019 12:00:00 AM EDT Former Smoker completed Former Smoker eCW1 ([facility]) Alcohol intake 10/05/2019 12:00:00 AM EDT Not Currently completed [facility] Cigarette pack-years 10/05/2019 12:00:00 AM EDT UNK completed [facility] Cigarettes smoked current (pack per day) - Reported 10/05/19 12:00:00 AM EDT UNK completed [facility] Smoking 10/05/2019 12:00:00 AM EDT Former smoker completed Former smoker [facility] Alcohol intake 09/26/2019 12:00:00 AM EDT Not Currently completed [facility] Cigarette pack-years 09/26/2019 12:00:00 AM EDT UNK completed [facility] Cigarettes smoked current (pack per day) - Reported 09/26/19 12:00:00 AM EDT UNK completed [facility] Smoking 09/26/2019 12:00:00 AM EDT Former smoker completed Former smoker [facility] Smoking 08/07/2019 12:03:52 PM EDT Smokes tobacco daily (findi ng) completed Smokes tobacco daily (finding) [facility] (Kunal Todd MD [facility]) Smoking 08/07/2019 11:53:24 AM EDT Smokes tobacco daily (findi ng) completed Smokes tobacco daily (finding) [facility] (Kunal Todd [facility]) Smoking 08/07/2019 11:45:37 AM EDT Occasional tobacco sm oker (finding) completed Occasional tobacco smoker (finding) [facility] (Kunal Todd MD [facility]) Smoking 08/07/2019 11:44:24 AM EDT Occasional tobacco sm oker (finding) completed Occasional tobacco smoker (finding) [facility] (Kunal Todd MD [facility]) Smoking 08/07/2019 11:43:10 AM EDT Smokes tobacco daily (findi ng) completed Smokes tobacco daily (finding) [facility] (Kunal Todd MD [facility]) Smoking 08/07/2019 11:41:58 AM EDT Smokes tobacco daily (findi ng) completed Smokes tobacco daily (finding) [facility] (Kunal Todd [facility]) Smoking 07/27/2019 12:00:00 AM EDT Former Smoker completed Former Smoker eCW1 ([facility]) Smoking 07/27/2019 12:00:00 AM EDT Former Smoker completed Former Smoker eCW1 ([facility]) Vital Signs ID Date Data Source UNK Name Value Range Interpretation Code Description Data Source(s) Diastolic blood pressure 70 mm[Hg] 70 mm[Hg] eCW1 ([facility]) Systolic blood pressure 120 mm[Hg] 120 mm[Hg] e CW1 ([facility]) Body temperature 96 [degF] 96 [degF] eCW1 ([facility]) Respiratory rate 20 /min 20 /min eCW1 ([facility]) Heart rate 98 /min 98 /min W1 ([facility]) Body mass index (BMI) [Ratio] 26.47 kg/m2 26.47 kg/m2 eCW1 ([facility]) Body height 66 [in_i] 66 [in_i] [facility] Body weight 164 [lb_av] 164 [lb_av] eCW1 ([facility]) Body surface area Derived from formula 1.83 m2 1.83 m2 [facility] ([facility], ) Body weight 73.937 kg 73.937 kg [facility] ([facility], ) [place] body weight 130 [lb_av] 130 [lb_av] [facility] ([facility], ) Body mass index (BMI) [Ratio] 26.3 kg/m2 26.3 k g/m2 [facility] ([facility], ) Body weight 163.00 [lb_av] 163.00 [lb_av] [facility] ([facility], ) Body height 66 [in_i] 66 [in_i] [facility] ([facility]) 5'6" Diastolic blood pressure 86 mm[Hg] 86 mm[Hg] [facility] ([facility], ) Systolic blood pressure 134 mm[Hg] 134 mm[Hg] M [facility]ENT ([facility]) Body surface area Derived from formula 1.83 m2 1.83 m2 [facility] ([facility]) Body weight 73.937 kg 73.937 kg [facility] ([facility]) [place] body weight 130 [lb_av] 130 [lb_av] [facility] ([facility]) Body mass index (BMI) [Ratio] 26.3 kg/m2 26.3 k g/m2 [facility] ([facility]) Body weight 163.00 [lb_av] 163.00 [lb_av] [facility] ([facility]) Body height 66 [in_i] 66 [in_i] [facility] ([facility]) 5'6" Oxygen saturation in Arterial blood by Pulse oximetry 99 % 99 % [facility] ([facility]) Room Air Heart rate 80 /min 80 /min [facility] ([facility]) Diastolic blood pressure 72 mm[Hg] 72 mm[Hg] [facility] ([facility]) Systolic blood pressure 134 mm[Hg] 134 mm[Hg] [facility] ([facility]) Body temperature 98.8 [degF] 98.8 [degF] [facility] ([facility] Oxygen saturation in Arterial blood by Pulse oximetry 98 % 98 % [facility] ([facility]) Heart rate 106 /min 106 /min [facility] ([facility]) Diastolic blood pressure 72 mm[Hg] 72 mm[Hg] [facility] ([facility]) Systolic blood pressure 122 mm[Hg] 122 mm[Hg] [facility] ([facility]) Body weight 73.030 kg 73.030 kg [facility] ([facility]) Body mass index (BMI) [Ratio] 26.0 kg/m2 26.0 k g/m2 [facility] ([facility]) Body weight 161.00 [lb_av] 161.00 [lb_av] [facility] Body height 66 [in_i] 66 [in_i] [facility] ([facility]) 5'6" Body weight 73.030 kg 73.030 kg [facility] ([facility]) Body mass index (BMI) [Ratio] 26.0 kg/m2 26.0 k g/m2 [facility] ([facility]) Body weight 161.00 [lb_av] 161.00 [lb_av] [facility] ([facility]) Body height 66 [in_i] 66 [in_i] [facility] ([facility]) 5'6" Body temperature 98.3 [degF] 98.3 [degF] [facility] ([facility]) Oxygen saturation in Arterial blood by Pulse oximetry 99 % 99 % [facility] ([facility]) Heart rate 86 /min 86 /min [facility] ([facility]) Diastolic blood pressure 76 mm[Hg] 76 mm[Hg] [facility] ([facility]) Systolic blood pressure 120 mm[Hg] 120 mm[Hg] [facility] ([facility]) Body weight 72.122 kg 72.122 kg [facility] ([facility]) Body mass index (BMI) [Ratio] 25.7 kg/m2 25.7 k g/m2 [facility] ([facility]) Body weight 159.00 [lb_av] 159.00 [lb_av] [facility] Body height 66 [in_i] 66 [in_i] [facility] ([facility]) 5'6" Body temperature 97.9 [degF] 97.9 [degF] [facility] ([facility]) Oxygen saturation in Arterial blood by Pulse oximetry 98 % 98 % [facility] ([facility]) Room Air Heart rate 105 /min 105 /min [facility] ([facility]) Diastolic blood pressure 86 mm[Hg] 86 mm[Hg] [facility] ([facility]) Systolic blood pressure 140 mm[Hg] 140 mm[Hg] [facility] ([facility]) Body weight 73.483 kg 73.483 kg [facility] ([facility]) Body mass index (BMI) [Ratio] 26.1 kg/m2 26.1 k g/m2 [facility] ([facility], ) Body weight 162.00 [lb_av] 162.00 [lb_av] [facility] ([facility], ) Body height 66 [in_i] 66 [in_i] [facility] 5'6" Body temperature 99.2 [degF] 99.2 [degF] [facility] Oxygen saturation in Arterial blood by Pulse oximetry 98 % 98 % [facility] ([facility], ) Heart rate 92 /min 92 /min [facility] ([facility], ) Diastolic blood pressure 80 mm[Hg] 80 mm[Hg] [facility] ([facility] ) Systolic blood pressure 162 mm[Hg] 162 mm[Hg] [facility] Diastolic blood pressure 82 mm[Hg] 82 mm[Hg] [facility] Systolic blood pressure 151 mm[Hg] 151 mm[Hg] [facility] Oxygen saturation in Arterial blood by Pulse oximetry 97 % 97 % [facility] Body temperature 36.56 Neva 36.56 Neva [facility] Heart rate 72 /min 72 /min [facility] Respiratory rate 17 /min 17 /min [facility] Body mass index (BMI) [Ratio] 25.94 kg/m2 25.94 kg/m2 [facility] Body weight 72.9 kg 72.9 kg [facility] Body height 167.6 cm 167.6 cm [facility] Diastolic blood pressure 72 mm[Hg] 72 mm[Hg] eCW1 ([facility]) Systolic blood pressure 122 mm[Hg] 122 mm[Hg] e CW1 ([facility]) Body temperature 96.6 [degF] 96.6 [degF] eCW1 ( [facility]) Respiratory rate 20 /min 20 /min eCW1 ([facility]) Heart rate 94 /min 94 /min eCW1 ([facility]) Body mass index (BMI) [Ratio] 25.50 kg/m2 25.50 kg/m2 eCW1 ([facility]) Body height 66 [in_us] 66 [in_us] [facility] Body weight Measured 158 [lb_av] 158 [lb_av] eC W1 ([facility]) Body mass index (BMI) [Ratio] 26.1 kg/m2 26.1 k g/m2 [facility] ([facility] Body weight 157.00 [lb_av] 157.00 [lb_av] [facility] ([facility] Body height 65 [in_i] 65 [in_i] [facility] ([facility] 5'5" Body temperature 97.9 [degF] 97.9 [degF] [facility] ([facility] Oxygen saturation in Arterial blood by Pulse oximetry 98 % 98 % [facility] ([facility] Heart rate 77 /min 77 /min [facility] ([facility] Diastolic blood pressure 80 mm[Hg] 80 mm[Hg] [facility] ([facility] Systolic blood pressure 110 mm[Hg] 110 mm[Hg] M [facility] ([facility] Diastolic blood pressure 80 mm[Hg] 80 mm[Hg] eCW1 ([facility]) Systolic blood pressure 132 mm[Hg] 132 mm[Hg] e CW1 ([facility]) Body temperature 99.0 [degF] 99.0 [degF] eCW1 ( [facility]) Respiratory rate 20 /min 20 /min eCW1 ([facility]) Heart rate 77 /min 77 /min eCW1 ([facility]) Body mass index (BMI) [Ratio] 25.56 kg/m2 25.56 kg/m2 eCW1 ([facility]) Body height 66 [in_us] 66 [in_us] [facility] Body weight Measured 158.4 [lb_av] 158.4 [lb_av ] eCW1 ([facility]) Body mass index (BMI) [Ratio] 24.1 kg/m2 24.1 k g/m2 [facility] ([facility] Body weight 145.00 [lb_av] 145.00 [lb_av] [facility] T ([facility] Body height 65 [in_i] 65 [in_i] [facility] ([facility] 5'5" Oxygen saturation in Arterial blood by Pulse oximetry 98 % 98 % [facility] ([facility] Room Air Heart rate 98 /min 98 /min [facility] ([facility] Diastolic blood pressure 80 mm[Hg] 80 mm[Hg] [facility] ([facility] Systolic blood pressure 120 mm[Hg] 120 mm[Hg] M [facility] ([facility] Patient Treatment Plan of Care Planned Activity Planned Date Details Description Data Source (s) Nitroglycerin 0.4 MG Sublingual Tablet 08/08/2019 12:00:00 AM EDT [facility] Aspirin 81 MG Delayed Release Oral Tablet 07/30/2019 12:00:00 AM ED T [facility] Alprazolam 0.25 MG Oral Tablet 07/27/2019 12:00:00 AM EDT [facility] Trazodone Hydrochloride 50 MG Oral Tablet 07/25/2019 12:00:00 AM ED T [facility] atorvastatin 40 MG Oral Tablet 07/11/2019 12:00:00 AM EDT [facility] albuterol (PROVENTIL HFA;VENTOLIN HFA) 108 (90 Base) M CG/ACT inhaler 05/24/2019 12:00:00 AM EST [facility] Ergocalciferol [id number] UNT Oral Capsule 05/04/2019 12:00:00 AM EST [facility] clopidogrel 75 MG Oral Tablet [facility]
[2020-05-06] MEDS ORDERED: LIDOCAINE 2% 100MG/5ML SDV (FOR ANES.) As Ordered ONE (11:42)
[2020-05-06] MEDS ORDERED: propofoL 500 MG/50 ML VIAL As Ordered ONE (11:42)
--- NOTE | 2020-05-06 11:43 | ROOR ---
Patient Name: Torri Awan Procedure Date: 05/06/2020 10:36 AM Date of : 1950 Age: 69 Room: [facility] Gender: Female Note Status: Finalized Procedure: Upper GI endoscopy Indications: Surveillance for malignancy due to personal history of Lees's esophagus, Heartburn, Follow-up of Lees's esophagus Providers: Kyrie Holden MD Referring MD: Wilda Anna MD Requesting Provider: Medicines: Monitored Anesthesia Care Complications: No immediate complications. Procedure: Pre-Anesthesia Assessment: - Prior to the procedure, a History and Physical was performed, and patient medications and allergies were reviewed. The patient is competent. The risks and benefits of the procedure and the sedation options and risks were discussed with the patient. All questions were answered and informed consent was obtained. Patient identification and proposed procedure were verified by the physician, the nurse and the anesthesiologist in the procedure room. Mental Status Examination: alert and oriented. Airway Examination: normal oropharyngeal airway and neck mobility. Respiratory Examination: clear to auscultation. CV Examination: normal. Prophylactic Antibiotics: The patient does not require prophylactic antibiotics. Prior Anticoagulants: The patient has taken no previous anticoagulant or antiplatelet agents. ASA Grade Assessment: II - A patient with mild systemic disease. After reviewing the risks and benefits, the patient was deemed in satisfactory condition to undergo the procedure. The anesthesia plan was to use monitored anesthesia care (MAC). Immediately prior to administration of medications, the patient was re-assessed for adequacy to receive sedatives. The heart rate, respiratory rate, oxygen saturations, blood pressure, adequacy of pulmonary ventilation, and response to care were monitored throughout the procedure. The physical status of the patient was re-assessed after the procedure. The Endoscope was introduced through the mouth, and advanced to the second part of duodenum. The upper GI endoscopy was accomplished without difficulty. The patient tolerated the procedure well. Findings: The esophagus and gastroesophageal junction were examined with white light and narrow band imaging (NBI) from a forward view and retroflexed position. There were esophageal mucosal changes suspicious for long-segment Lees's esophagus. These changes involved the mucosa along an irregular Z-line (31 cm from the incisors). Circumferential salmon-colored mucosa was present from 34 to 36 cm, two tongues of salmon-colored mucosa were present from 31 to 34 cm, scattered islands of squamous mucosa were present and hiatal narrowing was identified at 37 cm. The maximum longitudinal extent of these esophageal mucosal changes was 5 cm in length. Mucosa was biopsied with a cold forceps for histology in a targeted manner and in 4 quadrants at intervals of 2 cm in the lower third of the esophagus. One specimen bottle was sent to pathology. Verification of patient identification for the specimen was done by the physician and nurse using the patient's name, date and medical record number. Estimated blood loss was minimal. A medium-sized hiatal hernia was present. Scattered moderate inflammation characterized by congestion (edema), friability and granularity was found in the gastric body and in the gastric antrum. Biopsies were taken with a cold forceps for Helicobacter pylori testing. The duodenal bulb and second portion of the duodenum were normal. Impression: - Esophageal mucosal changes suspicious for long-segment Lees's esophagus. Biopsied. - Medium-sized hiatal hernia. - Gastritis. Biopsied. - Normal duodenal bulb and second portion of the duodenum. Recommendation: - Patient has a contact number available for emergencies. The signs and symptoms of potential delayed complications were discussed with the patient. Return to normal activities tomorrow. Written discharge instructions were provided to the patient. - High fiber diet. - Continue present medications. - Recommend acid suppression medication. - Follow an antireflux regimen. - Await pathology results. - Repeat upper endoscopy in 3 years for surveillance based on pathology results. - Telephone GI clinic for pathology results in 2 weeks. - Return to GI clinic if persistent symptoms or new symptoms. - Return to primary care physician. Procedure Code(s): --- Professional --- 90602, Esophagogastroduodenoscopy, flexible, transoral; with biopsy, single or multiple Diagnosis Code(s): --- Professional --- K22.70, Lees's esophagus without dysplasia K44.9, Diaphragmatic hernia without obstruction or gangrene K29.70, Gastritis, unspecified, without bleeding R12, Heartburn CPT copyright 2019 [employer]. All rights reserved. The codes documented in this report are preliminary and upon dumper mold cleaner review may be revised to meet current compliance requirements. Kyrie Holden MD Kyrie Holden MD 05/06/2020 11:43:23 AM Electronically signed by Kyrie Holden MD Number of Addenda: 0 Note Initiated On: 05/06/2020 10:36 AM Estimated Blood Loss: Estimated blood loss was minimal.
[2020-05-06] MEDS ORDERED: propofoL 200 MG/20 ML VIAL As Ordered ONE (11:44)
--- NOTE | 2020-05-06 11:58 | ROOR ---
Patient Name: Torri Awan Procedure Date: 05/06/2020 10:37 AM Date of : 1950 Age: 69 Room: [facility] Gender: Female Note Status: Finalized Procedure: Colonoscopy Indications: High risk colon cancer surveillance: Personal history of colonic polyps Providers: Kyrie Holden MD Referring MD: Wilda Anna MD Requesting Provider: Medicines: Monitored Anesthesia Care Complications: No immediate complications. Procedure: Pre-Anesthesia Assessment: - Prior to the procedure, a History and Physical was performed, and patient medications and allergies were reviewed. The patient is competent. The risks and benefits of the procedure and the sedation options and risks were discussed with the patient. All questions were answered and informed consent was obtained. Patient identification and proposed procedure were verified by the physician, the nurse and the anesthesiologist in the procedure room. Mental Status Examination: alert and oriented. Airway Examination: normal oropharyngeal airway and neck mobility. Respiratory Examination: clear to auscultation. CV Examination: normal. Prophylactic Antibiotics: The patient does not require prophylactic antibiotics. Prior Anticoagulants: The patient has taken no previous anticoagulant or antiplatelet agents. ASA Grade Assessment: II - A patient with mild systemic disease. After reviewing the risks and benefits, the patient was deemed in satisfactory condition to undergo the procedure. The anesthesia plan was to use monitored anesthesia care (MAC). Immediately prior to administration of medications, the patient was re-assessed for adequacy to receive sedatives. The heart rate, respiratory rate, oxygen saturations, blood pressure, adequacy of pulmonary ventilation, and response to care were monitored throughout the procedure. The physical status of the patient was re-assessed after the procedure. The Colonoscope was introduced through the anus and advanced to the terminal ileum, with identification of the appendiceal orifice and IC valve. The colonoscopy was performed without difficulty. The patient tolerated the procedure well. The quality of the bowel preparation was good. The terminal ileum, ileocecal valve, appendiceal orifice, and rectum were photographed. Scope insertion time was 3 minutes. Scope withdrawal time was 9 minutes. The total duration of the procedure was 14 minutes. Findings: The perianal and digital rectal examinations were normal. The terminal ileum appeared normal. Four sessile polyps were found in the recto-sigmoid colon and transverse colon. The polyps were 5 to 8 mm in size. These polyps were removed with a cold biopsy forceps. Resection and retrieval were complete. Verification of patient identification for the specimen was done by the physician and nurse using the patient's name, date and medical record number. Estimated blood loss was minimal. Multiple small and large-mouthed diverticula were found from sigmoid to descending colon. There was narrowing of the colon in association with the diverticular opening. There was no evidence of diverticular bleeding. Non-bleeding external and internal hemorrhoids were found during retroflexion. The hemorrhoids were medium-sized. Impression: - The examined portion of the ileum was normal. - Four 5 to 8 mm polyps at the recto-sigmoid colon and in the transverse colon, removed with a cold biopsy forceps. Resected and retrieved. - Severe diverticulosis from sigmoid to descending colon. There was narrowing of the colon in association with the diverticular opening. There was no evidence of diverticular bleeding. - Non-bleeding external and internal hemorrhoids. Recommendation: - Patient has a contact number available for emergencies. The signs and symptoms of potential delayed complications were discussed with the patient. Return to normal activities tomorrow. Written discharge instructions were provided to the patient. - High fiber diet. - Continue present medications. - Use original regular Metamucil one teaspoon PO daily. - Use fiber, for example Citrucel, Fibercon, Konsyl or Metamucil. - Await pathology results. - Repeat colonoscopy in 3 - 5 years for surveillance based on pathology results. - Telephone GI clinic for pathology results in 2 weeks. - Return to GI clinic if persistent symptoms or new symptoms. - Return to primary care physician. Procedure Code(s): --- Professional --- 09405, Colonoscopy, flexible; with biopsy, single or multiple Diagnosis Code(s): --- Professional --- Z86.010, Personal history of colonic polyps K64.8, Other hemorrhoids K63.5, Polyp of colon K57.30, Diverticulosis of large intestine without perforation or abscess without bleeding CPT copyright 2019 [employer]. All rights reserved. The codes documented in this report are preliminary and upon radio mechanic review may be revised to meet current compliance requirements. Kyrie Holden MD Kyrie Holden MD 05/06/2020 11:57:46 AM Electronically signed by Kyrie Holden MD Number of Addenda: 0 Note Initiated On: 05/06/2020 10:37 AM Estimated Blood Loss: Estimated blood loss was minimal.
[2020-05-06 12:10] VITALS: BP 126/66
== END 2020-05-06 12:18 | disposition home or self-care (01) ==
LOC: M OPP 09:31
PROVIDERS: ATTEND Internal Medicine Gastroenterology
DX: Z12.11 Encounter for screening for malignant neoplasm of colon (principal); Z86.010 Personal history of colon polyps; K22.70 Barrett's esophagus without dysplasia; K63.5 Polyp of colon; K57.30 Diverticulosis of large intestine without perforation or abscess without bleeding; K64.8 Other hemorrhoids; D13.1 Benign neoplasm of stomach; K22.8 Other specified diseases of esophagus; K44.9 Diaphragmatic hernia without obstruction or gangrene; K29.70 Gastritis, unspecified, without bleeding; I10 Essential (primary) hypertension; E78.5 Hyperlipidemia, unspecified; R12 Heartburn; K21.9 Gastro-esophageal reflux disease without esophagitis; F41.9 Anxiety disorder, unspecified; H35.30 Unspecified macular degeneration; J44.9 Chronic obstructive pulmonary disease, unspecified; Z85.118 Personal history of other malignant neoplasm of bronchus and lung; Z92.3 Personal history of irradiation; Z88.5 Allergy status to narcotic agent; Z88.8 Allergy status to other drugs, medicaments and biological substances; Z79.899 Other long term (current) drug therapy; Z83.2 Family history of diseases of the blood and blood-forming organs and certain disorders involving the immune mechanism; Z80.1 Family history of malignant neoplasm of trachea, bronchus and lung; Z80.8 Family history of malignant neoplasm of other organs or systems

== ENCOUNTER → 2020-05-14 | Outpatient (CLI) | payer MEDICARE ==
[~2020-05-14] MED LIST changes: -NS 1,000 ML IV ONE
== END ==
LOC: M LABSMTC 13:35
PROVIDERS: ATTEND Family Medicine
DX: Z20.822 Contact with and (suspected) exposure to COVID-19 (principal)

== ENCOUNTER → 2020-06-19 | Outpatient (CLI) | payer MEDICARE ==
[2020-06-19 16:27] LABS: APPEARANCE, URINE CLEAR (CLEAR); BACTERIA, URINE AUTO NEGATIVE (NEGATIVE); BILIRUBIN, URINE AUTO NEGATIVE (NEGATIVE); BLOOD, URINE BLOOD 1+ (NEGATIVE); COLOR, URINE STRAW (YELLOW); GLUCOSE, URINE (UA) AUTO NEGATIVE (NEGATIVE); KETONE, URINE AUTO NEGATIVE (NEGATIVE); LEUKOCYTE ESTERASE, URINE AUTO NEGATIVE (NEGATIVE); NITRITE, URINE AUTO NEGATIVE (NEGATIVE); PROTEIN, URINE AUTO NEGATIVE (NEGATIVE); RBC, URINE AUTO 1 /HPF (0-3); SPECIFIC GRAVITY URINE AUTO 1.006 (1.002-1.035); SQUAMOUS EPITHELIAL CELL UR AU 1 /HPF (0-6); UROBILINOGEN, URINE AUTO 0.2 mg/dL (0.0-2.0); WBC, URINE AUTO 0 /HPF (0-3)
[2020-06-19 16:50] LABS: BLOOD UREA NITROGEN 14 MG/DL (7-18); CALCIUM LEVEL 8.5 MG/DL (8.8-10.2); CARBON DIOXIDE LEVEL 27 MEQ/L (21-32); CHLORIDE LEVEL 95 MEQ/L (98-107); CREATININE FOR GFR 0.73 MG/DL (0.55-1.30); GLOMERULAR FILTRATION RATE > 60.0 (>45); GLUCOSE, FASTING 94 MG/DL (70-100); POTASSIUM SERUM 4.4 MEQ/L (3.5-5.1); SODIUM LEVEL 129 MEQ/L (136-145)
== END ==
LOC: M WUC 14:26
PROVIDERS: ATTEND Family Medicine
DX: R31.29 Other microscopic hematuria (principal); I10 Essential (primary) hypertension

== ENCOUNTER → 2020-06-25 | Outpatient (CLI) | payer MEDICARE ==
[~2020-06-25] MED LIST changes: +ISOVUE-370 76% 100ML VIAL As Ordered ONE; +PRED20TA PO
--- NOTE | 2020-06-25 12:17 | REP ---
INDICATION: LUNG CA COMPARISON: 10/10/2019 TECHNIQUE: Axial contrast enhanced images from the thoracic inlet to the upper abdomen with coronal and sagittal reformations using 75 ml Isovue 370 intravenous contrast material. [address] CT examination was performed using the following dose reduction techniques: Automated exposure control, adjustment of mA and/or kv according to the patient's size, and use of iterative reconstruction technique. FINDINGS: Moderate to large ill-defined areas of consolidation are identified along the periphery of the right upper lobe and within the apical right lower lobe both of which may obscure the previously noted right apical nodule and right lower lobe opacities on prior examination. Small 7 mm pulmonary nodule in the periphery of the left lower lobe (series 201; image 62) is also identified. Underlying advanced COPD/emphysematous changes and bronchiectasis along with subpleural fibrosis again noted. No effusion. No pneumothorax. Few calcified mediastinal and hilar lymph nodes are again identified without further significant obvious adenopathy appreciated. Thoracic aorta, pulmonary vasculature, and heart/pericardium are relatively stable with atherosclerotic changes again noted as well as very small amount of pericardial fluid. Stable hiatal hernia noted the gastroesophageal junction. Skeletal structures demonstrate degenerative changes without focal osseous abnormality. Limited upper abdomen demonstrates normal bilateral adrenal glands. IMPRESSION: 1. Moderate areas of ill-defined opacity along the periphery of the right upper lobe and within the apical right lower lobe are now identified and likely obscure the previously noted nodular densities. Small left lower lobe nodule is similar to prior examination although the previously noted surrounding atelectasis has improved. Findings are nonspecific and differential diagnosis includes multifocal pneumonia and malignancy. No associated adenopathy or effusion. 2. Further findings as described above including COPD/emphysematous changes, scattered scarring, subpleural fibrosis, bronchiectasis and calcified lymph nodes. <Electronically signed by Leif Garrido > 06/25/20 [id number]
== END ==
LOC: M RAD 11:22
PROVIDERS: ATTEND General Practice
DX: C34.31 Malignant neoplasm of lower lobe, right bronchus or lung (principal); K44.9 Diaphragmatic hernia without obstruction or gangrene; J44.9 Chronic obstructive pulmonary disease, unspecified
CPT/HCPCS: 71260; Q9967

== ENCOUNTER → 2020-07-02 | Outpatient (REF) | payer MEDICARE ==
[~2020-07-02] MED LIST changes: -ISOVUE-370 76% 100ML VIAL As Ordered ONE; +PROBCAP14 PO
[2020-07-02 19:02] LABS: OSMOLALITY URINE 422 MOSM/KG (50-1400)
[2020-07-02 19:20] LABS: SODIUM,RANDOM URINE 38 MEQ/L
[2020-07-02 19:29] LABS: CALCIUM LEVEL 8.9 MG/DL (8.8-10.2); CREATININE FOR GFR 0.99 MG/DL (0.55-1.30); GLOMERULAR FILTRATION RATE 59.2 (>45); POTASSIUM SERUM 4.1 MEQ/L (3.5-5.1)
== END ==
LOC: M LABDRWAD 18:23
PROVIDERS: ATTEND Family Medicine
DX: E87.1 Hypo-osmolality and hyponatremia (principal)
CPT/HCPCS: 36415; 80048; 83935; 84300; G0463

== ENCOUNTER → 2020-07-02 | Outpatient (REF) | payer MEDICARE ==
[~2020-07-02] MED LIST changes: -PROBCAP14 PO
== END ==
LOC: M SFHCPLAZ 18:20
PROVIDERS: ATTEND Family Medicine
DX: E87.1 Hypo-osmolality and hyponatremia (principal)

== ENCOUNTER → 2020-07-02 | Outpatient (CLI) | payer MEDICARE ==
--- NOTE | 2020-07-02 11:43 | RADONC ---
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 She underwent SBRT to these lesions 60 Gy in 5 fractions completed 02/28/21. She is seen today for routine surveillance and survivorship care. She also recently has developed radiographic signs and symptoms concerning for radiation pneumonitis. Diagnosis/Treatment History Oncologic History Former smoker quit 2016. Underwent SYED lobectomy for NSCLC on 03/29/[address] Perez [id number]. Received no adjuvant treatment. Followed for a RUL present since before the SYED surgery was noted to be growing on CT from early 2018 but was not PET avid 11/14/18 study. Continued to grow and was PET avid on study from 11/20/19. Also noted on the most recent PET-CT was a growing pleural based avid RLL lesion. Biopsy of the RUL lesion on 12/24/19 revealed adenocarcinoma. RLL lesion was not able to be sampled bronchoscopically. She has multiple subcentimeter nodules in other locations in the lung which are neither PET avid or growing. MRI head completed on 02/13/20 was negative for intracranial metastases. She underwent SBRT to the RUL and RLL lesions 60 Gy in 5 fractions completed on 02/29/20. She also has as needed follow up with Dr. Beltrán at [facility] [place] as well. Recent data: 05/06/20 EGD/colonoscopy revealed arce's esophagus and hyperplastic polyps, no malignancy 06/25/20 CT chest with contrast FINDINGS: Moderate to large ill-defined areas of consolidation are identified along the periphery of the right upper lobe and within the apical right lower lobe both of which may obscure the previously noted right apical nodule and right lower lobe opacities on prior examination. Small 7 mm pulmonary nodule in the periphery of the left lower lobe (series 201; image 62) is also identified. Underlying advanced COPD/emphysematous changes and bronchiectasis along with subpleural fibrosis again noted. No effusion. No pneumothorax. Few calcified mediastinal and hilar lymph nodes are again identified without further significant obvious adenopathy appreciated. Thoracic aorta, pulmonary vasculature, and heart/pericardium are relatively stable with atherosclerotic changes again noted as well as very small amount of pericardial fluid. Stable hiatal hernia noted the gastroesophageal junction. Skeletal structures demonstrate degenerative changes without focal osseous abnormality. Limited upper abdomen demonstrates normal bilateral adrenal glands. IMPRESSION: 1. Moderate areas of ill-defined opacity along the periphery of the right upper lobe and within the apical right lower lobe are now identified and likely obscure the previously noted nodular densities. Small left lower lobe nodule is similar to prior examination although the previously noted surrounding atelectasis has improved. Findings are nonspecific and differential diagnosis includes multifocal pneumonia and malignancy. No associated adenopathy or effusion. 2. Further findings as described above including COPD/emphysematous changes, scattered scarring, subpleural fibrosis, bronchiectasis and calcified lymph nodes. Survivorship: Test Due Next Last result Notes TSH, T4* 6m post-tx, then q1y N/A Carotid US* q10 y post-tx N/A Smoking cessation Assess annually if applicable N/A Quit 2016 Chest imaging As indicated, indefinite CT surveillance 3 months c/w response to SBRT & RT pneumonitis Mammograms Min q1y, in eligible female patients Will ask next visit Echocardiogram q10y post treatment if mediastinum treated N/A PFTs As indicated Pending Dr. Rehman following CBC,CMP, Lipids q1y 2021 (PCP Dr. Anna orders) WNL 2020 *If supraclavicular field treated Interval History Torri reports that she developed fever, chills, headache and increased dyspnea in April following her EGD/colonoscopy. She was evaluated by Dr. Anna for this and had a COVID test which was negative and her fever and headache improved. However the dyspnea recrudesced approximately 3 weeks ago and has been associated with a predominantly dry cough and some pleuritic mild chest pain worse with the cough. She has not had fever in the past week. When she has been able to bring up phlegm with cough it is clear mucus. Current Therapy Surveillance Stage [id number] NSCLC stage IA2 RUL, RLL Social History: 80 pack year former smoker Drinks alcohol on occasion Allergies / Meds Allergies: Coded Allergies: cephalexin (Verified Allergy, Intermediate, hives, 12/21/19) codeine (Verified Allergy, Intermediate, migraines, 12/21/19) gabapentin (Verified Allergy, Intermediate, syncope-in system historically, 12/21/19) morphine (Verified Allergy, Intermediate, nausea, 12/21/19) propoxyphene (Verified Allergy, Intermediate, migraines, 12/21/19) Home Meds Active Scripts Prednisone (Prednisone) 20 Mg Tablet, 1 TAB PO ASDIRECTED for 20 Days, #35 TAB Take 3 tab daily for 5 days, then 2 tab daily for 5 days, then 1 tab daily for 5 days, then 1/2 tab daily for 5 days Prov:TJ NG MD 06/30/20 Reported Medications Albuterol Sulfate (Ventolin Hfa) 18 Gm Hfa.aer.ad, 2 PUFF INH QID PRN for wheezing for 30 Days, #1 INHALER 01/22/20 Omeprazole Magnesium (Prilosec Otc) 20 Mg Tablet.dr, 40 MG PO DAILY for 30 Days, #30 TAB 01/22/20 Lidocaine/Menthol (Lidopatch) 1 Each Adh..patch, 1 APLCT TOP BID for back pain for 30 Days, #60 EA 01/22/20 Albuterol Sulfate (Albuterol Sulfate Hfa) 8.5 Gm Hfa.aer.ad, 2 PUFFS INH QID PRN for SHORTNESS OF BREATH 10/10/19 Alprazolam (Alprazolam) 0.25 Mg Tablet, 0.25 MG PO DAILY PRN for ANXIETY 10/10/19 Ergocalciferol (Vitamin D2) (Vitamin D2) 50,000 Units Cap, 94337 UNIT PO QWEEK Sundays10/10/19 Trazodone HCl (Trazodone HCl) 50 Mg Tab, 100 MG PO QHS, TAB 06/26/18 Atorvastatin Calcium (Atorvastatin Calcium) 40 Mg Tab, 40 MG PO QHS, TAB 03/27/18 Losartan Potassium (Losartan Potassium) 50 Mg Tab, 50 MG PO DAILY, TAB 02/20/18 Propylene Glycol/Peg 400 (Systane 0.3-0.4% Eye Drops) 15 Ml Ana, 1 DROP OU DAILY 02/20/18 Discontinued Reported Medications Vit C/E/Zn/Coppr/Lutein/Zeaxan (Preservision Areds 2 Softgel) 1 Each Capsule, 1 CAP PO BID, CAP 10/10/19 Review of Systems Review of Systems Constitutional: Reports: Chills, Fever, Normal appetite HEENT: Reports: Head Aches Pulmonary: Reports: Dyspnea, Cough, Pleuritic Chest Pain Cardiovascular: Denies: Chest Pain Gastrointestinal: Denies: Nausea, Abdominal Pain Neurological: Denies: Weakness, Numbness Psych: Reports: Mood Normal Physical Examination Vital Signs Wt 164 lbs BMI 26 T 97.9 P 93 RR 18 BP 132/80 O2 99% Pain 0 Fatigue 0 General Exam: Positive: Alert, Cooperative, No Acute Distress Eye Exam: Positive: PERRLA, EOMI ENT EXAM: Positive: Atraumatic Neck Exam: Positive: Supple Chest Exam: Positive: Clear to auscultation, Normal air movement; Negative: Rales, Rhonchi, Wheezing, Diminished Heart Exam: Positive: Rate Normal, Regular Rhythm Abdomen Exam: Positive: Soft Skin Exam: Positive: Nl turgor and temperature Neuro Exam: Positive: Normal Gait, Normal Speech, Cranial Nerves 3-12 NL Psych Exam: Positive: Mental status NL Diagnostic and Laboratory Diagnostic Review Radiologic images, relevant labs and pathology reports were personally reviewed and discussed with Ms. Awan. Assessment and Plan Impression Assessment Ms. 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 She underwent SBRT to these lesions 60 Gy in 5 fractions completed 02/28/21. She is seen today for routine surveillance and survivorship care. She also recently has developed radiographic signs and symptoms concerning for radiation pneumonitis. On my interpretation of the recent CT, I see interstitial lung changes consistent with inflammation and radiation pneumonitis in this context. The changes are confined to the radiation portals, the clinical symptoms of antecedent fever, dry cough and subjective SOB with preserved O2 sats are typical of the diagnosis. She is also in the usual window for RT pneumonitis to manifest (6 wk to 6 months post tx). We discussed a steroid taper to treat this 60 mg - 40 mg -20 mg -10 mg decreasing dose q5d. In my experience this leads to resolution of symptoms most of the time with some patients requiring either a longer taper or adjuvant such as increased intensity of inhaled therapies +/- trental/vitamin E (which has some positive data behind it). She is already on omeprazole for GI ppx in light of her Arce's esophagus. If she has GERD symptoms with the addition of prednisone, then tums or other OTC antacids can be added. She is seeing Dr. Rehman in the next few days, and I have emailed him with my thoughts on her present situation and recent scan. With respect to the oncologic outcome, the RUL lesion to my eye has responded favorably, the RLL lesion is obscured by the interstitial changes but there is no increased nodularity of evidence of growth. The next surveillance scan will be demonstrative. I have ordered one in 3 months time. Torri also asked about the COVID vaccine, I encouraged her to get this as her pulmonary status would make her higher risk for complications. She is awaiting the J&J vaccine which is reasonable as it is highly efficacious. Performance Status ECOG 1 Plan Steroid taper as above, she will call at the end if symptoms fail to improve CT chest with contrast in 3 months time Ms. Awan was encouraged to call with questions or concerns in the interim period. Billing Statement Total time of [35] minutes was spent preparing for the visit [2], obtaining HPI [5], examining the patient [3], reviewing diagnostic tests [5], discussing management options [7], coordinating care [4], and writing this note [9]. TJ NG MD Jul 02, 2020 11:43
== END ==
LOC: M ONCR 09:48
PROVIDERS: ATTEND General Practice
DX: C34.31 Malignant neoplasm of lower lobe, right bronchus or lung (principal); C34.11 Malignant neoplasm of upper lobe, right bronchus or lung

== ENCOUNTER 2020-08-07 10:35 | Inpatient (IN) | payer MEDICARE ==
[~2020-08-07] VITALS: Ht 167.6 cm; Wt 77.2 kg
--- NOTE | 2020-08-07 11:43 | REP ---
INDICATION: CHEST PAIN. COMPARISON: Multiple the latest 12/24/2019 TECHNIQUE: Portable FINDINGS: The technique utilized in obtaining the radiograph has magnified the cardiac silhouette and accentuated the interstitial markings. The cardiomediastinal silhouette is unchanged. There is a new patchy opacity in the left upper lobe. There is a new subtle patchy opacity in the right upper lobe. The pleural angles are again seen to be sharp. There is no change in the osseous structures. IMPRESSION: Abnormal upper lobe opacities as described above consistent with pneumonia. Follow-up to resolution is recommended. <Electronically signed by Jose Antonio Navarro > 08/07/20 [id number]
[2020-08-07] MEDS ORDERED: NS 500 ML IV ONE (12:15)
[2020-08-07] MEDS ORDERED: ACETAMINOPHEN 325 MG TAB PO ONE (12:15)
[2020-08-07 12:20] LABS: HEMATOCRIT 26.4 % (36.0-47.0); HEMOGLOBIN 9.1 g/dl (12.0-15.5); MEAN CORPUSCULAR HEMOGLOBIN 30.7 pg (27.0-33.0); MEAN CORPUSCULAR HGB CONC 34.5 g/dl (32.0-36.5); MEAN CORPUSCULAR VOLUME 89.2 fl (80.0-96.0); PLATELET COUNT, AUTOMATED 381 10^3/uL (150-450); RED BLOOD COUNT 2.96 10^6/uL (4.00-5.40); WHITE BLOOD COUNT 26.7 10^3/uL (4.0-10.0)
[2020-08-07 12:41] LABS: ANISOCYTOSIS 1+; HYPOCHROMASIA 1+; LYMPHOCYTES 4 % (16-44); MONOCYTES 3 % (0-5); MYELOCYTES 1 % (0-0); NEUTROPHILS 73 % (28-66); PLATELET CLUMPS SMALL AMT; PLATELET ESTIMATE NORMAL (NORMAL)
[2020-08-07 12:43] LABS: CALCIUM LEVEL 8.5 MG/DL (8.8-10.2); CREATININE FOR GFR 1.85 MG/DL (0.55-1.30); GLOMERULAR FILTRATION RATE 28.8 (>45); POTASSIUM SERUM 3.7 MEQ/L (3.5-5.1)
[2020-08-07] MEDS ORDERED: VANCOMYCIN HCL 1,500 MG in NS 250 ML IV ONE (14:50)
[2020-08-07] MEDS ORDERED: VANCOMYCIN HCL 750 MG, VIAL MATE ADAPTER 1 EACH in NS 250 ML IV ONE ×6 (14:55)
[2020-08-07 16:09] LABS: ALBUMIN 2.6 GM/DL (3.2-5.2); BILIRUBIN,DIRECT 0.2 MG/DL (0.0-0.2); BILIRUBIN,TOTAL 0.5 MG/DL (0.2-1.0); TOTAL PROTEIN 6.2 GM/DL (6.4-8.2)
[2020-08-07] MEDS ORDERED: PIPERACILLIN/TAZOBACTAM SOD 4.5 GM in D5W MINI-BAG PLUS 100 ML IV SCH (16:25)
[2020-08-07] MEDS ORDERED: NS 1,000 ML IV SCH (16:45)
--- NOTE | 2020-08-07 17:04 | REP ---
INDICATION: bilateral pneumonia. COMPARISON: Multiple the latest 06/25/2020 TECHNIQUE: Noncontrast enhanced standard helical technique FINDINGS: The mediastinum and pulmonary mirza are essentially unchanged, however, mild adenopathy cannot be ruled out since intravenous contrast was withheld. There is a subtle pericardial effusion/chronic pericardial thickening. There are no pleural effusions. There is no significant change in appearance of the imaged upper abdomen or imaged osseous structures. Evaluation of the lung reyes shows advanced abnormal patchy bilateral airspace opacities left much greater than right and with air bronchograms all of which has worsened from the prior exam. IMPRESSION: Worsened bilateral lung disease as described above. The finding is consistent with worsening pneumonitis with or without advancing neoplasm. The exam needs to be correlated clinically with close follow-up. The left lung is significantly compromised compared to the prior exam. <Electronically signed by Jose Antonio Navarro > 08/07/20 [id number]
[2020-08-07] MEDS ORDERED: PRED20TA PO (17:05)
--- NOTE | 2020-08-07 17:25 | HPEPDOC ---
General Date of Admission 08/07/20 Date of Service: Aug 07, 2020 Chief Complaint The patient is a 69-year-old female admitted with a reason for visit of SOB. Source: Patient Exam Limitations: No limitations Timing/Duration: Day(s) Severity: Severe History of Present Illness Patient is 69 years old female with past medical history of radiation pneumonitis, left upper lobe lung adenocarcinoma status post resection, Grewal's esophagus, hyperlipidemia presented to the hospital with increased shortness of breath. Patient stated that after radiation treatment in February 2020 she developed pneumonitis treated with a long course of prednisone taper. However for past 2 weeks she has been having increased shortness of breath associated with fever up to 102.7 with chills. Also patient reported diarrhea for 3 days, subsided yesterday after antidiarrheal pill that she bought in the pharmacy. Patient stated that she had been having some mild cough and chest congestion. In ER patient was found to have white blood count of 26.7, hemoglobin 9.1, sodium of 126, creatinine 1.85. Chest x-ray showed Abnormal up per lobe opacities as described above consistent with pneumonia Home Medications Scheduled Atorvastatin Calcium (Atorvastatin Calcium) 40 Mg Tab, 40 MG PO QHS, (Reported) Ergocalciferol (Vitamin D2) (Vitamin D2) 50,000 Units Cap, 50,000 UNIT PO QWEEK, (Reported) SUNDAYS Losartan Potassium (Losartan Potassium) 50 Mg Tab, 50 MG PO DAILY, (Reported) Omeprazole Magnesium (Prilosec Otc) 20 Mg Tablet.dr, 20 MG PO BID, (Reported) Prednisone (Prednisone) 20 Mg Tablet, 20 MG PO DAILY, (Reported) Trazodone HCl (Trazodone HCl) 50 Mg Tab, 100 MG PO QHS, (Reported) Scheduled PRN Albuterol Sulfate (Albuterol Sulfate Hfa) 8.5 Gm Hfa.aer.ad, 2 PUFFS INH QID PRN for SHORTNESS OF BREATH, (Reported) Alprazolam (Alprazolam) 0.25 Mg Tablet, 0.25 MG PO BID PRN for ANXIETY, (Reported) Propylene Glycol/Peg 400 (Systane 0.3-0.4% Eye Drops) 15 Ml Ana, 1 DROP OU DAILY PRN for DRY EYES, (Reported) Allergies Coded Allergies: cephalexin (Verified Allergy, Intermediate, hives, 12/21/19) codeine (Verified Allergy, Intermediate, migraines, 12/21/19) gabapentin (Verified Allergy, Intermediate, syncope-in system historically, 12/21/19) morphine (Verified Allergy, Intermediate, nausea, 12/21/19) propoxyphene (Verified Allergy, Intermediate, migraines, 12/21/19) Past Medical History Medical History HYPERTENSION LEFT UPPER LOBE LUNG ADENOCARCINOMA S/P RESECTION - DR. GRADY, DR. PLUMMER ALLERGIC RHINITIS TOBACCO USE VITAMIN D DEFICIENCY ANXIETY GREWAL ESOPHAGUS; EGD 08/27/16 COLONOSCOPY 08/27/16DR. BANERJEE. POLYPS INCLUDING TUBULAR ADENOMA AND HYPERPLASTIC. 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 LOMAS AORTA CALCIFICATION - DR. LOMAS RADIATION PNEUMONITIS - DR. NG MACULAR DEGENERATION Surgical History TONSILLECTOMY CHILD HYSTERECTOMY FOR FIBROIDS AND MENORRHAGIA 1977 BX OF LUNG ON THE LEFT - DR. GRADY 2017 UPPER LEFT LUNG LOBECTOMY - DR. GRADY 03/29/2018 EGD - GREWAL'S ESOPHAGUS 08/2016 COLONOSCOPY - TA, HYPERPLASTIC POLYPS; DIVERTICULOSIS; IH; DR BANERJEE; REPEAT IN 3 YEARS 08/2016 UPPER ENDOSCOPY - REACTIVE GASTROPATHY, INTESTINAL METAPLASIA WITHOUT DYSPLASIA - DR. KERR 04/2020 COLONOSCOPY - HYERPERPLASTIC POLYPS - DR. KERR 04/2020 Family History FATHER: 61 YRS, LUNG CANCER, DIAGNOSED WITH OTHER MALIGNANT NEOPLASM OF UNSPECIFIED SITE MOTHER: 61 YRS, MELANOMA, OTHER MALIGNANT NEOPLASM OF UNSPECIFIED SITE SIBLINGS: 57 YRS, MULTIPLE MYELOMA 1 BROTHER(S) , 1 SISTER(S) - HEALTHY. 1 SON(S) , 1 DAUGHTER(S) - HEALTHY. DENIES FAMILY HX OF PANCREATIC CANCER. MOTHER OF MELANOMA. Social History * Smoker: former Smoker Alcohol: Denies Drugs: denies A-FIB/CHADSVASC A-FIB History Current/History of A-Fib/PAF?: No Current PO Anticoag Therapy: No Review of Systems Constitutional: Reports: Chills, Fever, Malaise Eyes: Denies: Pain, Vision change ENT: Denies: Head Aches Skin: Denies: Rash, Lesions Pulmonary: Reports: Dyspnea, Cough Cardiovascular: Denies: Chest Pain, Palpitations Gastrointestinal: Denies: Nausea, Vomiting Genitourinary: Denies: Dysuria, Frequency Hematologic: Denies: Bruising Endocrine: Denies: Polydipsia, Polyphagia Musculoskeletal: Denies: Neck Pain, Back Pain Neurological: Denies: Weakness Psych: Reports: Mood Normal Physical Examination General Exam: Positive: Alert Eye Exam: Positive: PERRLA ENT Exam: Positive: Atraumatic Neck Exam: Positive: Supple; Negative: JVD Chest Exam: Positive: Rales, Rhonchi, Diminished Heart Exam: Positive: Tachycardic Telemetry: Positive: Sinus Abdomen Exam: Positive: Normal bowel sounds Extremity Exam: Positive: Clubbing; Negative: Cyanosis Skin Exam: Positive: Nl turgor and temperature Neuro Exam: Positive: Strength at 5/5 X4 ext, Cranial Nerves 3-12 NL Psych Exam: Positive: Mental status NL Vital Signs Vital Signs Date Time Temp Pulse Resp B/P (MAP) Pulse Ox O2 Delivery O2 Flow Rate FiO2 08/07/20 16:15 84 123/58 (79) 95 08/07/20 14:42 98.8 08/07/20 12:45 Room Air 08/07/20 12:45 18 08/07/20 12:00 1.5 Laboratory Data Labs 24H Laboratory Tests 2 08/07/20 12:00: Neutrophils (%) (Auto) , Nucleated Red Blood Cells % (auto) 0.0, Neutrophils 73H, Band Neutrophils 19H, Lymphocytes (Manual) 4L, Monocytes (Manual) 3, Myelocytes 1H, Hypochromasia 1+, Anisocytosis 1+, Platelet Estimate NORMAL, Clumped Platelets SMALL AMT, POC Troponin I (Misc) 0.07, Anion Gap 12, Glomerular Filtration Rate 28.8L, Calcium Level 8.5L, Total Bilirubin 0.5, Direct Bilirubin 0.2, Aspartate Amino Transf (AST/SGOT) 24, Alanine Aminotransferase (ALT/SGPT) 20, Alkaline Phosphatase 99, Total Protein 6.2L, Albumin 2.6L, Albumin/Globulin Ratio 0.7L 08/07/20 15:47: CBC/BMP Laboratory Tests 08/07/20 12:00 Microbiology Microbiology 08/07/20 Blood Culture, Received Pending 08/07/20 Blood Culture, Received Pending 08/07/20 Respiratory Virus Panel (PCR) (LUCIO) - Final, Complete Assessment/Plan Patient is 69 years old female with past medical history of radiation pneumoniti s, left upper lobe lung adenocarcinoma status post resection, Grewal's esophagus, hyperlipidemia presented to the hospital with increased shortness of breath. Patient stated that after radiation treatment in February 2020 she developed pneumonitis treated with a long course of prednisone taper. However for past 2 weeks she has been having increased shortness of breath associated with fever up to 102.7 with chills. Also patient reported diarrhea for 3 days, subsided yesterday after antidiarrheal pill that she bought in the pharmacy. Patient stated that she had been having some mild cough and chest congestion. In ER patient was found to have white blood count of 26.7, hemoglobin 9.1, sodium o f 126, creatinine 1.85. Chest x-ray showed Abnormal upper lobe opacities as described above consistent with pneumonia Problems (1) Sepsis Status: Acute Problem Text: Patient has tachypnea, tachycardia and leukocytosis on admission Most likely secondary to pneumonia Patient immunocompromised due to radiation therapy, lung malignancy and steroids Vancomycin IV, Zosyn IV MRSA screen IV fluid Await blood culture, sputum culture CT chest (2) Pneumonia Status: Acute Problem Text: Community acquired pneumonia Incentive spirometry Inhalers Prednisone 40 mg (3) Lung cancer Status: Chronic Problem Text: Follow-up with oncologist in the outpatient settings (4) JONNATHAN (acute kidney injury) Status: Acute Problem Text: Secondary to dehydration due to sepsis IV fluid Continue to monitor (5) Hypertension Status: Chronic Problem Text: Continue home cardioprotective medication Blood pressures under control (6) Grewal esophagus Status: Chronic Problem Text: Continue PPi (7) Hyponatremia Status: Chronic Problem Text: There is concern for SIADH Will check urine osmolarity, blood osmolality, urine lites Continue BMP every 6 hours Plan / VTE VTE Prophylaxis Ordered?: Yes SHABNAM VIRK DO Aug 07, 2020 17:25
[2020-08-07] MEDS ORDERED: POTASSIUM CHLORIDE 10 MEQ SR TABLET PO ONE (17:40)
[2020-08-07 18:33] LABS: OSMOLALITY SERUM 265 MOSM/KG (280-301)
[2020-08-07 18:39] VITALS: BP 126/63
[2020-08-07 18:43] LABS: NT-PRO BNP 2130 PG/ML (<125)
[2020-08-07] MEDS: PIPERACILLIN/TAZOBACTAM SOD 3.375 GM in D5W MINI-BAG PLUS 50 ML IV SCH ×2 (19:04→23:23)
[2020-08-07] MEDS: predniSONE 20 MG TAB PO SCH (19:04)
[2020-08-07] MEDS: IPRATROPIUM 0.5MG/ALBUTEROL 2.5MG INH SOL UD 3ML (DUONEB) NEB SCH (19:10)
[2020-08-07] MEDS: traZODone 50 MG TAB PO SCH (20:58)
[2020-08-07] MEDS: OMEPRAZOLE 20 MG CAP PO SCH (20:58)
[2020-08-07] MEDS: HEPARIN SOD (PORCINE) 5000UNITS/ML 1ML VIAL/SYRINGE SC SCH (20:58)
[2020-08-07] MEDS: ATORVASTATIN 20 MG TAB PO SCH (20:58)
[2020-08-07 22:00] VITALS: BP 112/59
[2020-08-08 00:38] LABS: CALCIUM LEVEL 8.9 MG/DL (8.8-10.2); CREATININE FOR GFR 1.58 MG/DL (0.55-1.30); GLOMERULAR FILTRATION RATE 34.5 (>45); POTASSIUM SERUM 3.4 MEQ/L (3.5-5.1)
[2020-08-08] MEDS: ALPRAZolam 0.25 MG TAB PO PRN ×2 (00:55→18:21)
[2020-08-08] MEDS: IPRATROPIUM 0.5MG/ALBUTEROL 2.5MG INH SOL UD 3ML (DUONEB) NEB SCH ×4 (01:07→19:30)
[2020-08-08 02:19] LABS: CALCIUM LEVEL 8.2 MG/DL (8.8-10.2); CREATININE FOR GFR 1.3 MG/DL (0.55-1.30); GLOMERULAR FILTRATION RATE 43.2 (>45); POTASSIUM SERUM 3.5 MEQ/L (3.5-5.1)
[2020-08-08] MEDS: PIPERACILLIN/TAZOBACTAM SOD 3.375 GM in D5W MINI-BAG PLUS 50 ML IV SCH ×2 (05:22→12:52)
[2020-08-08 06:00] VITALS: BP 130/65
[2020-08-08 07:21] LABS: HEMATOCRIT 23.7 % (36.0-47.0); HEMOGLOBIN 7.9 g/dl (12.0-15.5); MEAN CORPUSCULAR HGB CONC 33.3 g/dl (32.0-36.5); MEAN CORPUSCULAR VOLUME 92.9 fl (80.0-96.0); PLATELET COUNT, AUTOMATED 391 10^3/uL (150-450); RED BLOOD COUNT 2.55 10^6/uL (4.00-5.40); WHITE BLOOD COUNT 25.3 10^3/uL (4.0-10.0)
[2020-08-08 07:40] LABS: BILIRUBIN,TOTAL 0.4 MG/DL (0.2-1.0); CALCIUM LEVEL 8.1 MG/DL (8.8-10.2); CREATININE FOR GFR 1.11 MG/DL (0.55-1.30); GLOMERULAR FILTRATION RATE 51.9 (>45); MAGNESIUM LEVEL 2.2 MG/DL (1.8-2.4); POTASSIUM SERUM 3.7 MEQ/L (3.5-5.1); TOTAL PROTEIN 5.4 GM/DL (6.4-8.2)
[2020-08-08] MEDS ORDERED: ISOVUE-370 76% 100ML VIAL As Ordered ONE (08:14)
--- NOTE | 2020-08-08 08:51 | REP ---
INDICATION: pulmonary emboli. Patient has a history of lung carcinoma. Status post left thoracotomy partial pneumonectomy and post radiation therapy for right upper lobe lesion. COMPARISON: Comparison is made with prior CT studies the most recent which is from August 07, 2020 done without contrast. Also reviewed are CT studies from November 29, 2019, June 25, 2020, and February 06, 2020.. TECHNIQUE: Contrast dose: 75 ML of Isovue [address] technique: Helical scanning is acquired and overlapping 1.5 mm and contiguous 3 mm axial images are reformatted. In addition, maximum intensity projection and multiplanar re-formation images are generated in sagittal and coronal imaging projections. FINDINGS: There is good opacification in the pulmonary arterial tree. There is no evidence of vessel cut off or filling defect to suggest pulmonary embolus. Homogeneous opacity is seen in the thoracic aorta. There is no evidence of aneurysm or dissection. There is a small quantity of pericardial fluid. There are calcified and rk residuals in the pretracheal region. There is a stable pretracheal lymph node at the level of the great vessels which is unchanged from December 13, 2019. A subcarinal lymph node is enlarged relative to the prior study. this measures 2.0 x 1.6 cm. No other evidence of adenopathy is seen. There is evidence of a small sliding hiatal hernia. Lung window settings demonstrate extensive areas of pulmonary parenchymal consolidation bilaterally. There is a large infiltrate in the left upper lobe with air bronchograms and at cystic airspaces consistent with a necrotizing pneumonia in the remaining left lower lobe. The patient appears to be status post left upper lobectomy. This is unchanged from yesterday's CT imaging. It is a new finding from June 25, 2020 and is consistent with inflammatory or infectious pneumonia. In addition, there is a fairly large area of pleuroparenchymal opacification in the right upper lobe with some opacification and air bronchograms in the right lower lobe. These findings are unchanged from the June 25, 2020 study. There may be some element of post radiation fibrosis on the right.. In the upper abdomen, no adrenal abnormality is observed. Visualized upper abdominal structures are otherwise unremarkable. There is a small accessory splenule. IMPRESSION: No CT evidence of pulmonary embolus. Acute pneumonitis pattern remaining left lung status post left upper lobectomy. Pleuroparenchymal opacification changes in the right upper lobe and right lower lobe unchanged from June 26, 2019 1 May reflect post radiation pneumonitis. The left-sided infiltrate is new compared to the June 2020 study. There is a somewhat prominent subcarinal lymph node. <Electronically signed by Arsh Murphy > 08/08/20 [id number]
[2020-08-08 09:06] LABS: PERCENT SATURATION 10.9 % (13.2-45.0)
[2020-08-08] MEDS: OMEPRAZOLE 20 MG CAP PO SCH ×2 (09:28→20:09)
[2020-08-08] MEDS: ACETAMINOPHEN TAB 650MG DOSE (2X325MG) PO PRN ×2 (09:28→20:07)
[2020-08-08] MEDS: predniSONE 20 MG TAB PO SCH (09:28)
[2020-08-08] MEDS: HEPARIN SOD (PORCINE) 5000UNITS/ML 1ML VIAL/SYRINGE SC SCH ×2 (09:28→20:07)
[2020-08-08 10:09] LABS: CALCIUM LEVEL 8.1 MG/DL (8.8-10.2); CREATININE FOR GFR 1.07 MG/DL (0.55-1.30); GLOMERULAR FILTRATION RATE 54.1 (>45); POTASSIUM SERUM 3.6 MEQ/L (3.5-5.1)
[2020-08-08 10:25] LABS: FOLATE 9.6 NG/ML
[2020-08-08 10:43] LABS: OSMOLALITY URINE 493 MOSM/KG (50-1400)
[2020-08-08 10:57] LABS: SODIUM,RANDOM URINE 23 MEQ/L
[2020-08-08] MEDS ORDERED: FUROSEMIDE 40MG/4ML VIAL (J1940) IV ONE (12:50)
--- NOTE | 2020-08-08 12:56 | IPNPDOC ---
Text Note Date of Service The patient was seen on 08/08/20. NOTE Subjective: No any acute events overnight. 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 Patient stated that after radiation treatment in February 2020 she developed pneumonitis treated with a long course of prednisone taper. However for past 2 weeks she has been having increased shortness of breath associated with fever up to 102.7 with chills. Also patient reported diarrhea for 3 days, subsided yesterday after antidiarrheal pill that she bought in the pharmacy. Patient stated that she had been having some mild cough and chest congestion. In ER patient was found to have white blood count of 26.7, hemoglobin 9.1, sodium of 126, creatinine 1.85. Chest x-ray showed Abnormal upper lobe opacities as described above consistent with pneumonia Problems (1) Sepsis Patient has tachypnea, tachycardia and leukocytosis on admission Most likely secondary to pneumonia Patient immunocompromised due to radiation therapy, lung malignancy and steroids MRSA screen negative DC Vancomycin IV, Zosyn IV day 2 IV fluid Await blood culture, sputum culture (2) Pneumonia Community acquired pneumonia CTA showed No CT evidence of pulmonary embolus. Acute pneumonitis pattern remaining left lung status post left upper lobectomy. Pleuroparenchymal opacification changes in the right upper lobe and right lower lobe unchanged from June 26, 2019 1 May reflect post radiation pneumonitis. The left-sided infiltrate is new compared to the June 2020 study. There is a somewhat prominent subcarinal lymph node. 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 DC IV fluid Normocytic anemia Most likely anemia of chronic diseases secondary to malignancy B12, folate within normal limit Stool for occult blood negative Iron 14 iron supplementation H&H every 6 hours Dyspnea Multifactorial secondary to pneumonia and fluid overload due to IV fluid resuscitation due to sepsis BNP 2130 Lasix IV VS,Fishbone, I+O VS, Fishbone, I+O Laboratory Tests 08/07/20 19:58 08/08/20 01:48 08/08/20 06:19 08/08/20 08:36 Vital Signs Date Time Temp Pulse Resp B/P (MAP) Pulse Ox O2 Delivery O2 Flow Rate FiO2 08/08/20 08:16 1.0 08/08/20 06:00 96.7 83 18 130/65 (86) 97 Nasal Cannula I&O- Last 24 Hours up to 6 AM 08/08/20 06:00 Intake Total 1700 ml Output Total 900 ml Balance 800 ml SHABNAM VIRK DO Aug 08, 2020 12:55
[2020-08-08 14:00] VITALS: BP 134/74
[2020-08-08 14:34] LABS: CALCIUM LEVEL 8.1 MG/DL (8.8-10.2); CREATININE FOR GFR 1.03 MG/DL (0.55-1.30); GLOMERULAR FILTRATION RATE 56.6 (>45); POTASSIUM SERUM 3.5 MEQ/L (3.5-5.1)
[2020-08-08] MEDS ORDERED: VANCOMYCIN HCL 1,000 MG, VIAL MATE ADAPTER 1 EACH in NS 250 ML IV SCH (16:00)
[2020-08-08] MEDS: PIPERACILLIN/TAZOBACTAM SOD 4.5 GM in D5W MINI-BAG PLUS 50 ML IV SCH (18:07)
[2020-08-08 19:11] LABS: HEMATOCRIT 25.3 % (36.0-47.0); HEMOGLOBIN 8.5 g/dl (12.0-15.5)
[2020-08-08 19:30] LABS: CALCIUM LEVEL 8.2 MG/DL (8.8-10.2); CREATININE FOR GFR 1.27 MG/DL (0.55-1.30); GLOMERULAR FILTRATION RATE 44.4 (>45); POTASSIUM SERUM 3.5 MEQ/L (3.5-5.1)
[2020-08-08] MEDS: IRON POLYSAC (NIFEREX) 150 MG CAP PO SCH (20:07)
[2020-08-08] MEDS: ATORVASTATIN 20 MG TAB PO SCH (20:08)
[2020-08-08] MEDS: traZODone 50 MG TAB PO SCH (20:09)
[2020-08-08 22:00] VITALS: BP 135/71
[2020-08-09] MEDS: PIPERACILLIN/TAZOBACTAM SOD 4.5 GM in D5W MINI-BAG PLUS 50 ML IV SCH ×4 (00:12→18:02)
[2020-08-09] MEDS: IPRATROPIUM 0.5MG/ALBUTEROL 2.5MG INH SOL UD 3ML (DUONEB) NEB SCH ×4 (01:04→19:50)
[2020-08-09 01:13] LABS: HEMATOCRIT 24.2 % (36.0-47.0); HEMOGLOBIN 8.1 g/dl (12.0-15.5)
[2020-08-09] MEDS ORDERED: ALPRAZolam 0.25 MG TAB PO ONE (02:15)
[2020-08-09 02:55] LABS: CALCIUM LEVEL 7.9 MG/DL (8.8-10.2); CREATININE FOR GFR 1.14 MG/DL (0.55-1.30); GLOMERULAR FILTRATION RATE 50.3 (>45); POTASSIUM SERUM 3.3 MEQ/L (3.5-5.1)
[2020-08-09 06:00] VITALS: BP 168/83
[2020-08-09 06:46] VITALS: BP 153/83
[2020-08-09 07:27] LABS: HEMATOCRIT 23.9 % (36.0-47.0); HEMOGLOBIN 8.1 g/dl (12.0-15.5)
[2020-08-09] MEDS ORDERED: FUROSEMIDE 40MG/4ML VIAL (J1940) IV SCH (09:00)
[2020-08-09] MEDS: HEPARIN SOD (PORCINE) 5000UNITS/ML 1ML VIAL/SYRINGE SC SCH ×2 (09:20→20:15)
[2020-08-09] MEDS: IRON POLYSAC (NIFEREX) 150 MG CAP PO SCH ×2 (09:20→20:14)
[2020-08-09] MEDS: predniSONE 10 MG TAB PO SCH (09:20)
[2020-08-09] MEDS: OMEPRAZOLE 20 MG CAP PO SCH ×2 (09:20→20:14)
[2020-08-09] MEDS: ACETAMINOPHEN TAB 650MG DOSE (2X325MG) PO PRN ×2 (09:21→18:03)
--- NOTE | 2020-08-09 09:25 | ECGEPIP ---
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
[2020-08-09] MEDS ORDERED: POTASSIUM CHLORIDE 10 MEQ SR TABLET PO ONE (12:30)
[2020-08-09] MEDS: METAMUCIL (PSYLLIUM) PACKET PO SCH (12:35)
[2020-08-09 14:00] VITALS: BP 129/69
--- NOTE | 2020-08-09 18:24 | IPNPDOC ---
Subjective Date Seen The patient was seen on 08/09/20. Subjective Chief Complaint/HPI Feels better, No SOB when at rest but still gtting very winded on minimal ambulation. Objective Physical Examination General Exam: Positive: Alert, Cooperative, No Acute Distress Eye Exam: Positive: PERRLA, Conjunctiva & lids normal ENT Exam: Positive: Atraumatic, Mucous membr. moist/pink, Pharynx Normal Neck Exam: Positive: Supple; Negative: JVD Chest Exam: Positive: Rales (crackles on the left) Heart Exam: Positive: Rate Normal, Regular Rhythm, Normal S1, Normal S2; Negative: Murmurs, Rubs Telemetry: Positive: Sinus Abdomen Exam: Positive: Normal bowel sounds, Soft; Negative: Tenderness Extremity Exam: Negative: Clubbing, Cyanosis, Edema Skin Exam: Positive: Nl turgor and temperature Neuro Exam: Positive: Strength at 5/5 X4 ext, Cranial Nerves 3-12 NL Psych Exam: Positive: Mental status NL Assessment /Plan Assessment Patient is 69 years old female with past medical history of radiation pneumonitis, 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 Patient stated that after radiation treatment in February 2020 she developed pneumonitis treated with a long course of prednisone taper. However for past 2 weeks she has been having increased shortness of breath associated with fever up to 102.7 with chills. Also patient reported diarrhea for 3 days, subsided after antidiarrheal pill that she bought in the pharmacy. Patient stated that she had been having some mild cough and chest congestion. In ER patient was found to have white blood count of 26.7, hemoglobin 9.1, sodium of 126, creatinine 1.85. Chest x-ray showed Abnormal left upper lobe opacities consistent with pneumonia. She was admitted for sepsis and pneumonia. Sepsis due to pneumonia on the left. Patient immunocompromised due to radiation therapy, lung malignancy and steroids MRSA screen negative on zosyn blood culture negative till date. Pneumonia Community acquired pneumonia CTA showed No CT evidence of pulmonary embolus. Acute pneumonitis pattern remaining left lung status post left upper lobectomy. Pleuroparenchymal opacification changes in the right upper lobe and right lower lobe unchanged from June 26, 2019 1 August reflect post radiation pneumonitis. The left-sided infiltrate is new compared to the June 2020 study. There is a somewhat prominent subcarinal lymph node. CT chest reviewed with Dr Velez it is likely pneumonia on the left Incentive spirometry, acapella Inhalers zosyn Adenocarcinoma of left lung s/p SYED lobectomy in 2018 recurrence in the right upper lobe in 2019 s/p RT Follow-up with oncologist in the outpatient settings JONNATHAN (acute kidney injury) Resolved Secondary to dehydration due to sepsis Hypertension Continue home cardioprotective medication Blood pressures under control Lees esophagus Continue PPI Hyponatremia/SIADH Most likely secondary to malignancy now better Normocytic anemia Most likely anemia of chronic diseases secondary to malignancy B12, folate within normal limit Stool for occult blood negative Iron 14 iron supplementation Plan/VTE VTE Prophylaxis Ordered?: Yes VS, I&O, 24H, Fishbone Vital Signs/I&O Vital Signs Date Time Temp Pulse Resp B/P (MAP) Pulse Ox O2 Delivery O2 Flow Rate FiO2 08/09/20 14:00 97.3 78 17 129/69 (89) 92 Room Air 08/08/20 22:00 I&O- Last 24 Hours up to 6 AM 08/09/20 05:59 Intake Total 3230 ml Output Total 1420 ml Balance 1810 ml Laboratory Data 24H LABS Laboratory Tests 2 08/08/20 18:58: Anion Gap 10, Glomerular Filtration Rate 44.4L, Calcium Level 8.2L 08/09/20 02:07: Anion Gap 10, Glomerular Filtration Rate 50.3, Calcium Level 7.9L, Ferritin 997H CBC/BMP Laboratory Tests 08/08/20 18:58 08/09/20 01:09 08/09/20 02:07 08/09/20 06:54 Microbiology Microbiology 08/09/20 Gram Stain - Final, Resulted 08/09/20 Sputum Culture, Resulted Pending 08/08/20 Stool Occult Blood (LUCIO) - Final, Complete 08/07/20 Blood Culture - Preliminary, Resulted No Growth after 48 hours. All Specime... 08/07/20 Blood Culture - Preliminary, Resulted No Growth after 48 hours. All Specime... 08/07/20 Respiratory Virus Panel (PCR) (LUCIO) - Final, Complete JAYCOB SURESH MD Aug 09, 2020 18:24
[2020-08-09 19:38] LABS: HEMATOCRIT 26.2 % (36.0-47.0); HEMOGLOBIN 8.6 g/dl (12.0-15.5)
[2020-08-09] MEDS: ALPRAZolam 0.25 MG TAB PO PRN (20:14)
[2020-08-09] MEDS: ATORVASTATIN 20 MG TAB PO SCH (20:14)
[2020-08-09] MEDS: traZODone 50 MG TAB PO SCH (20:15)
[2020-08-09 22:00] VITALS: BP 132/69
[2020-08-10] MEDS: PIPERACILLIN/TAZOBACTAM SOD 4.5 GM in D5W MINI-BAG PLUS 50 ML IV SCH ×4 (00:30→18:51)
[2020-08-10] MEDS: IPRATROPIUM 0.5MG/ALBUTEROL 2.5MG INH SOL UD 3ML (DUONEB) NEB SCH ×4 (02:58→20:44)
[2020-08-10] MEDS: ALPRAZolam 0.25 MG TAB PO PRN ×2 (03:35→21:18)
[2020-08-10] MEDS: ACETAMINOPHEN TAB 650MG DOSE (2X325MG) PO PRN ×3 (03:35→15:49)
[2020-08-10 06:00] VITALS: BP 137/72
[2020-08-10 08:33] LABS: HEMATOCRIT 25.9 % (36.0-47.0); HEMOGLOBIN 8.7 g/dl (12.0-15.5); MEAN CORPUSCULAR HEMOGLOBIN 30.3 pg (27.0-33.0); MEAN CORPUSCULAR HGB CONC 33.6 g/dl (32.0-36.5); MEAN CORPUSCULAR VOLUME 90.2 fl (80.0-96.0); PLATELET COUNT, AUTOMATED 511 10^3/uL (150-450); RED BLOOD COUNT 2.87 10^6/uL (4.00-5.40); WHITE BLOOD COUNT 20.2 10^3/uL (4.0-10.0)
[2020-08-10] MEDS: METAMUCIL (PSYLLIUM) PACKET PO SCH (08:43)
[2020-08-10] MEDS: OMEPRAZOLE 20 MG CAP PO SCH ×2 (08:43→20:44)
[2020-08-10] MEDS: IRON POLYSAC (NIFEREX) 150 MG CAP PO SCH (08:43)
[2020-08-10] MEDS: predniSONE 10 MG TAB PO SCH (08:43)
[2020-08-10] MEDS: HEPARIN SOD (PORCINE) 5000UNITS/ML 1ML VIAL/SYRINGE SC SCH ×2 (08:43→20:44)
[2020-08-10 08:54] LABS: CALCIUM LEVEL 8.6 MG/DL (8.8-10.2); CREATININE FOR GFR 1.05 MG/DL (0.55-1.30); GLOMERULAR FILTRATION RATE 55.3 (>45); POTASSIUM SERUM 3.5 MEQ/L (3.5-5.1)
[2020-08-10] MEDS ORDERED: VITAMIN D 50,000 UNITS CAPSULE (ERGOCALCIFEROL 1.25MG) PO SCH (09:00)
[2020-08-10 10:13] LABS: ATYPICAL LYMPH 1 % (0-5); EOSINOPHILS 1 % (0-3); LYMPHOCYTES 9 % (16-44); METAMYELOCYTES 3 % (0-0); MONOCYTES 3 % (0-5); MYELOCYTES 2 % (0-0); NEUTROPHILS 77 % (28-66)
[2020-08-10 10:15] LABS: PLATELET ESTIMATE INCREASED (NORMAL)
--- NOTE | 2020-08-10 10:27 | IPNPDOC ---
Subjective Date Seen The patient was seen on 08/10/20. Subjective Chief Complaint/HPI Feels better but could not sleep at night. She says that the steroids keep her up. still becoming hypoxic when walking back from bathroom. Having good cough with expectoration. Objective Physical Examination General Exam: Positive: Alert, Cooperative, No Acute Distress Eye Exam: Positive: PERRLA, Conjunctiva & lids normal ENT Exam: Positive: Atraumatic, Mucous membr. moist/pink, Pharynx Normal Neck Exam: Positive: Supple; Negative: JVD Chest Exam: Positive: Rales (crackles on the left), Other (crackles at the left back both in upper and lower parts. 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 Patient stated that after radiation treatment in February 2020 she developed pneumonitis treated with a long course of prednisone taper. However for past 2 weeks she has been having increased shortness of breath associated with fever up to 102.7 with chills. Also patient reported diarrhea for 3 days, subsided after antidiarrheal pill that she bought in the pharmacy. Patient stated that she had been having some mild cough and chest congestion. In ER patient was found to have white blood count of 26.7, hemoglobin 9.1, sodium of 126, creatinine 1.85. Chest x-ray showed Abnormal left upper lobe opacities consistent with pneumonia. She was admitted for sepsis and pneumonia. Sepsis due to pneumonia on the left. Patient immunocompromised due to radiation therapy, lung malignancy and steroids MRSA screen negative on zosyn blood culture negative till date. Pneumonia Community acquired pneumonia CTA showed No CT evidence of pulmonary embolus. Acute pneumonitis pattern remaining left lung status post left upper lobectomy. Pleuroparenchymal opacification changes in the right upper lobe and right lower lobe unchanged from June 26, 2019 1 May reflect post radiation pneumonitis. The left-sided infiltrate is new compared to the June 2020 study. There is a somewhat promine nt subcarinal lymph node. CT chest reviewed with Dr Velez it is likely pneumonia on the left Incentive spirometry, acapella Inhalers zosyn Radiation Pneumonitis on the right upper lobe prednisone was increased to 40 mg then reduced to 3 mg now will continue. At home was getting prednisone 20 mg daily Adenocarcinoma of left lung s/p SYED lobectomy in 2017 recurrence in the right upper lobe in 2019 s/p RT Follow-up with oncologist in the outpatient settings JONNATHAN (acute kidney injury) Resolved Secondary to dehydration due to sepsis Hypertension Continue home cardioprotective medication Blood pressures under control Lees esophagus Continue PPI Hyponatremia/SIADH Most likely secondary to malignancy now better Normocytic anemia Most likely anemia of chronic diseases secondary to malignancy B12, folate within normal limit Stool for occult blood negative Iron 14 but ferritin 997 though TSAT is only 10%. no iron deficiency. Plan/VTE VTE Prophylaxis Ordered?: Yes VS, I&O, 24H, Radha Vital Signs/I&O Vital Signs Date Time Temp Pulse Resp B/P (MAP) Pulse Ox O2 Delivery O2 Flow Rate FiO2 08/10/20 06:00 98.2 90 19 137/72 (93) 93 Room Air 08/08/20 22:00 I&O- Last 24 Hours up to 6 AM 08/10/20 05:59 Intake Total 4360 ml Output Total 1250 ml Balance 3110 ml Laboratory Data 24H LABS Laboratory Tests 2 08/10/20 08:14: Immature Granulocyte % (Auto) , Neutrophils (%) (Auto) , Nucleated Red Blood Cells % (auto) 0.0, Anion Gap 9, Glomerular Filtration Rate 55.3, Calcium Level 8.6L CBC/BMP Laboratory Tests 08/09/20 19:17 08/10/20 08:14 Microbiology Microbiology 08/09/20 Gram Stain - Final, Resulted 08/09/20 Sputum Culture, Resulted Pending 08/08/20 Stool Occult Blood (LUCIO) - Final, Complete 08/07/20 Blood Culture - Preliminary, Resulted No Growth after 48 hours. All Specime... 08/07/20 Blood Culture - Preliminary, Resulted No Growth after 48 hours. All Specime... 08/07/20 Respiratory Virus Panel (PCR) (LUCIO) - Final, Complete JAYCOB SURESH MD Aug 10, 2020 10:27
[2020-08-10 14:00] VITALS: BP 136/66
[2020-08-10] MEDS: traZODone 50 MG TAB PO SCH (20:45)
[2020-08-10] MEDS: ATORVASTATIN 20 MG TAB PO SCH (20:45)
[2020-08-10 22:00] VITALS: BP 150/84
[2020-08-11] MEDS: PIPERACILLIN/TAZOBACTAM SOD 4.5 GM in D5W MINI-BAG PLUS 50 ML IV SCH ×4 (00:12→18:37)
[2020-08-11] MEDS: ACETAMINOPHEN TAB 650MG DOSE (2X325MG) PO PRN ×3 (01:30→21:42)
[2020-08-11] MEDS: IPRATROPIUM 0.5MG/ALBUTEROL 2.5MG INH SOL UD 3ML (DUONEB) NEB SCH ×4 (01:37→21:18)
[2020-08-11 06:42] LABS: HEMATOCRIT 25.4 % (36.0-47.0); HEMOGLOBIN 8.5 g/dl (12.0-15.5); MEAN CORPUSCULAR HEMOGLOBIN 30.5 pg (27.0-33.0); MEAN CORPUSCULAR HGB CONC 33.5 g/dl (32.0-36.5); PLATELET COUNT, AUTOMATED 528 10^3/uL (150-450); RED BLOOD COUNT 2.79 10^6/uL (4.00-5.40); WHITE BLOOD COUNT 19.2 10^3/uL (4.0-10.0)
[2020-08-11 07:02] LABS: BLOOD UREA NITROGEN 15 MG/DL (7-18); CALCIUM LEVEL 8.8 MG/DL (8.8-10.2); CARBON DIOXIDE LEVEL 28 MEQ/L (21-32); CHLORIDE LEVEL 99 MEQ/L (98-107); CREATININE FOR GFR 0.92 MG/DL (0.55-1.30); GLOMERULAR FILTRATION RATE > 60.0 (>45); GLUCOSE, FASTING 81 MG/DL (70-100); POTASSIUM SERUM 3.7 MEQ/L (3.5-5.1); SODIUM LEVEL 135 MEQ/L (136-145)
[2020-08-11 07:14] LABS: LYMPHOCYTES 8 % (16-44); METAMYELOCYTES 3 % (0-0); MONOCYTES 6 % (0-5); NEUTROPHILS 79 % (28-66)
[2020-08-11 07:15] LABS: PLATELET ESTIMATE INCREASED (NORMAL)
[2020-08-11] MEDS: METAMUCIL (PSYLLIUM) PACKET PO SCH (09:54)
[2020-08-11] MEDS: HEPARIN SOD (PORCINE) 5000UNITS/ML 1ML VIAL/SYRINGE SC SCH ×2 (09:55→21:38)
[2020-08-11] MEDS: predniSONE 20 MG TAB PO SCH (09:57)
[2020-08-11] MEDS: OMEPRAZOLE 20 MG CAP PO SCH ×2 (09:58→21:38)
--- NOTE | 2020-08-11 13:19 | IPNPDOC ---
Subjective Date Seen The patient was seen on 08/11/20. Subjective Chief Complaint/HPI No complaints this morning other than getting winded when walking in the corridor. But says it is much better. was able to sleep well last night. Objective Physical Examination General Exam: Positive: Alert, Cooperative, No Acute Distress Eye Exam: Positive: PERRLA, Conjunctiva & lids normal ENT Exam: Positive: Atraumatic, Mucous membr. moist/pink, Pharynx Normal Neck Exam: Positive: Supple; Negative: JVD Chest Exam: Positive: Rales (crackles on the left), Other (crackles at the left back both in upper and lower parts. 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 Patient stated that after radiation treatment in February 2020 she developed pneumonitis treated with a long course of prednisone taper. However for past 2 weeks she has been having increased shortness of breath assoc iated with fever up to 102.7 with chills. Also patient reported diarrhea for 3 days, subsided after antidiarrheal pill that she bought in the pharmacy. Patient stated that she had been having some mild cough and chest congestion. In ER patient was found to have white blood count of 26.7, hemoglobin 9.1, sodium of 126, creatinine 1.85. Chest x-ray showed Abnormal left upper lobe opacities consistent with pneumonia. She was admitted for sepsis and pneumonia. Sepsis due to pneumonia on the left. Patient immunocompromised due to radiation therapy, lung malignancy and steroids MRSA screen negative on zosyn blood culture negative till date. Pneumonia Community acquired pneumonia CTA showed No CT evidence of pulmonary embolus. Acute pneumonitis pattern remaining left lung status post left upper lobectomy. Pleuroparenchymal opacification changes in the right upper lobe and right lower lobe unchanged from June 26, 2019 1 May reflect post radiation pneumonitis. The left-sided infiltrate is new compared to the June 2020 study. There is a somewhat prominent subcarinal lymph node. CT chest reviewed with Dr Velez it is likely pneumonia on the left Incentive spirometry, acapella Inhalers zosyn Patient does desaturate to 85% on ambulation but bounces back to 92% within 2 minutes of rest. Does feel a little winded Radiation Pneumonitis on the right upper lobe prednisone was increased to 40 mg then reduced to 3 mg now will continue. At home was getting prednisone 20 mg daily Adenocarcinoma of left lung s/p SYED lobectomy in 2017 recurrence in the right upper lobe in 2019 s/p RT Follow-up with oncologist in the outpatient settings JONNATHAN (acute kidney injury) Resolved Secondary to dehydration due to sepsis Hypertension Continue home cardioprotective medication Blood pressures under control Lees esophagus Continue PPI Hyponatremia/SIADH Most likely secondary to malignancy now better Normocytic anemia Most likely anemia of chronic diseases secondary to malignancy B12, folate within normal limit Stool for occult blood negative Iron 14 but ferritin 997 though TSAT is only 10%. no iron deficiency. Plan/VTE VTE Prophylaxis Ordered?: Yes VS, I&O, [facility] Vital Signs/I&O Vital Signs Date Time Temp Pulse Resp B/P (MAP) Pulse Ox O2 Delivery O2 Flow Rate FiO2 08/11/20 06:00 97.1 84 18 95 Room Air 08/10/20 22:00 150/84 (106) 08/08/20 22:00 I&O- Last 24 Hours up to 6 AM 08/11/20 05:59 Intake Total 3870 ml Output Total 1750 ml Balance 2120 ml Laboratory Data 24H LABS Laboratory Tests 2 08/11/20 05:56: Immature Granulocyte % (Auto) , Neutrophils (%) (Auto) , Nucleated Red Blood Cells % (auto) 0.0, Neutrophils 79H, Band Neutrophils 4, Lymphocytes (Manual) 8L, Monocytes (Manual) 6H, Metamyelocytes 3H, Red Blood Cell Morphology NORMAL, Platelet Estimate INCREASED, Anion Gap 8, Glomerular Filtration Rate > 60.0, Calcium Level 8.8 CBC/BMP Laboratory Tests 08/11/20 05:56 Microbiology Microbiology 08/09/20 Gram Stain - Final, Complete 08/09/20 Sputum Culture - Final, Complete 08/08/20 Stool Occult Blood (LUCIO) - Final, Complete 08/07/20 Blood Culture - Preliminary, Resulted No Growth after 72 hours. All specime... 08/07/20 Blood Culture - Preliminary, Resulted No Growth after 72 hours. All specime... 08/07/20 Respiratory Virus Panel (PCR) (LUCIO) - Final, Complete JAYCOB SURESH MD Aug 11, 2020 13:19
[2020-08-11 14:00] VITALS: BP 146/72
[2020-08-11] MEDS: traZODone 50 MG TAB PO SCH (21:39)
[2020-08-11] MEDS: ATORVASTATIN 20 MG TAB PO SCH (21:39)
[2020-08-11 22:00] VITALS: BP 145/72
[2020-08-12] MEDS: PIPERACILLIN/TAZOBACTAM SOD 4.5 GM in D5W MINI-BAG PLUS 50 ML IV SCH ×4 (00:12→17:48)
[2020-08-12 06:00] VITALS: BP 148/64
[2020-08-12 06:26] LABS: HEMATOCRIT 27.9 % (36.0-47.0); HEMOGLOBIN 9.4 g/dl (12.0-15.5); MEAN CORPUSCULAR HEMOGLOBIN 31.2 pg (27.0-33.0); MEAN CORPUSCULAR HGB CONC 33.7 g/dl (32.0-36.5); MEAN CORPUSCULAR VOLUME 92.7 fl (80.0-96.0); PLATELET COUNT, AUTOMATED 584 10^3/uL (150-450); RED BLOOD COUNT 3.01 10^6/uL (4.00-5.40); WHITE BLOOD COUNT 21.5 10^3/uL (4.0-10.0)
[2020-08-12 06:45] LABS: LYMPHOCYTES 14 % (16-44); METAMYELOCYTES 6 % (0-0); MONOCYTES 3 % (0-5); MYELOCYTES 2 % (0-0); NEUTROPHILS 67 % (28-66); PLATELET ESTIMATE NORMAL (NORMAL)
[2020-08-12 06:51] LABS: BLOOD UREA NITROGEN 10 MG/DL (7-18); CALCIUM LEVEL 8.5 MG/DL (8.8-10.2); CARBON DIOXIDE LEVEL 32 MEQ/L (21-32); CHLORIDE LEVEL 100 MEQ/L (98-107); GLOMERULAR FILTRATION RATE > 60.0 (>45); GLUCOSE, FASTING 81 MG/DL (70-100); POTASSIUM SERUM 3.5 MEQ/L (3.5-5.1); SODIUM LEVEL 137 MEQ/L (136-145)
[2020-08-12] MEDS: IPRATROPIUM 0.5MG/ALBUTEROL 2.5MG INH SOL UD 3ML (DUONEB) NEB SCH ×3 (07:26→19:35)
[2020-08-12] MEDS: OMEPRAZOLE 20 MG CAP PO SCH ×2 (09:59→20:20)
[2020-08-12] MEDS: predniSONE 20 MG TAB PO SCH (09:59)
[2020-08-12] MEDS: METAMUCIL (PSYLLIUM) PACKET PO SCH (09:59)
[2020-08-12] MEDS: ACETAMINOPHEN TAB 650MG DOSE (2X325MG) PO PRN ×2 (10:00→17:48)
[2020-08-12] MEDS: HEPARIN SOD (PORCINE) 5000UNITS/ML 1ML VIAL/SYRINGE SC SCH ×2 (10:01→20:20)
--- NOTE | 2020-08-12 12:55 | IPNPDOC ---
Subjective Date Seen The patient was seen on 08/12/20. Subjective Chief Complaint/HPI Feeling better. Continues to bring up phlegm. SOB much improved. Objective Physical Examination General Exam: Positive: Alert, Cooperative, No Acute Distress Eye Exam: Positive: PERRLA, Conjunctiva & lids normal ENT Exam: Positive: Atraumatic, Mucous membr. moist/pink, Pharynx Normal Neck Exam: Positive: Supple; Negative: JVD Chest Exam: Positive: Rales (crackles on the left base only), Other (crackles onthe left better now mostly at the base) Heart Exam: Positive: Rate Normal, Regular Rhythm, Normal S1, Normal S2; Negative: Murmurs, Rubs Telemetry: Positive: Sinus Abdomen Exam: Positive: Normal bowel sounds, Soft; Negative: Tenderness Extremity Exam: Negative: Clubbing, Cyanosis, Edema Skin Exam: Positive: Nl turgor and temperature Neuro Exam: Positive: Strength at 5/5 X4 ext, Cranial Nerves 3-12 NL Psych Exam: Positive: Mental status NL Assessment /Plan Assessment Patient is 69 years old female with past medical history of radiation pneumonitis, 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 Patient stated that after radiation treatment in February 2020 she developed pneumonitis treated with a long course of prednisone taper. However for past 2 weeks she has been having increased shortness of breath associated with fever up to 102.7 with chills. Also patient reported diarrhea for 3 days, subsided after antidiarrheal pill that she bought in the pharmacy. Patient stated that she had been having some mild cough and chest congestion. In ER patient was found to have white blood count of 26.7, hemoglobin 9.1, sodium of 126, creatinine 1.85. Chest x-ray showed Abnormal left upper lobe opacities consistent with pneumonia. She was admitted for sepsis and pneumonia. Sepsis due to pneumonia on the left. Patient immunocompromised due to radiation therapy, lung malignancy and steroids MRSA screen negative on zosyn blood culture negative till date. Pneumonia Community acquired pneumonia CTA showed No CT evidence of pulmonary embolus. Acute pneumonitis pattern remaining left lung status post left upper lobectomy. Pleuroparenchymal opacification changes in the right upper lobe and right lower lobe unchanged from June 26, 2019 1 August reflect post radiation pneumonitis. The left-sided infiltrate is new compared to the June 2020 study. There is a somewhat prominent subcarinal lymph node. CT chest reviewed with Dr Velez it is likely pneumonia on the left Incentive spirometry, acapella Inhalers zosyn Patient does desaturate to 85% on ambulation but bounces back to 92% within 2 minutes of rest. Does feel a little winded Radiation Pneumonitis on the right upper lobe prednisone was increased to 40 mg then reduced to 3 mg now will continue. At home was getting prednisone 20 mg daily Adenocarcinoma of left lung s/p SYED lobectomy in 2017 recurrence in the right upper lobe in 2019 s/p RT Follow-up with oncologist in the outpatient settings JONNATHAN (acute kidney injury) Resolved Secondary to dehydration due to sepsis Hypertension Continue home cardioprotective medication Blood pressures under control Lees esophagus Continue PPI Hyponatremia/SIADH Most likely secondary to malignancy now better Normocytic anemia Most likely anemia of chronic diseases secondary to malignancy B12, folate within normal limit Stool for occult blood negative Iron 14 but ferritin 997 though TSAT is only 10%. no iron deficiency. Plan/VTE VTE Prophylaxis Ordered?: Yes VS, I&O, 24H, Replaced By [facility] Vital Signs/I&O Vital Signs Date Time Temp Pulse Resp B/P (MAP) Pulse Ox O2 Delivery O2 Flow Rate FiO2 08/12/20 07:28 85 08/12/20 06:00 97.9 18 148/64 (92) 96 Room Air 08/08/20 22:00 I&O- Last 24 Hours up to 6 AM 08/12/20 06:00 Intake Total 1070 ml Output Total 0 ml Balance 1070 ml Laboratory Data 24H LABS Laboratory Tests 2 08/12/20 05:59: Immature Granulocyte % (Auto) , Neutrophils (%) (Auto) , Nucleated Red Blood Cells % (auto) 0.0, Neutrophils 67H, Band Neutrophils 8, Lymphocytes (Manual) 14L, Monocytes (Manual) 3, Metamyelocytes 6H, Myelocytes 2H, Red Blood Cell Morphology NORMAL, Platelet Estimate NORMAL, Anion Gap 5L, Glomerular Filtration Rate > 60.0, Calcium Level 8.5L CBC/BMP Laboratory Tests 08/12/20 05:59 Microbiology Microbiology 08/09/20 Gram Stain - Final, Complete 08/09/20 Sputum Culture - Final, Complete 08/08/20 Stool Occult Blood (LUCIO) - Final, Complete 08/07/20 Blood Culture - Preliminary, Resulted No Growth after 72 hours. All specime... 08/07/20 Blood Culture - Preliminary, Resulted No Growth after 72 hours. All specime... 08/07/20 Respiratory Virus Panel (PCR) (LUCIO) - Final, Complete JAYCOB SURESH MD Aug 12, 2020 12:55
[2020-08-12] MEDS: LOSARTAN 50MG TABLET PO SCH (13:23)
[2020-08-12 14:00] VITALS: BP 144/86
[2020-08-12] MEDS: traZODone 50 MG TAB PO SCH (20:20)
[2020-08-12] MEDS: ATORVASTATIN 20 MG TAB PO SCH (20:20)
[2020-08-12 22:00] VITALS: BP 131/75
[2020-08-13] MEDS: PIPERACILLIN/TAZOBACTAM SOD 4.5 GM in D5W MINI-BAG PLUS 50 ML IV SCH ×3 (00:02→12:25)
[2020-08-13] MEDS: ACETAMINOPHEN TAB 650MG DOSE (2X325MG) PO PRN ×2 (04:12→09:03)
[2020-08-13 06:00] VITALS: BP 169/81
[2020-08-13 06:17] LABS: HEMATOCRIT 25.9 % (36.0-47.0); HEMOGLOBIN 8.7 g/dl (12.0-15.5); MEAN CORPUSCULAR HEMOGLOBIN 30.5 pg (27.0-33.0); MEAN CORPUSCULAR HGB CONC 33.6 g/dl (32.0-36.5); MEAN CORPUSCULAR VOLUME 90.9 fl (80.0-96.0); PLATELET COUNT, AUTOMATED 564 10^3/uL (150-450); RED BLOOD COUNT 2.85 10^6/uL (4.00-5.40)
[2020-08-13 06:30] LABS: LYMPHOCYTES 18 % (16-44); METAMYELOCYTES 2 % (0-0); MONOCYTES 4 % (0-5); MYELOCYTES 5 % (0-0); NEUTROPHILS 71 % (28-66)
[2020-08-13 06:31] LABS: PLATELET ESTIMATE INCREASED (NORMAL)
[2020-08-13 06:32] LABS: ANISOCYTOSIS 1+
[2020-08-13 06:57] LABS: BLOOD UREA NITROGEN 10 MG/DL (7-18); CALCIUM LEVEL 9.1 MG/DL (8.8-10.2); CARBON DIOXIDE LEVEL 29 MEQ/L (21-32); CHLORIDE LEVEL 98 MEQ/L (98-107); CREATININE FOR GFR 0.77 MG/DL (0.55-1.30); GLOMERULAR FILTRATION RATE > 60.0 (>45); GLUCOSE, FASTING 89 MG/DL (70-100); POTASSIUM SERUM 2.9 MEQ/L (3.5-5.1); SODIUM LEVEL 134 MEQ/L (136-145)
[2020-08-13] MEDS ORDERED: POTASSIUM CHLORIDE 10 MEQ SR TABLET PO ONE ×2 (07:00→11:00)
[2020-08-13] MEDS: IPRATROPIUM 0.5MG/ALBUTEROL 2.5MG INH SOL UD 3ML (DUONEB) NEB SCH ×2 (07:19→13:45)
[2020-08-13] MEDS: ALPRAZolam 0.25 MG TAB PO PRN (07:44)
[2020-08-13 08:55] VITALS: BP 169/81
[2020-08-13] MEDS: METAMUCIL (PSYLLIUM) PACKET PO SCH (08:55)
[2020-08-13] MEDS: OMEPRAZOLE 20 MG CAP PO SCH (08:55)
[2020-08-13] MEDS: LOSARTAN 50MG TABLET PO SCH (08:55)
[2020-08-13] MEDS: predniSONE 20 MG TAB PO SCH (08:55)
[2020-08-13] MEDS: HEPARIN SOD (PORCINE) 5000UNITS/ML 1ML VIAL/SYRINGE SC SCH (08:56)
[2020-08-13] MEDS ORDERED: PROBCAP14 PO (10:42)
[2020-08-13] MEDS ORDERED: LEVO750T13 PO (10:42)
--- NOTE | 2020-08-13 16:29 | DS.PDOC ---
Discharge Summary General Date of Admission Aug 07, 2020 at 16:21 Date of Discharge 08/13/20 Discharge Summary PROCEDURES PERFORMED DURING STAY: [None]. 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 HOSPITAL COURSE: Patient is 69 years old female with past medical history of radiation pneumonitis, left upper lobe lung adenocarcinoma status post resection, Grewal's esophagus, hyperlipidemia presented to the hospital with increased shortness of breath. Patient stated that after radiation treatment in February 2020 she developed pneumonitis treated with a long course of prednisone taper. However for past 2 weeks she has been having increased shortness of breath associated with fever up to 102.7 with chills. Also patient reported diarrhea for 3 days, subsided after antidiarrheal pill that she bought in the pharmacy. Patient stated that she had been having some mild cough and chest congestion. In ER patient was found to have white blood count of 26.7, hemoglobin 9.1, sodium of 126, creatinine 1.85. Chest x-ray showed Abnormal left upper lobe opacities consistent with pneumonia. She was admitted for sepsis and pneumonia and JONNATHAN. Sepsis due to pneumonia on the left. Patient immunocompromised due to radiation therapy, lung malignancy and steroids MRSA screen negative blood culture negative. treated with zosyn then given levofloxacin on discharge. Pneumonia Community acquired pneumonia CTA showed No CT evidence of pulmonary embolus. Acute pneumonitis pattern remaining left lung status post left upper lobectomy. Pleuroparenchymal opacification changes in the right upper lobe and right lower lobe unchanged from June 26, 2019 1 May reflect post radiation pneumonitis. The left-sided in filtrate is new compared to the June 2020 study. There is a somewhat prominent subcarinal lymph node. CT chest reviewed with Dr Velez it is likely pneumonia on the left Incentive spirometry, acapella finished 5 days of zosyn . discharged with levofloxacin. Radiation Pneumonitis on the right upper lobe prednisone was increased to 40 mg then reduced to 20 mg At home was getting prednisone 20 mg daily will continue Adenocarcinoma of left lung s/p SYED lobectomy in 2018 recurrence in the right upper lobe in 2019 s/p RT Follow-up with oncologist in the outpatient settings JONNATHAN (acute kidney injury) Resolved Secondary to dehydration due to sepsis Hypertension Continue home cardioprotective medication Blood pressures under control Grewal esophagus Continue PPI Hyponatremia/SIADH Most likely secondary to malignancy now better Normocytic anemia Most likely anemia of chronic diseases secondary to malignancy B12, folate within normal limit Stool for occult blood negative Iron 14 but ferritin 997 though TSAT is only 10%. no iron deficiency. DISCHARGE MEDICATIONS: Please see below. ALLERGIES: Please see below. PHYSICAL EXAMINATION ON DISCHARGE: VITAL SIGNS: Please see below. General Exam: Positive: Alert, Cooperative, No Acute Distress Eye Exam: Positive: PERRLA, Conjunctiva & lids normal ENT Exam: Positive: Atraumatic, Mucous membr. moist/pink, Pharynx Normal Neck Exam: Positive: Supple; Negative: JVD Chest Exam: Positive: Rales (crackles on the left base only), Other (crackles onthe left better now mostly at the base) Heart Exam: Positive: Rate Normal, Regular Rhythm, Normal S1, Normal S2; Negative: Murmurs, Rubs Telemetry: Positive: Sinus Abdomen Exam: Positive: Normal bowel sounds, Soft; Negative: Tenderness Extremity Exam: Negative: Clubbing, Cyanosis, Edema Skin Exam: Positive: Nl turgor and temperature Neuro Exam: Positive: Strength at 5/5 X4 ext, Cranial Nerves 3-12 NL Psych Exam: Positive: Mental status NL LABORATORY DATA: Please see below. IMAGING: CTA: No CT evidence of pulmonary embolus. Acute pneumonitis pattern remaining left lung status post left upper lobectomy. Pleuroparenchymal opacification changes in the right upper lobe and right lower lobe unchanged from June 26, 2019 1 May reflect post radiation pneumonitis. The left-sided infiltrate is new compared to the June 2020 study. There is a somewhat prominent subcarinal lymph node. CT chest; The mediastinum and pulmonary mirza are essentially unchanged, however, mild adenopathy cannot be ruled out since intravenous contrast was withheld. There is a subtle pericardial effusion/chronic pericardial thickening. There are no pleural effusions. There is no significant change in appearance of the imaged upper abdomen or imaged osseous structures. Evaluation of the lung reyes shows advanced abnormal patchy bilateral airspace opacities left much greater than right and with air bronchograms all of which has worsened from the prior exam. IMPRESSION: Worsened bilateral lung disease as described above. The finding is consistent with worsening pneumonitis with or without advancing neoplasm. The exam needs to be correlated clinically with close follow-up. The left lung is significantly compromised compared to the prior exam. ACTIVITY: [As tolerated]. DIET: As tolerated DISPOSITION: 01 Home, Self-Care. DISCHARGE INSTRUCTIONS: Dr Rehman in 1 week, PMD in 2 weeks DISCHARGE CONDITION: [Stable]. TIME SPENT ON DISCHARGE: 40 minutes. Vital Signs/I&Os Vital Signs Date Time Temp Pulse Resp B/P (MAP) Pulse Ox O2 Delivery O2 Flow Rate FiO2 08/13/20 08:55 169/81 08/13/20 06:00 96.9 79 18 93 Room Air 08/08/20 22:00 I&O- Last 24 Hours up to 6 AM 08/13/20 06:59 Intake Total 1660 ml Output Total 0 ml Balance 1660 ml Laboratory Data Labs 24H Laboratory Tests 2 08/13/20 05:46: Immature Granulocyte % (Auto) , Neutrophils (%) (Auto) , Nucleated Red Blood Cells % (auto) 0.0, Neutrophils 71H, Lymphocytes (Manual) 18, Monocytes (Manual) 4, Metamyelocytes 2H, Myelocytes 5H, Anisocytosis 1+, Platelet Estimate INCREASED, Anion Gap 7L, Glomerular Filtration Rate > 60.0, Calcium Level 9.1 CBC/BMP Laboratory Tests 08/13/20 05:46 08/13/20 12:36 Microbiology Microbiology 08/09/20 Gram Stain - Final, Complete 08/09/20 Sputum Culture - Final, Complete 08/08/20 Stool Occult Blood (LUCIO) - Final, Complete 08/07/20 Blood Culture - Final, Complete NO GROWTH AFTER 5 DAYS 08/07/20 Blood Culture - Final, Complete NO GROWTH AFTER 5 DAYS 08/07/20 Respiratory Virus Panel (PCR) (LUCIO) - Final, Complete Discharge Medications Scheduled Atorvastatin Calcium (Atorvastatin Calcium) 40 Mg Tab, 40 MG PO QHS, (Reported) Ergocalciferol (Vitamin D2) (Vitamin D2) 50,000 Units Cap, 50,000 UNIT PO QWEEK, (Reported) SUNDAYS Lactobacillus Acidophilus (Probiotic) 1 Each Capsule, 1 CAP PO BID Levofloxacin (Levofloxacin) 750 Mg Tablet, 1 TAB PO DAILY Losartan Potassium (Losartan Potassium) 50 Mg Tab, 50 MG PO DAILY, (Reported) Omeprazole Magnesium (Prilosec Otc) 20 Mg Tablet.dr, 20 MG PO BID, (Reported) Prednisone (Prednisone) 20 Mg Tablet, 20 MG PO DAILY, (Reported) Trazodone HCl (Trazodone HCl) 50 Mg Tab, 100 MG PO QHS, (Reported) Scheduled PRN Albuterol Sulfate (Albuterol Sulfate Hfa) 8.5 Gm Hfa.aer.ad, 2 PUFFS INH QID PRN for SHORTNESS OF BREATH, (Reported) Alprazolam (Alprazolam) 0.25 Mg Tablet, 0.25 MG PO BID PRN for ANXIETY, (Reported) Propylene Glycol/Peg 400 (Systane 0.3-0.4% Eye Drops) 15 Ml Ana, 1 DROP OU DAILY PRN for DRY EYES, (Reported) Allergies Coded Allergies: cephalexin (Verified Allergy, Intermediate, hives, 12/21/19) codeine (Verified Allergy, Intermediate, migraines, 12/21/19) gabapentin (Verified Allergy, Intermediate, syncope-in system historically, 12/21/19) morphine (Verified Allergy, Intermediate, nausea, 12/21/19) propoxyphene (Verified Allergy, Intermediate, migraines, 12/21/19) JAYCOB SURESH MD Aug 13, 2020 16:22
[2020-08-14] MEDS ORDERED: POTASSIUM CHLORIDE 10 MEQ SR TABLET PO SCH (09:00)
== END 2020-08-13 14:47 | disposition home or self-care (01) | DRG 871 ==
LOC: M ED 10:35 → M ED INP 16:21 → ENRESERV 16:49 → M MSPAV 18:14
PROVIDERS: ADMIT Internal Medicine; ATTEND Internal Medicine Nephrology
DX: A41.9 Sepsis, unspecified organism (principal); J18.9 Pneumonia, unspecified organism; J70.0 Acute pulmonary manifestations due to radiation; N17.9 Acute kidney failure, unspecified; E87.1 Hypo-osmolality and hyponatremia; C34.12 Malignant neoplasm of upper lobe, left bronchus or lung; I10 Essential (primary) hypertension; E87.70 Fluid overload, unspecified; E87.6 Hypokalemia; D64.9 Anemia, unspecified; E55.9 Vitamin D deficiency, unspecified; F41.9 Anxiety disorder, unspecified; F17.200 Nicotine dependence, unspecified, uncomplicated; E78.5 Hyperlipidemia, unspecified; K22.70 Barrett's esophagus without dysplasia; H35.30 Unspecified macular degeneration; I73.00 Raynaud's syndrome without gangrene; Z88.5 Allergy status to narcotic agent; Z88.8 Allergy status to other drugs, medicaments and biological substances; Z79.899 Other long term (current) drug therapy

== ENCOUNTER → 2020-08-21 | Outpatient (CLI) | payer MEDICARE ==
[~2020-08-21] MED LIST changes: +PROBCAP14 PO
--- NOTE | 2020-08-21 14:58 | REPPI ---
INDICATION: PNEUMONIA. COMPARISON: 08/07/2020 the latest prior a portable exam TECHNIQUE: PA and lateral views FINDINGS: The cardiomediastinal silhouette is within normal limits. The left upper lobe patchy opacities seen previously is less dense. Persistent right upper and right lower lobe opacities are again noted no new abnormal opacities have developed. The pleural angles are again seen to be sharp. There is no change in the osseous structures. IMPRESSION: Improvement but with persistent opacities as described above. <Electronically signed by Jose Antonio Navarro > 08/21/20 [id number]
== END ==
LOC: M PLAIMG 14:03
PROVIDERS: ATTEND Family Medicine
DX: J18.9 Pneumonia, unspecified organism (principal); R91.8 Other nonspecific abnormal finding of lung field; N17.9 Acute kidney failure, unspecified
CPT/HCPCS: 36415; 71046; 80048; G0463

== ENCOUNTER → 2020-08-21 | Outpatient (REF) | payer MEDICARE ==
[2020-08-21 18:40] LABS: BLOOD UREA NITROGEN 23 MG/DL (7-18); CALCIUM LEVEL 9.5 MG/DL (8.8-10.2); CARBON DIOXIDE LEVEL 28 MEQ/L (21-32); CHLORIDE LEVEL 97 MEQ/L (98-107); CREATININE FOR GFR 0.97 MG/DL (0.55-1.30); GLOMERULAR FILTRATION RATE > 60.0 (>45); GLUCOSE, FASTING 132 MG/DL (70-100); POTASSIUM SERUM 4.7 MEQ/L (3.5-5.1); SODIUM LEVEL 132 MEQ/L (136-145)
== END ==
LOC: M SFHCPLAZ 14:01
PROVIDERS: ATTEND Family Medicine
DX: N17.9 Acute kidney failure, unspecified (principal)

== ENCOUNTER → 2020-09-02 | Outpatient (CLI) | payer MEDICARE ==
[2020-09-02 12:51] LABS: BLOOD UREA NITROGEN 8 MG/DL (7-18); CALCIUM LEVEL 8.6 MG/DL (8.8-10.2); CARBON DIOXIDE LEVEL 29 MEQ/L (21-32); CHLORIDE LEVEL 102 MEQ/L (98-107); CREATININE FOR GFR 0.82 MG/DL (0.55-1.30); GLOMERULAR FILTRATION RATE > 60.0 (>45); GLUCOSE, FASTING 110 MG/DL (70-100); POTASSIUM SERUM 4.2 MEQ/L (3.5-5.1); SODIUM LEVEL 135 MEQ/L (136-145)
== END ==
LOC: M WUC 10:23
PROVIDERS: ATTEND Family Medicine
DX: E87.1 Hypo-osmolality and hyponatremia (principal)

== ENCOUNTER → 2020-09-17 | Outpatient (CLI) | payer MEDICARE ==
--- NOTE | 2020-09-17 11:48 | REPVR ---
PROCEDURE INFORMATION: Exam: CT Chest Without Contrast; Diagnostic Exam date and time: 09/17/2020 10:49 AM Age: 69 years old Clinical indication: Other: Pne; Additional info: Pneumonitis TECHNIQUE: Imaging protocol: Diagnostic computed tomography of the chest without contrast. 3D rendering (Not supervised by radiologist): MIP and/or 3D reconstructed images were created by the technologist. Radiation optimization: All CT scans at this facility use at least one of these dose optimization techniques: automated exposure control; mA and/or kV adjustment per patient size (includes targeted exams where dose is matched to clinical indication); or iterative reconstruction. COMPARISON: 1. CT Chest without contrast 08/07/2020 4:[address] Chest with contrast 06/25/2020 11:41:28 AM 3. PET/CT Skull/mid thigh 11/20/2019 9:15:37 AM FINDINGS: Thyroid: The thyroid gland is normal. Lungs: There has been significant improvement in bilateral pulmonary infiltrates. Some residual consolidation remains at the lateral aspect of the superior segment of the right lower lobe centered on axial image 46 and at the lateral surface of the right upper lobe on axial image 28. The right lung appearance is now more similar to the study of 06/25/2020 and may reflect post radiation fibrosis directed at the nodules revealed on prior PET CT in the right upper and lower lobe. The. The left lung changes are new from June but are less severe than seen in July. They are new from the PET CT study of 11/20/2019. Pleural spaces: Unremarkable. No pneumothorax. No pleural effusion. Heart: Unremarkable. No cardiomegaly. No pericardial effusion. Mediastinal space: A small hiatal hernia is present. Aorta: The vasculature demonstrates diffuse moderate atherosclerotic calcification. Lymph nodes: There are multiple small calcified lymph nodes in the mediastinum, consistent with remote granulomatous organism exposure. Spleen: The spleen demonstrates punctate calcifications, consistent with remote granulomatous organism exposure. The spleen is otherwise normal. Adrenal glands: The adrenal glands are normal. 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 Stomach and bowel: Moderate diverticulosis is present in the splenic flexure. Bones/joints: Unremarkable. No acute fracture. Soft tissues: Unremarkable. IMPRESSION: 1. 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 2. There has been significant improvement in bilateral pulmonary infiltrates. Some residual consolidation remains at the lateral aspect of the superior segment of the right lower lobe centered on axial image 46 and at the lateral surface of the right upper lobe on axial image 28. The right lung appearance is now more similar to the study of 06/25/2020 and may reflect post radiation fibrosis directed at the nodules revealed on prior PET CT in the right upper and lower lobe. The. 3. The left lung changes are new from June but are less severe than seen in July. They are new from the PET CT study of 11/20/2019. COMMENTS: Consistent with the [employer]'s Incidental Findings Committee white paper (J Am Khang [employer]iol 2018): Any incidental renal lesion less than 1 cm or classified as too small to characterize, or any incidental cystic renal lesion characterized as simple-appearing, is likely benign. No follow-up imaging is recommended for these lesions per consensus recommendations based on imaging criteria. Electronically signed by: Baldev Churchill On 09/17/2020 11:48:26 AM
== END ==
LOC: M RAD 10:38
PROVIDERS: ATTEND Internal Medicine Pulmonary Disease
DX: J84.114 Acute interstitial pneumonitis (principal); N28.89 Other specified disorders of kidney and ureter

== ENCOUNTER → 2020-10-03 | Outpatient (CLI) | payer MEDICARE ==
[~2020-10-03] MED LIST changes: +PROHANCE 279.3MG/ML 15ML VIAL As Ordered ONE
--- NOTE | 2020-10-03 13:22 | REPVR ---
PROCEDURE INFORMATION: Exam: MR Thoracic Spine Without and With Contrast Exam date and time: 10/03/2020 8:48 AM Age: 69 years old Clinical indication: Pain in thoracic spine; Without myelpathy or radiculopathy; Patient HX: HX lung CA TECHNIQUE: Imaging protocol: Multiplanar magnetic resonance images of the thoracic spine without and with contrast. Contrast material: PROHANCE; Contrast volume: 13 ml; Contrast route: INTRAVENOUS (IV); COMPARISON: PT PET/CT Skull/mid thigh 11/20/2019 9:15 AM FINDINGS: Vertebrae: There is mild accentuation of the normal thoracic kyphosis. There is no fracture. There is indeterminate T2 hyperintensity involving the T3 body to the left of midline with extension into the left pedicle and articulating processes. This demonstrates enhancement. There is a hemangioma at T7. Spinal cord: Normal signal. No cord compression. Discs/Spinal canal/Neural foramina: No significant disc disease. No significant spinal canal stenosis. Soft tissues: Unremarkable. Lungs: Multifocal patchy parenchymal opacities are not well evaluated here. IMPRESSION: Indeterminate osseous lesion involving the T3 body to the left of midline with extension into the left pedicle and articulating processes, with associated enhancement. Metastatic disease is a consideration. This could be confirmed with bone scan as indicated. Electronically signed by: Bridget Young On 10/03/2020 13:22:03 PM
== END ==
LOC: M RAD 07:56
PROVIDERS: ATTEND Family Medicine
DX: M54.6 Pain in thoracic spine (principal)
CPT/HCPCS: 72157; A9576

== ENCOUNTER → 2021-03-18 | Outpatient (CLI) | payer MEDICARE ==
[~2021-03-18] MED LIST changes: +ERGO500029 PO; -PROHANCE 279.3MG/ML 15ML VIAL As Ordered ONE; -VITA50005 PO
[2021-03-18 19:59] LABS: BLOOD UREA NITROGEN 17 MG/DL (7-18); CREATININE FOR GFR 0.85 MG/DL (0.55-1.30); GLOMERULAR FILTRATION RATE > 60.0 (>39)
== END ==
LOC: M WUC 15:21
PROVIDERS: ATTEND Internal Medicine Pulmonary Disease
DX: J44.9 Chronic obstructive pulmonary disease, unspecified (principal)

== ENCOUNTER → 2021-03-24 | Outpatient (CLI) | payer MEDICARE ==
[~2021-03-24] MED LIST changes: +ISOVUE-370 76% 100ML VIAL As Ordered ONE; +LOSA25TA13 PO; -LOSA25TA14 PO; +LOSA50TA28 PO; -LOSA50TA88 PO; -OMEP-221 PO; +OMEP40CA5 PO
== END ==
LOC: M RAD 16:05
PROVIDERS: ATTEND Internal Medicine Pulmonary Disease
DX: J84.114 Acute interstitial pneumonitis (principal); Z85.118 Personal history of other malignant neoplasm of bronchus and lung
CPT/HCPCS: 71260; Q9967

== ENCOUNTER → 2021-04-27 | Outpatient (REF) | payer MEDICARE ==
[~2021-04-27] MED LIST changes: -ISOVUE-370 76% 100ML VIAL As Ordered ONE; -LOSA25TA13 PO; +LOSA25TA14 PO; -LOSA50TA28 PO; +LOSA50TA88 PO; +OMEP-221 PO; -OMEP40CA5 PO
== END ==
LOC: M SFHCPLAZ 10:14
PROVIDERS: ATTEND Physician Assistant
DX: R09.89 Other specified symptoms and signs involving the circulatory and respiratory systems (principal)

== ENCOUNTER → 2021-07-01 | Outpatient (REF) | payer MEDICARE ==
[~2021-07-01] MED LIST changes: +LOSA25TA13 PO; -LOSA25TA14 PO; +LOSA50TA28 PO; -LOSA50TA88 PO; -OMEP-221 PO; +OMEP40CA5 PO
== END ==
LOC: M SFHCPLAZ 16:39
PROVIDERS: ATTEND Family Medicine
DX: R05.9 Cough, unspecified (principal)

== ENCOUNTER → 2021-07-03 | Outpatient (CLI) | payer MEDICARE | LOC: M WHC 09:55 | PROVIDERS: ATTEND Family Medicine | DX: Z12.31 Encounter for screening mammogram for malignant neoplasm of breast (principal) ==

== ENCOUNTER → 2021-07-10 | Outpatient (CLI) | payer MEDICARE | LOC: M RAD 13:03 | PROVIDERS: ATTEND Otolaryngology | DX: J32.9 Chronic sinusitis, unspecified (principal) ==

== ENCOUNTER → 2021-08-04 | Outpatient (CLI) | payer MEDICARE ==
[2021-08-04 12:32] LABS: BASO % 0.5 % (0.0-1.0); EOS # 0.1 10^3/uL (0.0-0.5); EOS % 2.2 % (0.0-3.0); HEMATOCRIT 32.8 % (36.0-47.0); HEMOGLOBIN 11.3 g/dl (12.0-15.5); LYMPH % 17.9 % (24.0-44.0); MEAN CORPUSCULAR HEMOGLOBIN 31.7 pg (27.0-33.0); MEAN CORPUSCULAR HGB CONC 34.5 g/dl (32.0-36.5); MEAN CORPUSCULAR VOLUME 92.1 fl (80.0-96.0); MONO # 0.6 10^3/uL (0.0-0.8); MONO % 11.6 % (2.0-8.0); NEUTROPHILS # 3.7 10^3/uL (1.5-8.5); NEUTROPHILS % 67.3 % (36.0-66.0); PLATELET COUNT, AUTOMATED 321 10^3/uL (150-450); RED BLOOD COUNT 3.56 10^6/uL (4.00-5.40); WHITE BLOOD COUNT 5.5 10^3/uL (4.0-10.0)
[2021-08-04 13:19] LABS: ALBUMIN 3.7 GM/DL (3.2-5.2); ALT/SGPT 33 U/L (12-78); BILIRUBIN,TOTAL 0.5 MG/DL (0.2-1.0); BLOOD UREA NITROGEN 9 MG/DL (7-18); CARBON DIOXIDE LEVEL 29 MEQ/L (21-32); CHLORIDE LEVEL 97 MEQ/L (98-107); CHOLESTEROL LEVEL 108 MG/DL (<200); GLOMERULAR FILTRATION RATE > 60.0 (>39); GLUCOSE, FASTING 94 MG/DL (70-100); HDL CHOLESTEROL 61 MG/DL (>40); LDL CHOLESTEROL 25 MG/DL (<100); NON-HDL-C 47 MG/DL; POTASSIUM SERUM 4.4 MEQ/L (3.5-5.1); SODIUM LEVEL 132 MEQ/L (136-145); TOTAL PROTEIN 7.1 GM/DL (6.4-8.2); TRIGLYCERIDES LEVEL 108 MG/DL (<150)
[2021-08-04 16:58] LABS: HEMOGLOBIN A1c 5.6 %
== END ==
LOC: M WUC 08:07
PROVIDERS: ATTEND Family Medicine
DX: I10 Essential (primary) hypertension (principal); Z13.1 Encounter for screening for diabetes mellitus; E55.9 Vitamin D deficiency, unspecified; D72.829 Elevated white blood cell count, unspecified; Z79.899 Other long term (current) drug therapy

== ENCOUNTER → 2021-08-13 | Outpatient (CLI) | payer MEDICARE | LOC: M WHC 09:56 | PROVIDERS: ATTEND Family Medicine | DX: M85.851 Other specified disorders of bone density and structure, right thigh (principal); M85.852 Other specified disorders of bone density and structure, left thigh; M85.88 Other specified disorders of bone density and structure, other site ==

== ENCOUNTER → 2021-08-17 | Outpatient (CLI) | payer MEDICARE | LOC: M WUC 09:36 | PROVIDERS: ATTEND Family Medicine | DX: F41.1 Generalized anxiety disorder (principal) ==

== ENCOUNTER → 2021-09-22 | Outpatient (CLI) | payer MEDICARE ==
[2021-09-22 16:27] LABS: CREATININE FOR GFR 1.04 MG/DL (0.55-1.30); GLOMERULAR FILTRATION RATE 55.8 (>39)
== END ==
LOC: M WUC 13:09
PROVIDERS: ATTEND Internal Medicine Pulmonary Disease
DX: Z85.118 Personal history of other malignant neoplasm of bronchus and lung (principal)

== ENCOUNTER → 2021-09-28 | Outpatient (CLI) | payer MEDICARE ==
[~2021-09-28] MED LIST changes: +ISOVUE-370 76% 100ML VIAL ONE
== END ==
LOC: M PLAIMG 08:09
PROVIDERS: ATTEND Internal Medicine Pulmonary Disease
DX: C34.90 Malignant neoplasm of unspecified part of unspecified bronchus or lung (principal)
CPT/HCPCS: 71260; Q9967

== ENCOUNTER → 2022-01-11 | Outpatient (CLI) | payer MEDICARE ==
[~2022-01-11] MED LIST changes: -ISOVUE-370 76% 100ML VIAL ONE; +LEVO1TAB40 PO; -LEVO750T13 PO
== END ==
LOC: M RAD 09:11
PROVIDERS: ATTEND Internal Medicine Gastroenterology
DX: J44.9 Chronic obstructive pulmonary disease, unspecified (principal)

== ENCOUNTER → 2022-05-03 | Outpatient (CLI) | payer MEDICARE | LOC: M PLAIMG 14:49 | PROVIDERS: ATTEND Physician Assistant | DX: R50.9 Fever, unspecified (principal); J40 Bronchitis, not specified as acute or chronic; J84.9 Interstitial pulmonary disease, unspecified ==

== ENCOUNTER → 2022-05-18 | Outpatient (REF) | payer MEDICARE | LOC: M SFHCDERM 14:16 | PROVIDERS: ATTEND Physician Assistant | DX: C44.229 Squamous cell carcinoma of skin of left ear and external auricular canal (principal) ==

== ENCOUNTER → 2022-05-20 | Outpatient (REF) | payer MEDICARE | LOC: M WUC 12:03 | PROVIDERS: ATTEND Physician Assistant | DX: J20.9 Acute bronchitis, unspecified (principal) ==

== ENCOUNTER → 2022-06-30 | Outpatient (CLI) | payer MEDICARE | LOC: M WHC 13:49 | PROVIDERS: ATTEND Internal Medicine Hematology | DX: Z12.31 Encounter for screening mammogram for malignant neoplasm of breast (principal) ==

== ENCOUNTER → 2022-07-06 | Outpatient (CLI) | payer MEDICARE | LOC: M PLAIMG 09:37 | PROVIDERS: ATTEND Internal Medicine Pulmonary Disease | DX: Z85.118 Personal history of other malignant neoplasm of bronchus and lung (principal) ==

== ENCOUNTER → 2022-07-12 | Outpatient (CLI) | payer MEDICARE ==
[2022-07-12 12:08] LABS: HEMATOCRIT 35.3 % (36.0-47.0); HEMOGLOBIN 11.5 g/dl (12.0-15.5); MEAN CORPUSCULAR HEMOGLOBIN 31.1 pg (27.0-33.0); MEAN CORPUSCULAR HGB CONC 32.6 g/dl (32.0-36.5); MEAN CORPUSCULAR VOLUME 95.4 fl (80.0-96.0); PLATELET COUNT, AUTOMATED 274 10^3/uL (150-450); WHITE BLOOD COUNT 6.5 10^3/uL (4.0-10.0)
[2022-07-12 12:25] LABS: HEMOGLOBIN A1c 5.6 % (4.0-6.0)
[2022-07-12 12:37] LABS: CREATININE, URINE 60.4 MG/DL
[2022-07-12 12:38] LABS: ALBUMIN 3.6 G/DL (3.2-5.2); ALKALINE PHOSPHATASE 82 U/L (46-116); ALT/SGPT 34 U/L (7.0-40); AST/SGOT 23 U/L (<34); BILIRUBIN,TOTAL 0.6 MG/DL (0.3-1.2); BLOOD UREA NITROGEN 17 MG/DL (9-23); CALCIUM LEVEL 8.2 MG/DL (8.3-10.6); CARBON DIOXIDE LEVEL 29 MMOL/L (20-31); CHLORIDE LEVEL 103 MMOL/L (98-107); CHOLESTEROL LEVEL 139 MG/DL (<200); CHOLESTEROL RISK RATIO 1.88 (<5); CREATININE FOR GFR 0.85 MG/DL (0.55-1.30); GLOMERULAR FILTRATION RATE > 60.0 (>39); GLUCOSE, FASTING 88 MG/DL (74-106); HDL CHOLESTEROL 73.7 MG/DL (>40); LDL CHOLESTEROL 41.3 MG/DL (<100); MAU/CREAT RATIO 16.5 MCG/MG (0.0-30.0); NON-HDL-C 65.3 MG/DL; POTASSIUM SERUM 4.2 MMOL/L (3.5-5.1); SODIUM LEVEL 140 MMOL/L (136-145); TOTAL PROTEIN 6.9 G/DL (5.7-8.2); TRIGLYCERIDES LEVEL 120 MG/DL (<150)
[2022-07-12 12:42] LABS: THYROID STIMULATING HORMONE 3.849 uIU/ML (0.55-4.78)
[2022-07-12 12:43] LABS: FREE T4 0.88 NG/DL (0.89-1.76); VITAMIN B12 LEVEL 317 PG/ML (211-911)
== END ==
LOC: M WUC 08:22
PROVIDERS: ATTEND Internal Medicine Hematology
DX: I10 Essential (primary) hypertension (principal); Z79.899 Other long term (current) drug therapy

== ENCOUNTER → 2022-10-12 | Outpatient (CLI) | payer MEDICARE ==
[2022-10-12 17:14] LABS: CREATININE, URINE 219.1 MG/DL
[2022-10-12 17:15] LABS: MAU/CREAT RATIO 14.1 MCG/MG (0.0-30.0)
[2022-10-12 17:17] LABS: C REACTIVE PROTEIN QUANTITATIV 3.3 MG/DL (<1.0)
[2022-10-12 17:18] LABS: ALBUMIN 3.7 G/DL (3.2-5.2); BILIRUBIN,TOTAL 0.9 MG/DL (0.3-1.2); CHOLESTEROL RISK RATIO 2.12 (<5); CREATININE FOR GFR 1.01 MG/DL (0.55-1.30); FREE T4 0.88 NG/DL (0.89-1.76); GLOMERULAR FILTRATION RATE 57.5 (>39); HDL CHOLESTEROL 67.2 MG/DL (>40); NON-HDL-C 75.8 MG/DL; POTASSIUM SERUM 4.2 MMOL/L (3.5-5.1); THYROID STIMULATING HORMONE 2.409 uIU/ML (0.55-4.78); TOTAL 25(OH) VITAMIN D 39.8 NG/ML (20.0-100.0); TOTAL PROTEIN 7.1 G/DL (5.7-8.2)
[2022-10-12 17:22] LABS: HEMATOCRIT 34.7 % (36.0-47.0); HEMOGLOBIN 11.5 g/dl (12.0-15.5); MEAN CORPUSCULAR HEMOGLOBIN 31.2 pg (27.0-33.0); MEAN CORPUSCULAR HGB CONC 33.1 g/dl (32.0-36.5); PLATELET COUNT, AUTOMATED 332 10^3/uL (150-450); RED BLOOD COUNT 3.69 10^6/uL (4.00-5.40); WHITE BLOOD COUNT 9.9 10^3/uL (4.0-10.0)
[2022-10-12 17:52] LABS: HEMOGLOBIN A1c 5.8 % (4.0-6.0)
== END ==
LOC: M WUC 11:36
PROVIDERS: ATTEND Internal Medicine Hematology
DX: E78.2 Mixed hyperlipidemia (principal); Z79.899 Other long term (current) drug therapy

== ENCOUNTER → 2022-10-22 | Outpatient (CLI) | payer MEDICARE | LOC: M RAD 08:52 | PROVIDERS: ATTEND Internal Medicine Hematology | DX: Z13.6 Encounter for screening for cardiovascular disorders (principal) ==

== ENCOUNTER → 2022-12-02 | Outpatient (CLI) | payer MEDICARE | LOC: M RAD 11:44 | PROVIDERS: ATTEND Internal Medicine Pulmonary Disease | DX: J44.9 Chronic obstructive pulmonary disease, unspecified (principal); Z85.118 Personal history of other malignant neoplasm of bronchus and lung; J98.11 Atelectasis; S22.31XA Fracture of one rib, right side, initial encounter for closed fracture; Y93.9 Activity, unspecified; Y92.9 Unspecified place or not applicable ==

== ENCOUNTER → 2022-12-09 | Outpatient (CLI) | payer MEDICARE | LOC: M WUC 11:42 | PROVIDERS: ATTEND Internal Medicine Pulmonary Disease | DX: S22.41XK Multiple fractures of ribs, right side, subsequent encounter for fracture with nonunion (principal) ==

== ENCOUNTER → 2023-02-01 | Outpatient (REF) | payer MEDICARE | LOC: M SFHCDERM 18:12 | PROVIDERS: ATTEND Physician Assistant | DX: D23.61 Other benign neoplasm of skin of right upper limb, including shoulder (principal) ==

== ENCOUNTER → 2023-02-21 | Outpatient (CLI) | payer MEDICARE | LOC: M PLAIMG 09:29 | PROVIDERS: ATTEND Internal Medicine Pulmonary Disease | DX: J44.9 Chronic obstructive pulmonary disease, unspecified (principal); R91.1 Solitary pulmonary nodule ==

== ENCOUNTER → 2023-05-03 | Outpatient (CLI) | payer MEDICARE ==
[2023-05-03 16:43] LABS: MEAN CORPUSCULAR HEMOGLOBIN 30.6 pg (27.0-33.0); MEAN CORPUSCULAR HGB CONC 32.4 g/dl (32.0-36.5); MEAN CORPUSCULAR VOLUME 94.4 fl (80.0-96.0); PLATELET COUNT, AUTOMATED 371 10^3/uL (150-450); RED BLOOD COUNT 3.92 10^6/uL (4.00-5.40); WHITE BLOOD COUNT 7.7 10^3/uL (4.0-10.0)
[2023-05-03 16:58] LABS: HEMOGLOBIN A1c 5.9 % (4.0-6.0)
[2023-05-03 17:08] LABS: CREATININE, URINE 116.5 MG/DL
[2023-05-03 17:10] LABS: C REACTIVE PROTEIN QUANTITATIV < 0.40 MG/DL (<1.0)
[2023-05-03 17:12] LABS: ALBUMIN 3.8 G/DL (3.2-5.2); ALKALINE PHOSPHATASE 89 U/L (46-116); ALT/SGPT 38 U/L (7.0-40); AST/SGOT 25 U/L (<34); BILIRUBIN,TOTAL 0.7 MG/DL (0.3-1.2); BLOOD UREA NITROGEN 17 MG/DL (9-23); CALCIUM LEVEL 8.8 MG/DL (8.3-10.6); CARBON DIOXIDE LEVEL 29 MMOL/L (20-31); CHLORIDE LEVEL 103 MMOL/L (98-107); CHOLESTEROL LEVEL 202 MG/DL (<200); CHOLESTEROL RISK RATIO 3.25 (<5); CREATININE FOR GFR 1.04 MG/DL (0.55-1.30); FREE T4 0.92 NG/DL (0.89-1.76); GLOMERULAR FILTRATION RATE 55.5 (>39); GLUCOSE, FASTING 104 MG/DL (74-106); HDL CHOLESTEROL 62.1 MG/DL (>40); LDL CHOLESTEROL 100.7 MG/DL (<100); NON-HDL-C 139.9 MG/DL; POTASSIUM SERUM 4.2 MMOL/L (3.5-5.1); SODIUM LEVEL 139 MMOL/L (136-145); THYROID STIMULATING HORMONE 5.064 uIU/ML (0.55-4.78); TOTAL 25(OH) VITAMIN D 74.3 NG/ML (20.0-100.0); TRIGLYCERIDES LEVEL 196 MG/DL (<150)
[2023-05-03 17:13] LABS: VITAMIN B12 LEVEL 553 PG/ML (211-911)
== END ==
LOC: M WUC 11:54
PROVIDERS: ATTEND Internal Medicine Hematology
DX: I10 Essential (primary) hypertension (principal); Z79.899 Other long term (current) drug therapy

== ENCOUNTER → 2023-05-25 | Outpatient (CLI) | payer MEDICARE | LOC: M PLAIMG 10:34 | PROVIDERS: ATTEND Nurse Practitioner Family | DX: M19.071 Primary osteoarthritis, right ankle and foot (principal) ==

== ENCOUNTER → 2023-06-01 | Outpatient (CLI) | payer MEDICARE | LOC: M WHC 08:53 | PROVIDERS: ATTEND Nurse Practitioner Family | DX: M79.89 Other specified soft tissue disorders (principal) ==

== ENCOUNTER → 2023-07-05 | Outpatient (CLI) | payer MEDICARE | LOC: M WHC 10:31 | PROVIDERS: ATTEND Internal Medicine Hematology | DX: Z12.31 Encounter for screening mammogram for malignant neoplasm of breast (principal); N64.4 Mastodynia | CPT/HCPCS: 76642; 77066; G0279 ==

== ENCOUNTER → 2023-08-11 | Outpatient (CLI) | payer MEDICARE ==
[2023-08-11 12:40] LABS: HEMATOCRIT 32.8 % (36.0-47.0); HEMOGLOBIN 11.1 g/dl (12.0-15.5); MEAN CORPUSCULAR HEMOGLOBIN 30.8 pg (27.0-33.0); MEAN CORPUSCULAR HGB CONC 33.8 g/dl (32.0-36.5); MEAN CORPUSCULAR VOLUME 91.1 fl (80.0-96.0); PLATELET COUNT, AUTOMATED 311 10^3/uL (150-450); WHITE BLOOD COUNT 5.3 10^3/uL (4.0-10.0)
[2023-08-11 12:44] LABS: C REACTIVE PROTEIN QUANTITATIV < 0.40 MG/DL (<1.0)
[2023-08-11 12:46] LABS: ALBUMIN 3.5 G/DL (3.2-5.2); ALKALINE PHOSPHATASE 94 U/L (46-116); ALT/SGPT 29 U/L (7.0-40); AST/SGOT 17 U/L (<34); BILIRUBIN,TOTAL 0.6 MG/DL (0.3-1.2); BLOOD UREA NITROGEN 20 MG/DL (9-23); CARBON DIOXIDE LEVEL 30 MMOL/L (20-31); CHLORIDE LEVEL 100 MMOL/L (98-107); CHOLESTEROL LEVEL 106 MG/DL (<200); CHOLESTEROL RISK RATIO 2.15 (<5); CREATININE FOR GFR 0.85 MG/DL (0.55-1.30); GLOMERULAR FILTRATION RATE > 60.0 (>39); GLUCOSE, FASTING 94 MG/DL (74-106); HDL CHOLESTEROL 49.1 MG/DL (>40); LDL CHOLESTEROL 38.7 MG/DL (<100); NON-HDL-C 56.9 MG/DL; POTASSIUM SERUM 4.1 MMOL/L (3.5-5.1); SODIUM LEVEL 132 MMOL/L (136-145); TOTAL PROTEIN 6.6 G/DL (5.7-8.2); TRIGLYCERIDES LEVEL 91 MG/DL (<150)
[2023-08-11 12:49] LABS: FREE T4 0.91 NG/DL (0.89-1.76); THYROID STIMULATING HORMONE 2.491 uIU/ML (0.55-4.78); VITAMIN B12 LEVEL 451 PG/ML (211-911)
[2023-08-11 12:50] LABS: TOTAL 25(OH) VITAMIN D 102.5 NG/ML (20.0-100.0)
[2023-08-11 13:04] LABS: HEMOGLOBIN A1c 5.5 % (4.0-6.0)
[2023-08-11 13:05] LABS: CREATININE, URINE 61.9 MG/DL; MALB URINE SIEMENS < 3.0 MG/L; MAU/CREAT RATIO 4.8 MCG/MG (0.0-30.0)
== END ==
LOC: M WUC 10:51
PROVIDERS: ATTEND Internal Medicine Hematology
DX: I10 Essential (primary) hypertension (principal)

== ENCOUNTER → 2023-08-17 | Outpatient (REF) | payer MEDICARE | LOC: M SFHCPLAZ 14:54 | PROVIDERS: ATTEND Physician Assistant | DX: L60.2 Onychogryphosis (principal); L60.3 Nail dystrophy; R30.0 Dysuria ==

== ENCOUNTER → 2023-08-24 | Outpatient (REF) | payer MEDICARE ==
[2023-08-24 16:50] LABS: APPEARANCE, URINE CLEAR (CLEAR); BACTERIA, URINE AUTO NEGATIVE (NEGATIVE); BILIRUBIN, URINE AUTO NEGATIVE (NEGATIVE); BLOOD, URINE BLOOD 1+ (NEGATIVE); COLOR, URINE STRAW (YELLOW); GLUCOSE, URINE (UA) AUTO NEGATIVE (NEGATIVE); KETONE, URINE AUTO NEGATIVE (NEGATIVE); LEUKOCYTE ESTERASE, URINE AUTO NEGATIVE (NEGATIVE); NITRITE, URINE AUTO NEGATIVE (NEGATIVE); PROTEIN, URINE AUTO NEGATIVE (NEGATIVE); RBC, URINE AUTO 0 /HPF (0-3); SPECIFIC GRAVITY URINE AUTO 1.004 (1.002-1.035); SQUAMOUS EPITHELIAL CELL UR AU 0 /HPF (0-6); UROBILINOGEN, URINE AUTO 0.2 mg/dL (0.0-2.0); WBC, URINE AUTO 0 /HPF (0-3)
== END ==
LOC: M LABWUC 16:21 → M SFHCPLAZ 16:21
PROVIDERS: ATTEND Physician Assistant
DX: R10.30 Lower abdominal pain, unspecified (principal)

== ENCOUNTER → 2023-09-05 | Outpatient (CLI) | payer MEDICARE | LOC: M PLAIMG 13:28 | PROVIDERS: ATTEND Internal Medicine Pulmonary Disease | DX: J44.9 Chronic obstructive pulmonary disease, unspecified (principal) ==

== ENCOUNTER → 2023-10-07 | Outpatient (REF) | payer MEDICARE ==
[2023-10-07 13:17] LABS: APPEARANCE, URINE CLEAR (CLEAR); BACTERIA, URINE AUTO NEGATIVE (NEGATIVE); BILIRUBIN, URINE AUTO NEGATIVE (NEGATIVE); BLOOD, URINE BLOOD 2+ (NEGATIVE); COLOR, URINE STRAW (YELLOW); GLUCOSE, URINE (UA) AUTO NEGATIVE (NEGATIVE); KETONE, URINE AUTO NEGATIVE (NEGATIVE); LEUKOCYTE ESTERASE, URINE AUTO NEGATIVE (NEGATIVE); NITRITE, URINE AUTO NEGATIVE (NEGATIVE); PROTEIN, URINE AUTO NEGATIVE (NEGATIVE); RBC, URINE AUTO 1 /HPF (0-3); SPECIFIC GRAVITY URINE AUTO 1.003 (1.002-1.035); SQUAMOUS EPITHELIAL CELL UR AU 0 /HPF (0-6); UROBILINOGEN, URINE AUTO 0.2 mg/dL (0.0-2.0); WBC, URINE AUTO 0 /HPF (0-3)
== END ==
LOC: M SMT 12:28
PROVIDERS: ATTEND Physician Assistant
DX: R31.21 Asymptomatic microscopic hematuria (principal)

== ENCOUNTER → 2024-01-20 | Outpatient (CLI) | payer MEDICARE ==
[~2024-01-20] MED LIST changes: +BIOT5CAP8 PO; +FLUC100T3 PO; +GABA-1172 PO; -GABA-282 PO
[2024-01-20 17:50] LABS: HEMATOCRIT 34.3 % (36.0-47.0); HEMOGLOBIN 11.4 g/dl (12.0-15.5); MEAN CORPUSCULAR HEMOGLOBIN 31.3 pg (27.0-33.0); MEAN CORPUSCULAR HGB CONC 33.2 g/dl (32.0-36.5); MEAN CORPUSCULAR VOLUME 94.2 fl (80.0-96.0); PLATELET COUNT, AUTOMATED 332 10^3/uL (150-450); RED BLOOD COUNT 3.64 10^6/uL (4.00-5.40)
[2024-01-20 18:09] LABS: ERYTHROCYTE SEDIMENTATION RATE 23 mm/hr (0-30)
[2024-01-20 18:15] LABS: BLOOD UREA NITROGEN 14 MG/DL (9-23); CALCIUM LEVEL 9.5 MG/DL (8.3-10.6); CARBON DIOXIDE LEVEL 27 MMOL/L (20-31); CHLORIDE LEVEL 100 MMOL/L (98-107); CREATININE FOR GFR 0.82 MG/DL (0.55-1.30); GLOMERULAR FILTRATION RATE > 60.0 (>39); GLUCOSE, FASTING 97 MG/DL (74-106); IRON (FE) 71 UG/DL (50-170); PERCENT SATURATION 20.8 % (13.2-45.0); POTASSIUM SERUM 4.3 MMOL/L (3.5-5.1); RHEUMATOID FACTOR QUANT 12.7 IU/ML (<14); SODIUM LEVEL 132 MMOL/L (136-145); TOTAL IRON BINDING CAPACITY 341 UG/DL (250-425)
[2024-01-20 18:16] LABS: FERRITIN 146.2 NG/ML (7.3-270.7); TOTAL 25(OH) VITAMIN D 76.5 NG/ML (20.0-100.0)
[2024-01-20 18:17] LABS: VITAMIN B12 LEVEL 791 PG/ML (211-911)
[2024-01-23 10:18] LABS: TRANSFERRIN 277 mg/dL (188-341)
[2024-01-23 22:53] LABS: CYCLIC CITRULLINATED PEPTIDE < 16 UNITS (<20)
[2024-01-24 09:47] LABS: ANA PATTERN Cytoplasmic (NEGATIVE); ANA PATTERN 2 Nuclear, Homogeneous; ANA SCREEN, IFA POSITIVE (NEGATIVE); ANA TITER 1:40 titer (<1:40); ANA TITER 2 1:40 titer (NEGATIVE)
== END ==
LOC: M WUC 11:31
PROVIDERS: ATTEND Internal Medicine Hematology
DX: E87.1 Hypo-osmolality and hyponatremia (principal); D64.9 Anemia, unspecified; E55.9 Vitamin D deficiency, unspecified; M19.90 Unspecified osteoarthritis, unspecified site

== ENCOUNTER 2024-01-31 09:21 | Day surgery (SDC) | payer MEDICARE ==
[~2024-01-31] VITALS: Ht 165.1 cm; Wt 72.5 kg
[~2024-01-31 09:21] MED LIST changes: +propofoL 200 MG/20 ML VIAL As Ordered ONE
[2024-01-31] MEDS: NS 250 ML IV ONE (10:41)
[2024-01-31 12:16] VITALS: TEMP 97.7
[2024-01-31 12:34] VITALS: BP 111/68; O2SAT 97
== END 2024-01-31 12:44 | disposition home or self-care (01) ==
LOC: M OPP 09:21
PROVIDERS: ATTEND Internal Medicine Gastroenterology
DX: D12.3 Benign neoplasm of transverse colon (principal); Z86.0100 Personal history of colon polyps, unspecified; K57.30 Diverticulosis of large intestine without perforation or abscess without bleeding; K64.8 Other hemorrhoids; K22.70 Barrett's esophagus without dysplasia; K44.9 Diaphragmatic hernia without obstruction or gangrene; K31.A19 Gastric intestinal metaplasia without dysplasia, unspecified site; K52.9 Noninfective gastroenteritis and colitis, unspecified; I10 Essential (primary) hypertension; E78.5 Hyperlipidemia, unspecified; K21.9 Gastro-esophageal reflux disease without esophagitis; M19.90 Unspecified osteoarthritis, unspecified site; F41.9 Anxiety disorder, unspecified; F32.A Depression, unspecified; H35.30 Unspecified macular degeneration; J44.9 Chronic obstructive pulmonary disease, unspecified; Z85.118 Personal history of other malignant neoplasm of bronchus and lung; Z92.3 Personal history of irradiation; Z88.1 Allergy status to other antibiotic agents; Z88.5 Allergy status to narcotic agent; Z88.8 Allergy status to other drugs, medicaments and biological substances; Z79.899 Other long term (current) drug therapy; Z80.1 Family history of malignant neoplasm of trachea, bronchus and lung; Z80.8 Family history of malignant neoplasm of other organs or systems

== ENCOUNTER → 2024-02-14 | Outpatient (REF) | payer MEDICARE ==
[~2024-02-14] MED LIST changes: -propofoL 200 MG/20 ML VIAL As Ordered ONE
== END ==
LOC: M SFHCDERM 17:50
PROVIDERS: ATTEND Physician Assistant
DX: C44.329 Squamous cell carcinoma of skin of other parts of face (principal); L57.8 Other skin changes due to chronic exposure to nonionizing radiation

== ENCOUNTER → 2024-02-22 | Outpatient (CLI) | payer MEDICARE | LOC: M PLAIMG 11:47 | PROVIDERS: ATTEND Student in an Organized Health Care Education/Training Program | DX: M25.551 Pain in right hip (principal) ==

== ENCOUNTER → 2024-02-29 | Outpatient (CLI) | payer MEDICARE | LOC: M SOG 08:43 | PROVIDERS: ATTEND Orthopaedic Surgery | DX: M51.369 Other intervertebral disc degeneration, lumbar region without mention of lumbar back pain or lower extremity pain (principal); M54.50 Low back pain, unspecified ==

== ENCOUNTER → 2024-03-02 | Outpatient (CLI) | payer MEDICARE | LOC: M RAD 14:13 | PROVIDERS: ATTEND Internal Medicine Pulmonary Disease | DX: Z85.118 Personal history of other malignant neoplasm of bronchus and lung (principal) ==

== ENCOUNTER → 2024-04-11 | Outpatient (CLI) | payer MEDICARE | LOC: M PLAIMG 11:11 | PROVIDERS: ATTEND Internal Medicine Pulmonary Disease | DX: J44.0 Chronic obstructive pulmonary disease with (acute) lower respiratory infection (principal) ==

== ENCOUNTER → 2024-05-07 | Outpatient (CLI) | payer MEDICARE ==
[2024-05-07 17:15] LABS: BASO % 0.2 % (0.0-1.0); EOS # 0.1 10^3/uL (0.0-0.5); HEMATOCRIT 33.2 % (36.0-47.0); HEMOGLOBIN 11.1 g/dl (12.0-15.5); LYMPH # 1.3 10^3/uL (1.5-5.0); LYMPH % 25.3 % (24.0-44.0); MEAN CORPUSCULAR HEMOGLOBIN 31.3 pg (27.0-33.0); MEAN CORPUSCULAR HGB CONC 33.4 g/dl (32.0-36.5); MEAN CORPUSCULAR VOLUME 93.5 fl (80.0-96.0); MONO # 0.6 10^3/uL (0.0-0.8); NEUTROPHILS % 60.1 % (36.0-66.0); PLATELET COUNT, AUTOMATED 250 10^3/uL (150-450); RED BLOOD COUNT 3.55 10^6/uL (4.00-5.40)
[2024-05-07 17:32] LABS: ALBUMIN 3.5 G/DL (3.2-5.2); ALKALINE PHOSPHATASE 84 U/L (35-104); ALT/SGPT 31 U/L (7.0-40); AST/SGOT 18 U/L (<34); BILIRUBIN,TOTAL 0.6 MG/DL (0.3-1.2); BLOOD UREA NITROGEN 18 MG/DL (9-23); CALCIUM LEVEL 8.8 MG/DL (8.3-10.6); CARBON DIOXIDE LEVEL 30 MMOL/L (20-31); CHLORIDE LEVEL 101 MMOL/L (98-107); CHOLESTEROL LEVEL 164 MG/DL (<200); CHOLESTEROL RISK RATIO 2.52 (<5); GLOMERULAR FILTRATION RATE > 60.0 (>39); GLUCOSE, FASTING 94 MG/DL (74-106); POTASSIUM SERUM 4.2 MMOL/L (3.5-5.1); SODIUM LEVEL 136 MMOL/L (136-145); TOTAL 25(OH) VITAMIN D 96.7 NG/ML (20.0-100.0); TOTAL PROTEIN 6.9 G/DL (5.7-8.2); TRIGLYCERIDES LEVEL 85 MG/DL (<150)
[2024-05-07 17:33] LABS: HEMOGLOBIN A1c 5.9 % (4.0-6.0)
== END ==
LOC: M WUC 11:11
PROVIDERS: ATTEND Student in an Organized Health Care Education/Training Program
DX: Z00.00 Encounter for general adult medical examination without abnormal findings (principal); D64.9 Anemia, unspecified; E78.2 Mixed hyperlipidemia; E55.9 Vitamin D deficiency, unspecified; Z79.899 Other long term (current) drug therapy

== ENCOUNTER 2024-06-24 09:33 | Emergency (ER) | payer MEDICARE ==
[~2024-06-24] VITALS: Ht 160 cm; Wt 66.9 kg
[2024-06-24 10:22] LABS: BASO % 0.2 % (0.0-1.0); EOS # 0.1 10^3/uL (0.0-0.5); EOS % 1.2 % (0.0-3.0); HEMATOCRIT 34.7 % (36.0-47.0); LYMPH # 0.9 10^3/uL (1.5-5.0); LYMPH % 18.4 % (24.0-44.0); MEAN CORPUSCULAR HEMOGLOBIN 31.5 pg (27.0-33.0); MEAN CORPUSCULAR HGB CONC 34.6 g/dl (32.0-36.5); MEAN CORPUSCULAR VOLUME 91.1 fl (80.0-96.0); MONO # 0.5 10^3/uL (0.0-0.8); MONO % 10.8 % (2.0-8.0); NEUTROPHILS # 3.5 10^3/uL (1.5-8.5); NEUTROPHILS % 69.2 % (36.0-66.0); PLATELET COUNT, AUTOMATED 268 10^3/uL (150-450); RED BLOOD COUNT 3.81 10^6/uL (4.00-5.40)
[2024-06-24 10:34] LABS: INR 0.91; PROTHROMBIN TIME 12.5 SECONDS (12.5-14.5)
[2024-06-24 11:17] LABS: LIPASE 35 U/L (12-53)
[2024-06-24 11:19] LABS: ALBUMIN 3.8 G/DL (3.2-5.2); ALKALINE PHOSPHATASE 86 U/L (35-104); ALT/SGPT 32 U/L (7.0-40); AST/SGOT 24 U/L (<34); BILIRUBIN,DIRECT 0.2 MG/DL (<0.4); BILIRUBIN,TOTAL 0.8 MG/DL (0.3-1.2); CK-MB VALUE MASS < 1.0 NG/ML (<3.6); CPK CREATINE PHOSPHOKINASE 101 U/L (34-145); MB/CK RELATIVE INDEX 0.99 (< OR =4)
[2024-06-24] MEDS ORDERED: LOSA25TA13 PO (14:01)
[2024-06-24 14:21] VITALS: BP 190/75
[2024-06-24] MEDS: LOSARTAN 25 MG TAB PO ONE (14:21)
[2024-06-24 14:27] VITALS: BP 161/68; O2SAT 100
[2024-06-24 14:30] VITALS: TEMP 97
== END 2024-06-24 14:40 | disposition home or self-care (01) ==
LOC: M ED 09:33
DX: I10 Essential (primary) hypertension (principal); F41.9 Anxiety disorder, unspecified; E87.1 Hypo-osmolality and hyponatremia; E78.5 Hyperlipidemia, unspecified; J44.9 Chronic obstructive pulmonary disease, unspecified; K21.9 Gastro-esophageal reflux disease without esophagitis; Z87.891 Personal history of nicotine dependence; Z88.1 Allergy status to other antibiotic agents; Z88.5 Allergy status to narcotic agent; Z88.8 Allergy status to other drugs, medicaments and biological substances; Z79.52 Long term (current) use of systemic steroids; Z79.02 Long term (current) use of antithrombotics/antiplatelets; Z79.899 Other long term (current) drug therapy

== ENCOUNTER → 2024-06-30 | Outpatient (CLI) | payer MEDICARE ==
[2024-06-30 12:18] LABS: BASO % 0.2 % (0.0-1.0); EOS % 0.3 % (0.0-3.0); HEMATOCRIT 33.9 % (36.0-47.0); HEMOGLOBIN 11.9 g/dl (12.0-15.5); LYMPH # 0.9 10^3/uL (1.5-5.0); LYMPH % 14.1 % (24.0-44.0); MEAN CORPUSCULAR HEMOGLOBIN 31.5 pg (27.0-33.0); MEAN CORPUSCULAR HGB CONC 35.1 g/dl (32.0-36.5); MEAN CORPUSCULAR VOLUME 89.7 fl (80.0-96.0); MONO # 0.7 10^3/uL (0.0-0.8); NEUTROPHILS # 4.9 10^3/uL (1.5-8.5); NEUTROPHILS % 75.1 % (36.0-66.0); PLATELET COUNT, AUTOMATED 306 10^3/uL (150-450); RED BLOOD COUNT 3.78 10^6/uL (4.00-5.40); WHITE BLOOD COUNT 6.5 10^3/uL (4.0-10.0)
[2024-06-30 12:20] LABS: APPEARANCE, URINE CLEAR (CLEAR); BACTERIA, URINE AUTO NEGATIVE (NEGATIVE); BILIRUBIN, URINE AUTO NEGATIVE (NEGATIVE); BLOOD, URINE BLOOD 1+ (NEGATIVE); COLOR, URINE STRAW (YELLOW); GLUCOSE, URINE (UA) AUTO NEGATIVE (NEGATIVE); KETONE, URINE AUTO NEGATIVE (NEGATIVE); LEUKOCYTE ESTERASE, URINE AUTO NEGATIVE (NEGATIVE); NITRITE, URINE AUTO NEGATIVE (NEGATIVE); PROTEIN, URINE AUTO NEGATIVE (NEGATIVE); RBC, URINE AUTO 0 /HPF (0-3); SPECIFIC GRAVITY URINE AUTO 1.002 (1.002-1.035); SQUAMOUS EPITHELIAL CELL UR AU 0 /HPF (0-6); UROBILINOGEN, URINE AUTO 0.2 mg/dL (0.0-2.0); WBC, URINE AUTO 0 /HPF (0-3)
[2024-06-30 12:42] LABS: C REACTIVE PROTEIN QUANTITATIV < 0.50 MG/DL (<1.0)
[2024-06-30 12:43] LABS: ALKALINE PHOSPHATASE 86 U/L (35-104); ALT/SGPT 32 U/L (7.0-40); AST/SGOT 31 U/L (<34); BILIRUBIN,TOTAL 0.8 MG/DL (0.3-1.2); BLOOD UREA NITROGEN 10 MG/DL (9-23); CALCIUM LEVEL 8.7 MG/DL (8.3-10.6); CARBON DIOXIDE LEVEL 28 MMOL/L (20-31); CHLORIDE LEVEL 86 MMOL/L (98-107); CREATININE FOR GFR 0.58 MG/DL (0.55-1.30); GLOMERULAR FILTRATION RATE > 60.0 (>39); GLUCOSE, FASTING 106 MG/DL (74-106); MAGNESIUM LEVEL 1.6 MG/DL (1.8-2.4); POTASSIUM SERUM 4.2 MMOL/L (3.5-5.1); SODIUM LEVEL 121 MMOL/L (136-145); TOTAL PROTEIN 7.3 G/DL (5.7-8.2)
[2024-06-30 12:54] LABS: PROCALCITONIN 0.04 ng/ml
== END ==
LOC: M LAB 11:37
PROVIDERS: ATTEND Student in an Organized Health Care Education/Training Program
DX: R35.0 Frequency of micturition (principal)

== ENCOUNTER → 2024-07-04 | Outpatient (REF) | payer MEDICARE ==
[2024-07-04 14:18] LABS: THYROID STIMULATING HORMONE 3.641 uIU/ML (0.55-4.78)
[2024-07-04 14:20] LABS: FOLATE 18.24 NG/ML (>5.4)
[2024-07-04 14:21] LABS: FREE T4 1.17 NG/DL (0.89-1.76)
== END ==
LOC: M LABWUC 12:35
PROVIDERS: ATTEND Student in an Organized Health Care Education/Training Program
DX: I10 Essential (primary) hypertension (principal)

== ENCOUNTER → 2024-07-20 | Outpatient (CLI) | payer MEDICARE | LOC: M WHC 12:32 | PROVIDERS: ATTEND Student in an Organized Health Care Education/Training Program | DX: Z12.31 Encounter for screening mammogram for malignant neoplasm of breast (principal); R92.313 Mammographic fatty tissue density, bilateral breasts ==

== ENCOUNTER → 2024-09-13 | Outpatient (CLI) | payer MEDICARE | LOC: M WHC 12:47 | PROVIDERS: ATTEND Student in an Organized Health Care Education/Training Program | DX: M85.89 Other specified disorders of bone density and structure, multiple sites (principal); M81.8 Other osteoporosis without current pathological fracture; M85.88 Other specified disorders of bone density and structure, other site ==

== ENCOUNTER → 2024-11-15 | Outpatient (CLI) | payer MEDICARE | LOC: M RAD 14:06 | PROVIDERS: ATTEND Internal Medicine | DX: R22.1 Localized swelling, mass and lump, neck (principal) ==

== ENCOUNTER → 2025-01-02 | Outpatient (CLI) | payer MEDICARE | LOC: M WUC 10:40 | PROVIDERS: ATTEND Internal Medicine | DX: M51.360 Other intervertebral disc degeneration, lumbar region with discogenic back pain only (principal); M51.34 Other intervertebral disc degeneration, thoracic region; M50.30 Other cervical disc degeneration, unspecified cervical region; M54.9 Dorsalgia, unspecified ==

== ENCOUNTER → 2025-03-14 | Outpatient (CLI) | payer MEDICARE | LOC: M PLAIMG 09:14 | PROVIDERS: ATTEND Internal Medicine Pulmonary Disease | DX: R09.1 Pleurisy (principal) ==